=== PATIENT | male | born 1970 | race Caucasian/White ===

== ENCOUNTER 2022-08-20 17:34 | Inpatient (IN) ==
[~2022-08-20 17:34] MED LIST: ETOMIDATE 2 MG/ML 20 ML VIAL IV ONE; MIDAZOLAM HCL 5 MG/ML VIAL IV ONE; ROCURONIUM BROMIDE 10 MG/ML 5 ML VIAL IV ONE; SUCCINYLCHOLINE CHLORIDE 20 MG/ML 10 ML VIAL IV ONE; fentaNYL citrate 100 MCG/2 ML VIAL IV ONE
[2022-08-20] MEDS ORDERED: SODIUM CHLORIDE 0.9% 1000ML 1,000 ML IV SCH ×2 (18:30→21:43)
[2022-08-20 18:31] LABS: Hematocrit (blood only) 48.4 % (40.1-51.0); Hemoglobin 17.2 g/dl (14.0-18.0); Mean Corpuscular Hemoglobin 33.2 pg (25.0-34.0); Mean Corpuscular Hgb Conc 35.5 g/dL (32.0-36.0); Mean Corpuscular Volume 93.4 fL (80.0-100.0); Mean Platelet Volume 11.3 fL (9.4-12.4); Platelet Count 170 K/uL (130-400); RDW Coefficient of Variation 12.4 % (11.5-14.5); RDW Standard Deviation 42.6 fL (36.4-46.3); Red Blood Count 5.18 M/uL (4.63-6.08); White Blood Count 9.73 K/ul (4.8-10.8)
[2022-08-20] MEDS ORDERED: ONDANSETRON INJ 2 MG/ML 2 ML VIAL IV STA ×2 (18:33→20:50)
--- NOTE | 2022-08-20 18:36 | Emergency Department Note ---
Impression & Plan Syncope and collapse, Non-ST elevation MA (NSTEMI), Acute hyponatremia, Acute hypokalemia, JUAN (acute kidney injury), Elevated lactic acid level, Elevated procalcitonin, Alcohol withdrawal, Acute respiratory failure with hypoxia, Chest pain ED Provider Note HISTORY OF PRESENT ILLNESS: Patient is a 52-year-old male presenting with shortness of breath, chest pain, nausea and vomiting for the last few days. Patient states that today he was going into his bathroom when he had a syncopal episode. He woke up from a syncopal episode and called 911 because he could not breathe. Patient reports that chest pain is substernal in nature without any radiation. He states he has been feeling progressively more short of breath over the last few days. He has not seen a doctor in a number of years. He is a prior 2 pack/day smoker and is down to less than 1 pack a day. He is also a chronic alcoholic and drinks around 18 beers a day, but states that in the last 4 days he is only been drinking around 4 beers. He states that he has woken up feeling very tremulous in the last few days. Denies taking any medications or anticoagulants. He denies striking his head when he fell. Reports having chest pain and feeling short of breath prior to passing out on the bathroom floor. Denies waking up with any bowel or bladder incontinence. Denies any pain on arrival to the ER. Per report, the patient saturations were in the 70s on room air and he was started on a nonrebreather with EMS in route with improvement of his saturations to the low 90s. Patient denies any fevers in the last few days. ROS: Constitutional: No fever, chills, or weakness Skin: No rash or diaphoresis HENT: No headaches or congestion Eyes: No vision changes Cardio: No palpitations or leg swelling +chest pain Respiratory: No cough, wheezing +shortness of breath GI: No diarrhea, constipation +nausea; +vomiting : No dysuria, polyuria MSK: No joint or back pain Neuro: No loss of sensation, confusion, focal deficits, numbness, tingling Psychiatric: No mood changes PHYSICAL EXAM: Constitutional: Patient appears in mild distress. Chronically ill appearing HENT: Head: Normocephalic and atraumatic. Eyes: EOMI, PERRL Mouth/Throat: Mucous membranes moist. Neck: Trachea midline. Neck supple. Cardiovascular: Tachycardic with regular rhythm. No murmurs, rubs or gallops. Intact distal pulses. Pulmonary/Chest: No respiratory distress. Breath sounds clear and equal bilaterally. No wheezes or rales. Abdominal: BS +. Abdomen soft, no tenderness, rebound or guarding. Back: No midline spinal tenderness, no paraspinal tenderness, no CVA tenderness. Musculoskeletal: No edema, tenderness or deformity noted. Skin: Warm and dry. No rash, erythema, pallor or cyanosis Psychiatric: Appropriate mood and affect for situation. Neurological: Alert and keenly responsive. CN II-XII grossly intact, moving all extremities equally and fully. Patient tremulous on exam. MDM: - Vitals signs showed tachycardia, tachypnea, hypoxia. Patient started on supplemental oxygen. - Actively vomiting on exam and given 4 mg IV zofran. - EKG negative for acute ischemic changes. Shows sinus tachycardia. - Patient tremulous on exam. Alcohol withdrawal score performed and indicates patient needs 2 mg IV ativan, per protocol. Given 2 mg IV ativan. - Laboratory workup showed normal WBC; hyponatremia (Na 124 - likely secondary to alcohol use); hypokalemia (K 2.9); JUAN (Cr 2.54 - unknown baseline); elevated lactate (7.5); elevated troponin (70); elevated procalcitonin (9.66); normal magnesium - ABG shows alkalosis. - COVID/flu/RSV negative. - CXR negative for acute pathology - noted to have significant emphysema. - Blood cultures obtained. Patient given IV cefepime. MRSA nasal swab ordered. - Patient required further ativan in ER for withdrawal symptoms. - Repeat EKG shows no evidence of ischemic changes, but poor baseline. - Delta troponin ordered. - Patient given 2L NS. Given an additional 4 mg IV zofran for nausea. - CT head wo contrast negative for acute intracranial pathology. - Hospitalist Dr. Yan, consulted for admission. - Patient admitted to [facility] hospitalist service for further evaluation and management. ASSESSMENT AND PLAN: Diagnosis: syncope; NSTEMI; hyponatremia; hypokalemia; JUAN; elevated lactate; elevated procalcitonin; alcohol withdrawal; acute hypoxic respiratory failure; chest pain Plan: admit I provided 45 minutes of critical care time separate of any billable procedures. Past Med/Surg History Social History Smoking Status: Heavy tobacco smoker Tobacco Type: Cigarettes Feels Safe at Home: Yes Allergies Allergies Allergy/AdvReac Type Severity Reaction Status Date / Time No Known Allergies Allergy Unverified 08/20/22 19:05 Home Meds Home Medications Medication Instructions Recorded Confirmed No Known Home Medications 08/20/22 08/20/22 Results & Data (ED) Vital Signs Vital Signs - 24 hr 08/20/22 17:56 08/20/22 17:56 08/20/22 17:56 Temperature 36.2 C L Temperature Source Oral Pulse Rate 138 H Pulse Rate [Apical] Pulse Rate from SpO2 Sensor Pulse Rhythm Regular Pulse Rhythm [Apical] Pulse Strength Normal Pulse Strength [Apical] Respiratory Rate 36 H Respiratory Effort / Characteristics Labored Labored Respiratory Depth Shallow Respiratory Pattern Tachypnea Tachypnea Blood Pressure 126/62 Blood Pressure [Right Arm] Blood Pressure Mean 83 Blood Pressure Mean [Right Arm] Blood Pressure Position Lying Blood Pressure Position [Right Arm] Pulse Oximetry 86 L Oxygen Delivery Method Room Air Room Air Room Air Oxygen Flow Rate Sepsis Recent Fever Within 48 Hours No Sepsis New/Unexplained Change in Mental Status No Sepsis Action Taken by Nursing Physician Notified 08/20/22 17:56 08/20/22 18:18 08/20/22 18:18 Temperature Temperature Source Pulse Rate 136 H Pulse Rate [Apical] 137 H 136 H Pulse Rate from SpO2 Sensor Pulse Rhythm Regular Pulse Rhythm [Apical] Regular Regular Pulse Strength Pulse Strength [Apical] Normal Normal Respiratory Rate 34 H 32 H 32 H Respiratory Effort / Characteristics Labored Labored Respiratory Depth Shallow Shallow Respiratory Pattern Tachypnea Tachypnea Blood Pressure Blood Pressure [Right Arm] 122/60 173/147 H Blood Pressure Mean Blood Pressure Mean [Right Arm] 80 155 Blood Pressure Position Blood Pressure Position [Right Arm] Lying Lying Pulse Oximetry 86 L 87 L 87 L Oxygen Delivery Method Room Air Nasal Cannula Nasal Cannula Oxygen Flow Rate 3 3 Sepsis Recent Fever Within 48 Hours Sepsis New/Unexplained Change in Mental Status Sepsis Action Taken by Nursing 08/20/22 19:01 08/20/22 19:55 08/20/22 20:01 Temperature Temperature Source Pulse Rate 137 H 132 H 132 H Pulse Rate [Apical] Pulse Rate from SpO2 Sensor 131 H Pulse Rhythm Pulse Rhythm [Apical] Pulse Strength Pulse Strength [Apical] Respiratory Rate 25 H 38 H 37 H Respiratory Effort / Characteristics Respiratory Depth Respiratory Pattern Blood Pressure 187/152 H 146/111 H 99/50 L Blood Pressure [Right Arm] Blood Pressure Mean 163 122 66 Blood Pressure Mean [Right Arm] Blood Pressure Position Blood Pressure Position [Right Arm] Pulse Oximetry 94 98 96 Oxygen Delivery Method Nasal Cannula Oxymask Oxymask Oxygen Flow Rate 5 5 4 Sepsis Recent Fever Within 48 Hours Sepsis New/Unexplained Change in Mental Status Sepsis Action Taken by Nursing Laboratory Data Result diagrams: 08/20/22 17:50 08/20/22 17:50 Lab Results 08/20/22 08/20/22 08/20/22 Range/Units 17:50 17:50 17:50 WBC 9.73 (4.8-10.8) K/ul RBC 5.18 (4.63-6.08) M/uL Hgb 17.2 (14.0-18.0) g/dl POC Hgb (14.0-18.0) g/dl Hct 48.4 (40.1-51.0) % POC Hct (42-52) % MCV 93.4 (80.0-100.0) fL MCH 33.2 (25.0-34.0) pg MCHC 35.5 (32.0-36.0) g/dL RDW Std Deviation 42.6 (36.4-46.3) fL RDW Coeff of Tessy 12.4 (11.5-14.5) % Plt Count 170 (130-400) K/uL MPV 11.3 (9.4-12.4) fL Immature Gran % (Auto) 0.3 % Neut % (Auto) 84.0 % Lymph % (Auto) 5.0 % Shelby % (Auto) 8.9 % Eos % (Auto) 1.0 % Baso % (Auto) 0.8 % Neut # (Auto) 8.16 H (1.4-6.5) K/uL Lymph # (Auto) 0.49 L (1.2-3.4) K/uL Shelby # (Auto) 0.87 H (0.24-0.82) K/uL Eos # (Auto) 0.10 (0-0.50) K/uL Baso # (Auto) 0.08 (0-0.2) K/uL Immature Gran # (Auto) 0.03 H (0.00-0.02) K/uL PT 11.1 (9.0-12.0) Seconds INR 1.0 (0.9-1.1) POC pH (7.35-7.45) POC pCO2 (35-46) mmHg POC pO2 (80-95) mmHg POC HCO3 (19-24) len/L POC Total CO2 (24-31) mmol/L POC Base Excess (-9-1.8) len/L POC ABG O2 Sat (90-95) % POC Sodium (135-144) mmol/L Sodium 124 L (136-145) mmol/L POC Potassium (3.3-5.0) mmol/L Potassium 2.9 L (3.5-5.1) mmol/L Chloride 77 L (98-107) mmol/L Carbon Dioxide 21 (21-32) mmol/L Anion Gap 26 H (3-11) BUN 21 (6-23) mg/dl Creatinine 2.54 H (0.6-1.4) mg/dl Est Cr Clr Drug Dosing 34.3 ml/min Est GFR ( Amer) 32.6 ml/min Est GFR (Non-Af Amer) 28.1 ml/min BUN/Creatinine Ratio 8.3 L (10-20) Glucose 151 H (70-99(Fasting)) mg/dl Osmolality (280-300) mOsm/kg Lactate (0.4-2.0) mmol/L Calcium 10.0 (8.5-10.1) mg/dl Magnesium 1.8 (1.7-2.4) mg/dl Total Bilirubin 1.5 H (0.2-1.0) mg/dl Direct Bilirubin 0.3 H (0-0.2) mg/dl AST 81 H (13-39) U/L ALT 56 H (7-52) U/L Alkaline Phosphatase 42 (34-104) U/L Troponin I High Sens 70.0 H* (0-20) pg/ml Total Protein 8.3 (6.0-8.3) gm/dl Albumin 4.5 (3.4-5.0) gm/dl Procalcitonin (0-0.5) ng/ml SARS-CoV-2 (PCR) (Negative) Influenza Type A (PCR) (Neg) Influenza Type B (PCR) (Neg) RSV (RT-PCR) (Neg) 08/20/22 08/20/22 08/20/22 Range/Units 17:50 17:50 18:25 WBC (4.8-10.8) K/ul RBC (4.63-6.08) M/uL Hgb (14.0-18.0) g/dl POC Hgb (14.0-18.0) g/dl Hct (40.1-51.0) % POC Hct (42-52) % MCV (80.0-100.0) fL MCH (25.0-34.0) pg MCHC (32.0-36.0) g/dL RDW Std Deviation (36.4-46.3) fL RDW Coeff of Tessy (11.5-14.5) % Plt Count (130-400) K/uL MPV (9.4-12.4) fL Immature Gran % (Auto) % Neut % (Auto) % Lymph % (Auto) % Shelby % (Auto) % Eos % (Auto) % Baso % (Auto) % Neut # (Auto) (1.4-6.5) K/uL Lymph # (Auto) (1.2-3.4) K/uL Shelby # (Auto) (0.24-0.82) K/uL Eos # (Auto) (0-0.50) K/uL Baso # (Auto) (0-0.2) K/uL Immature Gran # (Auto) (0.00-0.02) K/uL PT (9.0-12.0) Seconds INR (0.9-1.1) POC pH (7.35-7.45) POC pCO2 (35-46) mmHg POC pO2 (80-95) mmHg POC HCO3 (19-24) len/L POC Total CO2 (24-31) mmol/L POC Base Excess (-9-1.8) len/L POC ABG O2 Sat (90-95) % POC Sodium (135-144) mmol/L Sodium (136-145) mmol/L POC Potassium (3.3-5.0) mmol/L Potassium (3.5-5.1) mmol/L Chloride (98-107) mmol/L Carbon Dioxide (21-32) mmol/L Anion Gap (3-11) BUN (6-23) mg/dl Creatinine (0.6-1.4) mg/dl Est Cr Clr Drug Dosing ml/min Est GFR ( Amer) ml/min Est GFR (Non-Af Amer) ml/min BUN/Creatinine Ratio (10-20) Glucose (70-99(Fasting)) mg/dl Osmolality 272 L (280-300) mOsm/kg Lactate (0.4-2.0) mmol/L Calcium (8.5-10.1) mg/dl Magnesium (1.7-2.4) mg/dl Total Bilirubin (0.2-1.0) mg/dl Direct Bilirubin (0-0.2) mg/dl AST (13-39) U/L ALT (7-52) U/L Alkaline Phosphatase (34-104) U/L Troponin I High Sens (0-20) pg/ml Total Protein (6.0-8.3) gm/dl Albumin (3.4-5.0) gm/dl Procalcitonin 9.66 H (0-0.5) ng/ml SARS-CoV-2 (PCR) NEGATIVE (Negative) Influenza Type A (PCR) Negative (Neg) Influenza Type B (PCR) Negative (Neg) RSV (RT-PCR) Negative (Neg) 08/20/22 08/20/22 Range/Units 18:53 18:56 WBC (4.8-10.8) K/ul RBC (4.63-6.08) M/uL Hgb (14.0-18.0) g/dl POC Hgb 16.7 (14.0-18.0) g/dl Hct (40.1-51.0) % POC Hct 49 (42-52) % MCV (80.0-100.0) fL MCH (25.0-34.0) pg MCHC (32.0-36.0) g/dL RDW Std Deviation (36.4-46.3) fL RDW Coeff of Tessy (11.5-14.5) % Plt Count (130-400) K/uL MPV (9.4-12.4) fL Immature Gran % (Auto) % Neut % (Auto) % Lymph % (Auto) % Shelby % (Auto) % Eos % (Auto) % Baso % (Auto) % Neut # (Auto) (1.4-6.5) K/uL Lymph # (Auto) (1.2-3.4) K/uL Shelby # (Auto) (0.24-0.82) K/uL Eos # (Auto) (0-0.50) K/uL Baso # (Auto) (0-0.2) K/uL Immature Gran # (Auto) (0.00-0.02) K/uL PT (9.0-12.0) Seconds INR (0.9-1.1) POC pH 7.46 H (7.35-7.45) POC pCO2 26 L (35-46) mmHg POC pO2 64 L (80-95) mmHg POC HCO3 19 (19-24) len/L POC Total CO2 19 L (24-31) mmol/L POC Base Excess -5.0 (-9-1.8) len/L POC ABG O2 Sat 94.0 (90-95) % POC Sodium 124 L (135-144) mmol/L Sodium (136-145) mmol/L POC Potassium 3.0 L (3.3-5.0) mmol/L Potassium (3.5-5.1) mmol/L Chloride (98-107) mmol/L Carbon Dioxide (21-32) mmol/L Anion Gap (3-11) BUN (6-23) mg/dl Creatinine (0.6-1.4) mg/dl Est Cr Clr Drug Dosing ml/min Est GFR ( Amer) ml/min Est GFR (Non-Af Amer) ml/min BUN/Creatinine Ratio (10-20) Glucose (70-99(Fasting)) mg/dl Osmolality (280-300) mOsm/kg Lactate 7.5 H* (0.4-2.0) mmol/L Calcium (8.5-10.1) mg/dl Magnesium (1.7-2.4) mg/dl Total Bilirubin (0.2-1.0) mg/dl Direct Bilirubin (0-0.2) mg/dl AST (13-39) U/L ALT (7-52) U/L Alkaline Phosphatase (34-104) U/L Troponin I High Sens (0-20) pg/ml Total Protein (6.0-8.3) gm/dl Albumin (3.4-5.0) gm/dl Procalcitonin (0-0.5) ng/ml SARS-CoV-2 (PCR) (Negative) Influenza Type A (PCR) (Neg) Influenza Type B (PCR) (Neg) RSV (RT-PCR) (Neg) Administered Medications Potassium Chloride (K Bernardo / Wtr) 10 meq in 100 mls @ 100 mls/hr IV Q1H JOMAR; Protocol Stop: 08/20/22 21:44 Last Admin: 08/20/22 20:05 Dose: 100 mls/hr Documented By: ADAMA Discontinued Medications Aspirin (Aspirin Chew 324 Mg) 324 mg PO NOW STA Stop: 08/20/22 19:47 Last Admin: 08/20/22 20:08 Dose: 324 mg Documented By: ADAMA Sodium Chloride (Nss 1000ml) 1,000 mls @ 999 mls/hr IV .Q1H1M JOMAR Stop: 08/20/22 19:30 Last Infusion: 08/20/22 19:41 Dose: 0 mls/hr Documented By: Admin: 08/20/22 18:22 Dose: 999 mls/hr Documented By: MELISSA Cefepime HCl (Maxipime) 2,000 mg in 20 mls @ 5 mls/min IV NOW STA; Protocol Stop: 08/20/22 18:58 Last Admin: 08/20/22 19:04 Dose: 5 mls/min Documented By: ADAMA Sodium Chloride (Nss 1000ml) 1,000 mls @ 999 mls/hr IV .Q1H1M ONE Stop: 08/20/22 20:35 Last Admin: 08/20/22 20:05 Dose: 999 mls/hr Documented By: ADAMA Lorazepam 3 mg/ Syringe 3 mls @ 2 mls/min IV ONCE PRN; Protocol PRN Reason: EtOH Withdrawal AWSS Score 10 & above Last Admin: 08/20/22 20:07 Dose: 2 mls/min Documented By: ADAMA Lorazepam (Lorazepam 1 Mg/1 Ml Syr) 1 mg IM NOW STA; Protocol Stop: 08/20/22 18:48 Last Admin: 08/20/22 19:44 Dose: Not Given Documented By: ADAMA Lorazepam (Lorazepam 1 Mg/1 Ml Syr) 2 mg IV NOW STA; Protocol Stop: 08/20/22 18:55 Last Admin: 08/20/22 19:04 Dose: 2 mg Documented By: ADAMA Ondansetron HCl (Ondansetron Inj 2 Mg/Ml 2 Ml Vial) 4 mg IV NOW STA Stop: 08/20/22 18:34 Last Admin: 08/20/22 18:37 Dose: 4 mg Documented By: MELISSA Ondansetron HCl (Ondansetron Inj 2 Mg/Ml 2 Ml Vial) 4 mg IV NOW STA Stop: 08/20/22 20:51 Last Admin: 08/20/22 21:07 Dose: 4 mg Documented By: ADAMA Imaging Data Radiologist's Impression: Chest X-Ray 08/20/22 18:18 SINGLE VIEW CHEST CLINICAL HISTORY: Sepsis. FINDINGS: An AP, portable, upright chest radiograph is correlated with chest CT dated 03/19/2013. The cardiomediastinal silhouette is top normal for projection noting atherosclerotic calcification of the thoracic aorta. Emphysema and chronic interstitial thickening is similar to previous. There is elevation of the left hemidiaphragm with atelectasis of the left lower lung. There is minimal atelectasis at the right lung base. No large pleural effusion or pneumothorax is seen. The skeletal structures are osteopenic. The bony thorax is grossly intact. IMPRESSION: 1. Emphysematous change with no acute cardiopulmonary abnormality identified. 2. Elevation of the left hemidiaphragm with atelectasis of the left lower lung represents a change from 2012. ACT 112: Negative or not required by law. Electronically signed by: Rajinder Borden M.D. 08/20/2022 6:[address] 08/20/22 18:36 CT SCAN OF THE BRAIN WITHOUT IV CONTRAST CLINICAL HISTORY: Syncope. Alcohol abuse. COMPARISON STUDY: CT of the brain dated 03/19/2013. TECHNIQUE: Unenhanced axial CT scan of the brain is performed from the vertex to the skull base. A dose lowering technique was utilized adhering to the principles of ALARA. CT DOSE: 614.27 mGy.cm FINDINGS: Brain parenchyma: There is age-advanced involutional change noting moderate subcortical and periventricular microangiopathic disease. There is no hemorrhage, mass effect, or evidence of acute territorial ischemia by CT criteria. Rm-white matter differentiation is preserved. No extra-axial fluid collection is seen. Ventricles, sulci, cisterns: Prominent secondary to involutional change. Intracranial vasculature: There is atherosclerotic calcification of the cavernous carotid arteries. Calvarium: The skeletal structures are osteopenic. No depressed calvarial fracture is seen. Sinuses and mastoids: There is subtotal opacification of the maxillary antra. The remaining Paranasal sinuses are clear. The mastoid air cells are well pneumatized. Orbits: The bony orbits are grossly intact. IMPRESSION: 1. There is no hemorrhage, mass effect, or evidence of acute territorial ischemia by CT criteria. 2. Maxillary sinus disease as above. ACT 112: Negative or not required by law. Electronically signed by: Rajinder Borden M.D. 08/20/2022 8:58 PM Discharge Plan Visit Data Chief Complaint: Shortness of Breath/Dyspnea Stated Complaint: HYPOXIA, CHEST PAIN ED Provider: Ary Garcia Discharge Problem: Syncope and collapse, Non-ST elevation MA (NSTEMI), Acute hyponatremia, Acute hypokalemia, JUAN (acute kidney injury), Elevated lactic acid level, Elevated pr ocalcitonin, Alcohol withdrawal, Acute respiratory failure with hypoxia, Chest pain Patient Disposition: Admitted As Inpatient Forms [facility] Prescriptions Prescriptions: No Action No Known Home Medications Referrals Referrals: PCP,NO [Physician] -
[2022-08-20 18:41] LABS: Prothrombin Time 11.1 Seconds (9.0-12.0)
[2022-08-20 18:42] LABS: Albumin Level 4.5 gm/dl (3.4-5.0); BUN Creatinine Ratio 8.3 (10-20); Bilirubin Direct 0.3 mg/dl (0-0.2); Bilirubin,Total 1.5 mg/dl (0.2-1.0); Creatinine Clr Calc Pharmacy 34.3 ml/min; Est GFR (African American) 32.6 ml/min; Est GFR (Non-African American) 28.1 ml/min; Magnesium 1.8 mg/dl (1.7-2.4); Potassium 2.9 mmol/L (3.5-5.1); Total Protein 8.3 gm/dl (6.0-8.3)
[2022-08-20] MEDS ORDERED: LORazepam 1 MG/1 ML SYR IM STA (18:47)
[2022-08-20 18:50] LABS: Basophils # (auto) 0.08 K/uL (0-0.2); Basophils % (auto) 0.8 %; Immature Granulocytes # (auto) 0.03 K/uL (0.00-0.02); Immature Granulocytes % (auto) 0.3 %; Lymphocytes # (auto) 0.49 K/uL (1.2-3.4); Monocytes # (auto) 0.87 K/uL (0.24-0.82); Monocytes % (auto) 8.9 %; Neutrophils # (auto) 8.16 K/uL (1.4-6.5)
[2022-08-20] MEDS ORDERED: LORazepam 1 MG/1 ML SYR IV STA ×2 (18:54→21:28)
[2022-08-20] MEDS ORDERED: CEFEPIME 2,000 MG/20 ML VIAL IV STA (18:55)
--- NOTE | 2022-08-20 18:59 | XRay Report ---
SINGLE VIEW CHEST CLINICAL HISTORY: Sepsis. FINDINGS: An AP, portable, upright chest radiograph is correlated with chest CT dated 03/19/2013. The cardiomediastinal silhouette is top normal for projection noting atherosclerotic calcification of the thoracic aorta. Emphysema and chronic interstitial thickening is similar to previous. There is eleva tion of the left hemidiaphragm with atelectasis of the left lower lung. There is minimal atelectasis at the right lung base. No large pleural effusion or pneumothorax is seen. The skeletal structures ar e osteopenic. The bony thorax is grossly intact. IMPRESSION: 1. Emphysematous change with no acute cardiopulmonary abnormality identified. 2. Elevation of the left hemidiaphragm with atelectasis of the left lower lung represents a change fr om 2013. ACT 112: Negative or not required by law. Electronically signed by: Rajinder Borden M.D. 08/20/2022 6:58 PM
[2022-08-20 19:07] LABS: iSTAT Arterial Blood Gas HCO3 19 meg/L (19-24); iSTAT Arterial Blood Gas pCO2 26 mmHg (35-46); iSTAT Arterial Blood Gas pH 7.46 (7.35-7.45); iSTAT Arterial Blood Gas pO2 64 mmHg (80-95); iSTAT Carbon Dioxide 19 mmol/L (24-31); iSTAT Hematocrit 49 % (42-52); iSTAT Hemoglobin 16.7 g/dl (14.0-18.0); iSTAT Sodium 124 mmol/L (135-144)
[2022-08-20 19:10] LABS: Influenza A virus by PCR Negative (Neg); Influenza B virus by PCR Negative (Neg); RSV by PCR Negative (Neg); SARS CoV2 RNA(COVID-19) Ceph NEGATIVE (Negative)
[2022-08-20] MEDS ORDERED: SODIUM CHLORIDE 0.9% 1000ML 1,000 ML IV ONE (19:35)
[2022-08-20] MEDS ORDERED: ASPIRIN CHEW 324 MG PO STA (19:46)
[2022-08-20] MEDS ORDERED: Ativan IV Alcohol Withdrawal--Active Protocol IV PRN (19:56)
[2022-08-20] MEDS ORDERED: LORazepam 1 MG in SYRINGE 0 ML IV PRN (19:56)
[2022-08-20] MEDS ORDERED: LORazepam 3 MG in SYRINGE 0 ML IV PRN (19:56)
[2022-08-20] MEDS ORDERED: LORazepam 2 MG in SYRINGE 0 ML IV PRN (19:56)
[2022-08-20] MEDS ORDERED: MULTI-VITAMIN INFUSION 10 ML, THIAMINE HCL 100 MG, FOLIC ACID 1 MG in SODIUM CHLORIDE 0... IV ONE (19:56)
[2022-08-20] MEDS: POTASSIUM CHLORIDE / WTR 10 MEQ/100 ML PLCT IV SCH ×2 (20:05→21:35)
--- NOTE | 2022-08-20 21:00 | CT Scan Report ---
CT SCAN OF THE BRAIN WITHOUT IV CONTRAST CLINICAL HISTORY: Syncope. Alcohol abuse. COMPARISON STUDY: CT of the brain dated 03/19/2013. TECHNIQUE: Unenhanced axial CT scan of the brain is performed from the vertex to the skull base. A do se lowering technique was utilized adhering to the principles of ALARA. CT DOSE: 614.27 mGy.cm FINDINGS: Brain parenchyma: There is age-advanced involutional change noting moderate subcortical and periventr icular microangiopathic disease. There is no hemorrhage, mass effect, or evidence of acute territoria l ischemia by CT criteria. Rm-white matter differentiation is preserved. No extra-axial fluid colle ction is seen. Ventricles, sulci, cisterns: Prominent secondary to involutional change. Intracranial vasculature: There is atherosclerotic calcification of the cavernous carotid arteries. Calvarium: The skeletal structures are osteopenic. No depressed calvarial fracture is seen. Sinuses and mastoids: There is subtotal opacification of the maxillary antra. The remaining Paranasal sinuses are clear. The mastoid air cells are well pneumatized. Orbits: The bony orbits are grossly intact. IMPRESSION: 1. There is no hemorrhage, mass effect, or evidence of acute territorial ischemia by CT criteria. 2. Maxillary sinus disease as above. ACT 112: Negative or not required by law. Electronically signed by: Rajinder Borden M.D. 08/20/2022 8:58 PM
[2022-08-20] MEDS ORDERED: LORazepam 1 MG/1 ML SYR ONE (21:31)
[2022-08-20 21:45] LABS: Acetaminophen < 3 ug/ml (10-30); Salicylate < 3.0 mg/dl (3.0-30)
[2022-08-20] MEDS ORDERED: PROPOFOL IV EMULSION 10 MG/ML 100 ML VIAL IV ONE (22:01)
[2022-08-20] MEDS ORDERED: RAPID SEQUENCE INDUCTION BAG ONE (22:01)
--- NOTE | 2022-08-20 22:17 | History & Physical Report ---
Date of Service August 20, 2022 Assessment & Plan (1) Acute respiratory failure with hypoxia: Plan: Acute respiratory failure with hypoxia/aspiration pneumonia- Intubated while in the ED Vancomycin IV per pharmacokinetic monitoring Zosyn 4.5 g IV every 8 hours DuoNebs every 4 hours as needed Serial ABGs Of note, patient was negative for COVID, influenza and RSV while in the ED Further management per ICU staff (2) Non-ST elevation [place] (NSTEMI): Plan: Troponin 70.0, then increased to 113.0 Likely supply demand mismatch type II Order echocardiogram to further assess and follow enzymes serially (3) Alcohol abuse: Plan: Initially placed on AWSS protocol while in ED, however, patient's symptoms progressed rapidly while receiving IV lorazepam. Patient will be taken to the ICU and placed on Precedex for better control (4) Syncope and collapse: Plan: Patient reports unwitnessed episode of syncope and collapse while in his bathroom at home. Multiple possibilities including seizure related, dehydration, cardiac, acidosis, others (5) Acute hyponatremia: Plan: Sodium 124 upon admission Likely associated with beer [place] Serum and urine osmolalities are pending NSS boluses to maintain pressure and for maintenance Follow laboratory serially in a.m. (6) Acute hypokalemia: Plan: Potassium 2.9 upon admission Replace gently with IV, recheck laboratories in a.m. (7) Renal insufficiency: Plan: Creatinine 2.54 upon admission, with no baseline Repeat laboratories as he is further hydrated, the find out his ultimate baseline (8) Alcohol withdrawal: Plan: As above History of Present Illness Chief Complaint: The patient presents to the emergency department after having called 911 due to a syncopal episode while he was in the bathroom, and when he awoke he could not breathe. He complains of shortness of breath, chest pain, nausea and vomiting for the last few days. He has history of significant tobacco use, averaging 2 packs/day but has now decreased to 1 pack/day. He has a history of alcoholism, and from 5 days ago decreased his intake from 18 beers a day to 4 beers a day. He has not done this type of abrupt taper in the past, and reports significant tremors developing over the past 24 hours. Primary Care Provider: Elliot Elise MD The patient is a 52-year-old male with a past medical history including alcoholism, and has not seen a physician regularly in years. He presents to the emergency department as noted above. While in the emergency department, patient vomited, likely aspirated as he required increasing to 6 to 8 L mask to bring pulse ox from low 80s to 90%. He appeared to go through more significant withdrawal and worsening tremors in spite of having received several milligrams of lorazepam IV in the ED. Discussion was made with ICU staff, and with patient, and it was felt the best plan would be to have the patient be intubated due to worsening respiratory status, and worsening alcohol withdrawal that was not responding well to IV lorazepam. The patient was intubated by Dr. Garcia while in ED, and was then transferred to the ICU for ongoing care Allergies Allergy/AdvReac Type Severity Reaction Status Date / Time No Known Allergies Allergy Unverified 08/20/22 19:05 Home Medications Medication Instructions Recorded Confirmed Type No Known Home Medications 08/20/22 08/20/22 History Past Med/Surg History Social History Smoking Status: Heavy tobacco smoker Tobacco Type: Cigarettes Feels Safe at Home: Yes Review of Systems Review of Systems: Difficult to obtain due to patient's mental state. Physical Exam Physical Exam: The patient is awake, became more lethargic and disoriented, normocephalic and atraumatic, lying in bed and in moderate distress. HEENT--PERRL, EOMI, mucous membranes and oropharynx dry. Neck--supple. No JVD. No bruits. Thyroid normal, trachea midline, no adenopathy. Heart--normal S1 and S2. No murmurs, rubs or gallops. Lungs--coarse breath sounds at the bases bilaterally. Worsening mild to moderate respiratory distress with mild accessory muscle use. Abdomen--normal bowel sounds and soft. Nontender. Nondistended, no hernias or masses, no organomegaly. Extremities--no cyanosis or clubbing. No edema. Dermatologic--normal skin turgor, normal color, no abnormal lymph nodes, no rash. Neurologic--exam limited by worsening tremors while in the ED, but moving all extremities equally well Rheumatologic--limited exam Psychiatric--becoming more lethargic. Results & Data Results & Data ([facility]) Vital Signs (Past 12 Hours) Vital Signs Temp Pulse Pulse Resp BP BP Pulse Ox 08/20/22 21:02 128 H 36 H 101/82 91 08/20/22 20:01 132 H 37 H 99/50 L 96 08/20/22 19:55 132 H 38 H 146/111 H 98 08/20/22 19:01 137 H 25 H 187/152 H 94 08/20/22 18:18 136 H 32 H 173/147 H 87 L 08/20/22 18:18 136 H 32 H 87 L 08/20/22 17:56 137 H 34 H 122/60 86 L 08/20/22 17:56 08/20/22 17:56 08/20/22 17:56 36.2 C L 138 H 36 H 126/62 86 L O2 Del Method O2 Flow Rate 08/20/22 21:02 Oxymask 6 08/20/22 20:01 Oxymask 4 08/20/22 19:55 Oxymask 5 08/20/22 19:01 Nasal Cannula 5 08/20/22 18:18 Nasal Cannula 3 08/20/22 18:18 Nasal Cannula 3 08/20/22 17:56 Room Air 08/20/22 17:56 Room Air 08/20/22 17:56 Room Air 08/20/22 17:56 Room Air Laboratory Results Laboratory Results WBC 9.73 K/ul (4.8-10.8) 08/20/22 17:50 RBC 5.18 M/uL (4.63-6.08) 08/20/22 17:50 Hgb 17.2 g/dl (14.0-18.0) 08/20/22 17:50 POC Hgb 16.7 g/dl (14.0-18.0) 08/20/22 18:53 Hct 48.4 % (40.1-51.0) 08/20/22 17:50 POC Hct 49 % (42-52) 08/20/22 18:53 MCV 93.4 fL (80.0-100.0) 08/20/22 17:50 MCH 33.2 pg (25.0-34.0) 08/20/22 17:50 MCHC 35.5 g/dL (32.0-36.0) 08/20/22 17:50 RDW Std Deviation 42.6 fL (36.4-46.3) 08/20/22 17:50 RDW Coeff of Tessy 12.4 % (11.5-14.5) 08/20/22 17:50 Plt Count 170 K/uL (130-400) 08/20/22 17:50 MPV 11.3 fL (9.4-12.4) 08/20/22 17:50 Immature Gran % (Auto) 0.3 % 08/20/22 17:50 Neut % (Auto) 84.0 % 08/20/22 17:50 Lymph % (Auto) 5.0 % 08/20/22 17:50 [place] % (Auto) 8.9 % 08/20/22 17:50 Eos % (Auto) 1.0 % 08/20/22 17:50 Baso % (Auto) 0.8 % 08/20/22 17:50 Neut # (Auto) 8.16 K/uL (1.4-6.5) H 08/20/22 17:50 Lymph # (Auto) 0.49 K/uL (1.2-3.4) L 08/20/22 17:50 [place] # (Auto) 0.87 K/uL (0.24-0.82) H 08/20/22 17:50 Eos # (Auto) 0.10 K/uL (0-0.50) 08/20/22 17:50 Baso # (Auto) 0.08 K/uL (0-0.2) 08/20/22 17:50 Immature Gran # (Auto) 0.03 K/uL (0.00-0.02) H 08/20/22 17:50 PT 11.1 Seconds (9.0-12.0) 08/20/22 17:50 INR 1.0 (0.9-1.1) 08/20/22 17:50 POC pH 7.46 (7.35-7.45) H 08/20/22 18:53 POC pCO2 26 mmHg (35-46) L 08/20/22 18:53 POC pO2 64 mmHg (80-95) L 08/20/22 18:53 POC HCO3 19 len/L (19-24) 08/20/22 18:53 POC Total CO2 19 mmol/L (24-31) L 08/20/22 18:53 POC Base Excess -5.0 len/L (-9-1.8) 08/20/22 18:53 POC ABG O2 Sat 94.0 % (90-95) 08/20/22 18:53 POC Sodium 124 mmol/L (135-144) L 08/20/22 18:53 Sodium 124 mmol/L (136-145) L 08/20/22 17:50 POC Potassium 3.0 mmol/L (3.3-5.0) L 08/20/22 18:53 Potassium 2.9 mmol/L (3.5-5.1) L 08/20/22 17:50 Chloride 77 mmol/L (98-107) L 08/20/22 17:50 Carbon Dioxide 21 mmol/L (21-32) 08/20/22 17:50 Anion Gap 26 (3-11) H 08/20/22 17:50 BUN 21 mg/dl (6-23) 08/20/22 17:50 Creatinine 2.54 mg/dl (0.6-1.4) H 08/20/22 17:50 Est Cr Clr Drug Dosing 34.3 ml/min 08/20/22 17:50 Est GFR ( Amer) 32.6 ml/min 08/20/22 17:50 Est GFR (Non-Af Amer) 28.1 ml/min 08/20/22 17:50 BUN/Creatinine Ratio 8.3 (10-20) L 08/20/22 17:50 Glucose 151 mg/dl (70-99(Fasting)) H 08/20/22 17:50 Osmolality 272 mOsm/kg (280-300) L 08/20/22 17:50 Lactate 3.5 mmol/L (0.4-2.0) H* 08/21/22 02:23 Calcium 10.0 mg/dl (8.5-10.1) 08/20/22 17:50 Magnesium 1.8 mg/dl (1.7-2.4) 08/20/22 17:50 Total Bilirubin 1.5 mg/dl (0.2-1.0) H 08/20/22 17:50 Direct Bilirubin 0.3 mg/dl (0-0.2) H 08/20/22 17:50 AST 81 U/L (13-39) H 08/20/22 17:50 ALT 56 U/L (7-52) H 08/20/22 17:50 Alkaline Phosphatase 42 U/L (34-104) 08/20/22 17:50 Troponin I High Sens 134.7 pg/ml (0-20) H* 08/21/22 00:38 Total Protein 8.3 gm/dl (6.0-8.3) 08/20/22 17:50 Albumin 4.5 gm/dl (3.4-5.0) 08/20/22 17:50 Lipase 139 U/L (11-82) H 08/21/22 00:38 Procalcitonin 9.66 ng/ml (0-0.5) H 08/20/22 17:50 Random Cortisol > 60.00 mcg/dl 08/21/22 00:38 Urine Color [place] 08/20/22 23:13 Urine Appearance Clear (Clear) 08/20/22 23:13 Urine pH 6.0 (4.5-7.5) 08/20/22 23:13 Ur Specific [place] 1.013 (1.000-1.030) 08/20/22 23:13 Urine Protein Trace (Negative) H 08/20/22 23:13 Urine Glucose (UA) Negative (Negative) 08/20/22 23:13 Urine Ketones Trace (Negative) H 08/20/22 23:13 Urine Blood Negative (Negative) 08/20/22 23:13 Urine Nitrite Positive (Negative) A 08/20/22 23:13 Urine Bilirubin Negative (Negative) 08/20/22 23:13 Urine Urobilinogen Negative (Negative) 08/20/22 23:13 Ur Leukocyte Esterase Negative (Negative) 08/20/22 23:13 Urine WBC (Auto) 1-5 /hpf (0-5) 08/20/22 23:13 Urine RBC (Auto) 5-10 /hpf (0-4) H 08/20/22 23:13 U Hyaline Cast (Auto) 1-5 /lpf (0-5) 08/20/22 23:13 U Epithel Cells (Auto) 10-20 /lpf (0-5) H 08/20/22 23:13 Urine Bacteria (Auto) Negative (Negative) 08/20/22 23:13 Nasal Screen MRSA (PCR) Positive (Negative) A 08/21/22 00:15 Salicylates < 3.0 mg/dl (3.0-30) L 08/20/22 21:11 Acetaminophen < 3 ug/ml (10-30) L 08/20/22 21:11 Ethyl Alcohol mg/dL < 10.0 mg/dl (<10.0) 08/20/22 20:59 SARS-CoV-2 (PCR) NEGATIVE (Negative) 08/20/22 18:25 Influenza Type A (PCR) Negative (Neg) 08/20/22 18:25 Influenza Type B (PCR) Negative (Neg) 08/20/22 18:25 RSV (RT-PCR) Negative (Neg) 08/20/22 18:[address] 08/20/22 18:36 CT SCAN OF THE BRAIN WITHOUT IV CONTRAST CLINICAL HISTORY: Syncope. Alcohol abuse. COMPARISON STUDY: CT of the brain dated 03/19/2013. TECHNIQUE: Unenhanced axial CT scan of the brain is performed from the vertex to the skull base. A dose lowering technique was utilized adhering to the principles of ALARA. CT DOSE: 614.27 mGy.cm FINDINGS: Brain parenchyma: There is age-advanced involutional change noting moderate subcortical and periventricular microangiopathic disease. There is no hemorrhage, mass effect, or evidence of acute territorial ischemia by CT criteria. Rm-white matter differentiation is preserved. No extra-axial fluid collection is seen. Ventricles, sulci, cisterns: Prominent secondary to involutional change. Intracranial vasculature: There is atherosclerotic calcification of the cavernous carotid arteries. Calvarium: The skeletal structures are osteopenic. No depressed calvarial fracture is seen. Sinuses and mastoids: There is subtotal opacification of the maxillary antra. The remaining Paranasal sinuses are clear. The mastoid air cells are well pneumatized. Orbits: The bony orbits are grossly intact. IMPRESSION: 1. There is no hemorrhage, mass effect, or evidence of acute territorial ischemia by CT criteria. 2. Maxillary sinus disease as above. ACT 112: Negative or not required by law. Electronically signed by: Rajinder Borden M.D. 08/20/2022 8:58 PM Chest X-Ray 08/20/22 22:56 SINGLE VIEW CHEST CLINICAL HISTORY: Respiratory failure. FINDINGS: 3 AP, portable, supine chest radiographs are compared to study performed earlier the same day 08/20/2022 and correlated with chest CT dated 03/19/2013. An endotracheal tube has been placed. The tip projects approximately 5.5 cm above the elia. An enteric tube has been placed. On the final image this projects below the diaphragm. The cardiomediastinal silhouette is top normal for projection noting atherosclerotic calcification of the thoracic aorta. There is pulmonary vascular congestion. Emphysema and chronic inters titial thickening is similar to previous. There is elevation of the left hemidiaphragm with extensive bibasilar airspace consolidation. This represents a significant change from previous. Small pleural effusions are noted. No pneumothorax is seen. The skeletal structures are osteopenic. The bony thorax is grossly intact. IMPRESSION: 1. Endotracheal and enteric tube placement as above. 2. Pulmonary vascular congestion. 3. Findings of bibasilar consolidation and small pleural effusions are new from today's earlier examination. This could represent pulmonary edema and/or pneumonia/aspiration pneumonitis. Clinical correlation will be required and radiographic follow-up to resolution is recommended. 4. Emphysema. ACT 112: Negative or not required by law. Electronically signed by: Rajinder Borden M.D. 08/20/2022 11:35 PM Code Status & VTE Plan Code Status Full code VTE Prophylaxis Plan VTE Prophylaxis will be ordered: Yes Critical Care Time 45 minutes
[2022-08-20] MEDS ORDERED: NOREPINEPHRINE/D5W 4 MG/250 ML IV ONE (22:27)
[2022-08-20] MEDS ORDERED: NSS + 20MEQ KCL 20 MEQ/1,000 ML BAG IV SCH (22:30)
[2022-08-20] MEDS ORDERED: fentaNYL citrate 100 MCG/2 ML VIAL ONE (22:32)
[2022-08-20] MEDS ORDERED: STAT IV Infusion **Titration per Protocol STA ×2 (23:02→23:03)
[2022-08-20] MEDS ORDERED: MIDAZOLAM HCL 125 MG/250 ML BAG IV SCH (23:15)
--- NOTE | 2022-08-20 23:21 | Critical Care Consultation ---
Date of Consultation August 20, 2022 Assessment & Plan (1) Alcohol withdrawal: (2) Alcohol abuse: (3) Syncope and collapse: (4) Elevated troponin: (5) Acute hyponatremia: (6) Acute hypokalemia: (7) JUAN (acute kidney injury): (8) Elevated procalcitonin: (9) Septic shock: Plan Reason Critically Ill: Intubated and sedated for aspiration in the setting of alcohol withdraw. Patient presented with ETOH withdraw symptoms that progressively worsened he aspirated multiple times with hypoxia and worsening imaging. He is also noted to meet SIRS criteria and infection can not completely be excluded. Patient will remain sedated and intubated will cover with benzodiazepines for ETOH withdraw. Meets sepsis criteria and can't rule this out as concomitant cause Start broad spectrum abx to cover aspiration pneumonia and his MRSA swab was positive. Patient did report his last drink was last week and he was trying to cut down before that, but with his mentation unable to fully account his recollection. ETOH level on admission is < 10.0 Neuro - Encephalopathy secondary to ETOH withdraw, Sedation for Mechanical Ventilation CAM ICU: Unable to assess For his withdraw as well as sedation for mechanical ventilation- place on Versed infusion and Precedex drip; Fentanyl prn - Thiamine 500mg IV q8 hour - Folic Acid 1mg IV daily - CT scan on admission negative for acute process following syncope - presented without seizures or other focal deficits - Daily awakenings with sedation holiday's follow neurological exams Cardiac - Septic shock, elevated Troponin Level, Syncope - Patient with tachycardia that is multifactorial to include hypovolemia, sepsis, and ETOH withdraw - Septic Shock - SIRS criteria with multiple sources to include lungs, GI, and skin, He does have an elevated lactate as well will volume resuscitate to 30ml per kg, further fluids per POCUS eval- currently appears adequately resuscitated, UO, and MAPS - Maintain MAPS >65 - Hypotension following induction and intubation- required course of Levophed- continue to wean but maintain MAPS >65 - Elevated HScTNI without STEMI changes- no comparison for ECGS and no complaints of chest pain- will trend HScTNI - ECHO in am - Hold on further anticoagulation other than VTE prophy Respiratory - Intubation, Aspiration pneumonia/pneumonitis, Abnormal CXR likely COPD - Patient with multiple episodes of emesis in the EMD as well as while intubating- broad spectrum abx - Lung protective ventilation strategy following ARDSnet. ETT advanced - Patient current smoker, COPD likely based on imaging- continue prn KASIA- no pft's available for review GI - Aspiration, Gastric dilation He is without blood in emesis, but is with large volume gastric secretions- continue with LIWS of NGT - KUB x1- gastric dilation - CT scan of abdomen/pelvis eval for any- bleed/ulcerations/mass/obstruction/volvus - Lipase pending - Protonix 40mg IV BID for GI prophylaxis with ETOH misuse, current smoker, NPO RENAL/LYTES - JUAN, hyponatremia, hypokalemia, AGAP - Likely JUAN unknown baseline, likely secondary to his volume status - replete electrolytes - hyponatremia- multifactorial with hypovolemia hyponatremia as well as likely related to chronic ETOH use- already received IV saline and banana bag so will not send urine and serum studies at this time - AGAP metabolic Acidosis with concomitant metabolic alkalosis- continue with volume resuscitation- AGAP is likely from his Lactic acidosis, alkalosis possibly contractile with gastropaeresis/obstrction - No acute needs - Continue with Larsen catheter ENDO - No acute needs ICU hyperglycemic protocol HEME - No acute needs ID - As above Zosysn, Linezolid already in place- continue these at this time - blood cultures pending, suptum culture on admission, urine culture - Marlyn source at this time is from Pulmonary with aspiration, GI, , possible skin - consider abdominal imaging if warranted- will start with KUB and lipase - Elevated PCT, MRSA nares positive LINES/IV ACCESS - PIV, ETT, Larsen, NGT Continue use of theese lines DVT PROPHYLAXIS - SCDS, Heparin 5000 units sub q DISPO- ICU while intubated Attempted to call family contact listed in chart- Brother Noe- no answer. Continue to try to reach in morning. I have personally spent 52 minutes of critical care time in the direct management of this patient. This is a life/limb threatening event. This includes time spent evaluating patient, direct bedside care, chart review, placing orders, interpretation of diagnostic studies, discussion with consultants, patient, and family members, as well as other required patient management activities. This time is exclusive of all separately billable procedures, and separate from and in addition to any other critical care service time. Thank you for allowing us to participate in the care of this patient. Please refer to my attending physician's documentation for any further recommendations. Supervising Physician Co-Signing Physician Notes Patient seen and examined. Discussed with critical care TALON. Agree with assessment plan as noted. Please refer to my progress note from 08/21/2022 for additional details. History of Present Illness Reason for Consultation: Intubated and Mechanically Ventilated for Hypoxic Respiratory Failure in the setting of ETOH withdrawl and aspiration Requesting Physician: Noe Rodrigues MD Attending Physician: Noe Yan MD History of Present Illness 52 YOM with no known medical history and no records in our system. Patient came to the EMD today via EMS. Patient reports that he has been trying to decrease his ETOH consumption and decreased his normal 18 beers a day down to reported 4 beers per day. Patient states that he started this on Monday. Reports that he has had some vomiting at home and feeling weak. Patient reportedly passed out in his bathroom and was able to get to the phone to call EMS. Patient was being evaluated in the EMD and in the process of being admitted patient had multiple episodes of emesis followed by hypoxia. This was also associated with worsening mentation, hallucinations, tremors. Patient originally was making sense with his stories, but quickly would become tangentia l and not making any sense. Initial Head CT was negative for acute process. He was cooperative and moving all his extremities. He was initially being treated for ETOH withdraw receiving 7mg Ativan without much effect and banana bag. He was intubated for aspiration and hypoxia as well as likely having a very complicated course of ETOH withdraw. He was noted to have an elevated Lactate in the EMD as well as elevated PCT. He was started on Cefepime. His MRSA swab was positive. Will transition to Zosyn and Linezolid. Patient remains tachycardic and requiring vasopressor support following intubation and sedation. Patient will be admitted to the ICU and will transition sedation over to Versed with Fentanyl boluses and Precedex. Continue with infectious workup sepsis appearing more as driving force at this time COVID/FLU/RSV: Negative on admission Allergies Allergy/AdvReac Type Severity Reaction Status Date / Time No Known Allergies Allergy Unverified 08/20/22 19:05 Home Medications Medication Instructions Recorded Confirmed Type No Known Home Medications 08/20/22 08/20/22 History Patient History Social History Smoking Status: Current every day smoker Tobacco Type: Cigarettes Cigarettes Per Day: 40; Hx Alcohol Use: Yes Alcohol type: beer Preferred Language: Lithuanian Communication Ability: Effective Wound Specialist Required: No Beliefs That Will Affect Care: None Feels Safe at Home: Yes Review of Systems Review of Systems: unable to performe secondary to patient mentation Physical Exam Physical Exam: PHYSICAL EXAM: General: awake, alert, oriented to person only Head: Normocephalic, atraumatic ENT: PERRLA, EOMI, no pharyngeal exudate, mucous membranes dry Neuro: Prior to intubation: speech slurred and inappropriate, hallucinating, strength intact bilaterally 5/5, sensation intact and equal all extremities and dermatomes, no pronator drift Chest: equal rise and fall of the chest, no accessory muscle use, scattered rhonchi throughout Cardiac: Regular rate and rhythm, telemetry reviewed- sinus tachycardia, skin warm dry, cap refill <3 seconds, peripheral pulses +2 no JVD, no murmur, no edema GI: NABS x 4 quadrants, soft, distended, emesis while intubating and post intubation with NGT placement : Larsen to gravity Extremities: bruises to arms Skin: ecchymosis, scratches to legs, and thick scaled skin on bilateral feet Results & Data Results & Data ([facility]) Vital Signs (Past 12 Hours) Vital Signs Temp Pulse Pulse Resp BP BP Pulse Ox 08/20/22 23:00 116 H 22 94 08/20/22 22:50 105 H 30 H 71/49 L 92 08/20/22 22:43 98 H 29 H 64/45 L 90 08/20/22 22:34 117 H 22 104/74 87 L 08/20/22 22:33 119 H 25 H 101/80 90 08/20/22 22:00 117 H 43 H 94 08/20/22 21:42 120 H 40 H 75/46 L 90 08/20/22 21:31 123 H 27 H 80/51 L 90 08/20/22 21:02 128 H 36 H 101/82 91 08/20/22 20:01 132 H 37 H 99/50 L 96 08/20/22 19:55 132 H 38 H 146/111 H 98 08/20/22 19:01 137 H 25 H 187/152 H 94 08/20/22 18:18 136 H 32 H 173/147 H 87 L 08/20/22 18:18 136 H 32 H 87 L 08/20/22 17:56 137 H 34 H 122/60 86 L 08/20/22 17:56 08/20/22 17:56 08/20/22 17:56 36.2 C L 138 H 36 H 126/62 86 L O2 Del Method O2 Flow Rate 08/20/22 23:00 Mechanical Vent 08/20/22 22:50 Mechanical Vent 08/20/22 22:43 Mechanical Vent 08/20/22 22:34 Ambu-Bag 08/20/22 22:33 Ambu-Bag 08/20/22 22:00 Oxymask 6 08/20/22 21:42 Oxymask 6 08/20/22 21:31 Oxymask 5 08/20/22 21:02 Oxymask 6 08/20/22 20:01 Oxymask 4 08/20/22 19:55 Oxymask 5 08/20/22 19:01 Nasal Cannula 5 08/20/22 18:18 Nasal Cannula 3 08/20/22 18:18 Nasal Cannula 3 08/20/22 17:56 Room Air 08/20/22 17:56 Room Air 08/20/22 17:56 Room Air 08/20/22 17:56 Room Air Laboratory Results Abnormal lab results 08/20/22 08/20/22 08/20/22 Range/Units 17:50 17:50 17:50 Neut # (Auto) 8.16 H (1.4-6.5) K/uL Lymph # (Auto) 0.49 L (1.2-3.4) K/uL [place] # (Auto) 0.87 H (0.24-0.82) K/uL Immature Gran # (Auto) 0.03 H (0.00-0.02) K/uL POC pH (7.35-7.45) POC pCO2 (35-46) mmHg POC pO2 (80-95) mmHg POC Total CO2 (24-31) mmol/L POC Sodium (135-144) mmol/L Sodium 124 L (136-145) mmol/L POC Potassium (3.3-5.0) mmol/L Potassium 2.9 L (3.5-5.1) mmol/L Chloride 77 L (98-107) mmol/L Anion Gap 26 H (3-11) Creatinine 2.54 H (0.6-1.4) mg/dl BUN/Creatinine Ratio 8.3 L (10-20) Glucose 151 H (70-99(Fasting)) mg/dl Osmolality (280-300) mOsm/kg Lactate (0.4-2.0) mmol/L Total Bilirubin 1.5 H (0.2-1.0) mg/dl Direct Bilirubin 0.3 H (0-0.2) mg/dl AST 81 H (13-39) U/L ALT 56 H (7-52) U/L Troponin I High Sens 70.0 H* (0-20) pg/ml Procalcitonin 9.66 H (0-0.5) ng/ml Urine Protein (Negative) Urine Ketones (Negative) Urine Nitrite (Negative) Urine RBC (Auto) (0-4) /hpf U Epithel Cells (Auto) (0-5) /lpf Nasal Screen MRSA (PCR) (Negative) Salicylates (3.0-30) mg/dl Acetaminophen (10-30) ug/ml 08/20/22 08/20/22 08/20/22 Range/Units 17:50 18:53 18:56 Neut # (Auto) (1.4-6.5) K/uL Lymph # (Auto) (1.2-3.4) K/uL [place] # (Auto) (0.24-0.82) K/uL Immature Gran # (Auto) (0.00-0.02) K/uL POC pH 7.46 H (7.35-7.45) POC pCO2 26 L (35-46) mmHg POC pO2 64 L (80-95) mmHg POC Total CO2 19 L (24-31) mmol/L POC Sodium 124 L (135-144) mmol/L Sodium (136-145) mmol/L POC Potassium 3.0 L (3.3-5.0) mmol/L Potassium (3.5-5.1) mmol/L Chloride (98-107) mmol/L Anion Gap (3-11) Creatinine (0.6-1.4) mg/dl BUN/Creatinine Ratio (10-20) Glucose (70-99(Fasting)) mg/dl Osmolality 272 L (280-300) mOsm/kg Lactate 7.5 H* (0.4-2.0) mmol/L Total Bilirubin (0.2-1.0) mg/dl Direct Bilirubin (0-0.2) mg/dl AST (13-39) U/L ALT (7-52) U/L Troponin I High Sens (0-20) pg/ml Procalcitonin (0-0.5) ng/ml Urine Protein (Negative) Urine Ketones (Negative) Urine Nitrite (Negative) Urine RBC (Auto) (0-4) /hpf U Epithel Cells (Auto) (0-5) /lpf Nasal Screen MRSA (PCR) (Negative) Salicylates (3.0-30) mg/dl Acetaminophen (10-30) ug/ml 08/20/22 08/20/22 08/20/22 Range/Units 20:20 20:59 20:59 Neut # (Auto) (1.4-6.5) K/uL Lymph # (Auto) (1.2-3.4) K/uL [place] # (Auto) (0.24-0.82) K/uL Immature Gran # (Auto) (0.00-0.02) K/uL POC pH (7.35-7.45) POC pCO2 (35-46) mmHg POC pO2 (80-95) mmHg POC Total CO2 (24-31) mmol/L POC Sodium (135-144) mmol/L Sodium (136-145) mmol/L POC Potassium (3.3-5.0) mmol/L Potassium (3.5-5.1) mmol/L Chloride (98-107) mmol/L Anion Gap (3-11) Creatinine (0.6-1.4) mg/dl BUN/Creatinine Ratio (10-20) Glucose (70-99(Fasting)) mg/dl Osmolality (280-300) mOsm/kg Lactate 6.3 H* (0.4-2.0) mmol/L Total Bilirubin (0.2-1.0) mg/dl Direct Bilirubin (0-0.2) mg/dl AST (13-39) U/L ALT (7-52) U/L Troponin I High Sens 113.0 H* D (0-20) pg/ml Procalcitonin (0-0.5) ng/ml Urine Protein (Negative) Urine Ketones (Negative) Urine Nitrite (Negative) Urine RBC (Auto) (0-4) /hpf U Epithel Cells (Auto) (0-5) /lpf Nasal Screen MRSA (PCR) Positive A (Negative) Salicylates (3.0-30) mg/dl Acetaminophen (10-30) ug/ml 08/20/22 08/20/22 Range/Units 21:11 23:13 Neut # (Auto) (1.4-6.5) K/uL Lymph # (Auto) (1.2-3.4) K/uL [place] # (Auto) (0.24-0.82) K/uL Immature Gran # (Auto) (0.00-0.02) K/uL POC pH (7.35-7.45) POC pCO2 (35-46) mmHg POC pO2 (80-95) mmHg POC Total CO2 (24-31) mmol/L POC Sodium (135-144) mmol/L Sodium (136-145) mmol/L POC Potassium (3.3-5.0) mmol/L Potassium (3.5-5.1) mmol/L Chloride (98-107) mmol/L Anion Gap (3-11) Creatinine (0.6-1.4) mg/dl BUN/Creatinine Ratio (10-20) Glucose (70-99(Fasting)) mg/dl Osmolality (280-300) mOsm/kg Lactate (0.4-2.0) mmol/L Total Bilirubin (0.2-1.0) mg/dl Direct Bilirubin (0-0.2) mg/dl AST (13-39) U/L ALT (7-52) U/L Troponin I High Sens (0-20) pg/ml Procalcitonin (0-0.5) ng/ml Urine Protein Trace H (Negative) Urine Ketones Trace H (Negative) Urine Nitrite Positive A (Negative) Urine RBC (Auto) 5-10 H (0-4) /hpf U Epithel Cells (Auto) 10-20 H (0-5) /lpf Nasal Screen MRSA (PCR) (Negative) Salicylates < 3.0 L (3.0-30) mg/dl Acetaminophen < 3 L (10-30) ug/ml Diagnostic Findings Chest X-Ray 08/20/22 18:18 SINGLE VIEW CHEST CLINICAL HISTORY: Sepsis. FINDINGS: An AP, portable, upright chest radiograph is correlated with chest CT dated 03/19/2013. The cardiomediastinal silhouette is top normal for projection noting atherosclerotic calcification of the thoracic aorta. Emphysema and chronic interstitial thickening is similar to previous. There is elevation of the left hemidiaphragm with atelectasis of the left lower lung. There is minimal atelectasis at the right lung base. No large pleural effusion or pneumothorax is seen. The skeletal structures are osteopenic. The bony thorax is grossly intact. IMPRESSION: 1. Emphysematous change with no acute cardiopulmonary abnormality identified. 2. Elevation of the left hemidiaphragm with atelectasis of the left lower lung represents a change from 2013. ACT 112: Negative or not required by law. Electronically signed by: Rajinder Borden M.D. 08/20/2022 6:[address] 08/20/22 18:36 CT SCAN OF THE BRAIN WITHOUT IV CONTRAST CLINICAL HISTORY: Syncope. Alcohol abuse. COMPARISON STUDY: CT of the brain dated 03/19/2013. TECHNIQUE: Unenhanced axial CT scan of the brain is performed from the vertex to the skull base. A dose lowering technique was utilized adhering to the principles of ALARA. CT DOSE: 614.27 mGy.cm FINDINGS: Brain parenchyma: There is age-advanced involutional change noting moderate johnson bcortical and periventricular microangiopathic disease. There is no hemorrhage, mass effect, or evidence of acute territorial ischemia by CT criteria. Rm- white matter differentiation is preserved. No extra-axial fluid collection is seen. Ventricles, sulci, cisterns: Prominent secondary to involutional change. Intracranial vasculature: There is atherosclerotic calcification of the cavernous carotid arteries. Calvarium: The skeletal structures are osteopenic. No depressed calvarial fracture is seen. Sinuses and mastoids: There is subtotal opacification of the maxillary antra. The remaining Paranasal sinuses are clear. The mastoid air cells are well pneumatized. Orbits: The bony orbits are grossly intact. IMPRESSION: 1. There is no hemorrhage, mass effect, or evidence of acute territorial ischemia by CT criteria. 2. Maxillary sinus disease as above. ACT 112: Negative or not required by law. Electronically signed by: Rajinder Borden M.D. 08/20/2022 8:58 PM Chest X-Ray 08/20/22 22:56 SINGLE VIEW CHEST CLINICAL HISTORY: Respiratory failure. FINDINGS: 3 AP, portable, supine chest radiographs are compared to study perf ormed earlier the same day 08/20/2022 and correlated with chest CT dated 03/19/2013. An endotracheal tube has been placed. The tip projects approximately 5.5 cm above the elia. An enteric tube has been placed. On the final image this projects below the diaphragm. The cardiomediastinal silhouette is top normal for projection noting atherosclerotic calcification of the thoracic aorta. There is pulmonary vascular congestion. Emphysema and chronic interstitial thickening is similar to previous. There is elevation of the left hemidiaphragm with extensive bibasilar airspace consolidation. This represents a significant change from previous. Small pleural effusions are noted. No pneumothorax is seen. The skeletal structures are osteopenic. The bony thorax is grossly intact. IMPRESSION: 1. Endotracheal and enteric tube placement as above. 2. Pulmonary vascular congestion. 3. Findings of bibasilar consolidation and small pleural effusions are new from today's earlier examination. This could represent pulmonary edema and/or pneumonia/aspiration pneumonitis. Clinical correlation will be required and radiographic follow-up to resolution is recommended. 4. Emphysema. ACT 112: Negative or not required by law. Electronically signed by: Rajinder Borden M.D. 08/20/2022 11:35 PM Medications Administered Home Medications No Known Home Medications 08/20/22 [History Confirmed 08/20/22] Active Medications Albuterol (Albut/Ipratrop 3mg/0.5mg Neb 3 Ml Vial) 3 ml INH Q4H PRN PRN Reason: Dyspnea Stop: 09/19/22 23:28 Dextrose (Dextrose 50% 50 Ml Syringe) 25 - 50 ml IV UD PRN; Protocol PRN Reason: Hypoglycemia Protocol Stop: 09/19/22 23:28 Fentanyl Citrate (Fentanyl Citrate 100 Mcg/2 Ml Vial) 50 mcg IV Q2H PRN PRN Reason: Moderate Pain (4,5,6) on NRS Stop: 09/03/22 23:02 Glucagon (Glucagon For Inj 1 Mg Vial) 1 mg SQ UD PRN; Protocol PRN Reason: Hypoglycemia Protocol Stop: 09/19/22 23:28 Glucose (Glucose 40% Gel 15 Gm Tube) 15 - 30 gm PO UD PRN; Protocol PRN Reason: Hypoglycemia Protocol Stop: 09/19/22 23:28 Glucose (Glucose 10 Tab/Tube) 4 - 8 tab PO UD PRN; Protocol PRN Reason: Hypoglycemia Treatment Stop: 09/19/22 23:28 Lorazepam 1 mg/ Syringe 1 mls @ 2 mls/min IV UD PRN; Protocol PRN Reason: EtOH Withdrawal AWSS Score 6,7 Stop: 09/19/22 19:55 Lorazepam 2 mg/ Syringe 2 mls @ 2 mls/min IV UD PRN; Protocol PRN Reason: EtOH Withdrawal AWSS Score 8,9 Stop: 09/19/22 19:55 Thiamine HCl 500 mg/ Sodium (Chloride) 55 mls @ 220 mls/hr IV Q8H JOMAR Stop: 09/19/22 22:59 Norepinephrine Bitartrate (Levophed/D5w) 4 mg in 250 mls @ 13.2 mls/hr IV .[id number] JOMAR; Protocol Stop: 09/19/22 23:14 Midazolam HCl (Versed) 125 mg in 250 mls @ 2 mls/hr IV .Q96H JOMAR; Protocol Stop: 09/19/22 23:14 Dexmedetomidine/Sodium Chloride (Precedex) 200 mcg in 50 mls @ 7.04 mls/hr IV .Q7H7M JOMAR; Protocol Stop: 08/24/22 23:14 Piperacillin Sod/Tazobactam (Sod 4.5 gm/ Dextrose) 120 mls @ 30 mls/hr IV Q8H JOMAR; Protocol Stop: 08/28/22 00:00 Pantoprazole Sodium 40 mg/ (Syringe) 10 mls @ 5 mls/min IV BID JOMAR Stop: 09/19/22 23:44 Folic Acid 1 mg/ Syringe 10 mls @ 5 mls/min IV QAM JOMAR Stop: 09/20/22 08:59 Linezolid (Linezolid 600 Mg/300 Ml D5w) 600 mg IV Q12H JOMAR Stop: 08/27/22 23:28 Midazolam HCl (Midazolam Bolus From Bag) 2 mg IV Q60M PRN PRN Reason: Sedation Stop: 09/19/22 23:02 Miscellaneous (Carbohydrates For Hypoglycemia ) 15 - 30 gm PO UD PRN PRN Reason: Hypoglycemia Protocol Stop: 09/19/22 23:28 Miscellaneous (Icu Protocol For Hyperglycemia) 1 each N/A [facility] Stop: 08/23/22 07:29 ECG Additional Comments: Poor data quality, interpretation may be adversely affected Sinus tachycardia Otherwise normal ECG When compared with ECG of 20-AUG-2022 17:56, (unconfirmed) No significant change was found Coding Level of Care Code Critical Care 1st 30-74 mins Diagnoses Alcohol withdrawal F10.939 Alcohol abuse F10.10 Syncope and collapse R55 Elevated troponin R77.8 Acute hyponatremia E87.1 Acute hypokalemia E87.6 JUAN (acute kidney injury) N17.9 Elevated procalcitonin R79.89 Septic shock A41.9; R65.21
[2022-08-20 23:29] LABS: Appearance Urine Clear (Clear); Bacteria Urine Automated Negative (Negative); Bilirubin Urine Negative (Negative); Blood Urine Negative (Negative); Color Urine Orange; Glucose Urine UA Negative (Negative); Ketones Urine Trace (Negative); Leukocyte Esterase Urine Negative (Negative); Nitrite Urine Positive (Negative); Protein Urine Trace (Negative); Specific Gravity Urine 1.013 (1.000-1.030); Urobilinogen Urine Negative (Negative)
[2022-08-20] MEDS ORDERED: GLUCOSE 40% GEL 15 GM TUBE PO PRN (23:29)
[2022-08-20] MEDS ORDERED: CARBOHYDRATES FOR HYPOGLYCEMIA PO PRN (23:29)
[2022-08-20] MEDS ORDERED: ALBUT/IPRATROP 3MG/0.5MG NEB 3 ML VIAL INH PRN (23:29)
[2022-08-20] MEDS ORDERED: LINEZOLID 600 MG/300 ML D5W IV SCH (23:29)
[2022-08-20] MEDS ORDERED: GLUCOSE 10 TAB/TUBE PO PRN (23:29)
[2022-08-20] MEDS ORDERED: DEXTROSE 50% 50 ML SYRINGE IV PRN (23:29)
[2022-08-20] MEDS ORDERED: GLUCAGON FOR INJ 1 MG VIAL SQ PRN (23:29)
[2022-08-20] MEDS ORDERED: fentaNYL citrate 2,500 MCG/250 ML BAG IV ONE (23:36)
--- NOTE | 2022-08-20 23:37 | XRay Report ---
SINGLE VIEW CHEST CLINICAL HISTORY: Respiratory failure. FINDINGS: 3 AP, portable, supine chest radiographs are compared to study performed earlier the same d ay 08/20/2022 and correlated with chest CT dated 03/19/2013. An endotracheal tube has been placed. The tip projects approximately 5.5 cm above the elia. An enteric tube has been placed. On the final im age this projects below the diaphragm. The cardiomediastinal silhouette is top normal for projection noting atherosclerotic calcification of the thoracic aorta. There is pulmonary vascular congestion. E mphysema and chronic interstitial thickening is similar to previous. There is elevation of the left h emidiaphragm with extensive bibasilar airspace consolidation. This represents a significant change fr om previous. Small pleural effusions are noted. No pneumothorax is seen. The skeletal structures are osteopenic. The bony thorax is grossly intact. IMPRESSION: 1. Endotracheal and enteric tube placement as above. 2. Pulmonary vascular congestion. 3. Findings of bibasilar consolidation and small pleural effusions are new from today's earlier exami nation. This could represent pulmonary edema and/or pneumonia/aspiration pneumonitis. Clinical correl ation will be required and radiographic follow-up to resolution is recommended. 4. Emphysema. ACT 112: Negative or not required by law. Electronically signed by: Rajinder Borden M.D. 08/20/2022 11:35 PM
[2022-08-21] MEDS: NOREPINEPHRINE/D5W 4 MG/250 ML PLCT IV SCH ×5 (00:10→20:13)
[2022-08-21] MEDS: dexMEDEtomidine 200 MCG/50 ML BAG IV SCH ×2 (00:15→03:27)
[2022-08-21] MEDS: PANTOprazole 40 MG in SYRINGE 0 ML IV SCH ×3 (00:27→19:51)
[2022-08-21] MEDS: LINEZOLID 600 MG/300 ML BAG IV SCH ×3 (00:30→23:33)
[2022-08-21] MEDS: PIPERACILLIN/TAZOBACTAM 4.5 GM in DEXTROSE 5% 100 ML IV SCH ×3 (00:50→17:17)
[2022-08-21] MEDS: THIAMINE HCL 500 MG in SODIUM CHLORIDE 0.9% 50 ML IV SCH ×2 (01:00→06:30)
[2022-08-21] MEDS: LACTATED RINGER'S 1,000 ML IV SCH ×3 (01:00→21:02)
[2022-08-21 01:16] LABS: Troponin I High Sensitivity 134.7 pg/ml (0-20)
[2022-08-21] MEDS: POTASSIUM CHLORIDE / WTR 10 MEQ/100 ML PLCT IV SCH ×3 (01:36→04:16)
[2022-08-21] MEDS ORDERED: OPTIRAY 350 100ml IV ONE (02:54)
--- NOTE | 2022-08-21 03:29 | Billing Data ---
Date of Service August 21, 2022 Coding Level of Care Code Critical Care 1st - mins
[2022-08-21] MEDS ORDERED: FLUARIX QUADRIVALENT 0.5 ML SYR IM ONE (04:00)
[2022-08-21] MEDS: MIDAZOLAM BOLUS FROM BAG IV PRN ×5 (05:05→18:45)
[2022-08-21] MEDS: fentaNYL citrate 100 MCG/2 ML VIAL IV PRN (05:33)
[2022-08-21 06:46] LABS: iSTAT Allen Test Pass; iSTAT Arterial Blood Gas HCO3 22 meg/L (19-24); iSTAT Arterial Blood Gas pCO2 43 mmHg (35-46); iSTAT Arterial Blood Gas pH 7.32 (7.35-7.45); iSTAT Arterial Blood Gas pO2 77 mmHg (80-95); iSTAT Carbon Dioxide 23 mmol/L (24-31); iSTAT FiO2 40 %; iSTAT Site L Radial
[2022-08-21] MEDS ORDERED: fentaNYL citrate 100 MCG/2 ML VIAL IV ONE (06:49)
--- NOTE | 2022-08-21 07:06 | Electrocardiogram Report ---
Test Reason : Blood Pressure : / mmHG Vent. Rate : 135 BPM Atrial Rate : 135 BPM P-R Int : 128 ms QRS Dur : 084 ms QT Int : 320 ms P-R-T Axes : 075 032 087 degrees QTc Int : 480 ms Poor data quality, interpretation may be adversely affected Sinus tachycardia Biatrial enlargement Abnormal ECG When compared with ECG of 19-MAR-2013 14:25, Vent. rate has increased BY 70 BPM Nonspecific T wave abnormality now evident in Lateral leads Confirmed by Elliot Joseph ([id number]) on 08/21/2022 7:06:22 AM Referred By: REFERRED SELF Confirmed By:Jose Joseph
--- NOTE | 2022-08-21 07:08 | Electrocardiogram Report ---
Test Reason : Blood Pressure : / mmHG Vent. Rate : 123 BPM Atrial Rate : 123 BPM P-R Int : 130 ms QRS Dur : 068 ms QT Int : 314 ms P-R-T Axes : 070 036 061 degrees QTc Int : 449 ms Poor data quality, interpretation may be adversely affected Sinus tachycardia Otherwise normal ECG When compared with ECG of 20-AUG-2022 17:56, (unconfirmed) No significant change was found Confirmed by Elliot Joseph ([id number]) on 08/21/2022 7:08:05 AM Referred By: REFERRED SELF Confirmed By:Jose Joseph
--- NOTE | 2022-08-21 07:15 | Electrocardiogram Report ---
Test Reason : Blood Pressure : / mmHG Vent. Rate : 104 BPM Atrial Rate : 104 BPM P-R Int : 144 ms QRS Dur : 090 ms QT Int : 382 ms P-R-T Axes : 058 057 074 degrees QTc Int : 502 ms Sinus tachycardia Possible Left atrial enlargement Incomplete right bundle branch block Borderline ECG When compared with ECG of 20-AUG-2022 20:30, (unconfirmed) No significant change was found Confirmed by Elliot Joseph ([id number] on 08/21/2022 7:15:18 AM Referred By: REFERRED SELF Confirmed By:Jose Joseph
--- NOTE | 2022-08-21 07:24 | XRay Report ---
KUB HISTORY: Acute generalized abdominal evaluate for any obstructive pathology COMPARISON: CT of same day FINDINGS: Distended air-filled stomach with a few mildly distended air-filled loops of small bowel wi thin the upper abdomen. Enteric tube projects over the upper gastric body. Catheter projects over the midline pelvis. Mild opacities noted within the lung bases. No renal calculi. No ureteral calculi. N o pneumoperitoneum or pneumatosis. No fracture. IMPRESSION: 1. Distal tip of enteric tube projects over the upper gastric body. 2. Distended air-filled stomach and proximal small bowel loops are better evaluated on the CT study o f same day. 3. Bibasilar airspace opacities. ACT 112: Negative or not required by law. The above report was generated using voice recognition software. It may contain grammatical, syntax o r spelling errors. Electronically signed by: Clifton Eastman M.D. 08/21/2022 7:22 AM
[2022-08-21] MEDS ORDERED: PROPOFOL IV EMULSION 10 MG/ML 100 ML VIAL IV ONE (07:40)
[2022-08-21] MEDS: propofoL 1,000 MG/100 ML VIAL IV SCH ×3 (07:45→23:32)
[2022-08-21] MEDS: PROPOFOL BOLUS FROM BAG IV PRN (08:15)
--- NOTE | 2022-08-21 08:15 | CT Scan Report ---
ABDOMEN AND PELVIS CT WITH IV CONTRAST CT DOSE: 385.51 mGy.cm HISTORY: Acute generalized abdominal pain evaluate for mass, obstruction causing gastric dil TECHNIQUE: Multiaxial CT images of the abdomen and pelvis were performed following the IV administrat ion of 83 cc of Optiray, A dose lowering technique was utilized adhering to the principles of ALARA. COMPARISON STUDY: Chest radiograph of same day, CT abdomen and pelvis 03/19/2013 FINDINGS: Extensive coronary artery calcifications. Dense airspace consolidation left greater than ri ght lung bases with intermixed intralobular septal thickening, and patchy groundglass and consolidati ve opacities. No pneumatosis or pneumoperitoneum. Unremarkable spleen. Thickening of the adrenal glan ds suggestive of hyperplasia. 5 mm calcification of the pancreatic body. Unremarkable gallbladder. He patic steatosis. Patency of the hepatic and portal veins. No hydronephrosis. Ill-defined area of slightly decreased attenuation within the anterior aspect of t he inferior pole right kidney, 2.3 cm. Decompressed urinary bladder with Larsen catheter. Prostate is upper limits of normal in size. Atherosclerosis of the thoracic aorta without aneurysm. There is no l ymphadenopathy identified. Enteric tube is present with distal tip terminating in the proximal gastric body. There is mild gaseo us distention of the stomach. The duodenum is dilated measuring up to 4.4 cm transversely and demonst rates wall thickening with mucosal hyperemia and adjacent periduodenal inflammatory stranding. There is transitioned narrowing of the third portion of the duodenum. Several loops of jejunum within the a bdominal left upper quadrant also demonstrates wall thickening. Mild wall thickening involves a few l oops of decompressed ileum within the pelvis. The appendix is not visualized. No acute fracture. IMPRESSION: 1. Partially imaged extensive consolidation of the lung bases is suggestive of multifocal pneumonia. 2. Mild distention of the stomach with dilated duodenum. There is wall thickening of the duodenum and small bowel suggestive of a nonspecific enteritis. More focal wall thickening with adjacent periduod enal inflammatory stranding involving the third portion of the duodenum is also likely infectious or inflammatory. An underlying lesion is considered less likely. 3. Enteric tube terminates within the gastric body. 4. No pneumoperitoneum. 5. Ill-defined area of decreased attenuation involving the anterior aspect of the inferior pole right kidney may be artifactual, however correlation with a follow-up ultrasound is recommended in order t o exclude a mass. 6. Additional findings as above. ACT 112: Negative or not required by law. The above report was generated using voice recognition software. It may contain grammatical, syntax o r spelling errors. Electronically signed by: Clifton Eastman M.D. 08/21/2022 8:12 AM
[2022-08-21] MEDS ORDERED: STAT IV Infusion **Titration per Protocol STA (08:16)
[2022-08-21] MEDS ORDERED: PROPOFOL BOLUS FROM BAG IV PRN (08:16)
[2022-08-21] MEDS ORDERED: LACTATED RINGER'S 1,000 ML IV ONE (08:33)
--- NOTE | 2022-08-21 08:37 | Procedure Note ---
Procedure Note Date of Service August 21, 2022 Note CENTRAL LINE PROCEDURE NOTE: Procedure: Central Line Placement Provider: Skip Kamara MD Indication: Central Drug Administration, Poor Venous Access, Multiple Lab Draws Necessary, etc. Anesthesia: 5 mL lidocaine 1% Site: Left subclavian Procedure was emergent. Patient hypotensive on pressors. He is intubated sedated and unable to provide consent. No family immediately available. A time-out was completed verifying correct patient, procedure, site, positioning, and implants(s) or special equipment if applicable. Patients left neck and shoulder was cleansed and draped in the typical sterile fashion using Chloraprep. Landmarks were removed easily identified. THe superficial tissue was anesthetized using 5 mL of 1% lidocaine without epinephrine. After adequate anesthetization was achieved, the left subclavian vein was cannulated using an introducer needle on a syringe. Good venous blood return was maintained prior to removal of syringe from introducer needle. Using Seldinger Technique, a guide wire was advanced through the introducer needle. Initial attempts was unsuccessful as the wire was unable to be passed. This required repositioning of the needle at which point the wire was able to be passed. The introducer needle was removed. A small incision was made in penetrating fashion at the guide wire insertion site utilizing an 11 blade scalpel. The dilator was advanced to the vessel without resistance. The dilator was exchanged for the triple lumen catheter which was advanced into the vessel without resistance. The guide wire was removed intact from the catheter without issue. Claves were plac ed on each catheter tip with confirmation of good blood flow from each lumen. Each port was easily flushed with sterile saline. The catheter was placed at the hub and sutured in place. BioPatch was applied to the catheter and a sterile Tegaderm dressing was applied over the catheter with careful attention to sterility. Patient tolerated procedure well. No immediate complications were met. Post procedure x-ray was completed, placement was appropriate and no pneumothorax was noted. Estimated blood loss: 5 mL Coding CPT Codes Tubes, Drains, and Vasc Access - Tubes, Drains, and Vasc Access: [id number] Place catheter in vein superior or inferior vena cava ([id number]) [facility] [place] (Charges) Tubes, Drains, and Vasc Access Procedure 1: Tubes, Drains, and Vasc Access: [id number] Place catheter in vein superior or inferior vena cava
--- NOTE | 2022-08-21 08:40 | Procedure Note ---
Procedure Note Date of Service August 21, 2022 Note ARTERIAL LINE PROCEDURE NOTE: Procedure: Arterial Line Placement Provider: Skip Kamara MD Indication: Monitoring on Pressors Anesthesia: None Patient is hemodynamically unstable. A time-out was completed verifying correct patient, procedure, site, positioning, and implant(s) or special equipment if applicable. Allens test was performed to ensure adequate perfusion. Patients right wrist was prepped and draped in the usual sterile fashion. Ultrasound guidance was used to aid needle placement. A 20g Arrow arterial line was introduced into the right radial artery. Catheter was threaded, and the needle was removed with appropriate blood return. Good waveform was observed. The patient tolerated the procedure well. Blood Loss: Minimal Complications: None Procedural Ultrasound Guidance: Procedure Date: 08/21/2022 Indication: Arterial line Artery Identified: YES Line confirmed in Artery with ultrasound: Yes Complications: NONE Patient tolerated procedure: WELL Coding CPT Codes Tubes, Drains, and Vasc Access - Tubes, Drains, and Vasc Access: [id number] Insertion Catheter, Artery ([id number]) Tubes, Drains, and Vasc Access - Tubes, Drains, and Vasc Access: [id number] Ultrasound Guidance For Vascular ([id number]) [facility] [place] Procedure Codes (Charges) Tubes, Drains, and Vasc Access Procedure 1: Tubes, Drains, and Vasc Access: [id number] Insertion Catheter, Artery Procedure 2: Tubes, Drains, and Vasc Access: [id number] Ultrasound Guidance For Vascular
--- NOTE | 2022-08-21 08:42 | Critical Care Progress Note ---
Date of Service August 21, 2022 Assessment & Plan (1) Alcohol withdrawal: (2) Alcohol abuse: (3) Syncope and collapse: (4) Elevated troponin: (5) Acute hyponatremia: (6) Acute hypokalemia: (7) JUAN (acute kidney injury): (8) Elevated procalcitonin: (9) Septic shock: Plan Impression: 52-year-old male presenting to the emergency room with shortness of breath chest pain nausea and vomiting and a syncopal episode. He was found to have acute renal failure with presumed sepsis as well as alcohol withdrawal. He aspirated in the emergency room, was intubated, and initiated on pressors for severe sepsis with septic shock. Recommendations: 1. Neurologic: Currently sedated on Precedex and fentanyl. Discontinue Precedex given hemodynamic instability and transition to propofol. Continue high-dose thiamine and folate for potential alcohol withdrawal syndrome. 2. Cardiovascular: Lactate initially was elevated at 6 down to 3.5. Random cortisol greater than 60. Echocardiogram pending. Suspect troponin elevation related to supply demand mismatch. Follow-up echocardiogram and continue to trend we will check NICOM for fluid responsiveness. Continue to wean norepinephrine as tolerated. If additional pressors are required, would start vasopressin. Random cortisol was greater than 60. 3. Respiratory: Hypoxemic respiratory failure with progressive bilateral lower lobe infiltrates. Concerning for aspiration pneumonia. Current vent settings assist-control with a rate 24 tidal volume 500 FiO2 0.4 and PEEP of 5. ABG on the settings showed pH 7.32 with PCO2 of 43 and PO2 of 77. Peak and plateau pressures less than 25. 4. Renal: Acute renal failure with hyponatremia and hypokalemia. Replacing electrolytes. Check urine sodium urine creatinine for fractional excretion of sodium. Follow urine output. If serum creatinine worsens on follow-up labs thi s morning, nephrology consultation will be obtained. Air in the bladder likely secondary to Larsen placement. Discussed with radiology. Check CPK for possible rhabdo 5. GI: N.p.o. for now. Protonix for GI prophylaxis 6. Endocrine: Glycemic control per protocol. 7. ID: Day #2 Zosyn Zyvox. Procalcitonin markedly elevated. Cultures are pending. Adjust antibiotics based on culture data and clinical response. 8. Heme-onc: DVT prophylaxis will be initiated with subcu heparin. Patient is critically ill at this point time with significant possibility of clinical deterioration or . A total of 76 minutes in critical care time was spent in evaluation management of this patient exclusive of procedures. No family immediately available. Admission and Anticipated Discharge Date Admission Date: August 20, 2022 Subjective Intubated and sedated Review of Systems Review of Systems: Unobtainable due to endotracheal tube Physical Exam 2 Constitutional: Intubated and sedated. Cold and clammy. Neck: trachea midline, no thyromegaly Respiratory: Intubated. Breath sounds coarse bilaterally Cardiovascular: RRR, no murmur, no edema Gastrointestinal (Abdomen): normal bowel sounds, soft, nontender, no hepatosplenomegaly Musculoskeletal: Extremities cool to the touch with delayed capillary refill Skin: no rashes, warm and dry Neurologic: Nonfocal exam Lymphatic: no cervical lymphadenopathy Results & Data Results & Data ([facility]) Vital Signs (Past 12 Hours) Vital Signs Temp Pulse Resp BP Pulse Ox O2 Del Method O2 Flow Rate 08/21/22 06:00 37.9 C H 101 H 22 95 08/21/22 06:00 94/69 L 08/21/22 05:45 37.9 C H 103 H 22 91 08/21/22 05:45 86/66 L 08/21/22 05:30 37.8 C H 106 H 22 94 08/21/22 05:30 109/88 08/21/22 05:15 37.8 C H 107 H 22 98 08/21/22 05:15 123/91 08/21/22 05:00 37.7 C H 112 H 22 93 08/21/22 05:00 163/134 H 08/21/22 04:45 37.7 C H 110 H 22 95 08/21/22 04:45 132/109 H 08/21/22 04:30 37.7 C H 111 H 22 96 08/21/22 04:30 128/107 H 08/21/22 04:15 37.7 C H 112 H 22 95 08/21/22 04:15 146/116 H 08/21/22 04:00 37.7 C H 113 H 22 95 08/21/22 04:00 158/112 H 08/21/22 03:45 37.8 C H 112 H 22 94 08/21/22 03:45 136/105 H 08/21/22 03:37 37.8 C H 108 H 22 96 08/21/22 03:37 128/101 H 08/21/22 03:30 37.7 C H 112 H 22 94 08/21/22 03:30 143/112 H 08/21/22 04:00 08/21/22 00:10 Mechanical Vent 08/21/22 03:10 112 H 22 98 08/21/22 03:15 37.6 C H 110 H 22 98 08/21/22 03:15 123/103 H 08/21/22 03:08 107 H 22 99 08/21/22 03:08 106/85 08/21/22 03:01 109 H 22 100 08/21/22 02:30 37.9 C H 114 H 22 97 08/21/22 02:15 38.0 C H 113 H 22 97 08/21/22 02:15 103/80 08/21/22 02:00 37.8 C H 114 H 22 98 08/21/22 02:00 101/84 08/21/22 01:45 38.2 C H 115 H 22 97 08/21/22 01:45 99/73 L 08/21/22 00:10 08/21/22 00:10 125 H 08/21/22 01:30 38.1 C H 115 H 22 95 08/21/22 01:30 77/56 L 08/21/22 01:15 38.2 C H 117 H 22 95 08/21/22 01:15 80/67 L 08/21/22 01:00 38.6 C H 119 H 22 97 08/21/22 01:00 110/91 08/21/22 00:45 38.7 C H 120 H 22 95 08/21/22 00:45 125/98 08/21/22 00:30 38.8 C H 122 H 22 97 08/21/22 00:30 120/95 08/21/22 00:17 38.9 C H 124 H 22 97 08/21/22 00:17 133/95 08/21/22 00:15 38.9 C H 124 H 22 97 08/21/22 00:00 38.8 C H 124 H 22 100 08/21/22 00:00 130/101 H 08/20/22 22:30 117 H 22 91 08/20/22 23:50 125 H 22 100 08/20/22 23:20 106/81 08/20/22 23:15 123 H 22 99/81 L 100 Mechanical Vent 08/20/22 23:12 102/77 08/20/22 23:00 116 H 22 94 Mechanical Vent 08/20/22 22:50 105 H 30 H 71/49 L 92 Mechanical Vent 08/20/22 22:43 98 H 29 H 64/45 L 90 Mechanical Vent 08/20/22 22:34 117 H 22 104/74 87 L Ambu-Bag 08/20/22 22:33 119 H 25 H 101/80 90 Ambu-Bag 08/20/22 22:00 117 H 43 H 94 Oxymask 6 08/20/22 21:42 120 H 40 H 75/46 L 90 Oxymask 6 08/20/22 21:31 123 H 27 H 80/51 L 90 Oxymask 5 08/20/22 21:02 128 H 36 H 101/82 91 Oxymask 6 FiO2 08/21/22 06:00 08/21/22 06:00 08/21/22 05:45 08/21/22 05:45 08/21/22 05:30 08/21/22 05:30 08/21/22 05:15 08/21/22 05:15 08/21/22 05:00 08/21/22 05:00 08/21/22 04:45 08/21/22 04:45 08/21/22 04:30 08/21/22 04:30 08/21/22 04:15 08/21/22 04:15 08/21/22 04:00 08/21/22 04:00 08/21/22 03:45 08/21/22 03:45 08/21/22 03:37 08/21/22 03:37 08/21/22 03:30 08/21/22 03:30 08/21/22 04:00 40 08/21/22 00:10 50 08/21/22 03:10 40 08/21/22 03:15 08/21/22 03:15 08/21/22 03:08 08/21/22 03:08 08/21/22 03:01 08/21/22 02:30 08/21/22 02:15 08/21/22 02:15 08/21/22 02:00 08/21/22 02:00 08/21/22 01:45 08/21/22 01:45 08/21/22 00:10 50 08/21/22 00:10 08/21/22 01:30 08/21/22 01:30 08/21/22 01:15 08/21/22 01:15 08/21/22 01:00 08/21/22 01:00 08/21/22 00:45 08/21/22 00:45 08/21/22 00:30 08/21/22 00:30 08/21/22 00:17 08/21/22 00:17 08/21/22 00:15 08/21/22 00:00 08/21/22 00:00 08/20/22 22:30 100 08/20/22 23:50 60 08/20/22 23:20 08/20/22 23:15 08/20/22 23:12 08/20/22 23:00 08/20/22 22:50 08/20/22 22:43 08/20/22 22:34 08/20/22 22:33 08/20/22 22:00 08/20/22 21:42 08/20/22 21:31 08/20/22 21:02 Critical Care Results & Data Vital Signs (Past 12 Hours) Vital Signs Temp Pulse Resp BP Pulse Ox O2 Del Method O2 Flow Rate 08/21/22 08:43 87 24 100 08/21/22 06:00 37.9 C H 101 H 22 95 08/21/22 06:00 94/69 L 08/21/22 05:45 37.9 C H 103 H 22 91 08/21/22 05:45 86/66 L 08/21/22 05:30 37.8 C H 106 H 22 94 08/21/22 05:30 109/88 08/21/22 05:15 37.8 C H 107 H 22 98 08/21/22 05:15 123/91 08/21/22 05:00 37.7 C H 112 H 22 93 08/21/22 05:00 163/134 H 08/21/22 04:45 37.7 C H 110 H 22 95 08/21/22 04:45 132/109 H 08/21/22 04:30 37.7 C H 111 H 22 96 08/21/22 04:30 128/107 H 08/21/22 04:15 37.7 C H 112 H 22 95 08/21/22 04:15 146/116 H 08/21/22 04:00 37.7 C H 113 H 22 95 08/21/22 04:00 158/112 H 08/21/22 03:45 37.8 C H 112 H 22 94 08/21/22 03:45 136/105 H 08/21/22 03:37 37.8 C H 108 H 22 96 08/21/22 03:37 128/101 H 08/21/22 03:30 37.7 C H 112 H 22 94 08/21/22 03:30 143/112 H 08/21/22 04:00 08/21/22 00:10 Mechanical Vent 08/21/22 03:10 112 H 22 98 08/21/22 03:15 37.6 C H 110 H 22 98 08/21/22 03:15 123/103 H 08/21/22 03:08 107 H 22 99 08/21/22 03:08 106/85 08/21/22 03:01 109 H 22 100 08/21/22 02:30 37.9 C H 114 H 22 97 08/21/22 02:15 38.0 C H 113 H 22 97 08/21/22 02:15 103/80 08/21/22 02:00 37.8 C H 114 H 22 98 08/21/22 02:00 101/84 08/21/22 01:45 38.2 C H 115 H 22 97 08/21/22 01:45 99/73 L 08/21/22 00:10 08/21/22 00:10 125 H 08/21/22 01:30 38.1 C H 115 H 22 95 08/21/22 01:30 77/56 L 08/21/22 01:15 38.2 C H 117 H 22 95 08/21/22 01:15 80/67 L 08/21/22 01:00 38.6 C H 119 H 22 97 08/21/22 01:00 110/91 08/21/22 00:45 38.7 C H 120 H 22 95 08/21/22 00:45 125/98 08/21/22 00:30 38.8 C H 122 H 22 97 08/21/22 00:30 120/95 08/21/22 00:17 38.9 C H 124 H 22 97 08/21/22 00:17 133/95 08/21/22 00:15 38.9 C H 124 H 22 97 08/21/22 00:00 38.8 C H 124 H 22 100 08/21/22 00:00 130/101 H 08/20/22 22:30 117 H 22 91 08/20/22 23:50 125 H 22 100 08/20/22 23:20 106/81 08/20/22 23:15 123 H 22 99/81 L 100 Mechanical Vent 08/20/22 23:12 102/77 08/20/22 23:00 116 H 22 94 Mechanical Vent 08/20/22 22:50 105 H 30 H 71/49 L 92 Mechanical Vent 08/20/22 22:43 98 H 29 H 64/45 L 90 Mechanical Vent 08/20/22 22:34 117 H 22 104/74 87 L Ambu-Bag 08/20/22 22:33 119 H 25 H 101/80 90 Ambu-Bag 08/20/22 22:00 117 H 43 H 94 Oxymask 6 08/20/22 21:42 120 H 40 H 75/46 L 90 Oxymask 6 08/20/22 21:31 123 H 27 H 80/51 L 90 Oxymask 5 08/20/22 21:02 128 H 36 H 101/82 91 Oxymask 6 FiO2 08/21/22 08:43 40 08/21/22 06:00 08/21/22 06:00 08/21/22 05:45 08/21/22 05:45 08/21/22 05:30 08/21/22 05:30 08/21/22 05:15 08/21/22 05:15 08/21/22 05:00 08/21/22 05:00 08/21/22 04:45 08/21/22 04:45 08/21/22 04:30 08/21/22 04:30 08/21/22 04:15 08/21/22 04:15 08/21/22 04:00 08/21/22 04:00 08/21/22 03:45 08/21/22 03:45 08/21/22 03:37 08/21/22 03:37 08/21/22 03:30 08/21/22 03:30 08/21/22 04:00 40 08/21/22 00:10 50 08/21/22 03:10 40 08/21/22 03:15 08/21/22 03:15 08/21/22 03:08 08/21/22 03:08 08/21/22 03:01 08/21/22 02:30 08/21/22 02:15 08/21/22 02:15 08/21/22 02:00 08/21/22 02:00 08/21/22 01:45 08/21/22 01:45 08/21/22 00:10 50 08/21/22 00:10 08/21/22 01:30 08/21/22 01:30 08/21/22 01:15 08/21/22 01:15 08/21/22 01:00 08/21/22 01:00 08/21/22 00:45 08/21/22 00:45 08/21/22 00:30 08/21/22 00:30 08/21/22 00:17 08/21/22 00:17 08/21/22 00:15 08/21/22 00:00 08/21/22 00:00 08/20/22 22:30 100 08/20/22 23:50 60 08/20/22 23:20 08/20/22 23:15 08/20/22 23:12 08/20/22 23:00 08/20/22 22:50 08/20/22 22:43 08/20/22 22:34 08/20/22 22:33 08/20/22 22:00 08/20/22 21:42 08/20/22 21:31 08/20/22 21:02 Lab & Micro Results (Past 24 Hours) RBC 5.18 M/uL (4.63-6.08) 08/20/22 WBC 9.73 K/ul (4.8-10.8) 08/20/22 Hgb 17.2 g/dl (14.0-18.0) 08/20/22 Hct 48.4 % (40.1-51.0) 08/20/22 MCV 93.4 fL (80.0-100.0) 08/20/22 MCH 33.2 pg (25.0-34.0) 08/20/22 MCHC 35.5 g/dL (32.0-36.0) 08/20/22 RDW Standard Deviation 42.6 fL (36.4-46.3) 08/20/22 RDW Coefficient of Variation 12.4 % (11.5-14.5) 08/20/22 Plt Count 170 K/uL (130-400) 08/20/22 MPV 11.3 fL (9.4-12.4) 08/20/22 Neutrophils (%) (Auto) 84.0 % 08/20/22 Lymphocytes (%) (Auto) 5.0 % 08/20/22 Monocytes # (Auto) 0.87 K/uL (0.24-0.82) H 08/20/22 Eosinophils # (Auto) 0.10 K/uL (0-0.50) 08/20/22 Immature Granulocyte % (Auto) 0.3 % 08/20/22 Neutrophils # (Auto) 8.16 K/uL (1.4-6.5) H 08/20/22 Lymphocytes # (Auto) 0.49 K/uL (1.2-3.4) L 08/20/22 Monocytes # (Auto) 0.87 K/uL (0.24-0.82) H 08/20/22 Eosinophils # (Auto) 0.10 K/uL (0-0.50) 08/20/22 Basophils # (Auto) 0.08 K/uL (0-0.2) 08/20/22 Immature Granulocyte # (Auto) 0.03 K/uL (0.00-0.02) H 08/20 Na 124 mmol/L (136-145) L 08/20/22 K 2.9 mmol/L (3.5-5.1) L 08/20/22 Cl 77 mmol/L (98-107) L 08/20/22 CO2 21 mmol/L (21-32) 08/20/22 Anion Gap 26 (3-11) H 08/20/22 BUN 21 mg/dl (6-23) 08/20/22 Creatinine 2.54 mg/dl (0.6-1.4) H 08/20/22 Estimated GFR ( Amer) 32.6 ml/min 08/20/22 Estimated GFR (Non-Af Amer) 28.1 ml/min 08/20/22 BUN/Creatinine Ratio 8.3 (10-20) L 08/20/22 Glu 151 mg/dl (70-99(Fasting)) H 08/20/22 Ca 10.0 mg/dl (8.5-10.1) 08/20/22 Total Bilirubin 1.5 mg/dl (0.2-1.0) H 08/20/22 Direct Bilirubin 0.3 mg/dl (0-0.2) H 08/20/22 AST 81 U/L (13-39) H 08/20/22 ALT 56 U/L (7-52) H 08/20/22 Alkaline Phosphatase 42 U/L (34-104) 08/20/22 TP 8.3 gm/dl (6.0-8.3) 08/20/22 Albumin 4.5 gm/dl (3.4-5.0) 08/20/22 Mg 1.8 mg/dl (1.7-2.4) 08/20/22 17:50 Calcium Level 10.0 mg/dl (8.5-10.1) 08/20/22 17:50 Prothromb Time International Ratio 1.0 (0.9-1.1) 08/20/22 17:5 0 Bairon Test Pass 08/21/22 06:31 Diagnostic Findings (Past 24 Hours) Chest X-Ray 08/20/22 18:18 SINGLE VIEW CHEST CLINICAL HISTORY: Sepsis. FINDINGS: An AP, portable, upright chest radiograph is correlated with chest CT dated 03/19/2013. The cardiomediastinal silhouette is top normal for projection noting atherosclerotic calcification of the thoracic aorta. Emphysema and chronic interstitial thickening is similar to previous. There is elevation of the left hemidiaphragm with atelectasis of the left lower lung. There is minimal atelectasis at the right lung base. No large pleural effusion or pneumothorax is seen. The skeletal structures are osteopenic. The bony thorax is grossly intact. IMPRESSION: 1. Emphysematous change with no acute cardiopulmonary abnormality identified. 2. Elevation of the left hemidiaphragm with atelectasis of the left lower lung represents a change from 2013. ACT 112: Negative or not required by law. Electronically signed by: Rajinder Borden M.D. 08/20/2022 6:[address] 08/20/22 18:36 CT SCAN OF THE BRAIN WITHOUT IV CONTRAST CLINICAL HISTORY: Syncope. Alcohol abuse. COMPARISON STUDY: CT of the brain dated 03/19/2013. TECHNIQUE: Unenhanced axial CT scan of the brain is performed from the vertex to the skull base. A dose lowering technique was utilized adhering to the principles of ALARA. CT DOSE: 614.27 mGy.cm FINDINGS: Brain parenchyma: There is age-advanced involutional change noting moderate subcortical and periventricular microangiopathic disease. There is no hemorrhage, mass effect, or evidence of acute territorial ischemia by CT criteria. Mr-white matter differentiation is preserved. No extra-axial fluid collection is seen. Ventricles, sulci, cisterns: Prominent secondary to involutional change. Intracranial vasculature: There is atherosclerotic calcification of the cavernous carotid arteries. Calvarium: The skeletal structures are osteopenic. No depressed calvarial fracture is seen. Sinuses and mastoids: There is subtotal opacification of the maxillary antra. The remaining Paranasal sinuses are clear. The mastoid air cells are well pneumatized. Orbits: The bony orbits are grossly intact. IMPRESSION: 1. There is no hemorrhage, mass effect, or evidence of acute territorial ischemia by CT criteria. 2. Maxillary sinus disease as above. ACT 112: Negative or not required by law. Electronically signed by: Rajinder Borden M.D. 08/20/2022 8:58 PM Chest X-Ray 08/20/22 22:56 SINGLE VIEW CHEST CLINICAL HISTORY: Respiratory failure. FINDINGS: 3 AP, portable, supine chest radiographs are compared to study performed earlier the same day 08/20/2022 and correlated with chest CT dated 03/19/2013. An endotracheal tube has been placed. The tip projects approximately 5.5 cm above the elia. An enteric tube has been placed. On the final image this projects below the diaphragm. The cardiomediastinal silhouette is top normal for projection noting atherosclerotic calcification of the thoracic aorta. There is pulmonary vascular congestion. Emphysema and chronic inte rstitial thickening is similar to previous. There is elevation of the left hemidiaphragm with extensive bibasilar airspace consolidation. This represents a significant change from previous. Small pleural effusions are noted. No pneumothorax is seen. The skeletal structures are osteopenic. The bony thorax is grossly intact. IMPRESSION: 1. Endotracheal and enteric tube placement as above. 2. Pulmonary vascular congestion. 3. Findings of bibasilar consolidation and small pleural effusions are new from today's earlier examination. This could represent pulmonary edema and/or pneumonia/aspiration pneumonitis. Clinical correlation will be required and radiographic follow-up to resolution is recommended. 4. Emphysema. ACT 112: Negative or not required by law. Electronically signed by: Rajinder Borden M.D. 08/20/2022 11:35 PM KUB X-Ray 08/21/22 00:14 KUB HISTORY: Acute generalized abdominal evaluate for any obstructive pathology COMPARISON: CT of same day FINDINGS: Distended air-filled stomach with a few mildly distended air-filled loops of small bowel within the upper abdomen. Enteric tube projects over the upper gastric body. Catheter projects over the midline pelvis. Mild opacities noted within the lung bases. No renal calculi. No ureteral calculi. No pneumoperitoneum or pneumatosis. No fracture. IMPRESSION: 1. Distal tip of enteric tube projects over the upper gastric body. 2. Distended air-filled stomach and proximal small bowel loops are better evaluated on the CT study of same day. 3. Bibasilar airspace opacities. ACT 112: Negative or not required by law. The above report was generated using voice recognition software. It may contain grammatical, syntax or spelling errors. Electronically signed by: Clifton Eastman M.D. 08/21/2022 7:22 AM Abdomen/Pelvis CT 08/21/22 02:[address] WITH IV CONTRAST CT DOSE: 385.51 mGy.cm HISTORY: Acute generalized abdominal pain evaluate for mass, obstruction causing gastric dil TECHNIQUE: Multiaxial CT images of the abdomen and pelvis were performed following the IV administration of 83 cc of Optiray, A dose lowering technique was utilized adhering to the principles of ALARA. COMPARISON STUDY: Chest radiograph of same day, CT abdomen and pelvis 03/19/2013 FINDINGS: Extensive coronary artery calcifications. Dense airspace consolidation left greater than right lung bases with intermixed intralobular septal thi ckening, and patchy groundglass and consolidative opacities. No pneumatosis or pneumoperitoneum. Unremarkable spleen. Thickening of the adrenal glands suggestive of hyperplasia. 5 mm calcification of the pancreatic body. Unremarkable gallbladder. Hepatic steatosis. Patency of the hepatic and portal veins. No hydronephrosis. Ill-defined area of slightly decreased attenuation within the anterior aspect of the inferior pole right kidney, 2.3 cm. Decompressed urinary bladder with Larsen catheter. Prostate is upper limits of normal in size. Atherosclerosis of the thoracic aorta without aneurysm. There is no lymphadenopathy identified. Enteric tube is present with distal tip terminating in the proximal gastric body. There is mild gaseous distention of the stomach. The duodenum is dilated measuring up to 4.4 cm transversely and demonstrates wall thickening with mucosal hyperemia and adjacent periduodenal inflammatory stranding. There is transitioned narrowing of the third portion of the duodenum. Several loops of jejunum within the abdominal left upper quadrant also demonstrates wall thickening. Mild wall thickening involves a few loops of decompressed ileum within the pelvis. The appendix is not visualized. No acute fracture. IMPRESSION: 1. Partially imaged extensive consolidation of the lung bases is suggestive of multifocal pneumonia. 2. Mild distention of the stomach with dilated duodenum. There is wall thickening of the duodenum and small bowel suggestive of a nonspecific enteritis. More focal wall thickening with adjacent periduodenal inflammatory stranding involving the third portion of the duodenum is also likely infectious or inflammatory. An underlying lesion is considered less likely. 3. Enteric tube terminates within the gastric body. 4. No pneumoperitoneum. 5. Ill-defined area of decreased attenuation involving the anterior aspect of the inferior pole right kidney may be artifactual, however correlation with a follow-up ultrasound is recommended in order to exclude a mass. 6. Additional findings as above. ACT 112: Negative or not required by law. The above report was generated using voice recognition software. It may contain grammatical, syntax or spelling errors. Electronically signed by: Clifton Eastman M.D. 08/21/2022 8:12 AM Chest X-Ray 08/21/22 08:15 XR chest 1V portable HISTORY: 52 years-old Male Central line placement status post placement of a left subclavian central venous catheter COMPARISON: Chest radiograph of same day at 6:57 AM, chest radiograph 08/20/2022 TECHNIQUE: AP view of the chest FINDINGS: Endotracheal tube overlies the midline, 2.6 cm superior to the elia. Enteric tube distal tip overlies the gastric fundus. Status post placement of a left subclavian central venous catheter with distal tip in the expected location of the superior cavoatrial junction. No pneumothorax or large pleural effusion. Bilateral consolidative opacities, most pronounced in the lung bases again noted. The bones appear grossly intact. IMPRESSION: 1. Lines and tubes as above. 2. No pneumothorax. 2. Multifocal bilateral airspace opacities suggestive of pneumonia. ACT 112: Negative or not required by law. The above report was generated using voice recognition software. It may contain grammatical, syntax or spelling errors. Electronically signed by: Clifton Eastman M.D. 08/21/2022 8:41 AM I & O Totals 24 Hours 08/20/22 08/21/22 08/22/22 06:59 06:59 06:59 Intake Total 5255.255 / 5255.255 32.754 / 32.754 Output Total 1999 Balance 3255.255 / 3255.255 32.754 / 32.754 Cumulative 08/20/22 17:21 thru 08/21/22 07:41 Intake Total 5288.009 Output Total 1999 Balance 3288.009 RT Ventilator Mngmt (Last Documented) Ventilator Ordered Settings Ventilator Support Mode Assist Control 08/21/22 08:43 Respiratory Rate 24 08/21/22 08:43 Ventilator Tidal Volume 500 08/21/22 08:43 Setting Minute Ventilation 12.0 08/21/22 08:43 Positive End Expiratory 5 08/21/22 08:43 Pressure Fraction of Inspired Oxygen 40 08/21/22 08:43 Peak Inspiratory Flow 35 08/21/22 08:43 Ventilator - PT Measurements Respiratory Rate 24 Exhaled Tidal Volume 500 Minute Ventilation 12.0 Peak Inspiratory Airway 26 Pressure Plateau Pressure 17.5 Respiratory Cycle Inspiratory: 1:2.3 Expiratory Ratio Inspiratory Phase Time 0.85 End-Tidal CO2 24 Static Lung Compliance 40.00 Dynamic Lung Compliance 23.81 Normal Static Lung Compliance 46.00 Patient Measurements Comment RSBI not performed at this time, patient still sedated fully Coding Level of Care Code Critical Care ea addt'l 30 min Diagnoses Alcohol withdrawal F10.939 Alcohol abuse F10.10 Syncope and collapse R55 Elevated troponin R77.8 Acute hyponatremia E87.1 Acute hypokalemia E87.6 JUAN (acute kidney injury) N17.9 Elevated procalcitonin R79.89 Septic shock A41.9; R65.21 Time Spent (min) 79
--- NOTE | 2022-08-21 09:17 | XRay Report ---
XR chest 1V portable HISTORY: 52 years-old Male while intubated, evaluate tubes and lung griffith acute shortness breath wi th respiratory failure COMPARISON: CT abdomen and pelvis of same day, chest radiograph 08/20/2022 TECHNIQUE: AP view of the chest FINDINGS: Endotracheal tube overlies the midline, 2.5 cm superior to the elia. Distal tip of enteric tube pro jects over the stomach. Gaseous distention of the stomach is noted.No pneumothorax or large pleural e ffusion. Bilateral consolidative opacities, most pronounced in the lung bases again noted. The bones appear grossly intact. IMPRESSION: 1. Lines and tubes as above. 2. No pneumothorax. 3. Extensive bilateral airspace opacities suggestive of multifocal pneumonia. ACT 112: Negative or not required by law. The above report was generated using voice recognition software. It may contain grammatical, syntax o r spelling errors. Electronically signed by: Clifton Eastman M.D. 08/21/2022 9:15 AM
[2022-08-21 09:24] LABS: INR 1.2 (0.9-1.1); Partial Thromboplastin Ratio 1.2; Prothrombin Time 12.4 Seconds (9.0-12.0)
[2022-08-21 09:26] LABS: Hematocrit (blood only) 36.2 % (40.1-51.0); Hemoglobin 12.9 g/dl (14.0-18.0); Mean Corpuscular Hemoglobin 33.2 pg (25.0-34.0); Mean Corpuscular Hgb Conc 35.6 g/dL (32.0-36.0); Mean Corpuscular Volume 93.3 fL (80.0-100.0); Mean Platelet Volume 11.6 fL (9.4-12.4); Platelet Count 83 K/uL (130-400); RDW Coefficient of Variation 12.5 % (11.5-14.5); RDW Standard Deviation 43.1 fL (36.4-46.3); Red Blood Count 3.88 M/uL (4.63-6.08); White Blood Count 3.34 K/ul (4.8-10.8)
[2022-08-21] MEDS ORDERED: Nursing to Pharmacy Communication SCH (09:30)
[2022-08-21 09:31] LABS: Albumin Level 2.7 gm/dl (3.4-5.0); BUN Creatinine Ratio 12.3 (10-20); Bilirubin Direct 0.7 mg/dl (0-0.2); Bilirubin,Total 1.3 mg/dl (0.2-1.0); Calcium 6.8 mg/dl (8.5-10.1); Creatinine Clr Calc Pharmacy 39.6 ml/min; Est GFR (African American) 38.8 ml/min; Est GFR (Non-African American) 33.4 ml/min; Magnesium 1.4 mg/dl (1.7-2.4); Phosphorus 6.6 mg/dl (2.5-4.9); Potassium 3.7 mmol/L (3.5-5.1); Total Protein 4.9 gm/dl (6.0-8.3)
[2022-08-21 09:56] LABS: Basophils # (auto) 0.03 K/uL (0-0.2); Basophils % (auto) 0.9 %; Echinocytes 1+; Eosinophils # (auto) 0.01 K/uL (0-0.50); Eosinophils % (auto) 0.3 %; Immature Granulocytes # (auto) 0.01 K/uL (0.00-0.02); Immature Granulocytes % (auto) 0.3 %; Lymphocytes # (auto) 0.35 K/uL (1.2-3.4); Lymphocytes % (auto) 10.5 %; Monocytes # (auto) 0.23 K/uL (0.24-0.82); Monocytes % (auto) 6.9 %; Neutrophils # (auto) 2.71 K/uL (1.4-6.5); Neutrophils % (auto) 81.1 %; Toxic Vacuolation 1+
--- NOTE | 2022-08-21 10:06 | XCELERA ---
[id number]
[2022-08-21] MEDS: FOLIC ACID 1 MG in SYRINGE 9.8 ML IV SCH (10:15)
[2022-08-21] MEDS: HEPARIN SOD 5,000 UNIT/0.5 ML VIAL SQ SCH ×2 (10:15→19:51)
--- NOTE | 2022-08-21 10:29 | Hospitalist Progress Note ---
Date of Service August 21, 2022 Assessment & Plan (1) Acute respiratory failure with hypoxia: Plan: Patient admitted to the hospital after a suspected syncopal episode X ray showed evidence of lobar inflitrates, suspicious for aspiration PNA Was having increasing sings of alcohol withdrawal and was intubated in the ED and transfererd to ICU Currently intubated, sedated and ventilated with minimal vent settings Current vent settings assist-control with a rate 24 tidal volume 500 FiO2 0.4 and PEEP of 5. ABG on the settings showed pH 7.32 with PCO2 of 43 and PO2 of 77. Peak and plateau pressures less than 25. Critical care on board, appreciate recs Wean as tolerated Continue empiric zosyn (2) Septic shock: Plan: suspected septic, cardiogenic shock ECHO shows EF 20-25% Continue pressors per critical care team will also consult cardiology on account of severely depressed EF (3) Alcohol abuse: Plan: He admits to a history of alcoholism, and from 5 days ago decreased his intake from 18 beers a day to 4 beers a day. Initially started on CIWA, however, now currently intubated, sedated and ventilated. On Precedex Monitor (4) JUAN (acute kidney injury): Plan: Most likley due to shock will continue IV Fluid recisitation monitor renal functions (5) Alcohol withdrawal: Plan: as above Plan continue hospitalization. I called to update family Admission and Anticipated Discharge Date Admission Date: August 20, 2022 Subjective patient seen and examined, intubated , sedated, ventilated Review of Systems Review of Systems: intubated , sedated, ventilated Physical Exam Physical Exam: intubated, ventilated and sedated HEENT-- oropharynx mildly dry Neck--supple. No JVD. No bruits. Thyroid normal, trachea midline, no adenopathy. Heart--normal S1 and S2. No murmurs, rubs or gallops. Lungs--reduced air entry Abdomen--normal bowel sounds and soft. Mild epigastric and left sided abdominal pain Extremities--no cyanosis or clubbing. No edema. Dermatologic--normal skin turgor, normal color, no abnormal lymph nodes, no rash. Neurologic--unable to fully asesse Rheumatologic--normal range of motion. Psychiatric--unable to assess Results & Data Results & Data ([facility]) Vital Signs (Past 12 Hours) Vital Signs Temp Pulse Resp BP Pulse Ox O2 Del Method FiO2 08/21/22 08:43 87 24 100 40 08/21/22 06:00 100.2 F H 101 H 22 95 08/21/22 06:00 94/69 L 08/21/22 05:45 100.2 F H 103 H 22 91 08/21/22 05:45 86/66 L 08/21/22 05:30 100.0 F H 106 H 22 94 08/21/22 05:30 109/88 08/21/22 05:15 100.0 F H 107 H 22 98 08/21/22 05:15 123/91 08/21/22 05:00 99.9 F H 112 H 22 93 08/21/22 05:00 163/134 H 08/21/22 04:45 99.9 F H 110 H 22 95 08/21/22 04:45 132/109 H 08/21/22 04:30 99.9 F H 111 H 22 96 08/21/22 04:30 128/107 H 08/21/22 04:15 99.9 F H 112 H 22 95 08/21/22 04:15 146/116 H 08/21/22 04:00 99.9 F H 113 H 22 95 08/21/22 04:00 158/112 H 08/21/22 03:45 100.0 F H 112 H 22 94 08/21/22 03:45 136/105 H 08/21/22 03:37 100.0 F H 108 H 22 96 08/21/22 03:37 128/101 H 08/21/22 03:30 99.9 F H 112 H 22 94 08/21/22 03:30 143/112 H 08/21/22 04:00 40 08/21/22 00:10 Mechanical Vent 50 08/21/22 03:10 112 H 22 98 40 08/21/22 03:15 99.7 F H 110 H 22 98 08/21/22 03:15 123/103 H 08/21/22 03:08 107 H 22 99 08/21/22 03:08 106/85 08/21/22 03:01 109 H 22 100 08/21/22 02:30 100.2 F H 114 H 22 97 08/21/22 02:15 100.4 F H 113 H 22 97 08/21/22 02:15 103/80 08/21/22 02:00 100.0 F H 114 H 22 98 08/21/22 02:00 101/84 08/21/22 01:45 100.8 F H 115 H 22 97 08/21/22 01:45 99/73 L 08/21/22 00:10 50 08/21/22 00:10 125 H 08/21/22 01:30 100.6 F H 115 H 22 95 08/21/22 01:30 77/56 L 08/21/22 01:15 100.8 F H 117 H 22 95 08/21/22 01:15 80/67 L 08/21/22 01:00 101.5 F H 119 H 22 97 08/21/22 01:00 110/91 08/21/22 00:45 101.7 F H 120 H 22 95 08/21/22 00:45 125/98 08/21/22 00:30 101.8 F H 122 H 22 97 08/21/22 00:30 120/95 08/21/22 00:17 102.0 F H 124 H 22 97 08/21/22 00:17 133/95 08/21/22 00:15 102.0 F H 124 H 22 97 08/21/22 00:00 101.8 F H 124 H 22 100 08/21/22 00:00 130/101 H 08/20/22 22:30 117 H 22 91 100 08/20/22 23:50 125 H 22 100 60 08/20/22 23:20 106/81 08/20/22 23:15 123 H 22 99/81 L 100 Mechanical Vent 08/20/22 23:12 102/77 08/20/22 23:00 116 H 22 94 Mechanical Vent 08/20/22 22:50 105 H 30 H 71/49 L 92 Mechanical Vent 08/20/22 22:43 98 H 29 H 64/45 L 90 Mechanical Vent 08/20/22 22:34 117 H 22 104/74 87 L Ambu-Bag 08/20/22 22:33 119 H 25 H 101/80 90 Ambu-Bag PG Care Time/CCT Total # of Minutes Spent Total Time Spent with Patient: Total time spent is greater than 50% in coordination of care (as documented) at patient's floor/unit and/or counseling patient: Coding Level of Care Code 59878 Subseq Hosp Care Lvl 2 Diagnoses Acute respiratory failure with hypoxia J96.01 Septic shock A41.9; R65.21 Alcohol abuse F10.10 JUAN (acute kidney injury) N17.9 Alcohol withdrawal F10.939 Time Spent (min) 35
--- NOTE | 2022-08-21 12:08 | Cardiology Consultation ---
Date of Consultation August 21, 2022 Assessment & Plan (1) Elevated troponin: (2) Cardiomyopathy: Plan 1. Cardiomyopathy: Newly discovered. Unclear chronicity. He does have a history of alcohol abuse in this could be related. He is also in a demographic patients who could suffered from coronary disease resulting an ischemic cardiomyopathy. However, the LV dysfunction appears global appears to be RV involvement as well suggesting a nonischemic etiology. There was some reports of chest pain leading up to his admission. I do not believe his current dysfunction is likely related to a recent acute coronary system based on the degree of biomarker elevation. it is also possible that the reduced cardiac function as result of his acute illness and significant acidosis. At this point the treatment is simply supportive. We will need to be cautious with volume administration as this could result in reduced LV function and resultant pulmonary edema. Does have an element of RV dysfunction and may be preload dependent. Noninvasive monitoring suggest that additional volume administration is unlikely to be beneficial and may in fact be harmful. Will simply monitor his clinical status. There seems to be some confusion regarding his volume status with the need for additional fluid administration, a pulmonary artery catheter can not be advanced to measure wedge pressure. We will re-evaluate the LV function as his clinical condition improves and can later determine if standard medical therapy is warranted. Certainly no opportunity currently for the addition of standard agents such as metoprolol, Justin, ARB or Entresto. 2. Elevated troponin: Mild elevation. Slightly increased since admission. Not in the range that would account for his severe LV dysfunction. I do not believe this is sales representative business courses of an acute coronary syndrome. Undoubtedly dem and ischemia in the setting of his severe illness and cardiomyopathy. Depending on the degree of LV dysfunction as his hospitalization progresses in any symptoms he may eventually report we could perform an ischemic evaluation prior to discharge. We can determine this at a later date. 3. Hypoxemic respiratory failure: His acute decompensation appears to be related to aspiration. He also appears to have an infectious process based on elevated procalcitonin. . as noted above, there could be a contribution from pulmonary edema, but at this point he would seem reasonable to simply continue supportive care and avoid aggressive diuresis given his hemodynamic instability. History of Present Illness Reason for Consultation: Abnormal echocardiogram Requesting Physician: Inessa Attending Physician: Wilver Wylie MD History of Present Illness the patient is a 52-year-old gentleman without a known history of cardiac disease who presented to the hospital after suffering an episode of syncope. The patient is currently intubated and sedated. The entire history was obtained from the chart and the hospital staff. It seems that for several days leading up to his admission the patient did have some additional symptoms of shortness of breath. He also apparently had some nausea and vomiting. On the day of presentation he reportedly had gone to the bathroom and suffered a syncopal episode. His breathing became acutely worse subsequently and he was brought to the hospital. during his evaluation in the emergency room the patient vomited and appeared to have suffered an acute episode of aspiration. His respiratory status declined. His chest x-ray changed significantly and he required intubation and mechanical ventilation. The patient has a history of alcohol abuse and recently reduced his alcohol intake significantly. There was some reported symptoms of alcohol withdrawal leading up to admission. Was noted to have significant tremors in the emergency room. Allergies Allergy/AdvReac Type Severity Reaction Status Date / Time No Known Allergies Allergy Unverified 08/20/22 19:05 Home Medications Medication Instructions Recorded Confirmed Type No Known Home Medications 08/20/22 08/20/22 History Patient History Social History Smoking Status: Current every day smoker Tobacco Type: Cigarettes Cigarettes Per Day: 40; Hx Alcohol Use: Yes Alcohol type: beer Preferred Language: Slovak Communication Ability: Effective Extruder Tender Required: No Beliefs That Will Affect Care: None Feels Safe at Home: Yes Review of Systems Review of Systems: Unobtainable due to endotracheal tube Physical Exam Physical Exam: The patient is Intubated and sedated. HEENT: The sclerae are anicteric. Neuro: Unobtainable due to sedation. Neck: Patient's neck is supple. He has palpable carotid pulses bilaterally wi thout bruits on auscultation. There is no evidence of jugular venous distention. The thyroid is not enlarged. Lungs: Some rhonchorous breath sounds. No wheezing. No rales. Cardiac: Heart demonstrates a regular rate and rhythm. Normal S1 and S2. No murmurs on examination. Pulses: The patient has palpable radial pulses bilaterally that are equal in intensity Extremities: There was no evidence of hypoperfusion. There is no cyanosis or clubbing. There is no edema. Skin: Occasional ecchymoses. Macular rash on the lower extremities concerning for petechiae. Results & Data ([facility]) Vital Signs (Past 12 Hours) Vital Signs Temp Pulse Resp BP Pulse Ox O2 Del Method FiO2 08/21/22 11:35 84 24 94 40 08/21/22 07:00 105 H 08/21/22 10:45 38.5 C H 86 26 H 85 L 08/21/22 10:30 38.4 C H 85 24 97 08/21/22 10:15 38.3 C H 86 23 100 08/21/22 10:00 38.2 C H 87 26 H 99 08/21/22 09:45 38.1 C H 87 25 H 100 08/21/22 09:30 37.9 C H 87 26 H 100 08/21/22 09:15 38.3 C H 89 23 98 08/21/22 09:00 38.4 C H 87 24 100 08/21/22 08:45 38.4 C H 88 23 100 08/21/22 08:30 38.5 C H 87 22 08/21/22 08:15 38.4 C H 92 H 22 08/21/22 08:15 82/67 L 08/21/22 08:13 38.4 C H 89 22 08/21/22 08:13 82/65 L 08/21/22 08:11 38.4 C H 95 H 27 H 97 08/21/22 08:11 60/48 L 08/21/22 08:07 72/57 L 08/21/22 08:07 38.4 C H 93 H 23 96 08/21/22 08:05 38.4 C H 95 H 25 H 97 08/21/22 08:01 38.3 C H 96 H 26 H 97 08/21/22 08:01 55/43 L 08/21/22 08:00 38.3 C H 95 H 24 08/21/22 07:51 101/69 08/21/22 07:51 38.3 C H 101 H 31 H 98 08/21/22 07:45 38.2 C H 95 H 25 H 97 08/21/22 07:45 90/68 L 08/21/22 07:41 38.2 C H 99 H 28 H 95 08/21/22 07:41 86/70 L 08/21/22 07:36 38.2 C H 102 H 32 H 90 08/21/22 07:36 109/71 08/21/22 07:30 38.2 C H 96 H 26 H 96 08/21/22 07:30 94/67 L 08/21/22 07:25 38.1 C H 96 H 23 96 08/21/22 07:25 83/71 L 08/21/22 07:20 86/63 L 08/21/22 07:20 38.1 C H 98 H 26 H 95 08/21/22 07:15 38.1 C H 101 H 29 H 92 08/21/22 07:15 75/29 L 08/21/22 07:00 38.1 C H 101 H 29 H 93 08/21/22 06:45 38.0 C H 103 H 28 H 92 08/21/22 06:45 94/67 L 08/21/22 06:30 38.0 C H 99 H 23 94 08/21/22 06:30 88/73 L 08/21/22 06:16 99/75 L 08/21/22 06:16 38.0 C H 104 H 28 H 86 L 08/21/22 06:15 38.0 C H 106 H 27 H 87 L 08/21/22 08:00 40 08/21/22 08:43 87 24 100 40 08/21/22 06:00 37.9 C H 101 H 22 95 08/21/22 06:00 94/69 L 08/21/22 05:45 37.9 C H 103 H 22 91 08/21/22 05:45 86/66 L 08/21/22 05:30 37.8 C H 106 H 22 94 08/21/22 05:30 109/88 08/21/22 05:15 37.8 C H 107 H 22 98 08/21/22 05:15 123/91 08/21/22 05:00 37.7 C H 112 H 22 93 08/21/22 05:00 163/134 H 08/21/22 04:45 37.7 C H 110 H 22 95 08/21/22 04:45 132/109 H 08/21/22 04:30 37.7 C H 111 H 22 96 08/21/22 04:30 128/107 H 08/21/22 04:15 37.7 C H 112 H 22 95 08/21/22 04:15 146/116 H 08/21/22 04:00 37.7 C H 113 H 22 95 08/21/22 04:00 158/112 H 08/21/22 03:45 37.8 C H 112 H 22 94 08/21/22 03:45 136/105 H 08/21/22 03:37 37.8 C H 108 H 22 96 08/21/22 03:37 128/101 H 08/21/22 03:30 37.7 C H 112 H 22 94 08/21/22 03:30 143/112 H 08/21/22 04:00 40 08/21/22 00:10 Mechanical Vent 50 08/21/22 03:10 112 H 22 98 40 08/21/22 03:15 37.6 C H 110 H 22 98 08/21/22 03:15 123/103 H 08/21/22 03:08 107 H 22 99 08/21/22 03:08 106/85 08/21/22 03:01 109 H 22 100 08/21/22 02:30 37.9 C H 114 H 22 97 08/21/22 02:15 38.0 C H 113 H 22 97 08/21/22 02:15 103/80 08/21/22 02:00 37.8 C H 114 H 22 98 08/21/22 02:00 101/84 08/21/22 01:45 38.2 C H 115 H 22 97 08/21/22 01:45 99/73 L 08/21/22 00:10 50 08/21/22 00:10 125 H 08/21/22 01:30 38.1 C H 115 H 22 95 08/21/22 01:30 77/56 L 08/21/22 01:15 38.2 C H 117 H 22 95 08/21/22 01:15 80/67 L 08/21/22 01:00 38.6 C H 119 H 22 97 08/21/22 01:00 110/91 08/21/22 00:45 38.7 C H 120 H 22 95 08/21/22 00:45 125/98 08/21/22 00:30 38.8 C H 122 H 22 97 08/21/22 00:30 120/95 11/27/22 00:17 38.9 C H 124 H 22 97 08/21/22 00:17 133/95 08/21/22 00:15 38.9 C H 124 H 22 97 08/21/22 00:00 38.8 C H 124 H 22 100 08/21/22 00:00 130/101 H Laboratory Results Abnormal Lab Results 08/20/22 08/20/22 08/20/22 17:50 17:50 17:50 WBC 9.73 RBC 5.18 Hgb 17.2 POC Hgb Hct 48.4 POC Hct MCV 93.4 MCH 33.2 MCHC 35.5 RDW Std Deviation 42.6 RDW Coeff of Tessy 12.4 Plt Count 170 MPV 11.3 Immature Gran % (Auto) 0.3 Neut % (Auto) 84.0 Lymph % (Auto) 5.0 [place] % (Auto) 8.9 Eos % (Auto) 1.0 Baso % (Auto) 0.8 Neut # (Auto) 8.16 H Lymph # (Auto) 0.49 L [place] # (Auto) 0.87 H Eos # (Auto) 0.10 Baso # (Auto) 0.08 Immature Gran # (Auto) 0.03 H Toxic Vacuolation Echinocytes PT 11.1 INR 1.0 APTT PTT Ratio Sample Site POC pH POC pCO2 POC pO2 POC HCO3 POC Total CO2 POC Base Excess POC ABG O2 Sat [place] Test O2 Delivery Device POC O2 Rate POC FiO2 Tidal Volume PEEP POC Sodium Sodium 124 L POC Potassium Potassium 2.9 L Chloride 77 L Carbon Dioxide 21 Anion Gap 26 H BUN 21 Creatinine 2.54 H Est Cr Clr Drug Dosing 34.3 Est GFR ( Amer) 32.6 Est GFR (Non-Af Amer) 28.1 BUN/Creatinine Ratio 8.3 L Glucose 151 H Osmolality Lactate Calcium 10.0 Phosphorus Magnesium 1.8 Total Bilirubin 1.5 H Direct Bilirubin 0.3 H AST 81 H ALT 56 H Alkaline Phosphatase 42 Total Creatine Kinase Troponin I High Sens 70.0 H* Total Protein 8.3 Albumin 4.5 Lipase Procalcitonin Random Cortisol Urine Color Urine Appearance Urine pH Ur Specific [place] Urine Protein Urine Glucose (UA) Urine Ketones Urine Blood Urine Nitrite Urine Bilirubin Urine Urobilinogen Ur Leukocyte Esterase Urine WBC (Auto) Urine RBC (Auto) U Hyaline Cast (Auto) U Epithel Cells (Auto) Urine Bacteria (Auto) Ur Random Creatinine Ur Random Sodium Nasal Screen MRSA (PCR) Salicylates Acetaminophen Ethyl Alcohol mg/dL SARS-CoV-2 (PCR) Influenza Type A (PCR) Influenza Type B (PCR) RSV (RT-PCR) 08/20/22 08/20/22 08/20/22 17:50 17:50 18:25 WBC RBC Hgb POC Hgb Hct POC Hct MCV MCH MCHC RDW Std Deviation RDW Coeff of Tessy Plt Count MPV Immature Gran % (Auto) Neut % (Auto) Lymph % (Auto) [place] % (Auto) Eos % (Auto) Baso % (Auto) Neut # (Auto) Lymph # (Auto) [place] # (Auto) Eos # (Auto) Baso # (Auto) Immature Gran # (Auto) Toxic Vacuolation Echinocytes PT INR APTT PTT Ratio Sample Site POC pH POC pCO2 POC pO2 POC HCO3 POC Total CO2 POC Base Excess POC ABG O2 Sat [place] Test O2 Delivery Device POC O2 Rate POC FiO2 Tidal Volume PEEP POC Sodium Sodium POC Potassium Potassium Chloride Carbon Dioxide Anion Gap BUN Creatinine Est Cr Clr Drug Dosing Est GFR ( Amer) Est GFR (Non-Af Amer) BUN/Creatinine Ratio Glucose Osmolality 272 L Lactate Calcium Phosphorus Magnesium Total Bilirubin Direct Bilirubin AST ALT Alkaline Phosphatase Total Creatine Kinase Troponin I High Sens Total Protein Albumin Lipase Procalcitonin 9.66 H Random Cortisol Urine Color Urine Appearance Urine pH Ur Specific [place] Urine Protein Urine Glucose (UA) Urine Ketones Urine Blood Urine Nitrite Urine Bilirubin Urine Urobilinogen Ur Leukocyte Esterase Urine WBC (Auto) Urine RBC (Auto) U Hyaline Cast (Auto) U Epithel Cells (Auto) Urine Bacteria (Auto) Ur Random Creatinine Ur Random Sodium Nasal Screen MRSA (PCR) Salicylates Acetaminophen Ethyl Alcohol mg/dL SARS-CoV-2 (PCR) NEGATIVE Influenza Type A (PCR) Negative Influenza Type B (PCR) Negative RSV (RT-PCR) Negative 08/20/22 08/20/22 08/20/22 18:53 18:56 20:20 WBC RBC Hgb POC Hgb 16.7 Hct POC Hct 49 MCV MCH MCHC RDW Std Deviation RDW Coeff of Tessy Plt Count MPV Immature Gran % (Auto) Neut % (Auto) Lymph % (Auto) [place] % (Auto) Eos % (Auto) Baso % (Auto) Neut # (Auto) Lymph # (Auto) [place] # (Auto) Eos # (Auto) Baso # (Auto) Immature Gran # (Auto) Toxic Vacuolation Echinocytes PT INR APTT PTT Ratio Sample Site POC pH 7.46 H POC pCO2 26 L POC pO2 64 L POC HCO3 19 POC Total CO2 19 L POC Base Excess -5.0 POC ABG O2 Sat 94.0 [place] Test O2 Delivery Device POC O2 Rate POC FiO2 Tidal Volume PEEP POC Sodium 124 L Sodium POC Potassium 3.0 L Potassium Chloride Carbon Dioxide Anion Gap BUN Creatinine Est Cr Clr Drug Dosing Est GFR ( Amer) Est GFR (Non-Af Amer) BUN/Creatinine Ratio Glucose Osmolality Lactate 7.5 H* Calcium Phosphorus Magnesium Total Bilirubin Direct Bilirubin AST ALT Alkaline Phosphatase Total Creatine Kinase Troponin I High Sens Total Protein Albumin Lipase Procalcitonin Random Cortisol Urine Color Urine Appearance Urine pH Ur Specific [place] Urine Protein Urine Glucose (UA) Urine Ketones Urine Blood Urine Nitrite Urine Bilirubin Urine Urobilinogen Ur Leukocyte Esterase Urine WBC (Auto) Urine RBC (Auto) U Hyaline Cast (Auto) U Epithel Cells (Auto) Urine Bacteria (Auto) Ur Random Creatinine Ur Random Sodium Nasal Screen MRSA (PCR) Positive A Salicylates Acetaminophen Ethyl Alcohol mg/dL SARS-CoV-2 (PCR) Influenza Type A (PCR) Influenza Type B (PCR) RSV (RT-PCR) 08/20/22 08/20/22 08/20/22 20:59 20:59 20:59 WBC RBC Hgb POC Hgb Hct POC Hct MCV MCH MCHC RDW Std Deviation RDW Coeff of Tessy Plt Count MPV Immature Gran % (Auto) Neut % (Auto) Lymph % (Auto) [place] % (Auto) Eos % (Auto) Baso % (Auto) Neut # (Auto) Lymph # (Auto) [place] # (Auto) Eos # (Auto) Baso # (Auto) Immature Gran # (Auto) Toxic Vacuolation Echinocytes PT INR APTT PTT Ratio Sample Site POC pH POC pCO2 POC pO2 POC HCO3 POC Total CO2 POC Base Excess POC ABG O2 Sat [place] Test O2 Delivery Device POC O2 Rate POC FiO2 Tidal Volume PEEP POC Sodium Sodium POC Potassium Potassium Chloride Carbon Dioxide Anion Gap BUN Creatinine Est Cr Clr Drug Dosing Est GFR ( Amer) Est GFR (Non-Af Amer) BUN/Creatinine Ratio Glucose Osmolality Lactate 6.3 H* Calcium Phosphorus Magnesium Total Bilirubin Direct Bilirubin AST ALT Alkaline Phosphatase Total Creatine Kinase Troponin I High Sens 113.0 H* D Total Protein Albumin Lipase Procalcitonin Random Cortisol Urine Color Urine Appearance Urine pH Ur Specific [place] Urine Protein Urine Glucose (UA) Urine Ketones Urine Blood Urine Nitrite Urine Bilirubin Urine Urobilinogen Ur Leukocyte Esterase Urine WBC (Auto) Urine RBC (Auto) U Hyaline Cast (Auto) U Epithel Cells (Auto) Urine Bacteria (Auto) Ur Random Creatinine Ur Random Sodium Nasal Screen MRSA (PCR) Salicylates Acetaminophen Ethyl Alcohol mg/dL < 10.0 SARS-CoV-2 (PCR) Influenza Type A (PCR) Influenza Type B (PCR) RSV (RT-PCR) 08/20/22 08/20/22 08/21/22 21:11 23:13 00:15 WBC RBC Hgb POC Hgb Hct POC Hct MCV MCH MCHC RDW Std Deviation RDW Coeff of Tessy Plt Count MPV Immature Gran % (Auto) Neut % (Auto) Lymph % (Auto) [place] % (Auto) Eos % (Auto) Baso % (Auto) Neut # (Auto) Lymph # (Auto) [place] # (Auto) Eos # (Auto) Baso # (Auto) Immature Gran # (Auto) Toxic Vacuolation Echinocytes PT INR APTT PTT Ratio Sample Site POC pH POC pCO2 POC pO2 POC HCO3 POC Total CO2 POC Base Excess POC ABG O2 Sat [place] Test O2 Delivery Device POC O2 Rate POC FiO2 Tidal Volume PEEP POC Sodium Sodium POC Potassium Potassium Chloride Carbon Dioxide Anion Gap BUN Creatinine Est Cr Clr Drug Dosing Est GFR ( Amer) Est GFR (Non-Af Amer) BUN/Creatinine Ratio Glucose Osmolality Lactate Calcium Phosphorus Magnesium Total Bilirubin Direct Bilirubin AST ALT Alkaline Phosphatase Total Creatine Kinase Troponin I High Sens Total Protein Albumin Lipase Procalcitonin Random Cortisol Urine Color [place] Urine Appearance Clear Urine pH 6.0 Ur Specific [place] 1.013 Urine Protein Trace H Urine Glucose (UA) Negative Urine Ketones Trace H Urine Blood Negative Urine Nitrite Positive A Urine Bilirubin Negative Urine Urobilinogen Negative Ur Leukocyte Esterase Negative Urine WBC (Auto) 1-5 Urine RBC (Auto) 5-10 H U Hyaline Cast (Auto) 1-5 U Epithel Cells (Auto) 10-20 H Urine Bacteria (Auto) Negative Ur Random Creatinine Ur Random Sodium Nasal Screen MRSA (PCR) Positive A Salicylates < 3.0 L Acetaminophen < 3 L Ethyl Alcohol mg/dL SARS-CoV-2 (PCR) Influenza Type A (PCR) Influenza Type B (PCR) RSV (RT-PCR) 08/21/22 08/21/22 08/21/22 00:38 00:38 00:38 WBC RBC Hgb POC Hgb Hct POC Hct MCV MCH MCHC RDW Std Deviation RDW Coeff of Tessy Plt Count MPV Immature Gran % (Auto) Neut % (Auto) Lymph % (Auto) [place] % (Auto) Eos % (Auto) Baso % (Auto) Neut # (Auto) Lymph # (Auto) [place] # (Auto) Eos # (Auto) Baso # (Auto) Immature Gran # (Auto) Toxic Vacuolation Echinocytes PT INR APTT PTT Ratio Sample Site POC pH POC pCO2 POC pO2 POC HCO3 POC Total CO2 POC Base Excess POC ABG O2 Sat [place] Test O2 Delivery Device POC O2 Rate POC FiO2 Tidal Volume PEEP POC Sodium Sodium POC Potassium Potassium Chloride Carbon Dioxide Anion Gap BUN Creatinine Est Cr Clr Drug Dosing Est GFR ( Amer) Est GFR (Non-Af Amer) BUN/Creatinine Ratio Glucose Osmolality Lactate 2.5 H* Calcium Phosphorus Magnesium Total Bilirubin Direct Bilirubin AST ALT Alkaline Phosphatase Total Creatine Kinase Troponin I High Sens 134.7 H* Total Protein Albumin Lipase 139 H Procalcitonin Random Cortisol > 60.00 Urine Color Urine Appearance Urine pH Ur Specific [place] Urine Protein Urine Glucose (UA) Urine Ketones Urine Blood Urine Nitrite Urine Bilirubin Urine Urobilinogen Ur Leukocyte Esterase Urine WBC (Auto) Urine RBC (Auto) U Hyaline Cast (Auto) U Epithel Cells (Auto) Urine Bacteria (Auto) Ur Random Creatinine Ur Random Sodium Nasal Screen MRSA (PCR) Salicylates Acetaminophen Ethyl Alcohol mg/dL SARS-CoV-2 (PCR) Influenza Type A (PCR) Influenza Type B (PCR) RSV (RT-PCR) 08/21/22 08/21/22 08/21/22 02:23 06:31 08:52 WBC 3.34 L D RBC 3.88 L Hgb 12.9 L D POC Hgb Hct 36.2 L POC Hct MCV 93.3 MCH 33.2 MCHC 35.6 RDW Std Deviation 43.1 RDW Coeff of Tessy 12.5 Plt Count 83 L D MPV 11.6 Immature Gran % (Auto) 0.3 Neut % (Auto) 81.1 Lymph % (Auto) 10.5 [place] % (Auto) 6.9 Eos % (Auto) 0.3 Baso % (Auto) 0.9 Neut # (Auto) 2.71 Lymph # (Auto) 0.35 L [place] # (Auto) 0.23 L Eos # (Auto) 0.01 Baso # (Auto) 0.03 Immature Gran # (Auto) 0.01 Toxic Vacuolation 1+ Echinocytes 1+ PT INR APTT PTT Ratio Sample Site L Radial POC pH 7.32 L POC pCO2 43 POC pO2 77 L POC HCO3 22 POC Total CO2 23 L POC Base Excess -4.0 POC ABG O2 Sat 94.0 [place] Test Pass O2 Delivery Device Ventilator POC O2 Rate 22 POC FiO2 40 Tidal Volume 500 PEEP 5 POC Sodium Sodium POC Potassium Potassium Chloride Carbon Dioxide Anion Gap BUN Creatinine Est Cr Clr Drug Dosing Est GFR ( Amer) Est GFR (Non-Af Amer) BUN/Creatinine Ratio Glucose Osmolality Lactate 3.5 H* Calcium Phosphorus Magnesium Total Bilirubin Direct Bilirubin AST ALT Alkaline Phosphatase Total Creatine Kinase Troponin I High Sens Total Protein Albumin Lipase Procalcitonin Random Cortisol Urine Color Urine Appearance Urine pH Ur Specific [place] Urine Protein Urine Glucose (UA) Urine Ketones Urine Blood Urine Nitrite Urine Bilirubin Urine Urobilinogen Ur Leukocyte Esterase Urine WBC (Auto) Urine RBC (Auto) U Hyaline Cast (Auto) U Epithel Cells (Auto) Urine Bacteria (Auto) Ur Random Creatinine Ur Random Sodium Nasal Screen MRSA (PCR) Salicylates Acetaminophen Ethyl Alcohol mg/dL SARS-CoV-2 (PCR) Influenza Type A (PCR) Influenza Type B (PCR) RSV (RT-PCR) 08/21/22 08/21/22 08/21/22 08:52 08:52 08:52 WBC RBC Hgb POC Hgb Hct POC Hct MCV MCH MCHC RDW Std Deviation RDW Coeff of Tessy Plt Count MPV Immature Gran % (Auto) Neut % (Auto) Lymph % (Auto) [place] % (Auto) Eos % (Auto) Baso % (Auto) Neut # (Auto) Lymph # (Auto) [place] # (Auto) Eos # (Auto) Baso # (Auto) Immature Gran # (Auto) Toxic Vacuolation Echinocytes PT 12.4 H INR 1.2 H APTT 34.0 H PTT Ratio 1.2 Sample Site POC pH POC pCO2 POC pO2 POC HCO3 POC Total CO2 POC Base Excess POC ABG O2 Sat [place] Test O2 Delivery Device POC O2 Rate POC FiO2 Tidal Volume PEEP POC Sodium Sodium 123 L POC Potassium Potassium 3.7 D Chloride 92 L Carbon Dioxide 19 L Anion Gap 12 H BUN 27 H Creatinine 2.20 H D Est Cr Clr Drug Dosing 39.6 Est GFR ( Amer) 38.8 Est GFR (Non-Af Amer) 33.4 BUN/Creatinine Ratio 12.3 Glucose 137 H Osmolality Lactate Calcium 6.8 L D Phosphorus 6.6 H Magnesium 1.4 L Total Bilirubin 1.3 H Direct Bilirubin 0.7 H AST 56 H ALT 33 Alkaline Phosphatase 13 L Total Creatine Kinase Troponin I High Sens 137.3 H* Total Protein 4.9 L D Albumin 2.7 L Lipase Procalcitonin Random Cortisol Urine Color Urine Appearance Urine pH Ur Specific [place] Urine Protein Urine Glucose (UA) Urine Ketones Urine Blood Urine Nitrite Urine Bilirubin Urine Urobilinogen Ur Leukocyte Esterase Urine WBC (Auto) Urine RBC (Auto) U Hyaline Cast (Auto) U Epithel Cells (Auto) Urine Bacteria (Auto) Ur Random Creatinine Ur Random Sodium Nasal Screen MRSA (PCR) Salicylates Acetaminophen Ethyl Alcohol mg/dL SARS-CoV-2 (PCR) Influenza Type A (PCR) Influenza Type B (PCR) RSV (RT-PCR) 08/21/22 08/21/22 08/21/22 08:52 08:53 09:46 WBC RBC Hgb POC Hgb Hct POC Hct MCV MCH MCHC RDW Std Deviation RDW Coeff of Tessy Plt Count MPV Immature Gran % (Auto) Neut % (Auto) Lymph % (Auto) [place] % (Auto) Eos % (Auto) Baso % (Auto) Neut # (Auto) Lymph # (Auto) [place] # (Auto) Eos # (Auto) Baso # (Auto) Immature Gran # (Auto) Toxic Vacuolation Echinocytes PT INR APTT PTT Ratio Sample Site POC pH POC pCO2 POC pO2 POC HCO3 POC Total CO2 POC Base Excess POC ABG O2 Sat [place] Test O2 Delivery Device POC O2 Rate POC FiO2 Tidal Volume PEEP POC Sodium Sodium POC Potassium Potassium Chloride Carbon Dioxide Anion Gap BUN Creatinine Est Cr Clr Drug Dosing Est GFR ( Amer) Est GFR (Non-Af Amer) BUN/Creatinine Ratio Glucose Osmolality Lactate 2.8 H* Calcium Phosphorus Magnesium Total Bilirubin Direct Bilirubin AST ALT Alkaline Phosphatase Total Creatine Kinase 380 H Troponin I High Sens Total Protein Albumin Lipase Procalcitonin Random Cortisol Urine Color Urine Appearance Urine pH Ur Specific [place] Urine Protein Urine Glucose (UA) Urine Ketones Urine Blood Urine Nitrite Urine Bilirubin Urine Urobilinogen Ur Leukocyte Esterase Urine WBC (Auto) Urine RBC (Auto) U Hyaline Cast (Auto) U Epithel Cells (Auto) Urine Bacteria (Auto) Ur Random Creatinine Ur Random Sodium 14 Nasal Screen MRSA (PCR) Salicylates Acetaminophen Ethyl Alcohol mg/dL SARS-CoV-2 (PCR) Influenza Type A (PCR) Influenza Type B (PCR) RSV (RT-PCR) 08/21/22 08/21/22 09:46 10:44 WBC RBC Hgb POC Hgb Hct POC Hct MCV MCH MCHC RDW Std Deviation RDW Coeff of Tessy Plt Count MPV Immature Gran % (Auto) Neut % (Auto) Lymph % (Auto) [place] % (Auto) Eos % (Auto) Baso % (Auto) Neut # (Auto) Lymph # (Auto) [place] # (Auto) Eos # (Auto) Baso # (Auto) Immature Gran # (Auto) Toxic Vacuolation Echinocytes PT INR APTT PTT Ratio Sample Site POC pH POC pCO2 POC pO2 POC HCO3 POC Total CO2 POC Base Excess POC ABG O2 Sat [place] Test O2 Delivery Device POC O2 Rate POC FiO2 Tidal Volume PEEP POC Sodium Sodium POC Potassium Potassium Chloride Carbon Dioxide Anion Gap BUN Creatinine Est Cr Clr Drug Dosing Est GFR ( Amer) Est GFR (Non-Af Amer) BUN/Creatinine Ratio Glucose Osmolality Lactate 2.2 H* Calcium Phosphorus Magnesium Total Bilirubin Direct Bilirubin AST ALT Alkaline Phosphatase Total Creatine Kinase Troponin I High Sens Total Protein Albumin Lipase Procalcitonin Random Cortisol Urine Color Urine Appearance Urine pH Ur Specific [place] Urine Protein Urine Glucose (UA) Urine Ketones Urine Blood Urine Nitrite Urine Bilirubin Urine Urobilinogen Ur Leukocyte Esterase Urine WBC (Auto) Urine RBC (Auto) U Hyaline Cast (Auto) U Epithel Cells (Auto) Urine Bacteria (Auto) Ur Random Creatinine 84.2 Ur Random Sodium Nasal Screen MRSA (PCR) Salicylates Acetaminophen Ethyl Alcohol mg/dL SARS-CoV-2 (PCR) Influenza Type A (PCR) Influenza Type B (PCR) RSV (RT-PCR) Diagnostic Findings Initial chest x-ray on admission was clear with an elevated left hemidiaphragm. Subsequent chest x-ray demonstrated bilateral lower lobe infiltrates consistent with aspiration versus pulmonary edema. Head CT obtained the time admission did not reveal any significant abnormalities with the exception of some maxillary sinus congestion. Abdominal CT suggested some evidence of enteritis. Echocardiogram obtained today revealed severely reduced LV and RV systolic function with global hypokinesis. No significant valvular heart disease. PG Care Time/CCT Total # of Minutes Spent Total Time Spent with Patient: Total time spent is greater than 50% in coordination of care (as documented) at patient's floor/unit and/or counseling patient: Coding Level of Care Code 32744 Inpt Consult Level 4 Diagnoses Elevated troponin R77.8 Cardiomyopathy I42.9
[2022-08-21 12:40] LABS: A calco-baum cmplx NotReported Not Detected (NotDetected); Bact fragilis Not Reported Not Detected (NotDetected); C auris Not Reported Not Detected (NotDetected); CTX-M Resistant Gene Not Detected (NotDetected); Calbicans Not Reported Not Detected (NotDetected); Candida glabrata Not Reported Not Detected (NotDetected); Candida krusei Not Reported Not Detected (NotDetected); Cneoformans/gatti Not Reported Not Detected (NotDetected); Cparapsilosis Not Reported Not Detected (NotDetected); Ctropicalis Not Reported Not Detected (NotDetected); E cloacae compx Not Reported Not Detected (NotDetected); Efaecalis Not Reported Not Detected (NotDetected); Efaecium Not Reported Not Detected (NotDetected); Enterobacterales Not Reported DETECTED (NotDetected); Escherichia coli Not Reported Not Detected (NotDetected); H influenzae Not Reported Not Detected (NotDetected); IMP Resistant Gene Not Detected (NotDetected); K aerogenes Not Reported Not Detected (NotDetected); KPC Resistant Gene Not Detected (NotDetected); Koxytoca Not Reported Not Detected (NotDetected); Kpneumoniae grp Not Reported Not Detected (NotDetected); Lmonocyt Not Reported Not Detected (NotDetected); N meningitidis Not Reported Not Detected (NotDetected); NDM Resistant Gene Not Detected (NotDetected); OXA 48 Like Resistant Gene Not Detected (NotDetected); P aeruginosa Not Reported Not Detected (NotDetected); Proteus spp Not Reported Not Detected (NotDetected); Salmonella spp Not Reported Not Detected (NotDetected); Smarcescens Not Reported Not Detected (NotDetected); Staph lugdunensis Not Reported Not Detected (NotDetected); Staph spp. Not Reported Not Detected (NotDetected); Staphaureus Not Reported Not Detected (NotDetected); Staphepi Not Reported Not Detected (NotDetected); Stenmaltophilia Not Reported Not Detected (NotDetected); Strep agal(GrpB) Not Reported Not Detected (NotDetected); Strep pneum Not Reported Not Detected (NotDetected); Strep pyog (GrpA) Not Reported Not Detected (NotDetected); Strep spp Not Reported Not Detected (NotDetected); VIM Resistant Gene Not Detected (NotDetected)
[2022-08-21 12:51] LABS: Enterobacterales DETECTED (NotDetected)
[2022-08-21] MEDS: ICU Protocol for HYPERglycemia SCH ×4 (13:08→20:16)
[2022-08-21] MEDS ORDERED: THIAMINE HCL 100 MG in SODIUM CHLORIDE 0.9% 50 ML IV SCH (17:00)
[2022-08-21] MEDS: THIAMINE HCL 100 MG in SYRINGE 9 ML IV SCH (17:19)
[2022-08-21 18:51] LABS: A calco-baum cmplx NotReported Not Detected (NotDetected); Bact fragilis Not Reported Not Detected (NotDetected); C auris Not Reported Not Detected (NotDetected); Calbicans Not Reported Not Detected (NotDetected); Candida glabrata Not Reported Not Detected (NotDetected); Candida krusei Not Reported Not Detected (NotDetected); Cneoformans/gatti Not Reported Not Detected (NotDetected); Cparapsilosis Not Reported Not Detected (NotDetected); Ctropicalis Not Reported Not Detected (NotDetected); E cloacae compx Not Reported Not Detected (NotDetected); Efaecalis Not Reported Not Detected (NotDetected); Efaecium Not Reported Not Detected (NotDetected); Enterobacterales Not Reported Not Detected (NotDetected); Escherichia coli Not Reported Not Detected (NotDetected); H influenzae Not Reported Not Detected (NotDetected); K aerogenes Not Reported Not Detected (NotDetected); Koxytoca Not Reported Not Detected (NotDetected); Kpneumoniae grp Not Reported Not Detected (NotDetected); Lmonocyt Not Reported Not Detected (NotDetected); N meningitidis Not Reported Not Detected (NotDetected); P aeruginosa Not Reported Not Detected (NotDetected); Proteus spp Not Reported Not Detected (NotDetected); Salmonella spp Not Reported Not Detected (NotDetected); Smarcescens Not Reported Not Detected (NotDetected); Staph lugdunensis Not Reported Not Detected (NotDetected); Staph spp. Not Reported Not Detected (NotDetected); Staphaureus Not Reported Not Detected (NotDetected); Staphepi Not Reported Not Detected (NotDetected); Stenmaltophilia Not Reported Not Detected (NotDetected); Strep agal(GrpB) Not Reported Not Detected (NotDetected); Strep pneum Not Reported Not Detected (NotDetected); Strep pyog (GrpA) Not Reported Not Detected (NotDetected); Strep spp Not Reported Not Detected (NotDetected)
[2022-08-21] MEDS: ICU ELECTROLYTE REPLACEMENT PROTOCOL SCH (19:11)
[2022-08-22] MEDS: PIPERACILLIN/TAZOBACTAM 4.5 GM in DEXTROSE 5% 100 ML IV SCH ×3 (00:49→15:34)
[2022-08-22] MEDS: THIAMINE HCL 100 MG in SYRINGE 9 ML IV SCH ×3 (00:49→18:06)
[2022-08-22 05:01] LABS: Basophils # (auto) 0.06 K/uL (0-0.2); Basophils % (auto) 0.9 %; Echinocytes 1+; Eosinophils # (auto) 0.09 K/uL (0-0.50); Eosinophils % (auto) 1.4 %; Immature Granulocytes # (auto) 0.55 K/uL (0.00-0.02); Immature Granulocytes % (auto) 8.3 %; Lymphocytes # (auto) 0.74 K/uL (1.2-3.4); Lymphocytes % (auto) 11.2 %; Mean Corpuscular Hemoglobin 33.1 pg (25.0-34.0); Mean Corpuscular Hgb Conc 36.4 g/dL (32.0-36.0); Mean Corpuscular Volume 90.9 fL (80.0-100.0); Mean Platelet Volume 12.4 fL (9.4-12.4); Monocytes # (auto) 0.56 K/uL (0.24-0.82); Monocytes % (auto) 8.5 %; Neutrophils % (auto) 69.7 %; Platelet Count 62 K/uL (130-400); RDW Coefficient of Variation 12.3 % (11.5-14.5); RDW Standard Deviation 41.1 fL (36.4-46.3); Red Blood Count 3.63 M/uL (4.63-6.08); Toxic Vacuolation 1+
[2022-08-22 05:02] LABS: INR 1.2 (0.9-1.1); Partial Thromboplastin Ratio 1.3; Partial Thromboplastin Time 36.5 Seconds (21.0-31.0); Prothrombin Time 12.9 Seconds (9.0-12.0)
[2022-08-22 05:16] LABS: Albumin Level 2.6 gm/dl (3.4-5.0); BUN Creatinine Ratio 14.4 (10-20); Bilirubin Direct 0.9 mg/dl (0-0.2); Bilirubin,Total 1.5 mg/dl (0.2-1.0); Calcium 7.3 mg/dl (8.5-10.1); Creatinine Clr Calc Pharmacy 62.6 ml/min; Est GFR (African American) 67.5 ml/min; Est GFR (Non-African American) 58.3 ml/min; Magnesium 1.6 mg/dl (1.7-2.4); Potassium 2.4 mmol/L (3.5-5.1); Total Protein 5.1 gm/dl (6.0-8.3)
[2022-08-22] MEDS: NOREPINEPHRINE/D5W 4 MG/250 ML PLCT IV SCH ×2 (05:17→15:34)
[2022-08-22] MEDS: ICU ELECTROLYTE REPLACEMENT PROTOCOL SCH ×2 (05:26→17:29)
[2022-08-22] MEDS: ICU Protocol for HYPERglycemia SCH ×4 (05:33→21:13)
[2022-08-22] MEDS: POTASSIUM CHLORIDE / WTR 20 MEQ/100 ML PLCT IV SCH ×6 (05:49→21:15)
[2022-08-22] MEDS: MAGNESIUM SULFATE / D5W 1 GM/100 ML BAG IV SCH ×4 (05:49→11:42)
[2022-08-22] MEDS: propofoL 1,000 MG/100 ML VIAL IV SCH ×3 (05:56→20:30)
--- NOTE | 2022-08-22 06:38 | Hospitalist Progress Note ---
Date of Service August 22, 2022 Assessment & Plan (1) Acute respiratory failure with hypoxia: Plan: Patient admitted to the hospital after a suspected syncopal episode, chest x-ray showing evidence of aspiration pneumonia. Due to evidence of worsening alcohol withdrawal symptoms, multiple aspirations and worsening respiratory status, patient was intubated and sedated. Elevated procalcitonin. Blood cultures showing gram-negative bacilli and gram-positive bacilli. Continue Zosyn/vancomycin for treatment of (suspected source) aspiration pneumonia and sepsis. Continue pressure support with goal of wean as able. Patient is currently ICU status. (2) Septic shock: Plan: See above (3) Alcohol abuse: Plan: History of alcoholism, and from 5 days ago decreased his intake from 18 beers a day to 4 beers a day. Initially started on CIWA, however, due to rapid decline in function is now currently intubated, sedated and ventilated. Discuss goals regarding alcohol use disorder when stable and extubated. (4) JUAN (acute kidney injury): Plan: Improving, continue to monitor with no continued fluids at this time save for pressure support fluids given decreased EF. (5) Alcohol withdrawal: Plan: as above (6) Acute hypokalemia: Plan: Repeat electrolytes per ICU protocol. Repeat lab work in the morning. (7) Hypomagnesemia: Plan: See above. (8) Non-ST elevation FL (NSTEMI): Plan: Troponin 70->113->124->137->135->272. Type II FL in the setting of septic shock, significantly reduced EF, unclear if acute or just incidental finding. Septic/ possible cardiogenic shock. ECHO shows EF 20-25%, new cardiomyopathy. Cardiology consulted and appreciate recommendations; newly discovered cardiomyopathy with unclear chronicity and patient with history of alcohol abuse which could be related. Also has several factors that could lead to ischemic cardiomyopathy. Supportive care with close monitoring of volume status given decreased ventricular function. (9) Acute hyponatremia: Plan: Admission sodium of 124, no baseline to compare. Up to 126 this afternoon. Suspected causes beer potomania/low solute diet. Continue to monitor BMP. (10) Thrombocytopenia: Plan: Platelets 170->83->62, no evidence of active bleeding. Continue care per ICU. Follow LFTs. Plan ICU status at this time we will continue to follow. Full code N.p.o. with tube feedings Heparin for DVT prophylaxis Admission and Anticipated Discharge Date Admission Date: August 20, 2022 Subjective No acute events overnight, continues to be on pressure support, intubated, sedated. Review of Systems Review of Systems: Unobtainable due to endotracheal tube Physical Exam Constitutional: WD/WN, vitals as above Respiratory: normal respiratory effort, lungs clear to auscultation Crackles bilateral lung bases Cardiovascular: RRR, no murmur, no edema Gastrointestinal (Abdomen): normal bowel sounds, soft, nontender, no hepatosplenomegaly Skin: no rashes, warm and dry Psychiatric: A+Ox3, euthymic affect Results & Data Results & Data ([facility]) Vital Signs (Past 12 Hours) Vital Signs Temp Pulse Resp Pulse Ox Pulse Ox O2 Del Method O2 Del Method 08/22/22 05:30 38.0 C H 66 22 99 08/22/22 05:00 38.0 C H 65 23 100 08/22/22 04:30 38.0 C H 66 22 98 08/22/22 04:00 38.0 C H 66 22 98 08/22/22 03:30 38.0 C H 70 22 100 08/22/22 03:00 38.0 C H 67 22 100 08/22/22 04:00 08/22/22 03:00 67 22 100 08/22/22 02:30 38.0 C H 71 22 100 08/22/22 02:15 38.0 C H 71 22 99 08/22/22 02:00 38.0 C H 74 22 99 08/22/22 01:45 38.0 C H 72 22 99 08/22/22 01:30 38.0 C H 73 22 98 08/22/22 01:15 38.0 C H 80 22 98 08/21/22 21:30 Mechanical Vent 08/22/22 01:00 38.1 C H 75 26 H 90 08/22/22 00:30 38.1 C H 72 22 98 08/22/22 00:00 38.3 C H 77 22 95 08/21/22 23:30 38.3 C H 76 22 100 08/21/22 23:00 38.2 C H 72 22 100 08/21/22 22:30 38.2 C H 76 22 99 08/21/22 22:00 38.3 C H 76 44 H 98 08/22/22 00:00 08/22/22 00:00 76 08/21/22 23:29 98 Mechanical Vent 08/21/22 22:47 73 22 100 08/21/22 21:30 38.3 C H 76 22 99 08/21/22 21:15 38.3 C H 82 22 100 08/21/22 21:00 38.3 C H 81 23 99 08/21/22 20:45 38.3 C H 83 23 100 08/21/22 20:30 38.4 C H 79 22 97 08/21/22 20:15 38.4 C H 79 20 96 08/21/22 20:00 38.4 C H 88 19 95 08/21/22 19:45 38.4 C H 82 21 97 08/21/22 19:30 38.4 C H 78 25 H 87 L 08/21/22 19:15 38.4 C H 76 22 99 08/21/22 19:00 38.4 C H 79 23 99 08/21/22 18:45 38.3 C H 79 23 83 L 08/21/22 20:00 08/21/22 19:15 76 23 99 FiO2 08/22/22 05:30 08/22/22 05:00 08/22/22 04:30 08/22/22 04:00 08/22/22 03:30 08/22/22 03:00 08/22/22 04:00 30 08/22/22 03:00 30 08/22/22 02:30 08/22/22 02:15 08/22/22 02:00 08/22/22 01:45 08/22/22 01:30 08/22/22 01:15 08/21/22 21:30 08/22/22 01:00 08/22/22 00:30 08/22/22 00:00 08/21/22 23:30 08/21/22 23:00 08/21/22 22:30 08/21/22 22:00 08/22/22 00:00 30 08/22/22 00:00 08/21/22 23:29 08/21/22 22:47 30 08/21/22 21:30 08/21/22 21:15 08/21/22 21:00 08/21/22 20:45 08/21/22 20:30 08/21/22 20:15 08/21/22 20:00 08/21/22 19:45 08/21/22 19:30 08/21/22 19:15 08/21/22 19:00 08/21/22 18:45 08/21/22 20:00 30 08/21/22 19:15 30 PG Care Time/CCT Total # of Minutes Spent Total Time Spent with Patient: Total time spent is greater than 50% in coordination of care (as documented) at patient's floor/unit and/or counseling patient: Coding Level of Care Code 45852 Subseq Hosp Care Lvl 3 Diagnoses Acute respiratory failure with hypoxia J96.01 Septic shock A41.9; R65.21 Alcohol abuse F10.10 JUAN (acute kidney injury) N17.9 Alcohol withdrawal F10.939 Acute hypokalemia E87.6 Hypomagnesemia E83.42 Non-ST elevation FL (NSTEMI) I21.4 Acute hyponatremia E87.1 Thrombocytopenia D69.6
--- NOTE | 2022-08-22 08:18 | Critical Care Progress Note ---
Date of Service August 22, 2022 Assessment & Plan (1) Alcohol withdrawal: (2) Alcohol abuse: (3) Syncope and collapse: (4) Elevated troponin: (5) Acute hyponatremia: (6) Acute hypokalemia: (7) JUAN (acute kidney injury): (8) Elevated procalcitonin: (9) Septic shock: Plan Impression: 52-year-old male presenting to the emergency room with shortness of breath chest pain nausea and vomiting and a syncopal episode. He was found to have acute renal failure with presumed sepsis as well as alcohol withdrawal. He aspirated in the emergency room, was intubated, and initiated on pressors for severe sepsis with septic shock. Recommendations: -- Neurologic: On propofol and midazolam. Try to take the patient off of midazolam. Give fentanyl pushes instead Continue with thiamine and folate -- Cardiovascular: -- Septic shock Gram-negative bacteremia Continue with antibiotic Juhi cortisol greater than 60 Continue vasopressor support to keep MAP greater than 65 -- Type II IA No ST-T wave EKG changes appreciated -- New onset CHF EF 20-25% with global wall abnormality Could be related to underlying sepsis Echo was negative for vegetations --Prolonged QTC Avoid QT prolonging medication QTC 551 08/22/2022 Respiratory: -- VDRF Likely secondary to multilobar pneumonia possible asthma patient Continue with ventilatory support Renal: -- JUAN Improving Monitor BUNs/creatinine Avoid nephrotoxic medications -- Hyponatremia Likely from beer proteinemia Initial sodium was 124 on 08/20/2022. GI: Start tube feeds Endocrine: ICU hypoglycemia protocol ID: Gram-negative bacteremia along with gram-positive bacilli Follow-up sensitivity Continue with Zosyn Change linezolid to vancomycin on 08/22/2022 Repeat blood culture 08/14/2022 Heme-onc: -- Thrombocytopenia Could be alcohol induced Linezolid can also cause thrombocytopenia, linezolid discontinued 08/22/2022 --Prophylaxis VTE: Heparin GI: Protonix Lines: Right radial, left subclavian Diet: Start tube feeds Plan: In/out: +2.1 L, urine output 3.3 L AB.53/32/86 on PEEP of 5, 40% Try to wean off midazolam, give fentanyl pushes instead T bili is going up. Continue to monitor Hypophosphatemia, hypomagnesemia being replaced. Repeat BMP later today Reviewed blood culture today. I have personally spent 46 minutes of critical care time in the direct m anagement of this patient. This is a life/limb threatening event. This includes time spent evaluating patient, direct bedside care, chart review, placing orders, interpretation of diagnostic studies, discussion with consultants, patient, and family members, as well as other required patient management activities. This time is exclusive of all separately billable procedures, and teaching time and separate from and in addition to any other critical care service time. Please note the above document was generated using voice recognition software. It may contain grammatical, syntax or spelling errors. Admission and Anticipated Discharge Date Admission Date: August 20, 2022 Subjective Patient seen and examined at bedside. No acute distress, no adverse events over night Patient was on 1 of Levophed at the time of examination with MAP in the low 70s. He was on propofol 30 as well as midazolam 4 He was breathing over the vent but not following any commands. Spiking low-grade fever. Review of Systems Review of Systems: Unobtainable due to endotracheal tube Physical Exam Physical Exam: Constitutional: No acute distress HEENT: PERRLA, positive ETT Respiratory system: Decreased air entry bilaterally, no wheeze, no rhonchi, positive crackles bilateral lower lobes CVS: S1-S2 positive, no murmurs or gallops Abdomen: Soft, nontender, nondistended, positive bowel sounds x4 Extremities: +2 pulses bilaterally radialis/ dorsalis pedis, no cyanosis, no edema Neuro: Sedated, not following any commands Psych: Unable to assess G/U: Positive Larsen Skin: no rashes, warm and dry Lymphatic: no cervical or axillary lymphadenopathy Results & Data Results & Data ([facility]) Vital Signs (Past 12 Hours) Vital Signs Temp Pulse Resp Pulse Ox Pulse Ox O2 Del Method O2 Del Method 08/22/22 05:30 38.0 C H 66 22 99 08/22/22 05:00 38.0 C H 65 23 100 08/22/22 04:30 38.0 C H 66 22 98 08/22/22 04:00 38.0 C H 66 22 98 08/22/22 03:30 38.0 C H 70 22 100 08/22/22 03:00 38.0 C H 67 22 100 08/22/22 04:00 08/22/22 03:00 67 22 100 08/22/22 02:30 38.0 C H 71 22 100 08/22/22 02:15 38.0 C H 71 22 99 08/22/22 02:00 38.0 C H 74 22 99 08/22/22 01:45 38.0 C H 72 22 99 08/22/22 01:30 38.0 C H 73 22 98 08/22/22 01:15 38.0 C H 80 22 98 08/21/22 21:30 Mechanical Vent 08/22/22 01:00 38.1 C H 75 26 H 90 08/22/22 00:30 38.1 C H 72 22 98 08/22/22 00:00 38.3 C H 77 22 95 08/21/22 23:30 38.3 C H 76 22 100 08/21/22 23:00 38.2 C H 72 22 100 08/21/22 22:30 38.2 C H 76 22 99 08/21/22 22:00 38.3 C H 76 44 H 98 08/22/22 00:00 08/22/22 00:00 76 08/21/22 23:29 98 Mechanical Vent 08/21/22 22:47 73 22 100 08/21/22 21:30 38.3 C H 76 22 99 08/21/22 21:15 38.3 C H 82 22 100 08/21/22 21:00 38.3 C H 81 23 99 08/21/22 20:45 38.3 C H 83 23 100 08/21/22 20:30 38.4 C H 79 22 97 FiO2 08/22/22 05:30 08/22/22 05:00 08/22/22 04:30 08/22/22 04:00 08/22/22 03:30 08/22/22 03:00 08/22/22 04:00 30 08/22/22 03:00 30 08/22/22 02:30 08/22/22 02:15 08/22/22 02:00 08/22/22 01:45 08/22/22 01:30 08/22/22 01:15 08/21/22 21:30 08/22/22 01:00 08/22/22 00:30 08/22/22 00:00 08/21/22 23:30 08/21/22 23:00 08/21/22 22:30 08/21/22 22:00 08/22/22 00:00 30 08/22/22 00:00 08/21/22 23:29 08/21/22 22:47 30 08/21/22 21:30 08/21/22 21:15 08/21/22 21:00 08/21/22 20:45 08/21/22 20:30 Laboratory Results 08/22/22 04:30 08/22/22 04:30 Coding Level of Care Code Critical Care 1st 30-74 mins Diagnoses Alcohol withdrawal F10.939 Alcohol abuse F10.10 Syncope and collapse R55 Elevated troponin R77.8 Acute hyponatremia E87.1 Acute hypokalemia E87.6 JUAN (acute kidney injury) N17.9 Elevated procalcitonin R79.89 Septic shock A41.9; R65.21 Time Spent (min) 46
[2022-08-22] MEDS: LACTATED RINGER'S 1,000 ML IV SCH ×2 (08:21→18:08)
[2022-08-22 08:43] LABS: iSTAT Art Bld Gas pCO2 Correct 32 mmHg (35-46); iSTAT Art Bld Gas pH Corrected 7.529 (7.35-7.45); iSTAT Arterial Blood Gas HCO3 27 meg/L (19-24); iSTAT Arterial Blood Gas pCO2 31 mmHg (35-46); iSTAT Arterial Blood Gas pH 7.54 (7.35-7.45); iSTAT Arterial Blood Gas pO2 81 mmHg (80-95); iSTAT Arterial Blood Gas pO2 C 86; iSTAT Carbon Dioxide 28 mmol/L (24-31); iSTAT FiO2 30 %; iSTAT Hematocrit 34 % (42-52); iSTAT Hemoglobin 11.6 g/dl (14.0-18.0); iSTAT Potassium 4.8 mmol/L (3.3-5.0); iSTAT Site Art Line; iSTAT Sodium 124 mmol/L (135-144)
[2022-08-22] MEDS: FOLIC ACID 1 MG in SYRINGE 9.8 ML IV SCH (08:58)
[2022-08-22] MEDS: PANTOprazole 40 MG in SYRINGE 0 ML IV SCH ×2 (08:58→20:32)
[2022-08-22] MEDS: HEPARIN SOD 5,000 UNIT/0.5 ML VIAL SQ SCH ×2 (08:59→09:55)
[2022-08-22] MEDS: fentaNYL citrate 100 MCG/2 ML VIAL IV PRN ×2 (09:57→14:27)
[2022-08-22] MEDS ORDERED: VANCOMYCIN CONSULT ACTIVE PRN (10:21)
[2022-08-22] MEDS ORDERED: VANCOMYCIN HCL 1,500 MG in SODIUM CHLORIDE 0.9% 500 ML IV ONE (10:30)
--- NOTE | 2022-08-22 10:44 | XRay Report ---
SINGLE VIEW CHEST CLINICAL HISTORY: Respiratory failure. FINDINGS: An AP, portable, upright chest radiograph is compared to study dictated 08/21/2022 and hattie elated with chest CT dated 03/19/2013. The endotracheal tube, an enteric tube, and a left subclavian c entral venous catheter are unchanged in position. The cardiomediastinal silhouette is top normal for projection noting atherosclerotic calcification of the thoracic aorta. There is pulmonary vascular co ngestion. Emphysema and chronic interstitial thickening is similar to previous. There is elevation of the left hemidiaphragm with bibasilar airspace consolidation. Small pleural effusions are suspected. No pneumothorax is seen. The skeletal structures are osteopenic. The bony thorax is grossly intact. IMPRESSION: 1. Stable lines and tubes. 2. Pulmonary vascular congestion. 3. Bibasilar airspace consolidation has not significantly changed from yesterday. 4. Emphysema. ACT 112: Negative or not required by law. Electronically signed by: Rajinder Borden M.D. 08/22/2022 10:41 AM
--- NOTE | 2022-08-22 10:53 | Electrocardiogram Report ---
Test Reason : Blood Pressure : / mmHG Vent. Rate : 066 BPM Atrial Rate : 066 BPM P-R Int : 116 ms QRS Dur : 102 ms QT Int : 526 ms P-R-T Axes : 078 062 077 degrees QTc Int : 551 ms Normal sinus rhythm Prolonged QT Abnormal ECG When compared with ECG of 21-AUG-2022 05:42, Vent. rate has decreased BY 38 BPM Confirmed by Elliot Joseph ([id number]) on 08/22/2022 10:53:18 AM Referred By: REFERRED SELF Confirmed By:Jose Joseph
--- NOTE | 2022-08-22 13:16 | Pharmacy Report ---
Pharmacy PK ABX Note - Date of Service August 22, 2022 - Assessment and Plan Assessment 52 year old M receiving IV vancomycin and zosyn for pulmonary coverage and bacteremia. Blood cultures (+) GNB in 2/4 and Gram (+) bacilli in 1/4. Biofire (+) Enterobacterales. MRSA nasal (+). Patient is critically ill, intubated/sedated and requiring vasopressor support. Initially presented with an JUAN which is resolving (SCr 2.54 --> 1.39). Day #1 of antimicrobial therapy. Plan Vancomycin * Loading dose: 1500 mg IV x 1 * Maintenance dose: 1500 mg IV every 24 hours * Regimen is predicted to achieve target AUC/FERNY of 400-600 mg/L.hr * Random (non-steady state) level in AM. Given changing renal function, likely will require dose adjustment tomorrow. Pharmacy will continue to follow and will adjust dose/frequency as necessary. Thank you. Pharmacy has transitioned to AUC monitoring for vancomycin. AUC/FERNY is the preferred PK/PD target and is associated with decreased risk of nephrotoxicity compared to traditional trough targets.
--- NOTE | 2022-08-22 13:51 | Cardiology Progress Note ---
Date of Service August 22, 2022 Assessment & Plan (1) Elevated troponin: (2) Cardiomyopathy: Plan 1. Cardiomyopathy: Newly discovered. Unclear chronicity. Will continue supportive care at this point. Still requiring norepinephrine. 2. Elevated troponin: I do not believe this is related to an acute coronary syndrome. 3. Hypoxemic respiratory failure: Overall requiring minimal ventilatory support. Chest x-ray suggestive of pulmonary vascular congestion today. He c ertainly at risk of pulmonary edema based on his reduced LV systolic function. Volume status appears to be significantly positive. Noninvasive testing yesterday suggested he would not respond to additional fluid administration. I would be cautious regarding continued volume administration and consider diuresis if his pulmonary status declines. Renal function improving Admission and Anticipated Discharge Date Admission Date: August 20, 2022 Subjective patient seen and examined, intubated , sedated, ventilated. Events of last 24 hours discussed with the nursing staff. Review of Systems Review of Systems: Unobtainable due to endotracheal tube Physical Exam Physical Exam: The patient is Intubated and sedated. HEENT: The sclerae are anicteric. Lungs: Some rhonchorous breath sounds. No wheezing. No rales. Cardiac: Heart demonstrates a regular rate and rhythm. Normal S1 and S2. No murmurs on examination. Pulses: The patient has palpable radial pulses bilaterally that are equal in intensity Extremities: There was no evidence of hypoperfusion. There is no cyanosis or clubbing. There is no edema. Skin: Occasional ecchymoses. Macular rash on the lower extremities concerning for petechiae. Results & Data ([facility]) Vital Signs (Past 12 Hours) Vital Signs Temp Pulse Resp BP Pulse Ox FiO2 08/22/22 12:00 63 97/55 L 08/22/22 08:00 66 108/60 08/22/22 12:00 30 08/22/22 11:41 63 16 100 30 08/22/22 08:00 30 08/22/22 07:55 67 22 98 30 08/22/22 05:30 38.0 C H 66 22 99 08/22/22 05:00 38.0 C H 65 23 100 08/22/22 04:30 38.0 C H 66 22 98 08/22/22 04:00 38.0 C H 66 22 98 08/22/22 03:30 38.0 C H 70 22 100 08/22/22 03:00 38.0 C H 67 22 100 08/22/22 04:00 30 08/22/22 03:00 67 22 100 30 08/22/22 02:30 38.0 C H 71 22 100 08/22/22 02:15 38.0 C H 71 22 99 08/22/22 02:00 38.0 C H 74 22 99 08/22/22 01:45 38.0 C H 72 22 99 Laboratory Results Abnormal Lab Results 08/20/22 08/21/22 08/21/22 18:39 17:58 18:00 WBC RBC Hgb POC Hgb Hct POC Hct MCV MCH MCHC RDW Std Deviation RDW Coeff of Tessy Plt Count MPV Immature Gran % (Auto) Neut % (Auto) Lymph % (Auto) Haskell % (Auto) Eos % (Auto) Baso % (Auto) Neut # (Auto) Lymph # (Auto) Haskell # (Auto) Eos # (Auto) Baso # (Auto) Immature Gran # (Auto) Toxic Vacuolation Echinocytes PT INR APTT PTT Ratio Sample Site POC pH POC pCO2 POC pO2 POC HCO3 POC Total CO2 POC Base Excess ABG pH (Temp Correct) ABG pCO2 (Temp Corrct POC ABG pO2 at Pt Temp POC ABG O2 Sat Bairon Test O2 Delivery Device POC O2 Rate Minute Ventilation POC FiO2 Tidal Volume PEEP POC Sodium Sodium POC Potassium Potassium Chloride Carbon Dioxide Anion Gap BUN Creatinine Est Cr Clr Drug Dosing Est GFR ( Amer) Est GFR (Non-Af Amer) BUN/Creatinine Ratio Glucose POC Glucose (other) 133 H Calcium Phosphorus Magnesium Total Bilirubin Direct Bilirubin AST ALT Alkaline Phosphatase Troponin I High Sens 272.5 H* D Total Protein Albumin Bld Cult ID Panel PCR PCR Panel Negative 08/21/22 08/22/22 08/22/22 20:06 04:30 04:30 WBC 6.60 RBC 3.63 L Hgb 12.0 L POC Hgb Hct 33.0 L POC Hct MCV 90.9 MCH 33.1 MCHC 36.4 H RDW Std Deviation 41.1 RDW Coeff of Tessy 12.3 Plt Count 62 L MPV 12.4 Immature Gran % (Auto) 8.3 Neut % (Auto) 69.7 Lymph % (Auto) 11.2 Haskell % (Auto) 8.5 Eos % (Auto) 1.4 Baso % (Auto) 0.9 Neut # (Auto) 4.60 Lymph # (Auto) 0.74 L Haskell # (Auto) 0.56 Eos # (Auto) 0.09 Baso # (Auto) 0.06 Immature Gran # (Auto) 0.55 H Toxic Vacuolation 1+ Echinocytes 1+ PT 12.9 H INR 1.2 H APTT 36.5 H PTT Ratio 1.3 Sample Site POC pH POC pCO2 POC pO2 POC HCO3 POC Total CO2 POC Base Excess ABG pH (Temp Correct) ABG pCO2 (Temp Corrct POC ABG pO2 at Pt Temp POC ABG O2 Sat Bairon Test O2 Delivery Device POC O2 Rate Minute Ventilation POC FiO2 Tidal Volume PEEP POC Sodium Sodium POC Potassium Potassium Chloride Carbon Dioxide Anion Gap BUN Creatinine Est Cr Clr Drug Dosing Est GFR ( Amer) Est GFR (Non-Af Amer) BUN/Creatinine Ratio Glucose POC Glucose (other) 133 H Calcium Phosphorus Magnesium Total Bilirubin Direct Bilirubin AST ALT Alkaline Phosphatase Troponin I High Sens Total Protein Albumin Bld Cult ID Panel PCR 08/22/22 08/22/22 04:30 08:28 WBC RBC Hgb POC Hgb 11.6 L Hct POC Hct 34 L MCV MCH MCHC RDW Std Deviation RDW Coeff of Tessy Plt Count MPV Immature Gran % (Auto) Neut % (Auto) Lymph % (Auto) Haskell % (Auto) Eos % (Auto) Baso % (Auto) Neut # (Auto) Lymph # (Auto) Haskell # (Auto) Eos # (Auto) Baso # (Auto) Immature Gran # (Auto) Toxic Vacuolation Echinocytes PT INR APTT PTT Ratio Sample Site Art Line POC pH 7.54 H* POC pCO2 31 L POC pO2 81 POC HCO3 27 H POC Total CO2 28 POC Base Excess 4.0 H ABG pH (Temp Correct) 7.529 H* ABG pCO2 (Temp Corrct 32 L POC ABG pO2 at Pt Temp 86 POC ABG O2 Sat 97.0 H Bairon Test NA O2 Delivery Device Ventilator POC O2 Rate 22 Minute Ventilation 10.9 POC FiO2 30 Tidal Volume 500 PEEP 5 POC Sodium 124 L Sodium 128 L POC Potassium 4.8 Potassium 2.4 L* D Chloride 94 L Carbon Dioxide 22 Anion Gap 12 H BUN 20 Creatinine 1.39 D Est Cr Clr Drug Dosing 62.6 Est GFR ( Amer) 67.5 Est GFR (Non-Af Amer) 58.3 BUN/Creatinine Ratio 14.4 Glucose 124 H POC Glucose (other) Calcium 7.3 L Phosphorus 3.0 D Magnesium 1.6 L Total Bilirubin 1.5 H Direct Bilirubin 0.9 H AST 59 H ALT 44 Alkaline Phosphatase 14 L Troponin I High Sens Total Protein 5.1 L Albumin 2.6 L Bld Cult ID Panel PCR Diagnostic Findings Chest x-ray obtained today revealed some pulmonary vascular congestion. Otherwise unremarkable. PG Care Time/CCT Total # of Minutes Spent Total Time Spent with Patient: Total time spent is greater than 50% in coordination of care (as documented) at patient's floor/unit and/or counseling patient: Coding Level of Care Code 69511 Subseq Hosp Care Lvl 2 Diagnoses Elevated troponin R77.8 Cardiomyopathy I42.9
[2022-08-22] MEDS: PEPTAMEN 1.5 CAL 1,000 ML BAG OG SCH (14:13)
[2022-08-22] MEDS: TUBE FEEDING WATER FLUSH OG SCH ×3 (14:13→20:31)
[2022-08-22 16:19] LABS: BUN Creatinine Ratio 14.6 (10-20); Calcium 7.3 mg/dl (8.5-10.1); Creatinine Clr Calc Pharmacy 85.4 ml/min; Est GFR (Non-African American) 83.7 ml/min; Potassium 3.2 mmol/L (3.5-5.1)
[2022-08-22] MEDS ORDERED: POTASSIUM CHLORIDE 20 MEQ/15 ML UDC NG STA (20:03)
[2022-08-22] MEDS ORDERED: VANCOMYCIN HCL 1,500 MG in SODIUM CHLORIDE 0.9% 500 ML IV SCH (22:00)
[2022-08-23] MEDS: TUBE FEEDING WATER FLUSH OG SCH ×7 (00:39→23:43)
[2022-08-23] MEDS: PIPERACILLIN/TAZOBACTAM 4.5 GM in DEXTROSE 5% 100 ML IV SCH ×2 (00:39→09:00)
[2022-08-23] MEDS: THIAMINE HCL 100 MG in SYRINGE 9 ML IV SCH ×3 (00:40→18:09)
[2022-08-23 02:18] LABS: BUN Creatinine Ratio 14.1 (10-20); Calcium 7.2 mg/dl (8.5-10.1); Creatinine Clr Calc Pharmacy 112.8 ml/min; Est GFR (African American) 121.1 ml/min; Est GFR (Non-African American) 104.5 ml/min
[2022-08-23] MEDS: propofoL 1,000 MG/100 ML VIAL IV SCH ×5 (02:31→21:29)
[2022-08-23] MEDS: LACTATED RINGER'S 1,000 ML IV SCH (04:15)
[2022-08-23 05:08] LABS: Partial Thromboplastin Ratio 1.1; Partial Thromboplastin Time 31.4 Seconds (21.0-31.0); Prothrombin Time 10.6 Seconds (9.0-12.0)
[2022-08-23 05:50] LABS: Albumin Level 2.4 gm/dl (3.4-5.0); BUN Creatinine Ratio 14.5 (10-20); Bilirubin Direct 0.7 mg/dl (0-0.2); Bilirubin,Total 1.3 mg/dl (0.2-1.0); Calcium 7.3 mg/dl (8.5-10.1); Creatinine Clr Calc Pharmacy 115.8 ml/min; Est GFR (African American) 122.4 ml/min; Est GFR (Non-African American) 105.6 ml/min; Magnesium 2.2 mg/dl (1.7-2.4); Phosphorus 1.1 mg/dl (2.5-4.9); Potassium 3.7 mmol/L (3.5-5.1); Total Protein 4.8 gm/dl (6.0-8.3)
[2022-08-23 05:55] LABS: Hematocrit (blood only) 30.7 % (40.1-51.0); Hemoglobin 10.8 g/dl (14.0-18.0); Mean Corpuscular Hemoglobin 33.2 pg (25.0-34.0); Mean Corpuscular Hgb Conc 35.2 g/dL (32.0-36.0); Mean Corpuscular Volume 94.5 fL (80.0-100.0); Mean Platelet Volume 12.2 fL (9.4-12.4); Platelet Count 58 K/uL (130-400); RDW Coefficient of Variation 12.9 % (11.5-14.5); RDW Standard Deviation 44.7 fL (36.4-46.3); Red Blood Count 3.25 M/uL (4.63-6.08); White Blood Count 7.66 K/ul (4.8-10.8)
[2022-08-23] MEDS: ICU ELECTROLYTE REPLACEMENT PROTOCOL SCH ×2 (05:55→18:18)
[2022-08-23 05:56] LABS: Basophils # (auto) 0.07 K/uL (0-0.2); Basophils % (auto) 0.9 %; Dohle Bodies 1+; Echinocytes 1+; Eosinophils # (auto) 0.25 K/uL (0-0.50); Eosinophils % (auto) 3.3 %; Giant Platelets 1+; Immature Granulocytes # (auto) 0.07 K/uL (0.00-0.02); Immature Granulocytes % (auto) 0.9 %; Lymphocytes # (auto) 0.51 K/uL (1.2-3.4); Lymphocytes % (auto) 6.7 %; Monocytes # (auto) 0.43 K/uL (0.24-0.82); Monocytes % (auto) 5.6 %; Neutrophils # (auto) 6.33 K/uL (1.4-6.5); Neutrophils % (auto) 82.6 %
[2022-08-23] MEDS ORDERED: SODIUM PHOSPHATE 3 MMOL/1 ML INFUSION IV STA (05:57)
[2022-08-23] MEDS ORDERED: SODIUM PHOSPHATE 30 MMOL in SODIUM CHLORIDE 0.9% 500 ML IV ONE (06:15)
[2022-08-23] MEDS: POTASSIUM CHLORIDE 20 MEQ/15 ML UDC NG SCH ×2 (06:17→09:02)
--- NOTE | 2022-08-23 06:54 | Hospitalist Progress Note ---
Date of Service August 23, 2022 Assessment & Plan (1) Acute respiratory failure with hypoxia: Plan: Patient admitted to the hospital after a suspected syncopal episode, chest x-ray showing evidence of aspiration pneumonia. Due to evidence of worsening alcohol withdrawal symptoms, multiple aspirations and worsening respiratory status, patient was intubated and sedated. Blood cultures showing gram-negative bacilli and gram-positive bacilli. Zosyn transitioned to ceftriaxone for pansensitive Klebsiella, will await sputum culture species before discontinuing vancomycin. Chest x-ray this morning shows pulmonary vascular congestion and worsening bilateral opacities, given 40 mg IV Lasix this morning. Patient is no longer on pressure support, wean ET tube as able. Patient is currently ICU status. (2) Septic shock: Plan: See above (3) Alcohol abuse: Plan: History of alcoholism, and from 5 days before admission decreased his intake from 18 beers a day to 4 beers a day. Initially started on CIWA, however, due to rapid decline in function is now currently intubated, sedated and ventilated. Discuss goals regarding alcohol use disorder when stable and extubated. (4) JUAN (acute kidney injury): Plan: Improving with creatinine 0.76, continue to monitor with no continued fluids at this time save for pressure support fluids given decreased EF. (5) Alcohol withdrawal: Plan: as above (6) Acute hypokalemia: Plan: Repeat electrolytes per ICU protocol. Repeat lab work daily. (7) Hypomagnesemia: Plan: See above. (8) Non-ST elevation ND (NSTEMI): Plan: Troponin 70->113->124->137->135->272. Type II ND in the setting of septic shock, significantly reduced EF, unclear if acute or just incidental finding. Septic/ possible cardiogenic shock. ECHO shows EF 20-25%, new cardiomyopathy. Cardiology consulted and appreciate recommendations; newly discovered cardiomyopathy with unclear chronicity and patient with history of alcohol abuse which could be related. Also has several factors that could lead to ischemic cardiomyopathy. Supportive care with close monitoring of volume status given decreased ventricular function. (9) Acute hyponatremia: Plan: Admission sodium of 124, no baseline to compare. Up to 129 this afternoon. Suspected causes beer potomania/low solute diet. Continue to monitor BMP. (10) Thrombocytopenia: Plan: Platelets 170->83->62-> 58, no evidence of active bleeding. Continue care per ICU. Follow LFTs. Possibly alcohol induced however did have decline even from admission. Holding heparin for DVT prophylaxis given thrombocytopenia. (11) Hypophosphatemia: Plan: Be repleted with sodium Phos, repeat in the morning. Plan ICU status at this time we will continue to follow Full code N.p.o. with tube feedings Holding heparin for DVT prophylaxis given thrombocytopenia Admission and Anticipated Discharge Date Admission Date: August 20, 2022 Subjective No acute adverse events overnight. Patient is without acute distress. Patient is still intubated but no longer in pressure support as of 2 in the morning, BP this AM 97/55. Fever to 38.1 today at 6 PM. Able to follow some simple commands. Review of Systems Review of Systems: Unobtainable due to endotracheal tube Physical Exam Constitutional: WD/WN, vitals as above Respiratory: normal respiratory effort, lungs clear to auscultation Crackles bilateral lung bases Cardiovascular: RRR, no murmur, no edema Gastrointestinal (Abdomen): normal bowel sounds, soft, nontender, no hepatosplenomegaly Skin: no rashes, warm and dry Psychiatric: Alert, able to follow simple commands Genitourinary: Larsen in place Results & Data Results & Data ([facility]) Vital Signs (Past 12 Hours) Vital Signs Temp Pulse Resp Pulse Ox Pulse Ox O2 Del Method O2 Del Method 08/23/22 06:00 37.4 C 75 23 100 08/23/22 05:30 37.4 C 73 23 94 08/23/22 05:00 37.3 C 74 18 100 08/23/22 04:30 37.3 C 69 22 100 08/23/22 04:00 37.3 C 73 25 H 100 08/23/22 03:30 37.2 C 71 23 95 08/23/22 03:00 37.1 C 72 17 90 08/23/22 02:30 37.0 C 73 21 100 08/23/22 02:00 37.0 C 74 20 99 08/23/22 01:30 36.9 C 67 20 99 08/23/22 01:00 36.7 C 66 27 H 98 08/23/22 00:30 36.6 C 66 24 100 08/23/22 00:00 36.4 C L 65 23 99 08/22/22 23:30 36.3 C L 61 16 99 08/22/22 23:00 36.3 C L 62 21 100 08/22/22 22:30 36.2 C L 70 18 100 08/22/22 22:00 36.2 C L 65 21 100 08/23/22 04:00 08/23/22 03:16 67 22 99 08/22/22 22:56 63 19 99 08/23/22 00:00 08/23/22 00:00 62 08/22/22 23:00 100 Mechanical Vent 08/22/22 21:30 36.2 C L 61 16 100 08/22/22 21:00 36.3 C L 77 15 100 08/22/22 20:30 36.4 C L 69 17 98 08/22/22 20:00 36.4 C L 63 21 100 08/22/22 19:30 36.5 C 65 17 98 08/22/22 19:00 36.6 C 59 L 15 100 08/22/22 22:09 Mechanical Vent 08/22/22 20:00 08/22/22 20:14 70 18 99 FiO2 08/23/22 06:00 08/23/22 05:30 08/23/22 05:00 08/23/22 04:30 08/23/22 04:00 08/23/22 03:30 08/23/22 03:00 08/23/22 02:30 08/23/22 02:00 08/23/22 01:30 08/23/22 01:00 08/23/22 00:30 08/23/22 00:00 08/22/22 23:30 08/22/22 23:00 08/22/22 22:30 08/22/22 22:00 08/23/22 04:00 30 08/23/22 03:16 30 08/22/22 22:56 30 08/23/22 00:00 30 08/23/22 00:00 08/22/22 23:00 08/22/22 21:30 08/22/22 21:00 08/22/22 20:30 08/22/22 20:00 08/22/22 19:30 08/22/22 19:00 08/22/22 22:09 30 08/22/22 20:00 30 08/22/22 20:14 30 PG Care Time/CCT Total # of Minutes Spent Total Time Spent with Patient: Total time spent is greater than 50% in coordination of care (as documented) at patient's floor/unit and/or counseling patient: Coding Level of Care Code 95853 Subseq Hosp Care Lvl 3 Diagnoses Acute respiratory failure with hypoxia J96.01 Septic shock A41.9; R65.21 Alcohol abuse F10.10 JUAN (acute kidney injury) N17.9 Alcohol withdrawal F10.939 Acute hypokalemia E87.6 Hypomagnesemia E83.42 Non-ST elevation ND (NSTEMI) I21.4 Acute hyponatremia E87.1 Thrombocytopenia D69.6 Hypophosphatemia E83.39
--- NOTE | 2022-08-23 08:21 | Pharmacy Report ---
Pharmacy PK ABX Note - Date of Service August 23, 2022 - Assessment and Plan Assessment 08/23: Patient's renal function significantly improved today (scr 2.2->1.39->0.76), UOP> 3L yesterday. Based on this and random level from this morning, will increase maintenance dose today. Will get another random level tomorrow morning due to rapidly changing renal function. 08/22 52 year old M receiving IV vancomycin and zosyn for pulmonary coverage and bacteremia. Blood cultures (+) GNB in 2/4 and Gram (+) bacilli in 1/4. Biofire (+) Enterobacterales. MRSA nasal (+). Patient is critically ill, intubated/sedated and requiring vasopressor support. Initially presented with an JUAN which is resolving (SCr 2.54 --> 1.39). Day #1 of antimicrobial therapy. Plan Vancomycin * Random level: 17.6 (~8 hr after last dose) * Maintenance dose: 1000 mg IV every 12 hours * Regimen is predicted to achieve target AUC/FERNY of 400-600 mg/L.hr * Random (non-steady state) level in AM, given changing renal function Pharmacy will continue to follow and will adjust dose/frequency as necessary. Thank you. Pharmacy has transitioned to AUC monitoring for vancomycin. AUC/FERNY is the preferred PK/PD target and is associated with decreased risk of nephrotoxicity compared to traditional trough targets.
[2022-08-23] MEDS ORDERED: FUROSEMIDE 40 MG/4 ML VIAL IV ONE (08:32)
[2022-08-23] MEDS: FOLIC ACID 1 MG in SYRINGE 9.8 ML IV SCH (09:00)
[2022-08-23] MEDS: MULTI VIT W/MINERALS LIQUID 15 ML UDP NG SCH (09:00)
[2022-08-23] MEDS: PANTOprazole 40 MG in SYRINGE 0 ML IV SCH ×2 (09:01→21:28)
--- NOTE | 2022-08-23 09:17 | Critical Care Progress Note ---
Date of Service August 23, 2022 Assessment & Plan (1) Alcohol withdrawal: (2) Alcohol abuse: (3) Syncope and collapse: (4) Elevated troponin: (5) Acute hyponatremia: (6) Acute hypokalemia: (7) JUAN (acute kidney injury): (8) Elevated procalcitonin: (9) Septic shock: Plan Impression: 52-year-old male presenting to the emergency room with shortness of breath chest pain nausea and vomiting and a syncopal episode. He was found to have acute renal failure with presumed sepsis as well as alcohol withdrawal. He aspirated in the emergency room, was intubated, and initiated on pressors for severe sepsis with septic shock. Recommendations: -- Neurologic: Remaining on propofol, with restraints Discontinued midazolam today Continue with thiamine and folate -- Cardiovascular: -- Septic shock Gram-negative bacteremia Zosyn changed to cefriaxone today, continue vancomycin today- consider discontinuation tomorrow pending clinical stability Random cortisol greater than 60 on 08/21 Maintaining MAP > 65 off pressor support -- Type II MT No ST-T wave EKG changes appreciated -- New onset CHF EF 20-25% with global wall abnormality Could be related to underlying sepsis Echo was negative for vegetations --Prolonged QTC Avoid QT prolonging medication QTC 551 08/22/2022 Respiratory: -Ventilator dependent respiratory failure Likely secondary to multilobar pneumonia possible asthma patient Given CXR today with worsening right basilar opacity- suspect fluid overload -Lasix 40 mg IV given today, consider further spot dosing as needed -Stopped IV fluids, reducing water flushes with tube feeds Continue ventilator support- deferring extubation today due to fluid overload on CXR Renal/Electrolytes: -- JUAN Improving, Cr 0.76 today Monitor BUNs/creatinine Avoid nephrotoxic medications -- Hyponatremia Likely from beer proteinemia, Na 129 today Initial sodium was 124 on 08/20/2022. Repleting hypokalemia, hypophosphatemia per protocol Trend BMP, Mg, Phos GI: Continue tube feeds, reduce water flushes as above Total hyperbilirubinemia, 1.5 downtrending to 1.3 AST, ALT downtrending : 5.7L intake, 2.1L output Larsen in place Endocrine: ICU hyperglycemia protocol ID: Gram-negative bacteremia along with gram-positive bacilli As above, switch Zosyn to ceftriaxone given cali-sensitive Klebsiella, consider discontinuing vancomycin tomorrow Heme-onc: -- Thrombocytopenia Could be alcohol induced Linezolid can also cause thrombocytopenia, linezolid discontinued 08/22/2022 Holding heparin --Prophylaxis VTE: Heparin on hold for thrombocytopenia, SCDs GI: Protonix Lines: Right radial, left subclavian Diet: Continue tube feeds Disposition: ICU until extubation Admission and Anticipated Discharge Date Admission Date: August 20, 2022 Supervising Physician Co-Signing Physician Notes Dr. Tenorio was the resident-physician during care of patient. I separately evaluated patient for [place] portions of the history and the exam. I was present during the critical portion of medical decision making, and I discussed the case with the resident. I generally agree with the findings and plan except for any additions/exceptions noted. Patient seen and examined events. No acute distress, no adverse events overnight Patient was on pressure support 5/5. He was little bit tachypneic. He did follow simple commands. Denied any headache, no chest pain. Was asking to remove the tube Still spiking fever T-max 38. Has been off vasopressor support as of 2 AM Constitutional: No acute distress HEENT: PERRLA,positive ETT Respiratory system:Decreased air entry bilaterally, no wheeze, no rhonchi, positive crackles bilateral lower lobes CVS: S1-S2 positive, no murmurs or gallops Abdomen: Soft, nontender, nondistended, positive bowel sounds x4 Extremities: +2 pulses bilaterally radialis/ dorsalis pedis,no cyanosis, no edema Neuro:Sedated, Following any commands Psych:Restless mood G/U: Positive Larsen Plan: In/out: +3.4 L, urine output 1790, +10 L since coming to the hospital Chest x-ray from today shows worsening bilateral opacities along with pulmonary vascular congestion For milligrams of Lasix given to the patient. The patient is still not negative balance by around 4 PM we will give another 20 mg of Lasix in the evening. Hypophosphatemia is being replaced with sodium Phos. DC IV fluids, repeat blood culture today. Will change Zosyn to Rocephin given pansensitive Saline Sputum culture is growing staph. Await if it is MRSA. Continue vancomycin for the time being Continue to hold heparin. Continue with pantoprazole I have personally spent 38 minutes of critical care time in the direct management of this patient. This is a life/limb threatening event. This includes time spent evaluating patient, direct bedside care, chart review, placing orders, interpretation of diagnostic studies, discussion with consultants, patient, and family members, as well as other required patient management activities. This time is exclusive of all separately billable procedures, and teaching time and separate from and in addition to any other critical care service time. Please note the above document was generated using voice recognition software. It may contain grammatical, syntax or spelling errors. Subjective No acute events overnight. Has remained off vasopressors overnight. Did well with SBT this AM. Pt remains intubated. Able to respond to commands during interview. Denies acute complaints. Review of Systems Review of Systems: Per subjective Physical Exam Physical Exam: Constitutional: No acute distress Resp: intubated Neuro: awake, following commands, nonverbal Extremities: normal to inspection, trace peripheral edema b/l LE : Larsen in place Rest of exam per Dr. Davis's attestation Skin: no rashes, warm and dry Lymphatic: no cervical or axillary lymphadenopathy Results & Data Results & Data ([facility]) Vital Signs (Past 12 Hours) Vital Signs Temp Pulse Resp Pulse Ox Pulse Ox O2 Del Method O2 Del Method 08/23/22 08:00 08/23/22 08:00 82 08/23/22 07:23 81 23 99 08/23/22 06:00 37.4 C 75 23 100 08/23/22 05:30 37.4 C 73 23 94 08/23/22 05:00 37.3 C 74 18 100 08/23/22 04:30 37.3 C 69 22 100 08/23/22 04:00 37.3 C 73 25 H 100 08/23/22 03:30 37.2 C 71 23 95 08/23/22 03:00 37.1 C 72 17 90 08/23/22 02:30 37.0 C 73 21 100 08/23/22 02:00 37.0 C 74 20 99 08/23/22 01:30 36.9 C 67 20 99 08/23/22 01:00 36.7 C 66 27 H 98 08/23/22 00:30 36.6 C 66 24 100 08/23/22 00:00 36.4 C L 65 23 99 08/22/22 23:30 36.3 C L 61 16 99 08/22/22 23:00 36.3 C L 62 21 100 08/22/22 22:30 36.2 C L 70 18 100 08/22/22 22:00 36.2 C L 65 21 100 08/23/22 04:00 08/23/22 03:16 67 22 99 08/22/22 22:56 63 19 99 08/23/22 00:00 08/23/22 00:00 62 08/22/22 23:00 100 Mechanical Vent 08/22/22 21:30 36.2 C L 61 16 100 08/22/22 22:09 Mechanical Vent FiO2 08/23/22 08:00 30 08/23/22 08:00 08/23/22 07:23 30 08/23/22 06:00 08/23/22 05:30 08/23/22 05:00 08/23/22 04:30 08/23/22 04:00 08/23/22 03:30 08/23/22 03:00 08/23/22 02:30 08/23/22 02:00 08/23/22 01:30 08/23/22 01:00 08/23/22 00:30 08/23/22 00:00 08/22/22 23:30 08/22/22 23:00 08/22/22 22:30 08/22/22 22:00 08/23/22 04:00 30 08/23/22 03:16 30 08/22/22 22:56 30 08/23/22 00:00 30 08/23/22 00:00 08/22/22 23:00 08/22/22 21:30 08/22/22 22:09 30 Laboratory Results 08/23/22 04:21 08/23/22 04:21 Resident Activity Tracking Resident Involvement: Resident Care Provided Care Provided: Adult Hospital Medicine
[2022-08-23] MEDS: VANCOMYCIN HCL 1,000 MG in SODIUM CHLORIDE 0.9% 250 ML IV SCH ×2 (09:31→21:28)
--- NOTE | 2022-08-23 09:31 | XRay Report ---
SINGLE VIEW CHEST CLINICAL HISTORY: Respiratory failure. FINDINGS: An AP, portable, upright chest radiograph is compared to study dated 08/22/2022 and correla denise with chest CT dated 03/19/2013. The endotracheal tube, an enteric tube, and a left subclavian cent ral venous catheter are unchanged in position. The cardiomediastinal silhouette is top normal for pro jection noting atherosclerotic calcification of the thoracic aorta. There is pulmonary vascular conge stion. Emphysema and chronic interstitial thickening is similar to previous. There is elevation of th e left hemidiaphragm with bibasilar airspace consolidation. Small pleural effusions are suspected. No pneumothorax is seen. The skeletal structures are osteopenic. The bony thorax is grossly intact. IMPRESSION: 1. Stable lines and tubes. 2. Pulmonary vascular congestion. 3. Bibasilar airspace consolidation is again noted. Right basilar consolidation has increased from . 4. Emphysema. ACT 112: Negative or not required by law. Electronically signed by: Rajinder Borden M.D. 08/23/2022 9:30 AM
[2022-08-23] MEDS: PROPOFOL BOLUS FROM BAG IV PRN ×2 (09:48→12:06)
[2022-08-23] MEDS: NOREPINEPHRINE/D5W 4 MG/250 ML PLCT IV SCH ×2 (10:30→18:08)
[2022-08-23] MEDS ORDERED: ACETAMINOPHEN 1000 MG/100 ML IV IV PRN (13:52)
--- NOTE | 2022-08-23 14:01 | Cardiology Progress Note ---
Date of Service August 23, 2022 Assessment & Plan (1) Elevated troponin: (2) Cardiomyopathy: Plan 1. Cardiomyopathy: Newly discovered. Unclear chronicity. Will continue supportive care at this point. Still requiring norepinephrine. Once the patient is clinically stable we can consider initiation standard medical therapy for cardiomyopathy. 2. Elevated troponin: I do not believe this is related to an acute coronary syndrome. 3. Hypoxemic respiratory failure: Requiring minimal ventilatory support. Seems to be oxygenating fairly well. The patient was administered some diuretic today over concerns of some mild pulmonary vascular congestion. I would agree he is at significant risk for pulmonary edema given his severe cardiomyopathy. He has affected a good urine output currently. Very mild drop in blood pressure with diuresis. I think diuretics can be continued monitoring his renal function and electrolytes closely. Admission and Anticipated Discharge Date Admission Date: August 20, 2022 Subjective Patient intubated and sedated. Review of Systems Review of Systems: Unobtainable due to endotracheal tube Physical Exam Physical Exam: The patient is Intubated and sedated. HEENT: The sclerae are anicteric. Lungs: Some rhonchorous breath sounds. No wheezing. No rales. Cardiac: Heart demonstrates a regular rate and rhythm. Normal S1 and S2. No murmurs on examination. Pulses: The patient has palpable radial pulses bilaterally that are equal in intensity Extremities: There was no evidence of hypoperfusion. There is no cyanosis or clubbing. There is no edema. Skin: Occasional ecchymoses. Macular rash on the lower extremities concerning for petechiae. Results & Data ([facility]) Vital Signs (Past 12 Hours) Vital Signs Temp Pulse Resp BP Pulse Ox O2 Del Method FiO2 08/23/22 13:43 114/75 08/23/22 13:00 38.4 C H 74 21 87/59 L 99 08/23/22 12:00 38.3 C H 72 17 95/66 L 99 08/23/22 08:00 Mechanical Vent 30 08/23/22 12:00 30 08/23/22 12:00 82 08/23/22 10:45 38.0 C H 72 17 99 08/23/22 11:06 82 19 100 30 08/23/22 10:30 37.9 C H 74 16 100 08/23/22 10:00 37.9 C H 81 20 100 08/23/22 09:30 37.9 C H 79 26 H 100 08/23/22 08:00 37.8 C H 79 28 H 100 08/23/22 07:00 37.6 C H 78 26 H 98 08/23/22 08:00 30 08/23/22 08:00 82 08/23/22 07:23 81 23 99 30 08/23/22 06:00 37.4 C 75 23 100 08/23/22 05:30 37.4 C 73 23 94 08/23/22 05:00 37.3 C 74 18 100 08/23/22 04:30 37.3 C 69 22 100 08/23/22 04:00 37.3 C 73 25 H 100 08/23/22 03:30 37.2 C 71 23 95 08/23/22 03:00 37.1 C 72 17 90 08/23/22 02:30 37.0 C 73 21 100 08/23/22 02:00 37.0 C 74 20 99 08/23/22 04:00 30 08/23/22 03:16 67 22 99 30 Laboratory Results Abnormal Lab Results 08/22/22 08/22/22 08/22/22 13:07 15:32 18:13 WBC RBC Hgb Hct MCV MCH MCHC RDW Std Deviation RDW Coeff of Tessy Plt Count MPV Immature Gran % (Auto) Neut % (Auto) Lymph % (Auto) Union % (Auto) Eos % (Auto) Baso % (Auto) Neut # (Auto) Lymph # (Auto) Union # (Auto) Eos # (Auto) Baso # (Auto) Immature Gran # (Auto) Dohle Bodies Giant Platelets Echinocytes PT INR APTT PTT Ratio Sodium 126 L Potassium 3.2 L D Chloride 96 L Carbon Dioxide 23 Anion Gap 7 BUN 15 Creatinine 1.03 D Est Cr Clr Drug Dosing 85.4 Est GFR ( Amer) 97.0 Est GFR (Non-Af Amer) 83.7 BUN/Creatinine Ratio 14.6 Glucose 111 H POC Glucose (other) 129 H 127 H Calcium 7.3 L Phosphorus Magnesium Total Bilirubin Direct Bilirubin AST ALT Alkaline Phosphatase Total Protein Albumin Random Vancomycin 08/22/22 08/23/22 08/23/22 21:08 01:30 04:21 WBC 7.66 RBC 3.25 L Hgb 10.8 L Hct 30.7 L MCV 94.5 MCH 33.2 MCHC 35.2 RDW Std Deviation 44.7 RDW Coeff of Tessy 12.9 Plt Count 58 L MPV 12.2 Immature Gran % (Auto) 0.9 Neut % (Auto) 82.6 Lymph % (Auto) 6.7 Union % (Auto) 5.6 Eos % (Auto) 3.3 Baso % (Auto) 0.9 Neut # (Auto) 6.33 Lymph # (Auto) 0.51 L Union # (Auto) 0.43 Eos # (Auto) 0.25 Baso # (Auto) 0.07 Immature Gran # (Auto) 0.07 H Dohle Bodies 1+ Giant Platelets 1+ Echinocytes 1+ PT INR APTT PTT Ratio Sodium 129 L Potassium 4.0 D Chloride 100 Carbon Dioxide 22 Anion Gap 7 BUN 11 Creatinine 0.78 Est Cr Clr Drug Dosing 112.8 Est GFR ( Amer) 121.1 Est GFR (Non-Af Amer) 104.5 BUN/Creatinine Ratio 14.1 Glucose 120 H POC Glucose (other) 120 H Calcium 7.2 L Phosphorus Magnesium Total Bilirubin Direct Bilirubin AST ALT Alkaline Phosphatase Total Protein Albumin Random Vancomycin 08/23/22 08/23/22 08/23/22 04:21 04:21 04:21 WBC RBC Hgb Hct MCV MCH MCHC RDW Std Deviation RDW Coeff of Tessy Plt Count MPV Immature Gran % (Auto) Neut % (Auto) Lymph % (Auto) Union % (Auto) Eos % (Auto) Baso % (Auto) Neut # (Auto) Lymph # (Auto) Union # (Auto) Eos # (Auto) Baso # (Auto) Immature Gran # (Auto) Dohle Bodies Giant Platelets Echinocytes PT 10.6 INR 1.0 APTT 31.4 H PTT Ratio 1.1 Sodium 129 L Potassium 3.7 Chloride 99 Carbon Dioxide 23 Anion Gap 7 BUN 11 Creatinine 0.76 Est Cr Clr Drug Dosing 115.8 Est GFR ( Amer) 122.4 Est GFR (Non-Af Amer) 105.6 BUN/Creatinine Ratio 14.5 Glucose 116 H POC Glucose (other) Calcium 7.3 L Phosphorus 1.1 L* D Magnesium 2.2 Total Bilirubin 1.3 H Direct Bilirubin 0.7 H AST 44 H ALT 41 Alkaline Phosphatase 28 L Total Protein 4.8 L Albumin 2.4 L Random Vancomycin 17.6 PG Care Time/CCT Total # of Minutes Spent Total Time Spent with Patient: Total time spent is greater than 50% in coordination of care (as documented) at patient's floor/unit and/or counseling patient: Coding Level of Care Code 86187 Subseq Hosp Care Lvl 2 Diagnoses Elevated troponin R77.8 Cardiomyopathy I42.9
[2022-08-23] MEDS: cefTRIAXone SODIUM 2,000 MG in DEXTROSE 5% 50 ML IV SCH (18:11)
[2022-08-23] MEDS: PEPTAMEN 1.5 CAL 1,000 ML BAG OG SCH (18:34)
[2022-08-23 21:35] LABS: BUN Creatinine Ratio 11.6 (10-20); Calcium 7.2 mg/dl (8.5-10.1); Creatinine Clr Calc Pharmacy 130.4 ml/min; Est GFR (African American) 127.4 ml/min; Est GFR (Non-African American) 109.9 ml/min; Magnesium 1.9 mg/dl (1.7-2.4); Phosphorus 1.9 mg/dl (2.5-4.9); Potassium 2.9 mmol/L (3.5-5.1)
[2022-08-23] MEDS ORDERED: POTASSIUM PHOS 3 MMOL/1 ML INFUSION IV STA (22:43)
[2022-08-23] MEDS ORDERED: POTASSIUM CHLORIDE 20 MEQ/15 ML UDC PO STA (23:09)
[2022-08-23] MEDS ORDERED: POTASSIUM PHOSPHATE 21 MMOL in SODIUM CHLORIDE 0.9% 500 ML IV ONE (23:15)
[2022-08-24] MEDS ORDERED: FUROSEMIDE INJ 20 MG/2 ML VIAL IV ONE (01:22)
[2022-08-24] MEDS: TUBE FEEDING WATER FLUSH OG SCH ×3 (01:29→11:15)
[2022-08-24] MEDS: THIAMINE HCL 100 MG in SYRINGE 9 ML IV SCH ×3 (01:29→17:06)
[2022-08-24] MEDS: propofoL 1,000 MG/100 ML VIAL IV SCH ×4 (03:46→11:16)
[2022-08-24 06:30] LABS: BUN Creatinine Ratio 9.8 (10-20); Calcium 7.2 mg/dl (8.5-10.1); Creatinine Clr Calc Pharmacy 147.5 ml/min; Est GFR (Non-African American) 115.6 ml/min; Phosphorus 2.9 mg/dl (2.5-4.9); Potassium 3.3 mmol/L (3.5-5.1)
[2022-08-24] MEDS ORDERED: POTASSIUM CHLORIDE 20 MEQ/15 ML UDC NG SCH (07:30)
[2022-08-24] MEDS ORDERED: FUROSEMIDE 40 MG/4 ML VIAL IV ONE ×2 (07:39→07:58)
[2022-08-24] MEDS ORDERED: POTASSIUM CHLORIDE 20 MEQ/15 ML UDC PO STA (07:40)
[2022-08-24] MEDS: MULTI VIT W/MINERALS LIQUID 15 ML UDP NG SCH (07:50)
--- NOTE | 2022-08-24 07:58 | Hospitalist Progress Note ---
Date of Service August 24, 2022 Assessment & Plan (1) Acute respiratory failure with hypoxia: Plan: Patient admitted to the hospital after a suspected syncopal episode, chest x-ray showing evidence of aspiration pneumonia. Due to evidence of worsening alcohol withdrawal symptoms, multiple aspirations and worsening respiratory status, patient was intubated and sedated. Blood cultures showing Klebsiella. Continue ceftriaxone for total of 10 days after negative blood culture. Sputum culture positive for MRSA, completed a 7-day course of vancomycin. Blood cultures do not show MRSA. Has been receiving intermittent Lasix for pulmonary vascular congestion. Patient is no longer on pressure support, and was extubated today. Likely approaching downgrade from ICU. Continue to follow and assume care when downgraded. Eventual PT and OT to determine level of weakness post-illness and intubation. (2) Cardiomyopathy: Plan: EF 20-25% with global wall abnormality on Echo, no baseline to compare. Could be related to underlying sepsis vs. does have risk factors for ischemic cardiomyopathy. Echo was negative for vegetations, continue tx for bacteremia and pneumonia. Can consider medications as appropriate for reduced EF as patient continues to improve clinically, appreciate Cardiology recommendations. (3) Septic shock: Plan: See above (4) Alcohol abuse: Plan: History of alcoholism, and from 5 days before admission decreased his intake from 18 beers a day to 4 beers a day. Initially started on CIWA, however, due to rapid decline in function is now currently intubated, sedated and ventilated. Discuss goals regarding alcohol use disorder when stable and willing to talk. (5) JUAN (acute kidney injury): Plan: Resolved, daily BMP. (6) Alcohol withdrawal: Plan: as above (7) Acute hypokalemia: Plan: Repeat electrolytes per ICU protocol. Repeat lab work daily. (8) Hypomagnesemia: Plan: See above. (9) Non-ST elevation AZ (NSTEMI): Plan: Type II AZ in the setting of septic shock, significantly reduced EF, unclear if acute or just incidental finding. Septic/ possible cardiogenic shock. ECHO shows EF 20-25%, new cardiomyopathy. Cardiology consulted and appreciate recommendations; newly discovered cardiomyopathy with unclear chronicity and patient with history of alcohol abuse which could be related. Also has several factors that could lead to ischemic cardiomyopathy. Supportive care with close monitoring of volume status given decreased ventricular function. (10) Acute hyponatremia: Plan: Admission sodium of 124, no baseline to compare. Sodium of 135 on 08/24. Suspected causes beer potomania/low solute diet. Continue to monitor BMP. (11) Thrombocytopenia: Plan: Platelets 170->83->62-> 58>71, no evidence of active bleeding. Continue care per ICU. Holding heparin for DVT prophylaxis given thrombocytopenia. (12) Hypophosphatemia: Plan: Repleted with sodium Phos. Plan ICU status at this time we will continue to follow Full code N.p.o. with tube feedings Holding heparin for DVT prophylaxis given thrombocytopenia Admission and Anticipated Discharge Date Admission Date: August 20, 2022 Subjective Patient had episode of fever to 38.5 C overnight. No other overnight events. He reports that the last couple of days have felt like "a dream". He is very nervous about being here in the hospital and wants to go home as soon as possible. Review of Systems Constitutional: no fever and no chills Respiratory: + cough; no dyspnea Cardiovascular: no chest pain and no palpitations Gastrointestinal: no abdominal pain, no nausea and no vomiting Physical Exam Constitutional: WD/WN, vitals as above Respiratory: Normal respiratory effort no wheeze, no rhonchi, positive crackles in bilateral lung bases Saturating to 93% on 2 L nasal cannula Cardiovascular: RRR, no murmur, no edema Gastrointestinal (Abdomen): normal bowel sounds, soft, nontender, no hepatosplenomegaly Skin: no rashes, warm and dry Psychiatric: A+Ox3, euthymic affect Results & Data Results & Data ([facility]) Vital Signs (Past 12 Hours) Vital Signs Temp Pulse Resp BP Pulse Ox Pulse Ox O2 Del Method 08/24/22 07:30 86 33 H 99 08/24/22 06:00 38.1 C H 88 29 H 99 08/24/22 06:00 107/78 08/24/22 05:14 75 28 H 99 08/24/22 05:00 38.5 C H 75 24 98 08/24/22 05:00 93/65 L 08/24/22 04:00 38.4 C H 67 23 99 08/24/22 04:00 119/85 08/24/22 03:00 38.2 C H 69 22 98 08/24/22 03:00 112/79 08/24/22 02:05 38.1 C H 70 22 100 08/24/22 01:00 38.1 C H 67 30 H 100 08/24/22 01:00 95/75 L 08/24/22 04:00 08/24/22 03:45 65 21 99 08/24/22 01:47 Mechanical Vent 08/23/22 23:30 67 20 99 08/24/22 00:00 38.0 C H 67 20 100 08/24/22 00:00 111/79 08/23/22 23:00 37.9 C H 61 21 99 08/23/22 23:00 105/71 08/24/22 00:00 08/24/22 00:00 66 08/23/22 23:00 100 08/23/22 22:00 37.7 C H 65 19 99 08/23/22 22:00 110/74 08/23/22 21:30 37.7 C H 63 22 97 08/23/22 21:00 37.8 C H 72 23 94 08/23/22 21:00 79/55 L 08/23/22 20:30 37.7 C H 63 19 99 08/23/22 20:00 37.8 C H 63 19 99 08/23/22 20:00 103/74 08/23/22 20:00 O2 Del Method FiO2 08/24/22 07:30 30 08/24/22 06:00 08/24/22 06:00 08/24/22 05:14 30 08/24/22 05:00 08/24/22 05:00 08/24/22 04:00 08/24/22 04:00 08/24/22 03:00 08/24/22 03:00 08/24/22 02:05 08/24/22 01:00 08/24/22 01:00 08/24/22 04:00 30 08/24/22 03:45 30 08/24/22 01:47 30 08/23/22 23:30 30 08/24/22 00:00 08/24/22 00:00 08/23/22 23:00 08/23/22 23:00 08/24/22 00:00 30 08/24/22 00:00 08/23/22 23:00 Mechanical Vent 08/23/22 22:00 08/23/22 22:00 08/23/22 21:30 08/23/22 21:00 08/23/22 21:00 08/23/22 20:30 08/23/22 20:00 08/23/22 20:00 08/23/22 20:00 30 PG Care Time/CCT Total # of Minutes Spent Total Time Spent with Patient: Total time spent is greater than 50% in coordination of care (as documented) at patient's floor/unit and/or counseling patient: Coding Level of Care Code 42804 Subseq Hosp Care Lvl 3 Diagnoses Acute respiratory failure with hypoxia J96.01 Cardiomyopathy I42.9 Septic shock A41.9; R65.21 Alcohol abuse F10.10 JUAN (acute kidney injury) N17.9 Alcohol withdrawal F10.939 Acute hypokalemia E87.6 Hypomagnesemia E83.42 Non-ST elevation AZ (NSTEMI) I21.4 Acute hyponatremia E87.1 Thrombocytopenia D69.6 Hypophosphatemia E83.39
[2022-08-24] MEDS: PANTOprazole 40 MG in SYRINGE 0 ML IV SCH (08:01)
[2022-08-24] MEDS: FOLIC ACID 1 MG in SYRINGE 9.8 ML IV SCH (08:01)
--- NOTE | 2022-08-24 08:38 | Pharmacy Report ---
Pharmacy PK ABX Note - Date of Service August 24, 2022 - Assessment and Plan Assessment 08/14: Renal function continues to improve today (scr. 0.61) with patient making adequate UOP. Patient is receiving daily diuresis at this point so will keep a close eye on the renal function. Random level this morning indicated need for significant dose increase due to improved renal function. Blood cxs resulted to klebsiella pneumoniae for which Zosyn was switched to ceftriaxone. The sputum culture has now resulted as MRSA and cezar albicans. 08/23: Patient's renal function significantly improved today (scr 2.2->1.39->0.76), UOP> 3L yesterday. Based on this and random level from this morning, will increase maintenance dose today. Will get another random level tomorrow morning due to rapidly changing renal function. 08/22 52 year old M receiving IV vancomycin and zosyn for pulmonary coverage and bacteremia. Blood cultures (+) GNB in 2/4 and Gram (+) bacilli in 1/4. Biofire (+) Enterobacterales. MRSA nasal (+). Patient is critically ill, intubated/sedated and requiring vasopressor support. Initially presented with an JUAN which is resolving (SCr 2.54 --> 1.39). Day #1 of antimicrobial therapy. Plan Vancomycin * Random level: 13.1 (~8 hr after last dose) * Increase Maintenance dose: 1000 mg IV every 8 hours * Regimen is predicted to achieve target AUC/FERNY of 400-600 mg/L.hr * Trough level ordered for tomorrow @ 0830 Pharmacy will continue to follow and will adjust dose/frequency as necessary. Thank you. Pharmacy has transitioned to AUC monitoring for vancomycin. AUC/FERNY is the preferred PK/PD target and is associated with decreased risk of nephrotoxicity compared to traditional trough targets.
[2022-08-24] MEDS: POTASSIUM CHLORIDE / WTR 10 MEQ/100 ML PLCT IV SCH ×4 (08:41→11:57)
--- NOTE | 2022-08-24 08:48 | Critical Care Progress Note ---
Date of Service August 24, 2022 Assessment & Plan (1) Alcohol withdrawal: (2) Alcohol abuse: (3) Syncope and collapse: (4) Elevated troponin: (5) Acute hyponatremia: (6) Acute hypokalemia: (7) JUAN (acute kidney injury): (8) Elevated procalcitonin: (9) Septic shock: Plan Impression: 52-year-old male presenting to the emergency room with shortness of breath chest pain nausea and vomiting and a syncopal episode. He was found to have acute renal failure with presumed sepsis as well as alcohol withdrawal. He aspirated in the emergency room, was intubated, and initiated on pressors for severe sepsis with septic shock. Recommendations: -- Neurologic: Remaining on propofol, with restraints Discontinued midazolam 08/23 Continue with thiamine and folate -- Cardiovascular: -- Septic shock Gram-negative bacteremia Zosyn changed to ceftriaxone 08/23, continue vancomycin given sputum culture results MRSA positive Random cortisol greater than 60 on 08/21 Maintaining MAP > 65 off pressor support -- Type II GA No ST-T wave EKG changes appreciated -- New onset CHF EF 20-25% with global wall abnormality Could be related to underlying sepsis Echo was negative for vegetations --Prolonged QTC Avoid QT prolonging medication QTC 551 08/22/2022 Respiratory: -Ventilator dependent respiratory failure Likely secondary to multilobar pneumonia possible asthma patient Given CXR 08/23 with worsening bibasilar opacities- suspect fluid overload, has received Lasix 100 mg IV total over past 24 hours Continue ventilator support- will extubate today Renal/Electrolytes: -- JUAN Improving, Cr 0.61 today Monitor BUNs/creatinine Avoid nephrotoxic medications -- Hyponatremia Likely from beer proteinemia, Na 135 today Initial sodium was 124 on 08/20/2022. Repleting hypokalemia, hypophosphatemia per protocol Trend BMP, Mg, Phos GI: Continue tube feeds, reduce water flushes as above Total hyperbilirubinemia, 1.5 downtrending to 1.3 on 08/23 AST, ALT downtrending : -1.0L balance, 4.9L output Larsen in place Endocrine: ICU hyperglycemia protocol ID: Gram-negative bacteremia along with gram-positive bacilli As above, switch Zosyn to ceftriaxone 08/23 given cali-sensitive Klebsiella, continue vancomycin due to sputum culture MRSA positive Repeat BCx 08/23 pending Currently day 5 of antibiotics Heme-onc: -- Thrombocytopenia Could be alcohol induced Linezolid can also cause thrombocytopenia, linezolid discontinued 08/22/2022 Holding heparin for DVT prophylaxis --Prophylaxis VTE: Heparin on hold for thrombocytopenia, SCDs GI: Protonix BID, may decrease to daily pending CBC results Lines: Left subclavian, PIV Diet: Continue tube feeds Disposition: ICU until extubation Admission and Anticipated Discharge Date Admission Date: August 20, 2022 Supervising Physician Co-Signing Physician Notes Dr. Tenorio was the resident-physician during care of patient. I separately evaluated patient for [place] portions of the history and the exam. I was present during the critical portion of medical decision making, and I discussed the case with the resident. I generally agree with the findings and plan except for any additions/exceptions noted. Patient seen and examined events. No acute distress, no adverse events overnight Patient was on pressure support 5/5 at the time of examination. He was answering all the questions appropriately Denied any headache, no chest pain. No abdominal pain. No bowel movement. Constitutional: No acute distress HEENT: PERRLA,positive ETT Respiratory system:Decreased air entry bilaterally, no wheeze, no rhonchi, positive crackles bilateral lower lobes CVS: S1-S2 positive, no murmurs or gallops Abdomen: Soft, nontender, nondistended, positive bowel sounds x4 Extremities: +2 pulses bilaterally radialis/ dorsalis pedis,no cyanosis, no edema Neuro:Awake alert oriented, answering questions appropriately Psych:Normal mood and affect G/U: Positive Larsen --Prophylaxis VTE: Heparin on hold, IPC GI: Protonix Lines: Peripheral, positive Larsen Diet: Tube feeds Plan: In/out: -1 L, urine output 4825, +9 L since coming to the hospital 40 mg of Lasix given to the patient today. Hypokalemia being replaced Change Protonix to once a day, H&H is stable Sputum culture is positive for MRSA. Will complete course of vancomycin for total of 7 days Continue with Rocephin for total of 10 days post negative blood culture Trial of extubation today I have personally spent 36 minutes of critical care time in the direct management of this patient. This is a life/limb threatening event. This includes time spent evaluating patient, direct bedside care, chart review, placing orders, interpretation of diagnostic studies, discussion with consultants, patient, and family members, as well as other required patient management activities. This time is exclusive of all separately billable procedures, and teaching time and separate from and in addition to any other critical care service time. Please note the above document was generated using voice recognition software. It may contain grammatical, syntax or spelling errors. Subjective No acute events overnight. Tube feeds stopped at 0500, NG tube back to LIS. Propofol paused as well and pt awoke in few minutes. SBT done as well. Pt remained calm and responsive to commands, restraints removed. Was febrile with Tmax 38.5 C overnight. On evaluation, pt did not indicate any acute complaints. Aware he will be extubated today. Received Lasix 30 mg IV this AM. Review of Systems Review of Systems: Per subjective Physical Exam Physical Exam: Constitutional: No acute distress Resp: intubated Neuro: awake, following commands Extremities: normal to inspection, no peripheral edema b/l LE : Larsen in place Rest of exam per Dr. Davis's attestation Results & Data Results & Data ([facility]) Vital Signs (Past 12 Hours) Vital Signs Temp Pulse Resp BP Pulse Ox Pulse Ox O2 Del Method 08/24/22 07:30 86 33 H 99 08/24/22 06:00 38.1 C H 88 29 H 99 08/24/22 06:00 107/78 08/24/22 05:14 75 28 H 99 08/24/22 05:00 38.5 C H 75 24 98 08/24/22 05:00 93/65 L 08/24/22 04:00 38.4 C H 67 23 99 08/24/22 04:00 119/85 08/24/22 03:00 38.2 C H 69 22 98 08/24/22 03:00 112/79 08/24/22 02:05 38.1 C H 70 22 100 08/24/22 01:00 38.1 C H 67 30 H 100 08/24/22 01:00 95/75 L 08/24/22 04:00 08/24/22 03:45 65 21 99 08/24/22 01:47 Mechanical Vent 08/23/22 23:30 67 20 99 08/24/22 00:00 38.0 C H 67 20 100 08/24/22 00:00 111/79 08/23/22 23:00 37.9 C H 61 21 99 08/23/22 23:00 105/71 08/24/22 00:00 08/24/22 00:00 66 08/23/22 23:00 100 08/23/22 22:00 37.7 C H 65 19 99 08/23/22 22:00 110/74 08/23/22 21:30 37.7 C H 63 22 97 08/23/22 21:00 37.8 C H 72 23 94 08/23/22 21:00 79/55 L O2 Del Method FiO2 08/24/22 07:30 30 08/24/22 06:00 08/24/22 06:00 08/24/22 05:14 30 08/24/22 05:00 08/24/22 05:00 08/24/22 04:00 08/24/22 04:00 08/24/22 03:00 08/24/22 03:00 08/24/22 02:05 08/24/22 01:00 08/24/22 01:00 08/24/22 04:00 30 08/24/22 03:45 30 08/24/22 01:47 30 08/23/22 23:30 30 08/24/22 00:00 08/24/22 00:00 08/23/22 23:00 08/23/22 23:00 08/24/22 00:00 30 08/24/22 00:00 08/23/22 23:00 Mechanical Vent 08/23/22 22:00 08/23/22 22:00 08/23/22 21:30 08/23/22 21:00 08/23/22 21:00 Laboratory Results 08/24/22 04:59 08/24/22 04:55 Resident Activity Tracking Resident Involvement: Resident Care Provided Care Provided: Adult Hospital Medicine
[2022-08-24] MEDS: VANCOMYCIN HCL 1,000 MG in SODIUM CHLORIDE 0.9% 250 ML IV SCH ×2 (08:52→17:05)
[2022-08-24] MEDS: ICU ELECTROLYTE REPLACEMENT PROTOCOL SCH ×2 (09:09→18:27)
[2022-08-24 10:09] LABS: Hematocrit (blood only) 32.4 % (40.1-51.0); Hemoglobin 10.9 g/dl (14.0-18.0); Mean Corpuscular Hemoglobin 32.8 pg (25.0-34.0); Mean Corpuscular Hgb Conc 33.6 g/dL (32.0-36.0); Mean Corpuscular Volume 97.6 fL (80.0-100.0); RDW Coefficient of Variation 13.2 % (11.5-14.5); RDW Standard Deviation 47.4 fL (36.4-46.3); Red Blood Count 3.32 M/uL (4.63-6.08); White Blood Count 9.81 K/ul (4.8-10.8)
[2022-08-24 10:13] LABS: Mean Platelet Volume 13.5 fL (9.4-12.4); Platelet Count 71 K/uL (130-400)
[2022-08-24 10:36] LABS: Basophils # (auto) 0.09 K/uL (0-0.2); Basophils % (auto) 0.9 %; Eosinophils # (auto) 0.24 K/uL (0-0.50); Eosinophils % (auto) 2.4 %; Immature Granulocytes # (auto) 0.08 K/uL (0.00-0.02); Immature Granulocytes % (auto) 0.8 %; Lymphocytes % (auto) 8.2 %; Monocytes # (auto) 0.96 K/uL (0.24-0.82); Monocytes % (auto) 9.8 %; Neutrophils # (auto) 7.64 K/uL (1.4-6.5); Neutrophils % (auto) 77.9 %
--- NOTE | 2022-08-24 10:54 | Billing Data ---
Date of Service August 23, 2022 Coding Level of Care Code Critical Care 1st 30-74 mins Time Spent (min) 38
--- NOTE | 2022-08-24 10:54 | Billing Data ---
Date of Service August 24, 2022 Coding Level of Care Code Critical Care 1st 30-74 mins Time Spent (min) 36
[2022-08-24] MEDS ORDERED: Nursing to Pharmacy Communication SCH (12:00)
[2022-08-24] MEDS: cefTRIAXone SODIUM 2,000 MG in DEXTROSE 5% 50 ML IV SCH (16:21)
--- NOTE | 2022-08-24 19:13 | Cardiology Progress Note ---
Date of Service August 24, 2022 Assessment & Plan (1) Elevated troponin: (2) Cardiomyopathy: Plan 1. Cardiomyopathy: Hemodynamically stable. Extubated. He did not report any history of chest pain. 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 No exertional sx until recently with his dyspnea. Will re- asess LV function. If still reduced can consider coronary evaluation vs monitoring with sobriety. Depending on his echo findings we may initiate st andard therapy for his cardiomyopathy. 2. Elevated troponin: I do not believe this is related to an acute coronary syndrome. 3. Hypoxemic respiratory failure: Resolving. Still very volume positive. He did have more lasix today without hemodynamic embarrassment. I would continue diuresis. Admission and Anticipated Discharge Date Admission Date: August 20, 2022 Subjective This afternoon he was feelinig well. Minimal breathing trouble. NO history of chest pain. Hungry Review of Systems Review of Systems: per HPI Physical Exam Physical Exam: Alert. Oriented x3. Answered questions appropriately HEENT: The sclerae are anicteric. Lungs: Ronchorous breath sounds on the right base. No wheezing Cardiac: Heart demonstrates a regular rate and rhythm. Normal S1 and S2. No murmurs on examination. Pulses: The patient has palpable radial pulses bilaterally that are equal in intensity Extremities: There was no evidence of hypoperfusion. There is no cyanosis or clubbing. There is no edema. Skin: some bruises Results & Data ([facility]) Vital Signs (Past 12 Hours) Vital Signs Temp Pulse Resp BP Pulse Ox O2 Del Method FiO2 08/24/22 18:12 36.8 C 87 20 93 08/24/22 18:12 140/91 08/24/22 18:00 36.8 C 91 H 20 92 08/24/22 17:47 36.8 C 92 H 21 91 08/24/22 17:47 164/99 H 08/24/22 17:00 37.0 C 83 23 93 08/24/22 17:00 153/104 H 08/24/22 16:00 37.2 C 68 24 95 08/24/22 16:00 140/92 08/24/22 16:00 70 08/24/22 15:00 37.2 C 74 21 96 08/24/22 15:00 137/92 08/24/22 14:00 37.4 C 74 22 97 08/24/22 14:00 133/102 H 08/24/22 13:01 133/85 08/24/22 13:01 37.6 C H 72 23 97 08/24/22 13:00 37.6 C H 71 20 98 08/24/22 12:00 37.7 C H 69 24 98 08/24/22 12:00 115/81 08/24/22 09:30 Nasal Cannula 08/24/22 11:00 37.9 C H 71 29 H 99 08/24/22 11:00 113/80 08/24/22 10:00 38.0 C H 76 32 H 98 08/24/22 10:00 107/76 08/24/22 09:00 38.0 C H 78 34 H 97 08/24/22 09:00 112/80 08/24/22 08:00 38.4 C H 83 32 H 98 08/24/22 08:00 115/85 08/24/22 08:00 83 08/24/22 09:16 Nasal Cannula 2 08/24/22 07:30 86 33 H 99 30 Laboratory Results Abnormal Lab Results 08/23/22 08/24/22 08/24/22 20:56 04:55 04:55 WBC RBC Hgb Hct MCV MCH MCHC RDW Std Deviation RDW Coeff of Tessy Plt Count MPV Immature Gran % (Auto) Neut % (Auto) Lymph % (Auto) [place] % (Auto) Eos % (Auto) Baso % (Auto) Neut # (Auto) Lymph # (Auto) [place] # (Auto) Eos # (Auto) Baso # (Auto) Immature Gran # (Auto) Sodium 133 L 135 L Potassium 2.9 L D 3.3 L Chloride 100 101 Carbon Dioxide 27 27 Anion Gap 6 7 BUN 8 6 Creatinine 0.69 0.61 Est Cr Clr Drug Dosing 130.4 147.5 Est GFR ( Amer) 127.4 134.0 Est GFR (Non-Af Amer) 109.9 115.6 BUN/Creatinine Ratio 11.6 9.8 L Glucose 116 H 140 H Calcium 7.2 L 7.2 L Phosphorus 1.9 L 2.9 D Magnesium 1.9 Random Vancomycin 13.1 08/24/22 04:59 WBC 9.81 RBC 3.32 L Hgb 10.9 L Hct 32.4 L MCV 97.6 MCH 32.8 MCHC 33.6 RDW Std Deviation 47.4 H RDW Coeff of Tessy 13.2 Plt Count 71 L MPV 13.5 H Immature Gran % (Auto) 0.8 Neut % (Auto) 77.9 Lymph % (Auto) 8.2 [place] % (Auto) 9.8 Eos % (Auto) 2.4 Baso % (Auto) 0.9 Neut # (Auto) 7.64 H Lymph # (Auto) 0.80 L [place] # (Auto) 0.96 H Eos # (Auto) 0.24 Baso # (Auto) 0.09 Immature Gran # (Auto) 0.08 H Sodium Potassium Chloride Carbon Dioxide Anion Gap BUN Creatinine Est Cr Clr Drug Dosing Est GFR ( Amer) Est GFR (Non-Af Amer) BUN/Creatinine Ratio Glucose Calcium Phosphorus Magnesium Random Vancomycin PG Care Time/CCT Total # of Minutes Spent Total Time Spent with Patient: Total time spent is greater than 50% in coordination of care (as documented) at patient's floor/unit and/or counseling patient: Coding Level of Care Code 37182 Subseq Hosp Care Lvl 2 Diagnoses Elevated troponin R77.8 Cardiomyopathy I42.9
[2022-08-24] MEDS ORDERED: LORazepam 1 MG in SYRINGE 0 ML IV PRN (19:19)
[2022-08-24] MEDS ORDERED: LORazepam 3 MG in SYRINGE 0 ML IV PRN (19:19)
[2022-08-24] MEDS ORDERED: LORazepam 2 MG in SYRINGE 0 ML IV PRN (19:19)
[2022-08-24] MEDS ORDERED: Ativan IV Alcohol Withdrawal--Active Protocol IV PRN (19:19)
[2022-08-24] MEDS: LORazepam 1 MG in SYRINGE 0 ML IV PRN (20:31)
[2022-08-24] MEDS: ALBUT/IPRATROP 3MG/0.5MG NEB 3 ML VIAL INH SCH (22:22)
[2022-08-25] MEDS: THIAMINE HCL 100 MG in SYRINGE 9 ML IV SCH ×3 (00:05→16:44)
[2022-08-25] MEDS: VANCOMYCIN HCL 1,000 MG in SODIUM CHLORIDE 0.9% 250 ML IV SCH ×2 (00:05→08:59)
[2022-08-25 05:20] LABS: Basophils # (auto) 0.07 K/uL (0-0.2); Basophils % (auto) 0.7 %; Eosinophils # (auto) 0.11 K/uL (0-0.50); Eosinophils % (auto) 1.1 %; Hematocrit (blood only) 33.5 % (40.1-51.0); Hemoglobin 11.5 g/dl (14.0-18.0); Immature Granulocytes # (auto) 0.14 K/uL (0.00-0.02); Immature Granulocytes % (auto) 1.4 %; Lymphocytes # (auto) 0.95 K/uL (1.2-3.4); Lymphocytes % (auto) 9.4 %; Mean Corpuscular Hemoglobin 33.1 pg (25.0-34.0); Mean Corpuscular Hgb Conc 34.3 g/dL (32.0-36.0); Mean Corpuscular Volume 96.5 fL (80.0-100.0); Monocytes # (auto) 1.55 K/uL (0.24-0.82); Monocytes % (auto) 15.4 %; Neutrophils # (auto) 7.24 K/uL (1.4-6.5); Platelet Count 75 K/uL (130-400); RDW Coefficient of Variation 13.1 % (11.5-14.5); RDW Standard Deviation 46.3 fL (36.4-46.3); Red Blood Count 3.47 M/uL (4.63-6.08); White Blood Count 10.06 K/ul (4.8-10.8)
[2022-08-25 05:43] LABS: Creatinine Clr Calc Pharmacy 197.5 ml/min; Est GFR (African American) > 150.0 ml/min; Est GFR (Non-African American) 129.8 ml/min; Phosphorus 2.7 mg/dl (2.5-4.9)
[2022-08-25 06:06] LABS: Anion Gap 8 (3-11); BUN Creatinine Ratio 15.2 (10-20); Blood Urea Nitrogen 7 mg/dl (6-23); Calcium 7.4 mg/dl (8.5-10.1); Carbon Dioxide 27 mmol/L (21-32); Chloride 101 mmol/L (98-107); Glucose 79 mg/dl (70-99(Fasting)); Sodium 136 mmol/L (136-145)
[2022-08-25] MEDS: ICU ELECTROLYTE REPLACEMENT PROTOCOL SCH (06:20)
[2022-08-25] MEDS: POTASSIUM CHLORIDE CRTAB 20 MEQ TABCR PO SCH ×4 (06:33→19:23)
[2022-08-25] MEDS: ALBUT/IPRATROP 3MG/0.5MG NEB 3 ML VIAL INH SCH ×3 (07:09→22:06)
--- NOTE | 2022-08-25 07:40 | Hospitalist Progress Note ---
Date of Service August 25, 2022 Assessment & Plan (1) Acute respiratory failure with hypoxia: Plan: Patient admitted to the hospital after a suspected syncopal episode, chest x-ray showing evidence of aspiration pneumonia. Due to evidence of worsening alcohol withdrawal symptoms, multiple aspirations and worsening respiratory status, patient was intubated and sedated. Blood cultures showing Klebsiella. Continue ceftriaxone for total of 10 days after negative blood culture (complete 09/03). Sputum culture positive for MRSA, completing a 7-day course of vancomycin (end date 08/27). Blood cultures do not show MRSA. CXR 08/25 shows interval progression of the interstitial thickening and bilateral airspace opacities. This may represent superimposed pulmonary edema on the background of a pneumonitis. Continue daily Lasix 40mg IV with daily BMP. PT and OT evaluations to determine care needs moving forward. (2) Cardiomyopathy: Plan: EF 20-25% with global wall abnormality on Echo, no baseline to compare. Could be related to underlying sepsis vs. does have risk factors for ischemic cardiomyopathy. Echo was negative for vegetations, continue tx for bacteremia and pneumonia. Repeat Echo pending, appreciate Cardiology recommendations. (3) Septic shock: Plan: See above (4) Alcohol abuse: Plan: History of alcoholism, and from 5 days before admission decreased his intake from 18 beers a day to 4 beers a day. Continue AWSS protocol. Case Management will visit patient later in admission to discuss D&A resources. (5) JUAN (acute kidney injury): Plan: Resolved, daily BMP. (6) Alcohol withdrawal: Plan: as above (7) Acute hypokalemia: Plan: KCL q4h x2 for K of 3.3 Repeat BMP in AM. (8) Hypomagnesemia: Plan: See above. (9) Non-ST elevation RI (NSTEMI): Plan: Type II RI in the setting of septic shock, significantly reduced EF, unclear if acute or just incidental finding. Septic/ possible cardiogenic shock. ECHO shows EF 20-25%, new cardiomyopathy. Cardiology consulted and appreciate recommendations; newly discovered cardiomyopathy with unclear chronicity and patient with history of alcohol abuse which could be related. Also has several factors that could lead to ischemic cardiomyopathy. Supportive care with close monitoring of volume status given decreased ventricular function. (10) Acute hyponatremia: Plan: Admission sodium of 124, no baseline to compare. Sodium of 134 on 08/25. Suspected causes beer potomania/low solute diet. This is corroborated by patient eating very little so far today. Continue to monitor BMP. (11) Thrombocytopenia: Plan: Plts 75, no evidence of active bleeding. Heparin 5000u q12h for DVT ppx. (12) Hypophosphatemia: Plan: Phos 1.1; Repleted with sodium Phos 30 mmol IV. Repeat Phos in AM. (13) Bacteremia due to Klebsiella pneumoniae: Plan: Ceftriaxone for Klebsiella bacteremia to complete on 09/03/22. (14) MRSA (methicillin resistant staph aureus) culture positive: Plan: Vancomycin for MRSA pos sputum culture, completes 08/27/22. Plan Full code Regular diet Heparin for DVT ppx Downgrade to Tele status Discussed removing Stevens; told patient we will remove no later than tomorrow m orning, and can assist him with using urinal for voiding thereafter. Admission and Anticipated Discharge Date Admission Date: August 20, 2022 Subjective Overnight: No acute events. Last fever 08/24 at 10AM. Has been tachycardic this afternoon in the low 100s. Reports his breathing is about the same today. Feels tremendously weak, nervous about his ability to make it to the bathroom without wetting himself if the catheter is removed. No other complaints. Review of Systems Review of Systems: All systems reviewed & are unremarkable except as noted in Subjective Physical Exam Constitutional: WD/WN, vitals as above Respiratory: normal respiratory effort; no respiratory distress, no labored breathing and no cough crackles bilateral lung bases Cardiovascular: RRR, no murmur, no edema Gastrointestinal (Abdomen): normal bowel sounds, soft, nontender, no hepatosplenomegaly Skin: no rashes, warm and dry Psychiatric: A+Ox3, euthymic affect Genitourinary: stevens in place Results & Data Results & Data ([facility]) Vital Signs (Past 12 Hours) Vital Signs Temp Pulse Pulse Resp BP Pulse Ox Pulse Ox 08/25/22 07:12 92 H 18 95 08/25/22 06:00 37.2 C 81 28 H 174/104 H 94 08/25/22 05:00 37.4 C 91 H 30 H 147/96 H 94 08/25/22 04:00 37.4 C 84 26 H 163/101 H 93 08/25/22 03:00 37.5 C 84 30 H 157/98 H 92 08/25/22 02:00 37.4 C 86 29 H 163/103 H 93 08/25/22 01:00 37.5 C 85 27 H 158/97 H 95 08/25/22 00:12 37.5 C 88 27 H 141/98 H 92 08/25/22 00:00 37.5 C 83 28 H 170/97 H 96 08/24/22 23:00 37.4 C 83 25 H 145/100 H 97 08/25/22 00:00 87 08/24/22 23:00 97 08/24/22 22:58 91 H 18 93 08/24/22 22:00 37.1 C 91 H 28 H 154/100 H 93 08/24/22 22:00 154/100 H 08/24/22 21:00 36.9 C 91 H 29 H 138/101 H 97 08/24/22 20:00 92 H 08/24/22 20:00 08/24/22 20:09 36.9 C 101 H 28 H 171/109 H 93 O2 Del Method O2 Del Method O2 Flow Rate O2 Flow Rate 08/25/22 07:12 Nasal Cannula 2 08/25/22 06:00 Nasal Cannula 2 08/25/22 05:00 Nasal Cannula 2 08/25/22 04:00 Nasal Cannula 3 08/25/22 03:00 Nasal Cannula 3 08/25/22 02:00 Nasal Cannula 3 08/25/22 01:00 Nasal Cannula 3 08/25/22 00:12 Nasal Cannula 3 08/25/22 00:00 Nasal Cannula 3 08/24/22 23:00 Nasal Cannula 3 08/25/22 00:00 08/24/22 23:00 Nasal Cannula 3 08/24/22 22:58 Nasal Cannula 3 08/24/22 22:00 Nasal Cannula 3 08/24/22 22:00 08/24/22 21:00 08/24/22 20:00 08/24/22 20:00 Nasal Cannula 3 08/24/22 20:09 Nasal Cannula 3 PG Care Time/CCT Total # of Minutes Spent Total Time Spent with Patient: Total time spent is greater than 50% in coordination of care (as documented) at patient's floor/unit and/or counseling patient: Coding Level of Care Code 23318 Subseq Hosp Care Lvl 3 Diagnoses Acute respiratory failure with hypoxia J96.01 Cardiomyopathy I42.9 Septic shock A41.9; R65.21 Alcohol abuse F10.10 JUAN (acute kidney injury) N17.9 Alcohol withdrawal F10.939 Acute hypokalemia E87.6 Hypomagnesemia E83.42 Non-ST elevation RI (NSTEMI) I21.4 Acute hyponatremia E87.1 Thrombocytopenia D69.6 Hypophosphatemia E83.39 Bacteremia due to Klebsiella pneumoniae R78.81; B96.1 MRSA (methicillin resistant staph aureus) culture positive Z22.322
[2022-08-25] MEDS ORDERED: FUROSEMIDE 40 MG/4 ML VIAL IV ONE (07:51)
[2022-08-25] MEDS ORDERED: VANCOMYCIN LEVEL ONE (08:30)
[2022-08-25] MEDS: POTASSIUM ACETATE/NSS 10 MEQ/105 ML BAG IV SCH ×2 (08:33→10:07)
[2022-08-25] MEDS: DOCUSATE SODIUM/SENNA 50/8.6MG TAB PO SCH (08:34)
[2022-08-25] MEDS: MAGNESIUM SULFATE / D5W 1 GM/100 ML BAG IV SCH ×2 (08:34→10:08)
[2022-08-25] MEDS: MULTI VIT W/MINERALS LIQUID 15 ML UDP NG SCH (08:34)
[2022-08-25] MEDS: FOLIC ACID 1 MG in SYRINGE 9.8 ML IV SCH (09:01)
[2022-08-25] MEDS: PANTOprazole 40 MG in SYRINGE 0 ML IV SCH (09:02)
--- NOTE | 2022-08-25 09:54 | XRay Report ---
XR chest 1V portable HISTORY: Shortness of breath. COMPARISON: Chest 08/23/2022. FINDINGS: No pneumothorax. There is mild elevation of the left hemidiaphragm. The heart remains enlar ged. There is a left subclavian Port-A-Cath which terminates in the SVC. This remains unchanged. Prog ressive interstitial/vascular thickening and bilateral airspace opacities. A small left pleural effus ion has also progressed. IMPRESSION: Interval progression of the interstitial thickening and bilateral airspace opacities. This may repres ent superimposed pulmonary edema on the background of a pneumonitis. ACT 112: Negative or not required by law. Electronically signed by: Noam New M.D. 08/25/2022 9:53 AM
--- NOTE | 2022-08-25 09:58 | Critical Care Progress Note ---
Date of Service August 25, 2022 Assessment & Plan (1) Alcohol withdrawal: (2) Alcohol abuse: (3) Syncope and collapse: (4) Elevated troponin: (5) Acute hyponatremia: (6) Acute hypokalemia: (7) JUAN (acute kidney injury): (8) Elevated procalcitonin: (9) Septic shock: Plan Impression: 52-year-old male presenting to the emergency room with shortness of breath chest pain nausea and vomiting and a syncopal episode. He was found to have acute renal failure with presumed sepsis as well as alcohol withdrawal. He aspirated in the emergency room, was intubated, and initiated on pressors for severe sepsis with septic shock. Recommendations: -- Neurologic: Continue with thiamine and folate -- Occasional bouts of delirium Continue with CIWA protocol and give Ativan as needed -- Cardiovascular: -- S/p septic shock Gram-negative bacteremia --> pansensitive Klebsiella Zosyn changed to ceftriaxone 08/23, continue vancomycin given sputum culture results MRSA positive Random cortisol greater than 60 on 08/21 Maintaining MAP > 65 off pressor support -- Type II SC No ST-T wave EKG changes appreciated --Hypertension I will start the patient on amlodipine on a daily basis Low-dose beta-kay could be thought of being added given the decreased ejection fraction -- New onset CHF EF 20-25% with global wall abnormality Could be related to underlying sepsis Echo was negative for vegetations --Prolonged QTC Avoid QT prolonging medication QTC 551 08/22/2022 Respiratory: -S/p ventilator dependent respiratory failure Likely secondary to multilobar pneumonia possible Extubated 08/24/2022 -- Acute hypoxic respiratory failure Secondary to multilobar pneumonia Renal/Electrolytes: -- S/p JUAN Improving, Cr 0.61 today Monitor BUNs/creatinine Avoid nephrotoxic medications -- S/p hyponatremia Likely from beer proteinemia Initial sodium was 124 on 08/20/2022. Repleting hypokalemia, hypophosphatemia per protocol GI: Total hyperbilirubinemia, 1.5 downtrending to 1.3 on 08/23 AST, ALT downtrending : No issues Endocrine: ICU hyperglycemia protocol ID: Gram-negative bacteremia --> pansensitive Klebsiella along with gram-positive bacilli --> lactobacillus As above, switch Zosyn to ceftriaxone 08/23 given cali-sensitive Klebsiella, continue vancomycin due to sputum culture MRSA positive Repeat BCx 08/23 negative to date Continue with Rocephin for total of 10 days post negative blood culture. Complete the course of vancomycin for total of 7-10 days Heme-onc: -- Thrombocytopenia Could be alcohol induced Linezolid can also cause thrombocytopenia, linezolid discontinued 08/22/2022 --Prophylaxis VTE: Heparin GI: Protonix Lines: Peripheral, left subclavian, positive Larsen Diet: Regular diet Plan: In/out: -525, urine output 2465, +8 L since coming to the hospital Hypokalemia and hypomagnesemia being replaced today Give another 40 mg of Lasix today Recommend continue with CIWA protocol Will start the patient on amlodipine 5 mg on a daily basis for hypertension Repeat BMP mag Chin around 4 PM Patient hemodynamically stable to be downgrade to medical floor Case discussed with Dr. Marco A CRISOSTOMO central line as well as Larsen catheter prior to downgrade Please note the above document was generated using voice recognition software. It may contain grammatical, syntax or spelling errors.Any formal questions or concerns about the content, text or information contained within the body of this dictation should be directly addressed to the provider for clarification. Admission and Anticipated Discharge Date Admission Date: August 20, 2022 Subjective Patient seen and examined at bedside. No acute distress. Overnight patient was little bit confused and he did get Ativan 1 dose. He was answering all the questions appropriately Denied any chest pain, no shortness of breath Denies any abdominal pain. He was not willing to eat and the reasoning was getting insulin only eats he has a bowel movement. Importance of getting good nutrition explained No nausea or vomiting. Review of Systems Review of Systems: All systems reviewed & are unremarkable except as noted in Subjective Physical Exam Physical Exam: Constitutional: No acute distress HEENT: PERRLA,EOMI Respiratory system:Decreased air entry bilaterally, no wheeze, no rhonchi, p ositive crackles bilateral lower lobes CVS: S1-S2 positive, no murmurs or gallops Abdomen: Soft, nontender, nondistended, positive bowel sounds x4 Extremities: +2 pulses bilaterally radialis/ dorsalis pedis,no cyanosis, no edema Neuro:Awake alert oriented to self Psych:Normal mood and affect G/U: Positive Larsen Skin: no rashes, warm and dry Lymphatic: no cervical or axillary lymphadenopathy Results & Data Results & Data ([facility]) Vital Signs (Past 12 Hours) Vital Signs Temp Pulse Pulse Resp BP Pulse Ox Pulse Ox 08/25/22 08:00 85 08/25/22 07:35 08/25/22 07:12 92 H 18 95 08/25/22 06:00 37.2 C 81 28 H 174/104 H 94 08/25/22 05:00 37.4 C 91 H 30 H 147/96 H 94 08/25/22 04:00 37.4 C 84 26 H 163/101 H 93 08/25/22 03:00 37.5 C 84 30 H 157/98 H 92 08/25/22 02:00 37.4 C 86 29 H 163/103 H 93 08/25/22 01:00 37.5 C 85 27 H 158/97 H 95 08/25/22 00:12 37.5 C 88 27 H 141/98 H 92 08/25/22 00:00 37.5 C 83 28 H 170/97 H 96 08/24/22 23:00 37.4 C 83 25 H 145/100 H 97 08/25/22 00:00 87 08/24/22 23:00 97 08/24/22 22:58 91 H 18 93 08/24/22 22:00 37.1 C 91 H 28 H 154/100 H 93 08/24/22 22:00 154/100 H O2 Del Method O2 Del Method O2 Flow Rate O2 Flow Rate 08/25/22 08:00 08/25/22 07:35 Nasal Cannula 3 08/25/22 07:12 Nasal Cannula 2 08/25/22 06:00 Nasal Cannula 2 08/25/22 05:00 Nasal Cannula 2 08/25/22 04:00 Nasal Cannula 3 08/25/22 03:00 Nasal Cannula 3 08/25/22 02:00 Nasal Cannula 3 08/25/22 01:00 Nasal Cannula 3 08/25/22 00:12 Nasal Cannula 3 08/25/22 00:00 Nasal Cannula 3 08/24/22 23:00 Nasal Cannula 3 08/25/22 00:00 08/24/22 23:00 Nasal Cannula 3 08/24/22 22:58 Nasal Cannula 3 08/24/22 22:00 Nasal Cannula 3 08/24/22 22:00 Laboratory Results 08/25/22 04:58 12/01/22 04:58 Coding Level of Care Code 50402 Subseq Hosp Care Lvl 3 Diagnoses Alcohol withdrawal F10.939 Alcohol abuse F10.10 Syncope and collapse R55 Elevated troponin R77.8 Acute hyponatremia E87.1 Acute hypokalemia E87.6 JUAN (acute kidney injury) N17.9 Elevated procalcitonin R79.89 Septic shock A41.9; R65.21
[2022-08-25] MEDS ORDERED: VANCOMYCIN HCL 500 MG in DEXTROSE 5% 100 ML IV ONE (10:15)
[2022-08-25] MEDS: amLODIPine BESYLATE 5 MG TAB PO SCH (10:26)
[2022-08-25] MEDS: HEPARIN SOD 5,000 UNIT/0.5 ML VIAL SQ SCH ×2 (11:08→20:19)
--- NOTE | 2022-08-25 12:08 | Pharmacy Report ---
Pharmacy PK ABX Note - Date of Service August 25, 2022 - Assessment and Plan Assessment 08/25: Renal function improving, SCr 0.46mg/dL today. Monitor closely. Vanc trough this AM was drawn appropriately at steady state and was at the low end of therapeutic range, 10.5mg/dL -AUC/FERNY: 440mg/dL/hr. Given indication of MRSA pneumonia, will increase the dose. 08/24: Renal function continues to improve today (scr. 0.61) with patient making adequate UOP. Patient is receiving daily diuresis at this point so will keep a close eye on the renal function. Random level this morning indicated need for significant dose increase due to improved renal function. Blood cxs resulted to klebsiella pneumoniae for which Zosyn was switched to ceftriaxone. The sputum culture has now resulted as MRSA and cezar albicans. 08/23: Patient's renal function significantly improved today (scr 2.2->1.39->0.76), UOP> 3L yesterday. Based on this and random level from this morning, will increase maintenance dose today. Will get another random level tomorrow morning due to rapidly changing renal function. 08/22 52 year old M receiving IV vancomycin and zosyn for pulmonary coverage and bacteremia. Blood cultures (+) GNB in 2/4 and Gram (+) bacilli in 1/4. Biofire (+) Enterobacterales. MRSA nasal (+). Patient is critically ill, intubated/sedated and requiring vasopressor support. Initially presented with an JUAN which is resolving (SCr 2.54 --> 1.39). Plan Vancomycin * Trough level: 10.5 (~8.5hr level) * Vanc 500mg IV X 1 supplemental dose now, then increase Maintenance dose: 1250mg IV every 8 hours * Regimen is predicted to achieve target AUC/FERNY of 400-600 mg/L.hr * Random level tomorrow Pharmacy will continue to follow and will adjust dose/frequency as necessary. Thank you. Pharmacy has transitioned to AUC monitoring for vancomycin. AUC/FERNY is the preferred PK/PD target and is associated with decreased risk of nephrotoxicity compared to traditional trough targets.
--- NOTE | 2022-08-25 14:20 | XCELERA ---
[id number]
[2022-08-25 15:30] LABS: BUN Creatinine Ratio 15.1 (10-20); Calcium 7.7 mg/dl (8.5-10.1); Creatinine Clr Calc Pharmacy 168.2 ml/min; Est GFR (Non-African American) 122.5 ml/min; Phosphorus 1.1 mg/dl (2.5-4.9); Potassium 3.3 mmol/L (3.5-5.1)
[2022-08-25] MEDS ORDERED: SODIUM PHOSPHATE 3 MMOL/1 ML INFUSION IV STA (15:37)
[2022-08-25] MEDS: VANCOMYCIN HCL 1,250 MG in SODIUM CHLORIDE 0.9% 250 ML IV SCH (16:14)
[2022-08-25] MEDS ORDERED: SODIUM PHOSPHATE 30 MMOL in SODIUM CHLORIDE 0.9% 500 ML IV ONE (16:15)
[2022-08-25] MEDS: cefTRIAXone SODIUM 2,000 MG in DEXTROSE 5% 50 ML IV SCH (18:02)
--- NOTE | 2022-08-25 18:24 | Cardiology Progress Note ---
Date of Service August 25, 2022 Assessment & Plan (1) Elevated troponin: (2) Cardiomyopathy: Plan 1. Cardiomyopathy: This appears to have been related to his acute illness and likely severe acidosis. Overall LV function has returned to normal. This point, no specific treatment is necessary. He would benefit from reducing and hopefully eliminating alcohol use. Hemodynamically stable. 2. Elevated troponin: Related to demand ischemia in the setting of his critical illness. 3. Hypoxemic respiratory failure: Resolving. At this point cardiology will sign off. Overall LV systolic function appears normal. Likely related to his acute illness. No specific additional therapy necessary. Admission and Anticipated Discharge Date Admission Date: August 20, 2022 Subjective This afternoon the patient claimed he feeling well. Occasional coughing. Overall breathing seems improved. He was up in a chair most of the day and felt well. Appetite improving. No chest pain. Review of Systems Review of Systems: Per HPI Physical Exam Physical Exam: Alert. Oriented x3. Answered questions appropriately HEENT: The sclerae are anicteric. Lungs: Some upper airway congestion. No wheezing. Cardiac: Heart demonstrates a regular rate and rhythm. Normal S1 and S2. No murmurs on examination. Pulses: The patient has palpable radial pulses bilaterally that are equal in intensity Extremities: There was no evidence of hypoperfusion. There is no cyanosis or clubbing. There is no edema. Skin: some bruises Results & Data ([facility]) Vital Signs (Past 12 Hours) Vital Signs Temp Pulse Pulse Resp BP Pulse Ox O2 Del Method 08/25/22 18:08 162/109 H 96 08/25/22 18:08 99 H 25 H 08/25/22 18:00 98 H 28 H 08/25/22 18:00 164/109 H 08/25/22 17:00 101 H 25 H 95 08/25/22 17:00 172/100 H 08/25/22 16:06 144/99 H 08/25/22 16:06 99 H 22 08/25/22 16:00 99 H 24 08/25/22 16:00 150/110 H 95 08/25/22 15:00 94 H 20 08/25/22 15:00 137/95 08/25/22 14:00 103 H 20 08/25/22 13:00 121 H 20 95 08/25/22 13:00 137/96 08/25/22 12:57 114/92 08/25/22 12:57 110 H 25 H 92 08/25/22 16:00 101 H 08/25/22 15:07 112 H 18 94 Nasal Cannula 08/25/22 12:00 111 H 22 94 08/25/22 12:00 145/95 H 08/25/22 11:00 96 H 20 91 08/25/22 11:00 144/103 H 08/25/22 08:00 Nasal Cannula 08/25/22 10:03 157/109 H 08/25/22 10:03 100 H 20 08/25/22 10:00 107 H 26 H 08/25/22 09:10 142/96 H 08/25/22 09:10 37.2 C 83 27 H 95 08/25/22 09:00 37.2 C 86 24 90 08/25/22 09:00 156/99 H 08/25/22 08:00 37.2 C 101 H 25 H 95 08/25/22 08:00 166/109 H 08/25/22 07:00 37.2 C 89 25 H 92 08/25/22 07:00 164/104 H 08/25/22 08:00 85 08/25/22 07:35 Nasal Cannula 08/25/22 07:12 92 H 18 95 Nasal Cannula O2 Flow Rate 08/25/22 18:08 08/25/22 18:08 08/25/22 18:00 08/25/22 18:00 08/25/22 17:00 08/25/22 17:00 08/25/22 16:06 08/25/22 16:06 08/25/22 16:00 08/25/22 16:00 08/25/22 15:00 08/25/22 15:00 08/25/22 14:00 08/25/22 13:00 08/25/22 13:00 08/25/22 12:57 08/25/22 12:57 08/25/22 16:00 08/25/22 15:07 08/25/22 12:00 08/25/22 12:00 08/25/22 11:00 08/25/22 11:00 08/25/22 08:00 08/25/22 10:03 08/25/22 10:03 08/25/22 10:00 08/25/22 09:10 08/25/22 09:10 08/25/22 09:00 08/25/22 09:00 08/25/22 08:00 08/25/22 08:00 08/25/22 07:00 08/25/22 07:00 08/25/22 08:00 08/25/22 07:35 3 08/25/22 07:12 2 Laboratory Results Abnormal Lab Results 08/25/22 08/25/22 08/25/22 04:58 04:58 04:58 WBC 10.06 RBC 3.47 L Hgb 11.5 L Hct 33.5 L MCV 96.5 MCH 33.1 MCHC 34.3 RDW Std Deviation 46.3 RDW Coeff of Tessy 13.1 Plt Count 75 L MPV 12.0 Immature Gran % (Auto) 1.4 Neut % (Auto) 72.0 Lymph % (Auto) 9.4 [place] % (Auto) 15.4 Eos % (Auto) 1.1 Baso % (Auto) 0.7 Neut # (Auto) 7.24 H Lymph # (Auto) 0.95 L [place] # (Auto) 1.55 H Eos # (Auto) 0.11 Baso # (Auto) 0.07 Immature Gran # (Auto) 0.14 H Sodium 136 Potassium 3.0 L Chloride 101 Carbon Dioxide 27 Anion Gap 8 BUN 7 Creatinine 0.46 L Est Cr Clr Drug Dosing 197.5 Est GFR ( Amer) > 150.0 Est GFR (Non-Af Amer) 129.8 BUN/Creatinine Ratio 15.2 Glucose 79 Calcium 7.4 L Phosphorus 2.7 Magnesium 1.6 L Vancomycin Trough 08/25/22 08/25/22 08:26 14:10 WBC RBC Hgb Hct MCV MCH MCHC RDW Std Deviation RDW Coeff of Tessy Plt Count MPV Immature Gran % (Auto) Neut % (Auto) Lymph % (Auto) [place] % (Auto) Eos % (Auto) Baso % (Auto) Neut # (Auto) Lymph # (Auto) [place] # (Auto) Eos # (Auto) Baso # (Auto) Immature Gran # (Auto) Sodium 134 L Potassium 3.3 L Chloride 98 Carbon Dioxide 28 Anion Gap 8 BUN 8 Creatinine 0.53 L Est Cr Clr Drug Dosing 168.2 Est GFR ( Amer) 142.0 Est GFR (Non-Af Amer) 122.5 BUN/Creatinine Ratio 15.1 Glucose 136 H Calcium 7.7 L Phosphorus 1.1 L* D Magnesium 2.0 Vancomycin Trough 10.5 Diagnostic Findings Repeat echocardiogram performed today revealed preserved LV systolic function. No regional wall motion abnormalities. PG Care Time/CCT Total # of Minutes Spent Total Time Spent with Patient: Total time spent is greater than 50% in coordination of care (as documented) at patient's floor/unit and/or counseling patient: Coding Level of Care Code 47316 Subseq Hosp Care Lvl 2 Diagnoses Elevated troponin R77.8 Cardiomyopathy I42.9
[2022-08-26] MEDS: VANCOMYCIN HCL 1,250 MG in SODIUM CHLORIDE 0.9% 250 ML IV SCH ×3 (01:30→17:26)
[2022-08-26] MEDS: THIAMINE HCL 100 MG in SYRINGE 9 ML IV SCH ×2 (01:30→09:36)
[2022-08-26] MEDS: LORazepam 1 MG in SYRINGE 0 ML IV PRN ×2 (05:03→15:34)
[2022-08-26 05:50] LABS: BUN Creatinine Ratio 10.6 (10-20); Calcium 7.6 mg/dl (8.5-10.1); Creatinine Clr Calc Pharmacy 189.6 ml/min; Est GFR (African American) 149.2 ml/min; Est GFR (Non-African American) 128.7 ml/min; Magnesium 1.7 mg/dl (1.7-2.4); Phosphorus 2.4 mg/dl (2.5-4.9); Potassium 3.1 mmol/L (3.5-5.1)
[2022-08-26 06:49] LABS: Hematocrit (blood only) 33.8 % (40.1-51.0); Hemoglobin 11.6 g/dl (14.0-18.0); Mean Corpuscular Hemoglobin 33.2 pg (25.0-34.0); Mean Corpuscular Hgb Conc 34.3 g/dL (32.0-36.0); Mean Corpuscular Volume 96.8 fL (80.0-100.0); Mean Platelet Volume 11.4 fL (9.4-12.4); Platelet Count 116 K/uL (130-400); RDW Coefficient of Variation 13.1 % (11.5-14.5); RDW Standard Deviation 46.3 fL (36.4-46.3); Red Blood Count 3.49 M/uL (4.63-6.08); White Blood Count 10.01 K/ul (4.8-10.8)
[2022-08-26 07:05] LABS: Basophils # (auto) 0.09 K/uL (0-0.2); Basophils % (auto) 0.9 %; Eosinophils # (auto) 0.11 K/uL (0-0.50); Eosinophils % (auto) 1.1 %; Lymphocytes # (auto) 1.51 K/uL (1.2-3.4); Lymphocytes % (auto) 15.1 %; Monocytes # (auto) 1.27 K/uL (0.24-0.82); Monocytes % (auto) 12.7 %; Neutrophils # (auto) 6.83 K/uL (1.4-6.5); Neutrophils % (auto) 68.2 %; Polychromasia 1+
--- NOTE | 2022-08-26 07:25 | Hospitalist Progress Note ---
Date of Service August 26, 2022 Assessment & Plan (1) Acute respiratory failure with hypoxia: Plan: Patient admitted to the hospital after a suspected syncopal episode, chest x-ray showing evidence of aspiration pneumonia. Due to evidence of worsening alcohol withdrawal symptoms, multiple aspirations and worsening respiratory status, patient was intubated and sedated. Blood cultures showing pansensitive Klebsiella. Continue ceftriaxone for total of 10 days after negative blood culture (complete 09/02). Sputum culture positive for MRSA, completing a 7-day course of vancomycin (end date 08/27). Blood cultures do not show MRSA. CXR 08/25 shows interval progression of the interstitial thickening and bilateral airspace opacities. This may represent superimposed pulmonary edema on the background of a pneumonitis. Continue daily Lasix 40mg IV with daily BMP. PT and OT evaluations to determine care needs moving forward; will likely require rehab on discharge. (2) Cardiomyopathy: Plan: Admission Echo showed EF 20-25% with global wall abnormality on Echo, no baseline to compare. Repeat Echo showed resolution of ventricular dysfunction. Findings on first echo likely due to sepsis and septic shock. Echo was negative for vegetations, continue tx for bacteremia and pneumonia. (3) Septic shock: Plan: See above (4) Alcohol abuse: Plan: History of alcoholism, and from 5 days before admission decreased his intake from 18 beers a day to 4 beers a day. Continue AWSS protocol. Case Management did offer Drug and Alcohol resources to the patient, which he declined. (5) JUAN (acute kidney injury): Plan: Resolved, daily BMP while on IV diuretics. (6) Hypertension: Plan: For the last few days patient has had elevated BPs, and was started on amlodipine 5mg daily. Have added losartan 25mg daily today as patient's BP continues to be elevated. (7) Alcohol withdrawal: Plan: as above (8) Acute hypokalemia: Plan: KCl 40meq BID with repeat BMP in AM. Some potassium in KPhos as well. (9) Hypomagnesemia: Plan: See above. (10) Non-ST elevation [place] (NSTEMI): Plan: Type II [place] in the setting of septic shock, significantly reduced EF during acute illness. Cardiology consulted and appreciate recommendations; newly discovered cardiomyopathy, resolved, in the setting of septic shock. (11) Acute hyponatremia: Plan: Resolved. Admission sodium of 124, no baseline to compare. Suspected causes beer potomania/low solute diet. Continue to monitor BMP. (12) Thrombocytopenia: Plan: Plts improved to 116 with no evidence of active bleeding. Heparin 5000u q12h for DVT ppx. (13) Hypophosphatemia: Plan: Phos 2.4; Repleted with potassium phos 1 tab q6h x1 day. Repeat Phos in AM. (14) Bacteremia due to Klebsiella pneumoniae: Plan: Ceftriaxone for Klebsiella bacteremia to complete on 09/02/22. (15) MRSA (methicillin resistant staph aureus) culture positive: Plan: Vancomycin for MRSA pos sputum culture, completes 08/27/22. Plan Full code Regular diet Heparin for DVT ppx Telemetry status Admission and Anticipated Discharge Date Admission Date: August 20, 2022 Subjective Overnight: No acute events. Mildly tachycardic through the night with elevated BP 150-160s/90-100s. Reports breathing overall feels "a little tight" but better than yesterday. He feels quite weak compared to his usual baseline. Review of Systems Constitutional: no fever and no chills Respiratory: no cough and no dyspnea Cardiovascular: no chest pain and no palpitations Gastrointestinal: no abdominal pain, no nausea and no vomiting Physical Exam Constitutional: WD/WN, vitals as above Respiratory: normal respiratory effort, lungs clear to auscultation normal respiratory effort; no respiratory distress, no labored breathing and no cough Cardiovascular: RRR, no murmur, no edema Gastrointestinal (Abdomen): normal bowel sounds, soft, nontender, no hepatosplenomegaly Skin: no rashes, warm and dry Psychiatric: A+Ox3, euthymic affect Results & Data Results & Data ([facility]) Vital Signs (Past 12 Hours) Vital Signs Temp Pulse Pulse Resp BP Pulse Ox Pulse Ox 08/26/22 03:00 36.8 C 87 29 H 165/107 H 91 08/26/22 00:00 08/26/22 00:00 79 08/25/22 23:00 97 08/25/22 22:43 36.8 C 79 26 H 153/106 H 97 08/25/22 22:06 87 24 96 08/25/22 20:00 95 H 08/25/22 19:59 O2 Del Method O2 Del Method O2 Flow Rate O2 Flow Rate 08/26/22 03:00 Nasal Cannula 2 08/26/22 00:00 Nasal Cannula 2 08/26/22 00:00 08/25/22 23:00 Nasal Cannula 3 08/25/22 22:43 Nasal Cannula 2 08/25/22 22:06 08/25/22 20:00 08/25/22 19:59 Nasal Cannula 2 PG Care Time/CCT Total # of Minutes Spent Total Time Spent with Patient: Total time spent is greater than 50% in coordination of care (as documented) at patient's floor/unit and/or counseling patient: Coding Level of Care Code 57761 Subseq Hosp Care Lvl 3 Diagnoses Acute respiratory failure with hypoxia J96.01 Cardiomyopathy I42.9 Septic shock A41.9; R65.21 Alcohol abuse F10.10 JUAN (acute kidney injury) N17.9 Hypertension I10 Alcohol withdrawal F10.939 Acute hypokalemia E87.6 Hypomagnesemia E83.42 Non-ST elevation [place] (NSTEMI) I21.4 Acute hyponatremia E87.1 Thrombocytopenia D69.6 Hypophosphatemia E83.39 Bacteremia due to Klebsiella pneumoniae R78.81; B96.1 MRSA (methicillin resistant staph aureus) culture positive Z22.322
[2022-08-26] MEDS: ALBUT/IPRATROP 3MG/0.5MG NEB 3 ML VIAL INH SCH ×3 (07:34→22:49)
[2022-08-26] MEDS ORDERED: FUROSEMIDE 40 MG/4 ML VIAL IV SCH (09:00)
[2022-08-26] MEDS: POTASSIUM CHLORIDE CRTAB 20 MEQ TABCR PO SCH ×2 (09:34→22:58)
[2022-08-26] MEDS: amLODIPine BESYLATE 5 MG TAB PO SCH (09:35)
[2022-08-26] MEDS: DOCUSATE SODIUM/SENNA 50/8.6MG TAB PO SCH (09:35)
[2022-08-26] MEDS: FOLIC ACID 1 MG in SYRINGE 9.8 ML IV SCH (09:36)
[2022-08-26] MEDS: MULTI VIT W/MINERALS LIQUID 15 ML UDP NG SCH (09:36)
[2022-08-26] MEDS: HEPARIN SOD 5,000 UNIT/0.5 ML VIAL SQ SCH ×2 (09:36→21:00)
[2022-08-26] MEDS: PANTOprazole 40 MG in SYRINGE 0 ML IV SCH (09:37)
--- NOTE | 2022-08-26 14:03 | Pharmacy Report ---
Pharmacy PK ABX Note - Date of Service August 26, 2022 - Assessment and Plan Assessment 08/26: Renal function stable, SCr 0.47mg/dL today. Continues with diuresis. Day # 67 of therapy. Random level this afternoon (~3h level) 21mcg/mL. This is predicted to achieve a steady state AUC/FERNY of 507mg/L/hr which is therapeutic. 08/25: Renal function improving, SCr 0.46mg/dL today. Monitor closely. Vanc trough this AM was drawn appropriately at steady state and was at the low end of therapeutic range, 10.5mcg/mL -AUC/FERNY: 440mg/dL/hr. Given indication of MRSA pneumonia, will increase the dose. 08/24: Renal function continues to improve today (scr. 0.61) with patient making adequate UOP. Patient is receiving daily diuresis at this point so will keep a close eye on the renal function. Random level this morning indicated need for significant dose increase due to improved renal function. Blood cxs resulted to klebsiella pneumoniae for which Zosyn was switched to ceftriaxone. The sputum culture has now resulted as MRSA and cezar albicans. 08/23: Patient's renal function significantly improved today (scr 2.2->1.39->0.76), UOP> 3L yesterday. Based on this and random level from this morning, will increase maintenance dose today. Will get another random level tomorrow morning due to rapidly changing renal function. 08/22 52 year old M receiving IV vancomycin and zosyn for pulmonary coverage and bacteremia. Blood cultures (+) GNB in 2/4 and Gram (+) bacilli in 1/. Biofire (+) Enterobacterales. MRSA nasal (+). Patient is critically ill, intubated/sedated and requiring vasopressor support. Initially presented with an JUAN which is resolving (SCr 2.54 --> 1.39). Plan Vancomycin * Random level: 21mcg/mL (~3hr level) * Continue maintenance dose 1250mg IV every 8 hours * Regimen is predicted to achieve target AUC/FERNY of 400-600 mg/L.hr * Day 7 of therapy tomorrow Pharmacy will continue to follow and will adjust dose/frequency as necessary. Thank you. Pharmacy has transitioned to AUC monitoring for vancomycin. AUC/FERNY is the preferred PK/PD target and is associated with decreased risk of nephrotoxicity compared to traditional trough targets.
[2022-08-26] MEDS: cefTRIAXone SODIUM 2,000 MG in DEXTROSE 5% 50 ML IV SCH (16:52)
[2022-08-26] MEDS: LOSARTAN POTASSIUM 25 MG TAB PO SCH (17:27)
[2022-08-26] MEDS: POT PHOSPHATE MONOBASIC W/ SOD TAB PO SCH ×2 (17:27→22:58)
[2022-08-27] MEDS: VANCOMYCIN HCL 1,250 MG in SODIUM CHLORIDE 0.9% 250 ML IV SCH ×3 (00:27→16:39)
[2022-08-27] MEDS: LORazepam 1 MG in SYRINGE 0 ML IV PRN (01:20)
[2022-08-27 05:20] LABS: Hematocrit (blood only) 31.2 % (40.1-51.0); Hemoglobin 10.7 g/dl (14.0-18.0); Mean Corpuscular Hemoglobin 32.5 pg (25.0-34.0); Mean Corpuscular Hgb Conc 34.3 g/dL (32.0-36.0); Mean Corpuscular Volume 94.8 fL (80.0-100.0); Mean Platelet Volume 10.7 fL (9.4-12.4); Platelet Count 144 K/uL (130-400); RDW Coefficient of Variation 12.9 % (11.5-14.5); RDW Standard Deviation 44.6 fL (36.4-46.3); Red Blood Count 3.29 M/uL (4.63-6.08); White Blood Count 11.34 K/ul (4.8-10.8)
[2022-08-27 05:45] LABS: Anion Gap 8 (3-11); BUN Creatinine Ratio 11.1 (10-20); Blood Urea Nitrogen 4 mg/dl (6-23); Calcium 7.6 mg/dl (8.5-10.1); Carbon Dioxide 25 mmol/L (21-32); Chloride 101 mmol/L (98-107); Creatinine Clr Calc Pharmacy 247.6 ml/min; Est GFR (African American) > 150.0 ml/min; Est GFR (Non-African American) 143.6 ml/min; Glucose 107 mg/dl (70-99(Fasting)); Phosphorus 3.1 mg/dl (2.5-4.9); Potassium 2.8 mmol/L (3.5-5.1); Sodium 134 mmol/L (136-145)
[2022-08-27 05:52] LABS: Basophils % (auto) 0.9 %; Eosinophils # (auto) 0.09 K/uL (0-0.50); Eosinophils % (auto) 0.8 %; Immature Granulocytes # (auto) 0.22 K/uL (0.00-0.02); Immature Granulocytes % (auto) 1.9 %; Lymphocytes # (auto) 2.18 K/uL (1.2-3.4); Lymphocytes % (auto) 19.2 %; Monocytes % (auto) 7.1 %; Neutrophils # (auto) 7.95 K/uL (1.4-6.5); Neutrophils % (auto) 70.1 %; RBC Morphology Unremarkable
[2022-08-27] MEDS: ALBUT/IPRATROP 3MG/0.5MG NEB 3 ML VIAL INH SCH ×3 (07:00→23:29)
--- NOTE | 2022-08-27 07:13 | Hospitalist Progress Note ---
Date of Service August 27, 2022 Assessment & Plan (1) Acute respiratory failure with hypoxia: Plan: Patient admitted to the hospital after a suspected syncopal episode, chest x-ray showing evidence of aspiration pneumonia. Due to evidence of worsening alcohol withdrawal symptoms, multiple aspirations and worsening respiratory status, patient was intubated and sedated. Blood cultures showing pansensitive Klebsiella. Continue ceftriaxone for total of 10 days after negative blood culture (complete 09/02). Sputum culture positive for MRSA, completing a 7-day course of vancomycin (end date 08/27). Blood cultures do not show MRSA. CXR 08/27 with continued evidence of pulmonary edema/multifocal pneumonia, continue daily Lasix 40mg IV with daily BMP. WBC count 11.34, improvement in oxygenation and no fevers so will continue current Abx with repeat CBC tomorrow. PT and OT evaluations to determine care needs moving forward; will likely require rehab on discharge. (2) Cardiomyopathy: Plan: Echo 08/21 showed EF 20-25% with global wall abnormality on Echo, no baseline to compare. Repeat Echo 08/25 showed resolution of ventricular dysfunction. Findings on first echo likely due to sepsis and septic shock. Echo was negative for vegetations, continue tx for bacteremia and pneumonia. (3) Septic shock: Plan: See above (4) Alcohol abuse: Plan: History of alcoholism, and from 5 days before admission decreased his intake from 18 beers a day to 4 beers a day. Continue AWSS; received total of 3mg Ativan yesterday. Case Management did offer Drug and Alcohol resources to the patient, which he declined. Will be staying with brother on discharge from hospital/rehab facility. (5) JUAN (acute kidney injury): Plan: Resolved, daily BMP while on IV diuretics. (6) Hypertension: Plan: Elevated BP, though improved, on amlodipine 5mg daily and losartan 25mg daily. Will continue. (7) Alcohol withdrawal: Plan: as above (8) Acute hypokalemia: Plan: K 2.8 today; given continued diuretics and hypokalemia will increase KCl to 40meq q6h with repeat BMP in AM. Mg and Phos in AM as well. (9) Hypomagnesemia: Plan: See above. (10) Non-ST elevation [place] (NSTEMI): Plan: Type II [place] in the setting of septic shock, significantly reduced EF during acute illness. Cardiology consulted and appreciate recommendations; newly discovered cardiomyopathy, resolved, in the setting of septic shock. (11) Acute hyponatremia: Plan: Resolved. Admission sodium of 124, no baseline to compare. Suspected causes beer potomania/low solute diet. Continue to monitor BMP. (12) Thrombocytopenia: Plan: Resolved. Plts improved to 144 with no evidence of active bleeding. Heparin 5000u q12h for DVT ppx. (13) Hypophosphatemia: Plan: Phos 3.1 today; Received potassium phos 1 tab q6h x1 day on 08/26. Repeat Phos in AM. (14) Bacteremia due to Klebsiella pneumoniae: Plan: Ceftriaxone for Klebsiella bacteremia to complete on 09/02/22. (15) MRSA (methicillin resistant staph aureus) culture positive: Plan: Vancomycin for MRSA positive sputum culture, completed 08/27/22. Plan Full code Regular diet Heparin for DVT ppx Telemetry status Admission and Anticipated Discharge Date Admission Date: August 20, 2022 Subjective Overnight patient had brief period of hypoxia while getting up to the bathroom, but improved rapidly after getting back into bed. On room air at this time. WBC 11.34, Hgb 10.7, K 2.8 CXR with pulmonary vascular congestion, bilateral airspace opacities (pulm edema vs. multifocal pneumonia). Review of Systems Constitutional: no fever and no chills Respiratory: + cough; no dyspnea Cardiovascular: no chest pain and no palpitations Gastrointestinal: no abdominal pain, no nausea and no vomiting Physical Exam Constitutional: WD/WN, vitals as above Respiratory: good air movement throughout, crackles bilateral lung bases, intermittent cough Cardiovascular: RRR, no murmur, no edema Gastrointestinal (Abdomen): normal bowel sounds, soft, nontender, no hepatosplenomegaly Skin: no rashes, warm and dry Psychiatric: A+Ox3, euthymic affect Results & Data Results & Data ([facility]) Vital Signs (Past 12 Hours) Vital Signs Temp Pulse Pulse Resp BP BP Pulse Ox 08/27/22 07:03 76 18 96 08/27/22 04:00 36.7 C 88 25 H 168/103 H 88 L 08/26/22 23:00 36.7 C 88 19 130/81 97 08/27/22 05:00 80 33 H 08/27/22 04:00 88 25 H 168/103 H 08/27/22 03:00 90 22 139/69 08/27/22 02:00 95 H 27 H 08/27/22 01:00 87 26 H 134/88 08/26/22 23:01 101 H 19 130/81 08/26/22 22:00 107 H 26 H 143/88 H 08/26/22 21:00 107 H 20 131/87 08/26/22 20:00 91 H 30 H 118/80 08/26/22 20:00 08/27/22 00:00 88 O2 Del Method O2 Flow Rate 08/27/22 07:03 Nasal Cannula 3 08/27/22 04:00 Nasal Cannula 3 08/26/22 23:00 Nasal Cannula 2 08/27/22 05:00 08/27/22 04:00 08/27/22 03:00 08/27/22 02:00 08/27/22 01:00 08/26/22 23:01 08/26/22 22:00 08/26/22 21:00 08/26/22 20:00 08/26/22 20:00 Nasal Cannula 2 08/27/22 00:00 PG Care Time/CCT Total # of Minutes Spent Total Time Spent with Patient: Total time spent is greater than 50% in coordination of care (as documented) at patient's floor/unit and/or counseling patient: Coding Level of Care Code 79597 Subseq Hosp Care Lvl 3 Diagnoses Acute respiratory failure with hypoxia J96.01 Cardiomyopathy I42.9 Septic shock A41.9; R65.21 Alcohol abuse F10.10 JUAN (acute kidney injury) N17.9 Hypertension I10 Alcohol withdrawal F10.939 Acute hypokalemia E87.6 Hypomagnesemia E83.42 Non-ST elevation [place] (NSTEMI) I21.4 Acute hyponatremia E87.1 Thrombocytopenia D69.6 Hypophosphatemia E83.39 Bacteremia due to Klebsiella pneumoniae R78.81; B96.1 MRSA (methicillin resistant staph aureus) culture positive Z22.322
[2022-08-27] MEDS: POTASSIUM CHLORIDE / WTR 10 MEQ/100 ML PLCT IV SCH ×4 (07:16→10:31)
--- NOTE | 2022-08-27 07:55 | XRay Report ---
SINGLE VIEW CHEST CLINICAL HISTORY: Hypoxia. FINDINGS: An AP, portable, upright chest radiograph is compared to study dated 08/25/2022 and correlat ed with chest CT dated 03/19/2013. The examination is degraded by portable technique and patient rotat ion. The cardiomediastinal silhouette is top normal for projection noting atherosclerotic calcificat ion of the thoracic aorta. There is pulmonary vascular congestion. Bilateral airspace opacities persi st. Emphysema and chronic interstitial thickening is similar to previous. There is elevation of the l eft hemidiaphragm with bibasilar airspace consolidation. Small pleural effusions are suspected. No pn eumothorax is seen. The skeletal structures are osteopenic. The bony thorax is grossly intact. IMPRESSION: 1. Pulmonary vascular congestion persistent. 2. Bilateral airspace opacities persist. This could represent pulmonary edema and/or multifocal pneum onia. Clinical correlation will be required. 3. Emphysema. ACT 112: Negative or not required by law. Electronically signed by: Rajinder Borden M.D. 08/27/2022 7:54 AM
[2022-08-27] MEDS: DOCUSATE SODIUM/SENNA 50/8.6MG TAB PO SCH (08:24)
[2022-08-27] MEDS: amLODIPine BESYLATE 5 MG TAB PO SCH (08:24)
[2022-08-27] MEDS: LOSARTAN POTASSIUM 25 MG TAB PO SCH (08:26)
[2022-08-27] MEDS: HEPARIN SOD 5,000 UNIT/0.5 ML VIAL SQ SCH ×2 (08:26→21:01)
[2022-08-27] MEDS: FOLIC ACID 400 MCG TAB PO SCH (08:27)
[2022-08-27] MEDS: MULTI VIT W/MINERALS LIQUID 15 ML UDP NG SCH (08:27)
[2022-08-27] MEDS: PANTOprazole 40 MG TAB PO SCH (08:27)
[2022-08-27] MEDS: THIAMINE HCL 100 MG TAB PO SCH (08:27)
[2022-08-27] MEDS: POT PHOSPHATE MONOBASIC W/ SOD TAB PO SCH ×2 (08:31→13:05)
[2022-08-27] MEDS: POTASSIUM CHLORIDE CRTAB 20 MEQ TABCR PO SCH ×3 (08:31→21:00)
[2022-08-27] MEDS ORDERED: FUROSEMIDE 40 MG/4 ML VIAL IV ONE (14:24)
[2022-08-27] MEDS: cefTRIAXone SODIUM 2,000 MG in DEXTROSE 5% 50 ML IV SCH (17:59)
[2022-08-28] MEDS: POTASSIUM CHLORIDE CRTAB 20 MEQ TABCR PO SCH ×3 (03:12→18:28)
[2022-08-28 05:49] LABS: Basophils % (auto) 0.8 %; Eosinophils # (auto) 0.15 K/uL (0-0.50); Eosinophils % (auto) 1.3 %; Hematocrit (blood only) 29.2 % (40.1-51.0); Immature Granulocytes # (auto) 0.23 K/uL (0.00-0.02); Immature Granulocytes % (auto) 1.9 %; Lymphocytes # (auto) 2.15 K/uL (1.2-3.4); Mean Corpuscular Hemoglobin 33.3 pg (25.0-34.0); Mean Corpuscular Hgb Conc 34.2 g/dL (32.0-36.0); Mean Corpuscular Volume 97.3 fL (80.0-100.0); Mean Platelet Volume 10.9 fL (9.4-12.4); Monocytes # (auto) 0.55 K/uL (0.24-0.82); Monocytes % (auto) 4.6 %; Neutrophils # (auto) 8.75 K/uL (1.4-6.5); Neutrophils % (auto) 73.4 %; Platelet Count 180 K/uL (130-400); RDW Coefficient of Variation 13.2 % (11.5-14.5); White Blood Count 11.93 K/ul (4.8-10.8)
[2022-08-28 06:24] LABS: Albumin Globulin Ratio 0.8 (0.9-2); Albumin Level 2.7 gm/dl (3.4-5.0); BUN Creatinine Ratio 10.2 (10-20); Bilirubin,Total 0.9 mg/dl (0.2-1.0); Calcium 7.5 mg/dl (8.5-10.1); Creatinine Clr Calc Pharmacy 150.2 ml/min; Est GFR (African American) 135.9 ml/min; Est GFR (Non-African American) 117.2 ml/min; Globulin 3.3 gm/dl (2.5-4.0); Magnesium 1.5 mg/dl (1.7-2.4); Phosphorus 2.7 mg/dl (2.5-4.9); Potassium 3.7 mmol/L (3.5-5.1)
--- NOTE | 2022-08-28 07:02 | Hospitalist Progress Note ---
Date of Service August 28, 2022 Assessment & Plan (1) Acute respiratory failure with hypoxia: Plan: Patient admitted to the hospital after a suspected syncopal episode, chest x-ray showing evidence of aspiration pneumonia. Due to evidence of worsening alcohol withdrawal symptoms, multiple aspirations and worsening respiratory status, patient was intubated and sedated. Blood cultures 08/20 grew pansensitive Klebsiella with repeat BCx on 08/23 negative. Continue ceftriaxone for total of 10 days after negative blood culture (complete 09/02). Sputum culture positive for MRSA, completed a 7-day course of vancomycin (end date 08/27). Blood cultures do not show MRSA. CXR 08/27 with continued evidence of pulmonary edema/multifocal pneumonia, continue daily Lasix 40mg IV with daily BMP. WBC count 11.93, continued improvement in oxygenation and no fevers so will cont inue current Abx with repeat CBC tomorrow. PT and OT recommending acute rehab on discharge. (2) Cardiomyopathy: Plan: Echo 08/21 showed EF 20-25% with global wall abnormality on Echo, no baseline to compare. Repeat Echo 08/25 showed resolution of ventricular dysfunction. Findings on first echo likely due to sepsis and septic shock. Echo was negative for vegetations, continue tx for bacteremia and pneumonia. Cardiology consulted earlier this admission and appreciate recs, have since signed off. (3) Septic shock: Plan: See above (4) Alcohol abuse: Plan: History of alcoholism, and from 5 days before admission decreased his intake from 18 beers a day to 4 beers a day. Continue AWSS; received total of 2mg Ativan yesterday (in the afternoon after a nap had increased BP, some confusion). Case Management did offer Drug and Alcohol resources to the patient, which he declined. Will be staying with brother on discharge from hospital/acute physical rehab facility. (5) JUAN (acute kidney injury): Plan: Resolved, daily BMP while on IV diuretics. (6) Hypertension: Plan: BP improved to 120s systolic today. Continue amlodipine 5mg daily and losartan 25mg daily. (7) Alcohol withdrawal: Plan: as above (8) Acute hypokalemia: Plan: Given continued diuretics and hypokalemia will continue KCl q8h with repeat BMP in AM. Mg and Phos in AM as well. (9) Hypomagnesemia: Plan: Mg low; repleted 08/28 with MagSulfate IV x2 bags. Repeat Mag level tomorrow. (10) Non-ST elevation [place] (NSTEMI): Plan: Type II [place] in the setting of septic shock, significantly reduced EF during acute illness. Cardiology consulted and appreciate recommendations; newly discovered cardiomyopathy, resolved, in the setting of septic shock. (11) Acute hyponatremia: Plan: Improved, Na 132 on 08/28. Admission sodium of 124, no baseline to compare. Suspected causes beer potomania/low solute diet, and now receiving diuresis for pulmonary edema. Continue to monitor BMP. (12) Thrombocytopenia: Plan: Resolved. Plts improved to 180 with no evidence of active bleeding. Heparin 5000u q12h for DVT ppx. (13) Hypophosphatemia: Plan: Resolved. (14) Bacteremia due to Klebsiella pneumoniae: Plan: Ceftriaxone for Klebsiella bacteremia to complete on 09/02/22. (15) MRSA (methicillin resistant staph aureus) culture positive: Plan: Vancomycin for MRSA positive sputum culture, completed 08/27/22. Plan Full code Regular diet Heparin for DVT ppx Telemetry status Admission and Anticipated Discharge Date Admission Date: August 20, 2022 Subjective No overnight events. Doing well on room air this morning. No complaints of SOB, chest pain, abdominal pain this morning. Worked with PT yesterday, became dyspneic and hypoxic to 85% on 2LNC with ambulation but improved to high 90s with sitting and deep breathing. WBC 11.93, Hgb 10.0, Na 132, K 3.7, Mg 1.5 Review of Systems Constitutional: no fever and no chills Respiratory: no cough and no dyspnea Cardiovascular: no chest pain and no palpitations Gastrointestinal: no abdominal pain, no nausea and no vomiting Physical Exam Constitutional: WD/WN, vitals as above Respiratory: normal respiratory effort, lungs clear to auscultation normal respiratory effort; no respiratory distress, no labored breathing and no cough Cardiovascular: RRR, no murmur, no edema Gastrointestinal (Abdomen): normal bowel sounds, soft, nontender, no hepat osplenomegaly Skin: no rashes, warm and dry Psychiatric: A+Ox3, euthymic affect Results & Data Results & Data ([facility]) Vital Signs (Past 12 Hours) Vital Signs Temp Pulse Pulse Resp BP Pulse Ox O2 Del Method 08/28/22 03:36 36.8 C 78 24 123/78 95 Nasal Cannula 08/27/22 23:32 85 16 96 Nasal Cannula 08/27/22 23:22 97 H 08/27/22 23:19 36.7 C 97 H 38 H 146/94 H 91 Nasal Cannula 08/27/22 19:29 Nasal Cannula 08/27/22 19:26 37.5 C 89 33 H 131/84 92 Nasal Cannula O2 Flow Rate 08/28/22 03:36 2 08/27/22 23:32 2 08/27/22 23:22 08/27/22 23:19 2 08/27/22 19:29 2 08/27/22 19:26 2 PG Care Time/CCT Total # of Minutes Spent Total Time Spent with Patient: Total time spent is greater than 50% in coordination of care (as documented) at patient's floor/unit and/or counseling patient: Coding Level of Care Code 92865 Subseq Hosp Care Lvl 3 Diagnoses Acute respiratory failure with hypoxia J96.01 Cardiomyopathy I42.9 Septic shock A41.9; R65.21 Alcohol abuse F10.10 JUAN (acute kidney injury) N17.9 Hypertension I10 Alcohol withdrawal F10.939 Acute hypokalemia E87.6 Hypomagnesemia E83.42 Non-ST elevation [place] (NSTEMI) I21.4 Acute hyponatremia E87.1 Thrombocytopenia D69.6 Hypophosphatemia E83.39 Bacteremia due to Klebsiella pneumoniae R78.81; B96.1 MRSA (methicillin resistant staph aureus) culture positive Z22.322
[2022-08-28] MEDS: ALBUT/IPRATROP 3MG/0.5MG NEB 3 ML VIAL INH SCH (08:00)
[2022-08-28] MEDS ORDERED: ALBUT/IPRATROP 3MG/0.5MG NEB 3 ML VIAL INH PRN (08:08)
[2022-08-28] MEDS: MAGNESIUM SULFATE / D5W 1 GM/100 ML BAG IV SCH ×2 (08:09→10:21)
[2022-08-28] MEDS: PANTOprazole 40 MG TAB PO SCH (08:09)
[2022-08-28] MEDS: FOLIC ACID 400 MCG TAB PO SCH (08:09)
[2022-08-28] MEDS: DOCUSATE SODIUM/SENNA 50/8.6MG TAB PO SCH (08:10)
[2022-08-28] MEDS: LOSARTAN POTASSIUM 25 MG TAB PO SCH (08:10)
[2022-08-28] MEDS: HEPARIN SOD 5,000 UNIT/0.5 ML VIAL SQ SCH ×2 (08:10→20:32)
[2022-08-28] MEDS: THIAMINE HCL 100 MG TAB PO SCH (08:10)
[2022-08-28] MEDS: amLODIPine BESYLATE 5 MG TAB PO SCH (08:10)
[2022-08-28] MEDS: FUROSEMIDE 40 MG/4 ML VIAL IV SCH (08:12)
[2022-08-28] MEDS: MULTI VIT W/MINERALS LIQUID 15 ML UDP NG SCH (09:22)
[2022-08-28] MEDS: MULTIVITAMIN TAB PO SCH (11:33)
[2022-08-28] MEDS ORDERED: ONDANSETRON 4 MG OD TAB PO PRN (15:14)
[2022-08-28] MEDS: cefTRIAXone SODIUM 2,000 MG in DEXTROSE 5% 50 ML IV SCH (18:28)
[2022-08-29] MEDS: POTASSIUM CHLORIDE CRTAB 20 MEQ TABCR PO SCH ×2 (04:17→10:33)
[2022-08-29] MEDS: ACETAMINOPHEN 325 MG TAB PO PRN ×2 (06:02→19:31)
[2022-08-29] MEDS ORDERED: guaiFENesin/DEXTROM SYRUP 100MG/10MG 5ML UDC PO PRN (07:58)
[2022-08-29] MEDS: PANTOprazole 40 MG TAB PO SCH (08:06)
[2022-08-29] MEDS: FOLIC ACID 400 MCG TAB PO SCH (08:07)
[2022-08-29] MEDS: MULTIVITAMIN TAB PO SCH (08:07)
[2022-08-29] MEDS: amLODIPine BESYLATE 5 MG TAB PO SCH (08:07)
[2022-08-29] MEDS: DOCUSATE SODIUM/SENNA 50/8.6MG TAB PO SCH (08:07)
[2022-08-29] MEDS: LOSARTAN POTASSIUM 25 MG TAB PO SCH (08:07)
[2022-08-29] MEDS: THIAMINE HCL 100 MG TAB PO SCH (08:07)
[2022-08-29] MEDS: HEPARIN SOD 5,000 UNIT/0.5 ML VIAL SQ SCH ×2 (08:08→22:17)
[2022-08-29] MEDS: FUROSEMIDE 40 MG/4 ML VIAL IV SCH (08:08)
[2022-08-29 08:42] LABS: Basophils # (auto) 0.12 K/uL (0-0.2); Eosinophils # (auto) 0.21 K/uL (0-0.50); Eosinophils % (auto) 1.7 %; Hematocrit (blood only) 30.9 % (40.1-51.0); Hemoglobin 10.4 g/dl (14.0-18.0); Immature Granulocytes # (auto) 0.23 K/uL (0.00-0.02); Immature Granulocytes % (auto) 1.9 %; Lymphocytes # (auto) 2.01 K/uL (1.2-3.4); Lymphocytes % (auto) 16.6 %; Mean Corpuscular Hemoglobin 33.1 pg (25.0-34.0); Mean Corpuscular Hgb Conc 33.7 g/dL (32.0-36.0); Mean Corpuscular Volume 98.4 fL (80.0-100.0); Mean Platelet Volume 10.8 fL (9.4-12.4); Monocytes # (auto) 0.57 K/uL (0.24-0.82); Monocytes % (auto) 4.7 %; Neutrophils # (auto) 8.98 K/uL (1.4-6.5); Neutrophils % (auto) 74.1 %; Platelet Count 242 K/uL (130-400); RDW Coefficient of Variation 13.3 % (11.5-14.5); RDW Standard Deviation 47.9 fL (36.4-46.3); Red Blood Count 3.14 M/uL (4.63-6.08); White Blood Count 12.12 K/ul (4.8-10.8)
[2022-08-29 09:14] LABS: BUN Creatinine Ratio 11.1 (10-20); Calcium 7.9 mg/dl (8.5-10.1); Creatinine Clr Calc Pharmacy 164.1 ml/min; Est GFR (African American) 140.9 ml/min; Est GFR (Non-African American) 121.6 ml/min; Potassium 4.7 mmol/L (3.5-5.1)
--- NOTE | 2022-08-29 15:49 | Hospitalist Progress Note ---
Date of Service August 29, 2022 Assessment & Plan (1) Acute respiratory failure with hypoxia: Plan: Patient was admitted to the hospital after a suspected syncopal episode, chest x-ray showing evidence of aspiration pneumonia. Due to evidence of worsening alcohol withdrawal symptoms, multiple aspirations and worsening respiratory status, patient was intubated and sedated. He has since been extubated Currently on room air Blood cultures 08/20 grew pansensitive Klebsiella with repeat BCx on 08/23 negative. Continue ceftriaxone for total of 10 days after negative blood culture (complete 09/02). Sputum culture positive for MRSA, completed a 7-day course of vancomycin (end date 08/27). Blood cultures do not show MRSA. CXR 08/27 with continued evidence of pulmonary edema/multifocal pneumonia, continue daily Lasix 40mg IV with daily BMP. WBC count 11.93, continued improvement in oxygenation and no fevers so will continue current Abx with repeat CBC tomorrow. PT and OT recommending acute rehab on discharge. (2) Cardiomyopathy: Plan: Echo 08/21 showed EF 20-25% with global wall abnormality on Echo, no baseline to compare. Repeat Echo 08/25 showed resolution of ventricular dysfunction. Findings on first echo likely due to sepsis and septic shock. Echo was negative for vegetations, continue tx for bacteremia and pneumonia. Cardiology consulted earlier this admission and appreciate recs, have since signed off. (3) Septic shock: Plan: resolved (4) Alcohol abuse: Plan: History of alcoholism, and from 5 days before admission decreased his intake from 18 beers a day to 4 beers a day. Continue AWSS; received total of 2mg Ativan yesterday (in the afternoon after a nap had increased BP, some confusion). Case Management did offer Drug and Alcohol resources to the patient, which he declined. Will be staying with brother on discharge from hospital/acute physical rehab facility. (5) JUAN (acute kidney injury): Plan: Resolved, daily BMP while on IV diuretics. (6) Hypertension: Plan: BP under fair control (7) Alcohol withdrawal: Plan: as above (8) Acute hypokalemia: Plan: replete (9) Hypomagnesemia: Plan: replete (10) Non-ST elevation [place] (NSTEMI): Plan: Type II MS in the setting of septic shock, significantly reduced EF during acute illness. Cardiology consulted and appreciate recommendations; newly discovered cardiomyopathy, resolved, in the setting of septic shock. (11) Acute hyponatremia: Plan: resolved (12) Thrombocytopenia: Plan: Resolved. Plts improved to 180 with no evidence of active bleeding. Heparin 5000u q12h for DVT ppx. (13) Hypophosphatemia: Plan: Resolved. (14) Bacteremia due to Klebsiella pneumoniae: Plan: Ceftriaxone for Klebsiella bacteremia to complete on 09/02/22. (15) MRSA (methicillin resistant staph aureus) culture positive: Plan: Vancomycin for MRSA positive sputum culture, completed 08/27/22. Plan Full code Regular diet Heparin for DVT ppx Rehab when accepted Admission and Anticipated Discharge Date Admission Date: August 20, 2022 Subjective patient seen and examined, feels overall improved, still with some mild SOB, especially on exertion Review of Systems Review of Systems: All systems reviewed are negative, apart from the ones contained in the history. Physical Exam Physical Exam: The patient is awake, alert and oriented 3,chronically ill looking, unkempt HEENT--PERRL, EOMI, mucous membranes and oropharynx mildly dry Neck--supple. No JVD. No bruits. Thyroid normal, trachea midline, no adenopathy. Heart--normal S1 and S2. No murmurs, rubs or gallops. Lungs--clear bilaterally, no respiratory distress, no accessory muscle use. Abdomen--normal bowel sounds and soft. Mild epigastric and left sided abdominal pain Extremities--no cyanosis or clubbing. No edema. Dermatologic--normal skin turgor, normal color, no abnormal lymph nodes, no rash. Neurologic--cranial nerves II through XII grossly intact. Rheumatologic--normal range of motion. Psychiatric--normal affect. Results & Data Results & Data ([facility]) Vital Signs (Past 12 Hours) Vital Signs Temp Pulse Pulse Resp BP Pulse Ox O2 Del Method 08/29/22 15:11 99.1 F 85 18 129/86 93 Room Air 08/29/22 12:45 99.0 F 82 16 124/83 94 Room Air 08/29/22 08:00 86 08/29/22 08:00 93 Room Air 08/29/22 07:57 98.2 F 76 16 120/78 94 Nasal Cannula 08/29/22 04:13 99.5 F 86 18 118/75 93 Nasal Cannula O2 Flow Rate 08/29/22 15:11 08/29/22 12:45 08/29/22 08:00 08/29/22 08:00 08/29/22 07:57 2 08/29/22 04:13 2 PG Care Time/CCT Total # of Minutes Spent Total Time Spent with Patient: Total time spent is greater than 50% in coordination of care (as documented) at patient's floor/unit and/or counseling patient: Coding Level of Care Code 71138 Subseq Hosp Care Lvl 2 Diagnoses Acute respiratory failure with hypoxia J96.01 Cardiomyopathy I42.9 Septic shock A41.9; R65.21 Alcohol abuse F10.10 JUAN (acute kidney injury) N17.9 Hypertension I10 Alcohol withdrawal F10.939 Acute hypokalemia E87.6 Hypomagnesemia E83.42 Non-ST elevation [place] (NSTEMI) I21.4 Acute hyponatremia E87.1 Thrombocytopenia D69.6 Hypophosphatemia E83.39 Bacteremia due to Klebsiella pneumoniae R78.81; B96.1 MRSA (methicillin resistant staph aureus) culture positive Z22.322 Time Spent (min) 35
[2022-08-29] MEDS: cefTRIAXone SODIUM 2,000 MG in DEXTROSE 5% 50 ML IV SCH (17:39)
[2022-08-30] MEDS: FOLIC ACID 400 MCG TAB PO SCH (08:18)
[2022-08-30] MEDS: PANTOprazole 40 MG TAB PO SCH (08:18)
[2022-08-30] MEDS: THIAMINE HCL 100 MG TAB PO SCH (08:18)
[2022-08-30] MEDS: MULTIVITAMIN TAB PO SCH (08:18)
[2022-08-30] MEDS: LOSARTAN POTASSIUM 25 MG TAB PO SCH (08:18)
[2022-08-30] MEDS: amLODIPine BESYLATE 5 MG TAB PO SCH (08:19)
[2022-08-30] MEDS: DOCUSATE SODIUM/SENNA 50/8.6MG TAB PO SCH (08:19)
[2022-08-30] MEDS: HEPARIN SOD 5,000 UNIT/0.5 ML VIAL SQ SCH ×2 (08:20→20:09)
[2022-08-30] MEDS: FUROSEMIDE 40 MG/4 ML VIAL IV SCH (08:25)
[2022-08-30 10:56] LABS: Calcium 8.5 mg/dl (8.5-10.1); Creatinine Clr Calc Pharmacy 155.5 ml/min; Est GFR (African American) 137.8 ml/min; Est GFR (Non-African American) 118.9 ml/min; Potassium 3.7 mmol/L (3.5-5.1)
--- NOTE | 2022-08-30 14:12 | Hospitalist Progress Note ---
Date of Service August 30, 2022 Assessment & Plan (1) Acute respiratory failure with hypoxia: Plan: Patient was admitted to the hospital after a suspected syncopal episode, chest x-ray showing evidence of aspiration pneumonia. Due to evidence of worsening alcohol withdrawal symptoms, multiple aspirations and worsening respiratory status, patient was intubated and sedated. He has since been extubated Currently on room air Blood cultures 08/20 grew pansensitive Klebsiella with repeat BCx on 08/23 negative. Continue ceftriaxone for total of 10 days after negative blood culture (complete 09/02). Sputum culture positive for MRSA, completed a 7-day course of vancomycin (end date 08/27). Blood cultures do not show MRSA. CXR 08/27 with continued evidence of pulmonary edema/multifocal pneumonia, however, discontinue daily Lasix 40mg IV on account of hyponatremia PT and OT recommending acute rehab on discharge. (2) Cardiomyopathy: Plan: Echo 08/21 showed EF 20-25% with global wall abnormality on Echo, no baseline to compare. Repeat Echo 08/25 showed resolution of ventricular dysfunction. Findings on first echo likely due to sepsis and septic shock. Echo was negative for vegetations, continue tx for bacteremia and pneumonia. Cardiology consulted earlier this admission and appreciate recs, have since signed off. (3) Septic shock: Plan: resolved (4) Alcohol abuse: Plan: History of alcoholism, and from 5 days before admission decreased his intake from 18 beers a day to 4 beers a day. Continue AWSS; received total of 2mg Ativan yesterday (in the afternoon after a nap had increased BP, some confusion). Case Management did offer Drug and Alcohol resources to the patient, which he declined. Will be staying with brother on discharge from hospital/acute physical rehab facility. (5) JUAN (acute kidney injury): Plan: Resolved, daily BMP while on IV diuretics. (6) Hypertension: Plan: BP under fair control (7) Alcohol withdrawal: Plan: as above (8) Acute hypokalemia: Plan: replete (9) Hypomagnesemia: Plan: replete (10) Non-ST elevation [place] (NSTEMI): Plan: Type II [place] in the setting of septic shock, significantly reduced EF during acute illness. Cardiology consulted and appreciate recommendations; newly discovered cardiomyopathy, resolved, in the setting of septic shock. (11) Acute hyponatremia: Plan: acute on chronic hyponatremia Looking at his previous labs, it seems he had hyponatremia before will obtain urine and serum elctrolytes discontinue lasix (12) Thrombocytopenia: Plan: Resolved. Plts improved to 180 with no evidence of active bleeding. Heparin 5000u q12h for DVT ppx. (13) Hypophosphatemia: Plan: Resolved. (14) Bacteremia due to Klebsiella pneumoniae: Plan: Ceftriaxone for Klebsiella bacteremia to complete on 09/02/22. (15) MRSA (methicillin resistant staph aureus) culture positive: Plan: Vancomycin for MRSA positive sputum culture, completed 08/27/22. Plan Full code Regular diet Heparin for DVT ppx Rehab when accepted Admission and Anticipated Discharge Date Admission Date: August 20, 2022 Subjective patient seen and examined, feels overall improved, still with some mild SOB, especially on exertion Review of Systems Review of Systems: All systems reviewed are negative, apart from the ones contained in the history. Physical Exam Physical Exam: The patient is awake, alert and oriented 3,chronically ill looking, unkempt HEENT--PERRL, EOMI, mucous membranes and oropharynx mildly dry Neck--supple. No JVD. No bruits. Thyroid normal, trachea midline, no adenopathy. Heart--normal S1 and S2. No murmurs, rubs or gallops. Lungs--clear bilaterally, no respiratory distress, no accessory muscle use. Abdomen--normal bowel sounds and soft. Mild epigastric and left sided abdominal pain Extremities--no cyanosis or clubbing. No edema. Dermatologic--normal skin turgor, normal color, no abnormal lymph nodes, no rash. Neurologic--cranial nerves II through XII grossly intact. Rheumatologic--normal range of motion. Psychiatric--normal affect. Results & Data Results & Data ([facility]) Vital Signs (Past 12 Hours) Vital Signs Temp Pulse Pulse Resp BP Pulse Ox O2 Del Method 08/30/22 13:31 77 18 95 Room Air 08/30/22 12:00 98.2 F 87 18 120/77 93 Room Air 08/30/22 08:00 99.0 F 85 18 158/94 H 92 Room Air 08/30/22 07:29 64 08/30/22 04:23 98.8 F 84 18 148/83 H 92 Room Air PG Care Time/CCT Total # of Minutes Spent Total Time Spent with Patient: Total time spent is greater than 50% in coordination of care (as documented) at patient's floor/unit and/or counseling patient: Coding Level of Care Code 92285 Subseq Hosp Care Lvl 2 Diagnoses Acute respiratory failure with hypoxia J96.01 Cardiomyopathy I42.9 Septic shock A41.9; R65.21 Alcohol abuse F10.10 JUAN (acute kidney injury) N17.9 Hypertension I10 Alcohol withdrawal F10.939 Acute hypokalemia E87.6 Hypomagnesemia E83.42 Non-ST elevation [place] (NSTEMI) I21.4 Acute hyponatremia E87.1 Thrombocytopenia D69.6 Hypophosphatemia E83.39 Bacteremia due to Klebsiella pneumoniae R78.81; B96.1 MRSA (methicillin resistant staph aureus) culture positive Z22.322 Time Spent (min) 35
[2022-08-30] MEDS: cefTRIAXone SODIUM 2,000 MG in DEXTROSE 5% 50 ML IV SCH (16:23)
[2022-08-31] MEDS: DOCUSATE SODIUM/SENNA 50/8.6MG TAB PO SCH (07:26)
[2022-08-31] MEDS: amLODIPine BESYLATE 5 MG TAB PO SCH (07:26)
[2022-08-31] MEDS: FOLIC ACID 400 MCG TAB PO SCH (07:26)
[2022-08-31] MEDS: HEPARIN SOD 5,000 UNIT/0.5 ML VIAL SQ SCH ×2 (07:27→20:29)
[2022-08-31] MEDS: LOSARTAN POTASSIUM 25 MG TAB PO SCH (07:27)
[2022-08-31] MEDS: THIAMINE HCL 100 MG TAB PO SCH (07:27)
[2022-08-31] MEDS: MULTIVITAMIN TAB PO SCH (07:27)
[2022-08-31] MEDS: PANTOprazole 40 MG TAB PO SCH (07:27)
[2022-08-31 09:46] LABS: Hemoglobin 11.1 g/dl (14.0-18.0); Mean Corpuscular Hemoglobin 33.1 pg (25.0-34.0); Mean Corpuscular Hgb Conc 34.7 g/dL (32.0-36.0); Mean Corpuscular Volume 95.5 fL (80.0-100.0); Mean Platelet Volume 10.9 fL (9.4-12.4); Platelet Count 327 K/uL (130-400); RDW Coefficient of Variation 12.7 % (11.5-14.5); RDW Standard Deviation 44.4 fL (36.4-46.3); Red Blood Count 3.35 M/uL (4.63-6.08); White Blood Count 11.85 K/ul (4.8-10.8)
[2022-08-31 10:22] LABS: BUN Creatinine Ratio 12.8 (10-20); Calcium 8.1 mg/dl (8.5-10.1); Creatinine Clr Calc Pharmacy 187.5 ml/min; Est GFR (African American) 149.2 ml/min; Est GFR (Non-African American) 128.7 ml/min; Potassium 2.9 mmol/L (3.5-5.1)
[2022-08-31] MEDS ORDERED: POTASSIUM CHLORIDE CRTAB 20 MEQ TABCR PO STA (15:08)
--- NOTE | 2022-08-31 15:17 | Hospitalist Progress Note ---
Date of Service August 31, 2022 Assessment & Plan (1) Acute respiratory failure with hypoxia: Plan: Patient was admitted to the hospital after a suspected syncopal episode, chest x-ray showing evidence of aspiration pneumonia. Due to evidence of worsening alcohol withdrawal symptoms, multiple aspirations and worsening respiratory status, patient was intubated and sedated. He has since been extubated and currently on the floors Currently on room air Blood cultures 08/20 grew pansensitive Klebsiella with repeat BCx on 08/23 negative. Continue ceftriaxone for total of 10 days after negative blood culture (complete 09/02). Sputum culture positive for MRSA, completed a 7-day course of vancomycin (end date 08/27). Blood cultures do not show MRSA. CXR 08/27 with continued evidence of pulmonary edema/multifocal pneumonia, however, discontinue daily Lasix 40mg IV on account of hyponatremia PT and OT recommending acute rehab on discharge. However, patient says he wants to go home with home health (2) Cardiomyopathy: Plan: Echo 08/21 showed EF 20-25% with global wall abnormality on Echo, no baseline to compare. Repeat Echo 08/25 showed resolution of ventricular dysfunction. Findings on first echo likely due to sepsis and septic shock. Echo was negative for vegetations, continue tx for bacteremia and pneumonia. Cardiology consulted earlier this admission and appreciate recs, have since sign ed off. (3) Septic shock: Plan: resolved (4) Alcohol abuse: Plan: History of alcoholism, and from 5 days before admission decreased his intake from 18 beers a day to 4 beers a day. Continue AWSS; received total of 2mg Ativan yesterday (in the afternoon after a nap had increased BP, some confusion). Case Management did offer Drug and Alcohol resources to the patient, which he declined. Will be staying with brother on discharge from hospital/acute physical rehab facility. (5) JUAN (acute kidney injury): Plan: Resolved, daily BMP while on IV diuretics. (6) Hypertension: Plan: BP under fair control (7) Alcohol withdrawal: Plan: as above (8) Acute hypokalemia: Plan: replete (9) Hypomagnesemia: Plan: replete (10) Non-ST elevation [place] (NSTEMI): Plan: Type II [place] in the setting of septic shock, significantly reduced EF during acute illness. Cardiology consulted and appreciate recommendations; newly discovered cardiomyopathy, resolved, in the setting of septic shock. (11) Acute hyponatremia: Plan: acute on chronic hyponatremia Looking at his previous labs, it seems he had hyponatremia before will obtain urine and serum elctrolytes discontinue lasix, start sodium chloride tablets (12) Thrombocytopenia: Plan: Resolved. Plts improved to 180 with no evidence of active bleeding. Heparin 5000u q12h for DVT ppx. (13) Hypophosphatemia: Plan: Resolved. (14) Bacteremia due to Klebsiella pneumoniae: Plan: Ceftriaxone for Klebsiella bacteremia to complete on 09/02/22. (15) MRSA (methicillin resistant staph aureus) culture positive: Plan: Vancomycin for MRSA positive sputum culture, completed 08/27/22. Plan Full code Regular diet Heparin for DVT ppx Inital plan was Rehab when accepted, but patient says he wants to go home with home health Admission and Anticipated Discharge Date Admission Date: August 20, 2022 Subjective patient seen and examined, feels overall improved, still with some mild SOB, especially on exertion Review of Systems Review of Systems: All systems reviewed are negative, apart from the ones contained in the history. Physical Exam Physical Exam: The patient is awake, alert and oriented 3,chronically ill looking, unkempt HEENT--PERRL, EOMI, mucous membranes and oropharynx mildly dry Neck--supple. No JVD. No bruits. Thyroid normal, trachea midline, no adenopathy. Heart--normal S1 and S2. No murmurs, rubs or gallops. Lungs--clear bilaterally, no respiratory distress, no accessory muscle use. Abdomen--normal bowel sounds and soft. Mild epigastric and left sided abdominal pain Extremities--no cyanosis or clubbing. No edema. Dermatologic--normal skin turgor, normal color, no abnormal lymph nodes, no rash. Neurologic--cranial nerves II through XII grossly intact. Rheumatologic--normal range of motion. Psychiatric--normal affect. Results & Data Results & Data ([facility]) Vital Signs (Past 12 Hours) Vital Signs Temp Pulse Pulse Resp BP Pulse Ox O2 Del Method 08/31/22 11:49 98.2 F 67 16 133/82 95 Room Air 08/31/22 10:29 93 08/31/22 07:57 97.9 F 69 16 144/90 H 96 Room Air 08/31/22 07:06 77 PG Care Time/CCT Total # of Minutes Spent Total Time Spent with Patient: Total time spent is greater than 50% in coordination of care (as documented) at patient's floor/unit and/or counseling patient: Coding Level of Care Code 93360 Subseq Hosp Care Lvl 2 Diagnoses Acute respiratory failure with hypoxia J96.01 Cardiomyopathy I42.9 Septic shock A41.9; R65.21 Alcohol abuse F10.10 JUAN (acute kidney injury) N17.9 Hypertension I10 Alcohol withdrawal F10.939 Acute hypokalemia E87.6 Hypomagnesemia E83.42 Non-ST elevation [place] (NSTEMI) I21.4 Acute hyponatremia E87.1 Thrombocytopenia D69.6 Hypophosphatemia E83.39 Bacteremia due to Klebsiella pneumoniae R78.81; B96.1 MRSA (methicillin resistant staph aureus) culture positive Z22.322 Time Spent (min) 35
[2022-08-31] MEDS: cefTRIAXone SODIUM 2,000 MG in DEXTROSE 5% 50 ML IV SCH (16:07)
[2022-08-31] MEDS: SODIUM CHLORIDE 1 GM TABLET PO SCH (20:29)
[2022-09-01] MEDS: LOSARTAN POTASSIUM 25 MG TAB PO SCH (07:35)
[2022-09-01] MEDS: THIAMINE HCL 100 MG TAB PO SCH (07:35)
[2022-09-01] MEDS: PANTOprazole 40 MG TAB PO SCH (07:35)
[2022-09-01] MEDS: FOLIC ACID 400 MCG TAB PO SCH (07:36)
[2022-09-01] MEDS: HEPARIN SOD 5,000 UNIT/0.5 ML VIAL SQ SCH ×2 (07:36→19:39)
[2022-09-01] MEDS: MULTIVITAMIN TAB PO SCH (07:36)
[2022-09-01] MEDS: amLODIPine BESYLATE 5 MG TAB PO SCH (07:36)
[2022-09-01] MEDS: SODIUM CHLORIDE 1 GM TABLET PO SCH ×3 (07:37→19:39)
[2022-09-01] MEDS: DOCUSATE SODIUM/SENNA 50/8.6MG TAB PO SCH (07:39)
[2022-09-01 08:58] LABS: Hematocrit (blood only) 33.3 % (40.1-51.0); Hemoglobin 11.3 g/dl (14.0-18.0); Mean Corpuscular Hemoglobin 32.5 pg (25.0-34.0); Mean Corpuscular Hgb Conc 33.9 g/dL (32.0-36.0); Mean Corpuscular Volume 95.7 fL (80.0-100.0); Mean Platelet Volume 10.9 fL (9.4-12.4); Platelet Count 353 K/uL (130-400); RDW Coefficient of Variation 12.8 % (11.5-14.5); RDW Standard Deviation 45.1 fL (36.4-46.3); Red Blood Count 3.48 M/uL (4.63-6.08); White Blood Count 13.36 K/ul (4.8-10.8)
[2022-09-01 09:30] LABS: BUN Creatinine Ratio 9.4 (10-20); Calcium 8.2 mg/dl (8.5-10.1); Creatinine Clr Calc Pharmacy 166.3 ml/min; Est GFR (Non-African American) 122.5 ml/min; Potassium 3.6 mmol/L (3.5-5.1)
--- NOTE | 2022-09-01 15:36 | Hospitalist Progress Note ---
Date of Service September 01, 2022 Assessment & Plan (1) Acute respiratory failure with hypoxia: Plan: Patient was initially admitted to the hospital after a suspected syncopal episode, chest x-ray showing evidence of aspiration pneumonia. Due to evidence of worsening alcohol withdrawal symptoms, multiple aspirations and worsening respiratory status, patient was intubated and sedated. He has since been extubated and currently on the floors Currently on room air Blood cultures 08/20 grew pansensitive Klebsiella with repeat BCx on 08/23 negative. Continue ceftriaxone for total of 10 days after negative blood culture (complete 09/02). Sputum culture positive for MRSA, completed a 7-day course of vancomycin (end date 08/27). Blood cultures do not show MRSA. CXR 08/27 with continued evidence of pulmonary edema/multifocal pneumonia, however, discontinue daily Lasix 40mg IV on account of hyponatremia PT and OT recommending acute rehab on discharge. However, patient says he wants to go home with home health (2) Cardiomyopathy: Plan: Echo 08/21 showed EF 20-25% with global wall abnormality on Echo, no baseline to compare. Repeat Echo 08/25 showed resolution of ventricular dysfunction. Findings on first echo likely due to sepsis and septic shock. Echo was negative for vegetations, continue tx for bacteremia and pneumonia. Cardiology consulted earlier this admission and appreciate recs, have since signed off. (3) Septic shock: Plan: Now resolved (4) Alcohol abuse: Plan: History of alcoholism, and from 5 days before admission decreased his intake from 18 beers a day to 4 beers a day. Continue AWSS; received total of 2mg Ativan yesterday (in the afternoon after a nap had increased BP, some confusion). Case Management did offer Drug and Alcohol resources to the patient, which he declined. Will be staying with brother on discharge from hospital/acute physical rehab facility. (5) JUAN (acute kidney injury): Plan: Resolved, daily BMP while on IV diuretics. (6) Hypertension: Plan: BP under fair control (7) Alcohol withdrawal: Plan: as above (8) Acute hypokalemia: Plan: replete (9) Hypomagnesemia: Plan: replete (10) Non-ST elevation [place] (NSTEMI): Plan: Type II [place] in the setting of septic shock, significantly reduced EF during acute illness. Cardiology consulted and appreciate recommendations; newly discovered cardiomyopathy, resolved, in the setting of septic shock. (11) Acute hyponatremia: Plan: acute on chronic hyponatremia Looking at his previous labs, it seems he had hyponatremia before looks likel hypovolemic hyponatremia discontinue lasix, start sodium chloride tablets (12) Thrombocytopenia: Plan: Resolved. Plts improved to 180 with no evidence of active bleeding. Heparin 5000u q12h for DVT ppx. (13) Hypophosphatemia: Plan: Resolved. (14) Bacteremia due to Klebsiella pneumoniae: Plan: Ceftriaxone for Klebsiella bacteremia to complete on 09/02/22. (15) MRSA (methicillin resistant staph aureus) culture positive: Plan: Vancomycin for MRSA positive sputum culture, completed 08/27/22. Plan Full code Regular diet Heparin for DVT ppx Inital plan was Rehab when accepted, but patient says he wants to go home with home health. discharge home tomorrow Admission and Anticipated Discharge Date Admission Date: August 20, 2022 Subjective patient seen and examined, feels overall improved, still with some mild SOB, especially on exertion, ambulating the hallway Review of Systems Review of Systems: All systems reviewed are negative, apart from the ones contained in the history. Physical Exam Physical Exam: The patient is awake, alert and oriented 3,chronically ill looking, unkempt HEENT--PERRL, EOMI, mucous membranes and oropharynx mildly dry Neck--supple. No JVD. No bruits. Thyroid normal, trachea midline, no adenopathy. Heart--normal S1 and S2. No murmurs, rubs or gallops. Lungs--clear bilaterally, no respiratory distress, no accessory muscle use. Abdomen--normal bowel sounds and soft. Mild epigastric and left sided abdominal pain Extremities--no cyanosis or clubbing. No edema. Dermatologic--normal skin turgor, normal color, no abnormal lymph nodes, no rash. Neurologic--cranial nerves II through XII grossly intact. Rheumatologic--normal range of motion. Psychiatric--normal affect. Results & Data Results & Data ([facility]) Vital Signs (Past 12 Hours) Vital Signs Temp Pulse Resp BP BP Pulse Ox O2 Del Method 09/01/22 15:00 98.2 F 87 18 110/67 96 Room Air 09/01/22 11:00 98.2 F 78 16 114/77 98 Room Air 09/01/22 10:37 Room Air 09/01/22 07:39 98.1 F 66 18 124/77 97 Room Air PG Care Time/CCT Total # of Minutes Spent Total Time Spent with Patient: Total time spent is greater than 50% in coordination of care (as documented) at patient's floor/unit and/or counseling patient: Coding Level of Care Code 50753 Subseq Hosp Care Lvl 2 Diagnoses Acute respiratory failure with hypoxia J96.01 Cardiomyopathy I42.9 Septic shock A41.9; R65.21 Alcohol abuse F10.10 JUAN (acute kidney injury) N17.9 Hypertension I10 Alcohol withdrawal F10.939 Acute hypokalemia E87.6 Hypomagnesemia E83.42 Non-ST elevation [place] (NSTEMI) I21.4 Acute hyponatremia E87.1 Thrombocytopenia D69.6 Hypophosphatemia E83.39 Bacteremia due to Klebsiella pneumoniae R78.81; B96.1 MRSA (methicillin resistant staph aureus) culture positive Z22.322 Time Spent (min) 35
[2022-09-01] MEDS: cefTRIAXone SODIUM 2,000 MG in DEXTROSE 5% 50 ML IV SCH (16:35)
[2022-09-02] MEDS: DOCUSATE SODIUM/SENNA 50/8.6MG TAB PO SCH (07:24)
[2022-09-02] MEDS: LOSARTAN POTASSIUM 25 MG TAB PO SCH (07:27)
[2022-09-02] MEDS: SODIUM CHLORIDE 1 GM TABLET PO SCH (07:27)
[2022-09-02] MEDS: HEPARIN SOD 5,000 UNIT/0.5 ML VIAL SQ SCH (07:28)
[2022-09-02] MEDS: FOLIC ACID 400 MCG TAB PO SCH (07:28)
[2022-09-02] MEDS: THIAMINE HCL 100 MG TAB PO SCH (07:29)
[2022-09-02] MEDS: MULTIVITAMIN TAB PO SCH (07:29)
[2022-09-02] MEDS: amLODIPine BESYLATE 5 MG TAB PO SCH (07:29)
[2022-09-02] MEDS: PANTOprazole 40 MG TAB PO SCH (07:30)
[2022-09-02] MEDS: cefTRIAXone SODIUM 2,000 MG in DEXTROSE 5% 50 ML IV SCH (11:59)
--- NOTE | 2022-09-02 14:30 | Discharge Summary ---
Date of Service September 02, 2022 Admission HPI Per Admitting Provider The patient is a 52-year-old male with a past medical history including alcoholism, and has not seen a physician regularly in years. He presents to the emergency department as noted above. While in the emergency department, patient vomited, likely aspirated as he required increasing to 6 to 8 L mask to bring pulse ox from low 80s to 90%. He appeared to go through more significant withdrawal and worsening tremors in spite of having received several milligrams of lorazepam IV in the ED. Discussion was made with ICU staff, and with patient, and it was felt the best plan would be to have the patient be intubated due to worsening respiratory status, and worsening alcohol withdrawal that was not responding well to IV lorazepam. The patient was intubated by Dr. Garcia while in ED, and was then transferred to the ICU for ongoing care Principal Diagnosis alcohol withdrawal, septic shock Discharge Exam The patient is awake, alert and oriented 3,chronically ill looking, unkempt HEENT--PERRL, EOMI, mucous membranes and oropharynx mildly dry Neck--supple. No JVD. No bruits. Thyroid normal, trachea midline, no adenopathy. Heart--normal S1 and S2. No murmurs, rubs or gallops. Lungs--clear bilaterally, no respiratory distress, no accessory muscle use. Abdomen--normal bowel sounds and soft. Mild epigastric and left sided abdominal pain Extremities--no cyanosis or clubbing. No edema. Dermatologic--normal skin turgor, normal color, no abnormal lymph nodes, no rash. Neurologic--cranial nerves II through XII grossly intact. Rheumatologic--normal range of motion. Psychiatric--normal affect. Discharge Data Allergies Allergy/AdvReac Type Severity Reaction Status Date / Time No Known Allergies Allergy Unverified 08/20/22 19:05 Consultations 08/20/22 21:07 ED Decision to Admit Stat 08/20/22 23:29 Consult Integration Solution Architect Routine 08/21/22 10:25 Consult Cardiology Routine Ordered Studies 08/20/22 18:36 CT head/brain wo con Stat 08/21/22 02:05 CT abd pelvis IV con only Urgent Hospital Course (1) Acute respiratory failure with hypoxia: Patient was initially admitted to the hospital after a suspected syncopal episode, chest x-ray showing evidence of aspiration pneumonia. Due to evidence of worsening alcohol withdrawal symptoms, multiple aspirations and worsening respiratory status, patient was intubated and sedated. He has since been extubated and currently on the floors Currently on room air Blood cultures 08/20 grew pansensitive Klebsiella with repeat BCx on 08/23 negative. Continue ceftriaxone for total of 10 days after negative blood culture (complete 09/02). Sputum culture positive for MRSA, completed a 7-day course of vancomycin (end date 08/27). Blood cultures do not show MRSA. CXR 08/27 with continued evidence of pulmonary edema/multifocal pneumonia, however, discontinue daily Lasix 40mg IV on account of hyponatremia PT and OT recommending acute rehab on discharge. However, patient says he wants to go home with home health (2) Cardiomyopathy: Echo 08/21 showed EF 20-25% with global wall abnormality on Echo, no baseline to compare. Repeat Echo 08/25 showed resolution of ventricular dysfunction. Findings on first echo likely due to sepsis and septic shock. Echo was negative for vegetations, continue tx for bacteremia and pneumonia. Cardiology consulted earlier this admission and appreciate recs, have since signed off. (3) Septic shock: Now resolved (4) Alcohol abuse: History of alcoholism, and from 5 days before admission decreased his intake from 18 beers a day to 4 beers a day. Continue AWSS; received total of 2mg Ativan yesterday (in the afternoon after a nap had increased BP, some confusion). Case Management did offer Drug and Alcohol resources to the patient, which he declined. Will be staying with brother on discharge from hospital/acute physical rehab facility. (5) JUAN (acute kidney injury): Resolved, daily BMP while on IV diuretics. (6) Hypertension: BP under fair control (7) Alcohol withdrawal: as above (8) Acute hypokalemia: replete (9) Hypomagnesemia: replete (10) Non-ST elevation TX (NSTEMI): Type II TX in the setting of septic shock, significantly reduced EF during acute illness. Cardiology consulted and appreciate recommendations; newly discovered cardiomyopathy, resolved, in the setting of septic shock. (11) Acute hyponatremia: acute on chronic hyponatremia Looking at his previous labs, it seems he had hyponatremia before looks likel hypovolemic hyponatremia discontinue lasix, start sodium chloride tablets (12) Thrombocytopenia: Resolved. Plts improved to 180 with no evidence of active bleeding. Heparin 5000u q12h for DVT ppx. (13) Hypophosphatemia: Resolved. (14) Bacteremia due to Klebsiella pneumoniae: Ceftriaxone for Klebsiella bacteremia to complete on 09/02/22. (15) MRSA (methicillin resistant staph aureus) culture positive: Vancomycin for MRSA positive sputum culture, completed 08/27/22. Plan Full code Regular diet Heparin for DVT ppx Inital plan was Rehab when accepted, but patient says he wants to go home with home health. discharge home tomorrow Total Time Total Time Spent Total Time Spent (In Minutes): 35 Discharge Plan Discharge Items Patient Disposition: Home - Self-Care Reason For Visit: ALCOHOL WITHDRAWAL, SYNCOPE, HYPONATREMIA Discharge Diagnosis: Pneumonia, Alcohol withdrawal Activity: Resume your previous activity Non-emergency contact: Primary Care Provider Call non-emergency contact if: you have any medication questions Follow-up/Referrals: Elliot Elise MD [Primary Care Provider] - 09/05/22 3:00 pm Diet: Regular Addtl Attending Provider Instructions: please abstain from alcohol, make appointment to follow up with your regular PCP Pending Studies at Discharge: No Stand-Alone Forms: My ipnexus, Smoking Cessation Medications and DC Order Prescriptions: New levofloxacin 500 mg tablet 500 mg PO DAILY 5 Days Qty: 5 0RF Discharge Orders: Discharge Order (Routine); Ordered 09/02/22 Ordered By: Wilver Wylie Admission Data Admit Date/Time: 08/20/22 21:56 Attending Provider: Wilver Wylie Admit Provider: Noe Yan Primary Care Provider: Elliot Elise Other Providers: Wilver Wylie ; Noe Yan ; Skip aKmara ; Elliot Joseph Other Interventions: Discharge Summary Assessment (RN) Last Done: 09/02/22 10:50 Coding Level of Care Code D/C DAY MANAGEMENT >30 MINS Diagnoses Acute respiratory failure with hypoxia J96.01 Cardiomyopathy I42.9 Septic shock A41.9; R65.21 Alcohol abuse F10.10 JUAN (acute kidney injury) N17.9 Hypertension I10 Alcohol withdrawal F10.939 Acute hypokalemia E87.6 Hypomagnesemia E83.42 Non-ST elevation TX (NSTEMI) I21.4 Acute hyponatremia E87.1 Thrombocytopenia D69.6 Hypophosphatemia E83.39 Bacteremia due to Klebsiella pneumoniae R78.81; B96.1 MRSA (methicillin resistant staph aureus) culture positive Z22.322 Time Spent (min) 35
== END 2022-09-02 13:52 | disposition home or self-care (01) | DRG 871 ==
LOC: ED 17:34 → SUATTDRO 21:56 → 1E 21:56 → 2W 08-28 16:06

== ENCOUNTER 2023-01-06 14:40 | Inpatient (IN) ==
[2023-01-06] MEDS ORDERED: PANTOprazole 80 MG in DEXTROSE 5% 100 ML IV ONE (15:00)
[2023-01-06] MEDS ORDERED: METOCLOPRAMIDE HCL INJ 5 MG/ML 2 ML VIAL IV STA (15:00)
[2023-01-06] MEDS ORDERED: SODIUM CHLORIDE 0.9% 1000ML 1,000 ML IV ONE ×2 (15:00→16:17)
[2023-01-06] MEDS ORDERED: PANTOPRAZOLE BOLUS/DRIP 1 EACH IV STA (15:00)
[2023-01-06] MEDS ORDERED: LORazepam 2 MG/1 ML VIAL IV STA (15:04)
--- NOTE | 2023-01-06 15:04 | Emergency Department Note ---
Impression & Plan JUAN (acute kidney injury), Alcohol abuse, Elevated troponin, Acute dehydration, Partial gastric outlet obstruction ED Provider Note NAME: MICHELL BRUNNER AGE: 52 SEX: M : 1970 ARRIVES VIA: Ambulance INFORMANT: Patient ED PROVIDER(S): Jon Burroughs DO CHIEF COMPLAINT: vomiting HPI: Patient is a 52-year-old male with a past medical history of sepsis, renal failure, alcohol abuse and cardiomyopathy which appears to have resolved who presents to the ER for nausea and vomiting since last night around 7 PM. He notes he has vomited about 40 times. Now he is vomiting up black material. He denies any diarrhea. No black stools. No headache or change in vision. No chest pain. He denies any belly pain. No dysuria, urgency, or frequency. No other exacerbating or remitting factors. PAST MEDICAL HISTORY:See Below PAST SURGICAL HISTORY:See Below FAMILY HISTORY:See Below SOCIAL HISTORY:See Below HOME MEDICATIONS:See Below ALLERGIES:See Below VITALS:See Below PHYSICAL EXAMINATION: GENERAL: Sitting up in bed, alert, ill-appearing, disheveled EYE EXAM: normal conjunctiva. PERRL and EOM's grossly intact. OROPHARYNX: mucous membranes are dry LUNGS: Clear to auscultation. Normal chest wall mechanics HEART: Tachycardic, S1 normal and S2 normal ABDOMEN: abdomen soft, non-tender, normo-active bowel sounds, no masses, no rebound or guarding. UPPER EXTREMITIES: upper extremities are grossly normal. LOWER EXTREMITIES: No pitting edema. NEURO EXAM: Normal sensorium, cranial nerves II-XII grossly intact, normal speech, no gross weakness of arms, no gross weakness of legs. MEDICAL DECISION MAKING: Patient is a 52-year-old male who presents ER for above-stated complaint. IV was established blood work was obtained. External records were reviewed. Labs show mild leukocytosis 10.9. Hemoglobin was 20 which is likely secondary to dehydration. BMP with mild hypokalemia 3.2. Creatinine was up at 2.1 from baseline of 0.8. T. bili mildly up at 1.3. No transaminitis. Lipase was normal. COVID was negative. Patient drinks several beers a night. Last time he drank was last night. He notes he is unable to keep anything down due to persistent vomiting. Patient was given 2 L of IV fluids as well as Reglan. He did feel significantly better. He was given Protonix drip and bolus due to the dark vomit and was also given IV thiamine and folate with a history of alcohol abuse. Heart rate trended down from the 130s to the low 100s. He was given IV Ativan as well to prevent any withdrawal. CT abdomen pelvis did show questionable gastric outlet obstruction. Did discuss with general surgery/Larry to make sure they were comfortable keeping this here. Did discuss with the hospitalist following this. Triage Nursing notes reviewed. Limited review of prior medical records performed Vital Signs: reviewed and remarkable for tachy Differential diagnosis: Differential diagnoses includes but is not limited to gastritis, peptic ulcer disease, GERD, gallbladder disease, pancreatitis, small bowel obstruction, appendicitis, diverticulitis, hernia, urinary tract infection, torsion, perforation, trauma, infectious. ER treatment provided: See below Diagnostics interpreted by me include EKG and cardiac monitoring as listed below: -Cardiac Monitoring: An order was placed for continuous cardiac monitoring. The monitor shows a rate of 133 with sinus rhythm. -ECG: Sinus tachycardia rate of 136 Normal axis Nonspecific T wave changes in the inferior leads Right bundle branch block QTc 454 -Laboratory studies:Interpreted by me as stated above in MDM and shown below. Imaging studies: Xrays: As interpreted by me: Portable AP upright 1 view of the chest shows no pneumonia CTs show: CT shows Consultation(s): Discussed with Dr. Grimes for further evaluation management and treatment Procedures:none Critical Care: None Past Med/Surg History Medical History (Updated 01/06/23 @ 20:55 by Jon Burroughs DO) Acute respiratory failure with hypoxia Alcohol withdrawal Social History Smoking Status: Current every day smoker Tobacco Type: Cigarettes Cigarettes Per Day: 5 per day; Second Hand Exposure: Yes; Hx Alcohol Use: Yes Alcohol type: beer Preferred Language: Italian Communication Ability: Unable Social Welfare Research Worker Required: No Beliefs That Will Affect Care: Gnosticist marital status: Unknown Feels Safe at Home: Yes Assistive Devices: None Allergies Allergies Allergy/AdvReac Type Severity Reaction Status Date / Time No Known Allergies Allergy Unverified 01/06/23 17:10 Home Meds Previous Rx's Medication Instructions Recorded triamcinolone acetonide 0.1 % See Rx Instructions topical BID 1 09/22/22 topical cream week #80 grams Results & Data (ED) Vital Signs Vital Signs - 24 hr 01/06/23 15:03 01/06/23 15:10 01/06/23 16:08 Temperature 36.9 C Temperature Source Oral Pulse Rate 123 H 124 H Pulse Rate from SpO2 Sensor Respiratory Rate 20 Respiratory Depth Normal Blood Pressure 126/105 H Blood Pressure Mean 112 Blood Pressure Position Lying Pulse Oximetry 96 95 Oxygen Delivery Method Room Air Room Air Sepsis Recent Fever Within 48 Hours No Sepsis New/Unexplained Change in Mental Status No Sepsis Action Taken by Nursing No Action Required 01/06/23 15:05 01/06/23 15:10 01/06/23 15:20 Temperature Temperature Source Pulse Rate 124 H 122 H 118 H Pulse Rate from SpO2 Sensor 124 H 123 H 117 H Respiratory Rate 19 17 15 Respiratory Depth Blood Pressure Blood Pressure Mean Blood Pressure Position Pulse Oximetry 97 97 99 Oxygen Delivery Method Sepsis Recent Fever Within 48 Hours Sepsis New/Unexplained Change in Mental Status Sepsis Action Taken by Nursing 01/06/23 15:30 01/06/23 15:40 01/06/23 15:50 Temperature Temperature Source Pulse Rate 117 H 111 H 111 H Pulse Rate from SpO2 Sensor 118 H 114 H 112 H Respiratory Rate 26 H 18 22 Respiratory Depth Blood Pressure Blood Pressure Mean Blood Pressure Position Pulse Oximetry 99 98 97 Oxygen Delivery Method Sepsis Recent Fever Within 48 Hours Sepsis New/Unexplained Change in Mental Status Sepsis Action Taken by Nursing 01/06/23 16:00 01/06/23 16:00 01/06/23 16:10 Temperature Temperature Source Pulse Rate 105 H 109 H Pulse Rate from SpO2 Sensor 103 H 110 H Respiratory Rate 20 20 Respiratory Depth Blood Pressure 147/111 H Blood Pressure Mean 123 Blood Pressure Position Pulse Oximetry 97 94 Oxygen Delivery Method Sepsis Recent Fever Within 48 Hours Sepsis New/Unexplained Change in Mental Status Sepsis Action Taken by Nursing 01/06/23 16:32 01/06/23 16:40 01/06/23 16:50 Temperature Temperature Source Pulse Rate 110 H 123 H 111 H Pulse Rate from SpO2 Sensor 111 H 122 H 113 H Respiratory Rate 22 19 20 Respiratory Depth Blood Pressure Blood Pressure Mean Blood Pressure Position Pulse Oximetry 97 95 95 Oxygen Delivery Method Sepsis Recent Fever Within 48 Hours Sepsis New/Unexplained Change in Mental Status Sepsis Action Taken by Nursing 01/06/23 17:00 01/06/23 17:10 01/06/23 17:20 Temperature Temperature Source Pulse Rate 113 H 113 H 114 H Pulse Rate from SpO2 Sensor 114 H 114 H 114 H Respiratory Rate 22 23 20 Respiratory Depth Blood Pressure Blood Pressure Mean Blood Pressure Position Pulse Oximetry 95 95 96 Oxygen Delivery Method Sepsis Recent Fever Within 48 Hours Sepsis New/Unexplained Change in Mental Status Sepsis Action Taken by Nursing 01/06/23 17:30 01/06/23 17:40 01/06/23 17:50 Temperature Temperature Source Pulse Rate 114 H 114 H 106 H Pulse Rate from SpO2 Sensor 113 H 114 H 106 H Respiratory Rate 21 17 21 Respiratory Depth Blood Pressure Blood Pressure Mean Blood Pressure Position Pulse Oximetry 95 96 97 Oxygen Delivery Method Sepsis Recent Fever Within 48 Hours Sepsis New/Unexplained Change in Mental Status Sepsis Action Taken by Nursing Laboratory Data 01/06/23 15:00 01/06/23 15:00 Lab Results 01/06/23 01/06/23 01/06/23 Range/Units 15:00 15:00 15:00 WBC 10.92 H (4.8-10.8) K/ul RBC 6.28 H (4.70-6.10) M/uL Hgb 20.3 H (14.0-18.0) g/dl Hct 55.2 H (42.0-52.0) % MCV 87.9 (80.0-100.0) fL MCH 32.3 (25.0-34.0) pg MCHC 36.8 H (32.0-36.0) g/dL RDW Std Deviation 44.8 (36.4-46.3) fL RDW Coeff of Tessy 14.1 (11.5-14.5) % Plt Count 146 (130-400) K/uL MPV 11.3 (9.4-12.4) fL Immature Gran % (Auto) 0.4 % Neut % (Auto) 56.8 % Lymph % (Auto) 5.3 % Lawrence % (Auto) 12.3 % Eos % (Auto) 24.7 % Baso % (Auto) 0.5 % Neut # (Auto) 6.20 (1.40-6.50) K/uL Lymph # (Auto) 0.58 L (1.2-3.4) K/uL Lawrence # (Auto) 1.34 H (0.11-0.59) K/uL Eos # (Auto) 2.70 H (0-0.50) K/uL Baso # (Auto) 0.06 (0-0.2) K/uL Immature Gran # (Auto) 0.04 (0.01-0.20) K/uL Sodium 137 (136-145) mmol/L Potassium 3.2 L (3.5-5.1) mmol/L Chloride 85 L (98-107) mmol/L Carbon Dioxide 27 (21-32) mmol/L Anion Gap 25 H (3-11) BUN 9 (6-23) mg/dl Creatinine 2.13 H (0.6-1.4) mg/dl Est Cr Clr Drug Dosing 41.1 ml/min Est GFR ( Amer) 40.3 ml/min Est GFR (Non-Af Amer) 34.8 ml/min BUN/Creatinine Ratio 4.2 L (10-20) Glucose 227 H (70-99(Fasting)) mg/dl Calcium 9.3 (8.6-10.3) mg/dl Total Bilirubin 1.3 H (0.2-1.0) mg/dl AST 56 H (13-39) U/L ALT 36 (7-52) U/L Alkaline Phosphatase 65 (34-104) U/L Total Protein 8.3 (6.0-8.3) gm/dl Albumin 4.0 (3.4-5.0) gm/dl Globulin 4.3 H (2.5-4.0) gm/dl Albumin/Globulin Ratio 0.9 (0.9-2) Lipase 72 (11-82) U/L Vitamin B12 334 (180-914) pg/ml Folate 17.67 (>5.38) ng/ml SARS-CoV-2, RNA, NAAT (NEGATIVE) Blood Type Antibody Screen 01/06/23 01/06/23 Range/Units 15:06 15:53 WBC (4.8-10.8) K/ul RBC (4.70-6.10) M/uL Hgb (14.0-18.0) g/dl Hct (42.0-52.0) % MCV (80.0-100.0) fL MCH (25.0-34.0) pg MCHC (32.0-36.0) g/dL RDW Std Deviation (36.4-46.3) fL RDW Coeff of Tessy (11.5-14.5) % Plt Count (130-400) K/uL MPV (9.4-12.4) fL Immature Gran % (Auto) % Neut % (Auto) % Lymph % (Auto) % Lawrence % (Auto) % Eos % (Auto) % Baso % (Auto) % Neut # (Auto) (1.40-6.50) K/uL Lymph # (Auto) (1.2-3.4) K/uL Lawrence # (Auto) (0.11-0.59) K/uL Eos # (Auto) (0-0.50) K/uL Baso # (Auto) (0-0.2) K/uL Immature Gran # (Auto) (0.01-0.20) K/uL Sodium (136-145) mmol/L Potassium (3.5-5.1) mmol/L Chloride (98-107) mmol/L Carbon Dioxide (21-32) mmol/L Anion Gap (3-11) BUN (6-23) mg/dl Creatinine (0.6-1.4) mg/dl Est Cr Clr Drug Dosing ml/min Est GFR ( Amer) ml/min Est GFR (Non-Af Amer) ml/min BUN/Creatinine Ratio (10-20) Glucose (70-99(Fasting)) mg/dl Calcium (8.6-10.3) mg/dl Total Bilirubin (0.2-1.0) mg/dl AST (13-39) U/L ALT (7-52) U/L Alkaline Phosphatase (34-104) U/L Total Protein (6.0-8.3) gm/dl Albumin (3.4-5.0) gm/dl Globulin (2.5-4.0) gm/dl Albumin/Globulin Ratio (0.9-2) Lipase (11-82) U/L Vitamin B12 (180-914) pg/ml Folate (>5.38) ng/ml SARS-CoV-2, RNA, NAAT NEGATIVE (NEGATIVE) Blood Type O Positive Antibody Screen NEGATIVE Administered Medications Lactated Ringer's (Lr) 1,000 mls @ 125 mls/hr IV .Q8H JOMAR Stop: 02/05/23 18:37 Last Admin: 01/06/23 19:41 Dose: 125 mls/hr Documented By: IRIS Potassium Chloride (K Bernardo / Wtr) 10 meq in 100 mls @ 100 mls/hr IV Q1H JOMAR Stop: 01/06/23 21:37 Last Admin: 01/06/23 19:41 Dose: 100 mls/hr Documented By: IRIS Lorazepam (Lorazepam 2 Mg/1 Ml Vial) 1 mg IV UD PRN; Protocol PRN Reason: EtOH Withdrawal AWSS Score 6,7 Stop: 02/05/23 18:37 Last Admin: 01/06/23 19:41 Dose: 1 mg Documented By: IRIS Ondansetron HCl (Ondansetron Inj 2 Mg/Ml 2 Ml Vial) 4 mg IV Q6H JOMAR Stop: 02/05/23 18:37 Last Admin: 01/06/23 19:41 Dose: 4 mg Documented By: IRIS Discontinued Medications Sodium Chloride (Nss 1000ml) 1,000 mls @ 999 mls/hr IV .Q1H1M ONE Stop: 01/06/23 16:00 Last Infusion: 01/06/23 17:34 Dose: 0 mls/hr Documented By: Admin: 01/06/23 15:44 Dose: 999 mls/hr Documented By: AM Pantoprazole Sodium (Protonix Bolus/Drip) 0 mls @ 1 mls/hr IV ONE STA Stop: 01/06/23 15:01 Last Admin: 01/06/23 16:04 Dose: Not Given Documented By: AM Pantoprazole Sodium 80 mg/ (Dextrose) 120 mls @ 400 mls/hr IV NOW ONE Stop: 01/06/23 15:17 Last Infusion: 01/06/23 15:55 Dose: 400 mls/hr Documented By: Admin: 01/06/23 15:32 Dose: 400 mls/hr Documented By: AM Pantoprazole Sodium 40 mg/ (Dextrose) 100 mls @ 20 mls/hr IV Q5H JOMAR Stop: 02/05/23 15:29 Last Infusion: 01/06/23 20:17 Dose: 0 mg/hr, 0 mls/hr Documented By: Admin: 01/06/23 15:44 Dose: 8 mg/hr, 20 mls/hr Documented By: AM Sodium Chloride (Nss 1000ml) 1,000 mls @ 999 mls/hr IV .Q1H1M ONE Stop: 01/06/23 17:17 Last Infusion: 01/06/23 18:35 Dose: 0 mls/hr Documented By: Admin: 01/06/23 17:30 Dose: 999 mls/hr Documented By: AM Thiamine HCl 100 mg/ Syringe 10 mls @ 2 mls/min IV NOW STA Stop: 01/06/23 17:02 Last Admin: 01/06/23 18:31 Dose: 2 mls/min Documented By: AM Folic Acid 1 mg/ Syringe 10 mls @ 5 mls/min IV NOW STA Stop: 01/06/23 16:59 Last Admin: 01/06/23 18:30 Dose: 5 mls/min Documented By: AM Lorazepam (Lorazepam 2 Mg/1 Ml Vial) 1 mg IV NOW STA Stop: 01/06/23 15:05 Last Admin: 01/06/23 15:48 Dose: 1 mg Documented By: AM Metoclopramide HCl (Metoclopramide Hcl Inj 5 Mg/Ml 2 Ml Vial) 10 mg IV NOW STA Stop: 01/06/23 15:01 Last Admin: 01/06/23 15:52 Dose: 10 mg Documented By: AM Imaging Data Radiologist's Impression: Chest X-Ray 01/06/23 15:04 SINGLE VIEW CHEST CLINICAL HISTORY: Vomiting. FINDINGS: An AP, portable, upright chest radiograph is compared to study dated 08/27/2022. The cardiomediastinal silhouette is top normal for projection noting atherosclerotic calcification of the thoracic aorta. Chronic interstitial thickening similar to previous. There is chronic elevation of the left hemidiaphragm and bibasilar atelectasis. There is a small right pleural effusion. No pneumothorax is seen. The skeletal structures are osteopenic. The bony thorax is grossly intact. IMPRESSION: 1. Small right pleural effusion. 2. There is no airspace consolidation identified typical for pneumonia. ACT 112: Negative or not required by law. Electronically signed by: Rajinder Borden M.D. 01/06/2023 3:40 PM Abdomen/Pelvis CT 01/06/23 15:07 CT OF THE ABDOMEN AND PELVIS WITHOUT CONTRAST CLINICAL HISTORY: Hematemesis. Abdominal pain. COMPARISON STUDY: CT of the abdomen and pelvis August 21, 2022. TECHNIQUE: Axial images of the abdomen and pelvis were obtained without IV contrast. Images were reviewed in the axial, sagittal, and coronal planes. Automated exposure control was utilized for the study. A dose lowering technique was utilized adhering to the principles of ALARA. FINDINGS: Note is made of a trace right pleural effusion. Nodular subpleural opacities within the right lower hemithorax measure up to 4.5 cm. These have developed since CT of August 21, 2022. No pneumatosis, free air or portal venous gas is present. Evacuation of the abdomen and pelvis is suboptimal as un enhanced exam. There is hepatic steatosis. There is no biliary or pancreatic ductal dilatation. Spleen, adrenal glands and kidneys are unremarkable. There is no hydronephrosis. The bladder is moderately distended. Of note, the stomach is markedly distended and fluid-filled with air-fluid level. The first portion of the duodenum is also dilated and fluid-filled. Note is made of wall thickening of the second, third and fourth portions of the duodenum with adjacent stranding. A similar pattern was shown on CT of August 21, 2022. There is a probable 2.7 cm diverticulum of the second duodenum. No extraluminal gas is present. There is no fluid collection. There is no evidence for a small or large bowel obstruction. No lymphadenopathy is present. There are no acute fractures. Moderate aortoiliac atherosclerotic plaque is present. IMPRESSION: 1. Markedly distended, fluid-filled stomach and first portion of the duodenum. Wall thickening of the second, third and fourth portions of duodenum with adjacent stranding, similar in appearance to CT of August 21, 2022. The findings suggest duodenal obstruction/gastric outlet obstruction likely due to an inflammatory process such as duodenitis. Although less likely, an underlying neoplastic process cannot be excluded and follow-up correlation with upper endoscopy is suggested. 2. Hepatic steatosis. 3. Trace right pleural effusion with subpleural nodular opacities within the right lower hemithorax which have developed since prior CT. These are nonspecific but favor foci of atelectasis. Attention at follow-up to ensure resolution is recommended. 4. Moderate distention of the bladder. ACT 112: Negative or not required by law. Electronically signed by: Morgan Alfred M.D. 01/06/2023 4:44 PM Discharge Plan Visit Data Chief Complaint: Vomiting ED Provider: Jon Burroughs Discharge Problem: JUAN (acute kidney injury), Alcohol abuse, Elevated troponin, Acute dehydration, Partial gastric outlet obstruction Patient Disposition: Admitted As Inpatient Discharge Instructions Interventions: ED Discharge Assessment Last Done: 01/06/23 18:33
[2023-01-06] MEDS ORDERED: PANTOprazole 40 MG in DEXTROSE 5% 100 ML IV SCH (15:30)
[2023-01-06 15:36] LABS: Albumin Globulin Ratio 0.9 (0.9-2); BUN Creatinine Ratio 4.2 (10-20); Bilirubin,Total 1.3 mg/dl (0.2-1.0); Calcium 9.3 mg/dl (8.6-10.3); Creatinine Clr Calc Pharmacy 41.1 ml/min; Est GFR (African American) 40.3 ml/min; Est GFR (Non-African American) 34.8 ml/min; Globulin 4.3 gm/dl (2.5-4.0); Potassium 3.2 mmol/L (3.5-5.1); Total Protein 8.3 gm/dl (6.0-8.3)
--- NOTE | 2023-01-06 15:41 | XRay Report ---
SINGLE VIEW CHEST CLINICAL HISTORY: Vomiting. FINDINGS: An AP, portable, upright chest radiograph is compared to study dated 08/27/2022. The cardiom ediastinal silhouette is top normal for projection noting atherosclerotic calcification of the thorac ic aorta. Chronic interstitial thickening similar to previous. There is chronic elevation of the left hemidiaphragm and bibasilar atelectasis. There is a small right pleural effusion. No pneumothorax is seen. The skeletal structures are osteopenic. The bony thorax is grossly intact. IMPRESSION: 1. Small right pleural effusion. 2. There is no airspace consolidation identified typical for pneumonia. ACT 112: Negative or not required by law. Electronically signed by: Rajinder Borden M.D. 01/06/2023 3:40 PM
[2023-01-06 16:16] LABS: Hematocrit (blood only) 55.2 % (42.0-52.0); Hemoglobin 20.3 g/dl (14.0-18.0); Mean Corpuscular Hemoglobin 32.3 pg (25.0-34.0); Mean Corpuscular Hgb Conc 36.8 g/dL (32.0-36.0); Mean Corpuscular Volume 87.9 fL (80.0-100.0); Mean Platelet Volume 11.3 fL (9.4-12.4); Platelet Count 146 K/uL (130-400); RDW Coefficient of Variation 14.1 % (11.5-14.5); RDW Standard Deviation 44.8 fL (36.4-46.3); Red Blood Count 6.28 M/uL (4.70-6.10); White Blood Count 10.92 K/ul (4.8-10.8)
--- NOTE | 2023-01-06 16:45 | CT Scan Report ---
CT OF THE ABDOMEN AND PELVIS WITHOUT CONTRAST CLINICAL HISTORY: Hematemesis. Abdominal pain. COMPARISON STUDY: CT of the abdomen and pelvis August 21, 2022. TECHNIQUE: Axial images of the abdomen and pelvis were obtained without IV contrast. Images were revi ewed in the axial, sagittal, and coronal planes. Automated exposure control was utilized for the sanjeev dy. A dose lowering technique was utilized adhering to the principles of ALARA. FINDINGS: Note is made of a trace right pleural effusion. Nodular subpleural opacities within the rig ht lower hemithorax measure up to 4.5 cm. These have developed since CT of August 21, 2022. No pneu matosis, free air or portal venous gas is present. Evacuation of the abdomen and pelvis is suboptimal as unenhanced exam. There is hepatic steatosis. There is no biliary or pancreatic ductal dilatation. Spleen, adrenal glands and kidneys are unremarkable. There is no hydronephrosis. The bladder is mode rately distended. Of note, the stomach is markedly distended and fluid-filled with air-fluid level. T he first portion of the duodenum is also dilated and fluid-filled. Note is made of wall thickening of the second, third and fourth portions of the duodenum with adjacent stranding. A similar pattern was shown on CT of August 21, 2022. There is a probable 2.7 cm diverticulum of the second duodenum. No extraluminal gas is present. There is no fluid collection. There is no evidence for a small or large bowel obstruction. No lymphadenopathy is present. There are no acute fractures. Moderate aortoiliac atherosclerotic plaque is present. IMPRESSION: 1. Markedly distended, fluid-filled stomach and first portion of the duodenum. Wall thickening of the second, third and fourth portions of duodenum with adjacent stranding, similar in appearance to CT o f August 21, 2022. The findings suggest duodenal obstruction/gastric outlet obstruction likely due to an inflammatory process such as duodenitis. Although less likely, an underlying neoplastic process cannot be excluded and follow-up correlation with upper endoscopy is suggested. 2. Hepatic steatosis. 3. Trace right pleural effusion with subpleural nodular opacities within the right lower hemithorax w hich have developed since prior CT. These are nonspecific but favor foci of atelectasis. Attention at follow-up to ensure resolution is recommended. 4. Moderate distention of the bladder. ACT 112: Negative or not required by law. Electronically signed by: Morgan Alfred M.D. 01/06/2023 4:44 PM
[2023-01-06 16:51] LABS: Basophils # (auto) 0.06 K/uL (0-0.2); Basophils % (auto) 0.5 %; Eosinophils % (auto) 24.7 %; Immature Granulocytes # (auto) 0.04 K/uL (0.01-0.20); Immature Granulocytes % (auto) 0.4 %; Lymphocytes # (auto) 0.58 K/uL (1.2-3.4); Lymphocytes % (auto) 5.3 %; Monocytes # (auto) 1.34 K/uL (0.11-0.59); Monocytes % (auto) 12.3 %; Neutrophils % (auto) 56.8 %
[2023-01-06] MEDS ORDERED: THIAMINE HCL 100 MG in SYRINGE 9 ML IV STA (16:58)
[2023-01-06] MEDS ORDERED: FOLIC ACID 1 MG in SYRINGE 9.8 ML IV STA (16:58)
--- NOTE | 2023-01-06 17:15 | History & Physical Report ---
Date of Service January 06, 2023 Assessment & Plan (1) Nausea: Plan: Senait is a 52-year-old male with past medical history of ongoing alcohol use who presents with nausea/vomiting for 1 day, continuous dark emesis without epigastric pain. Nausea/vomiting, suspected duodenal ulcer Initially reported as black, has been dark weak green and liquid. No thick emesis, no clots, no blood. No epigastric tenderness No history of bright red blood per rectum or melena, BUN normal Discussed with GI. Suspect CT findings from untreated duodenal ulcer. Did not recommend endoscopy at this time, duodenal stenting not recommended or indicated at this time. Recommend conservative management treatment with PPI and supportive care. Liquids as tolerated. We will finish PPI drip and convert to twice daily dosing N.p.o. for now, advance as tolerated to clears if doing well, continue LR 120 cc/h until tolerating fluids. Significantly hemoconcentrated on admission with hemoglobin of 20, improving and downtrending tachycardia on admission CBC daily - CT-A/P: 1. Markedly distended, fluid-filled stomach and first portion of the duodenum. Wall thickening of the second, third and fourth portions of duodenum with adjacent stranding, similar in appearance to CT of August 21, 2022. The findings suggest duodenal obstruction/gastric outlet obstruction likely due to an inflammatory process such as duodenitis. Although less likely, an underlying neoplastic process cannot be excluded and follow-up correlation with upper endoscopy is suggested.2. Hepatic steatosis.3. Trace right pleural effusion with subpleural nodular opacities within the right lower hemithorax which have developed since prior CT. These are nonspecific but favor foci of atelectasis. Attention at follow-up to ensure resolution is recommended.4. Moderate distention of the bladder. CBC daily, BMP daily (2) JUAN (acute kidney injury): Plan: JUAN Creatinine 2.13 from normal baseline Extremely hemoconcentrated on admission, prerenal JUAN Fluids as noted Continued on IV FM until p.o. improves Renally dose medications BMP daily (3) Alcohol abuse: Plan: Alcohol abuse Prior history of alcoholism, uptake of 18 beers per day prior to last hospitalization in August now down to around 5 beers per day. Last drink even ing 01/05 Patient has been gradually reducing his alcohol intake at home, has declined drug and alcohol resources No history of seizures, DTs Continue thiamine, B12 REX S and Ativan active protocol ordered Plan History of NSTEMI History of NSTEMI in the setting of septic shock, resolved on follow-up with treatment of his sepsis from aspiration pneumonia. Per patient he follows in [place] but is not recommended to take any medications for this, and is on no home medications. DVT prophylaxis: SCDs Disposition: Medical telemetry CODE STATUS: Full code Diet: N.p.o., may advance to clears if doing clinically well History of Present Illness Primary Care Provider: Elliot Elise MD Senait Prabhakar is a 52-year-old male with a past medical history of sepsis, renal failure, alcohol abuse, and cardiomyopathy who presents to the ER with persistent nausea and vomiting of over 40 times now with black/coffee-ground emesis. On ER assessment [id number], last hemoglobin 11.3. Potassium 3.2, creatinine baseline is less than 1, acutely elevated on admission to 2.13. CTA/P shows a fluid filled stomach, wall thickening of second third and fourth portions of duodenum with adjacent stranding similar to 07/2022 suggestive of duodenal obstruction/gastric outlet obstruction suspicious for inflammatory process & from which neoplastic process cannot be excluded. Follow-up with upper endoscopy suggested. Hepatic steatosis noted. Trace right pleural effusion of the right lower hemithorax develop since prior CT, nonspecific but favor atelectasis. Moderate distention of the bladder. Patient seen at the bedside. He reports that he felt otherwise well until last night at around 7 PM when he could no longer keep any food or liquids down and had a decreased appetite. He reports since then and overnight he has had recurrent vomiting of "many colors, yellow, orange, green, and black ". He reports his recent emesis 15 minutes ago was black but thin and liquid, no coffee-ground emesis/clots/red blood appreciated. He reports he has been down to drinking 5 days a week "only on days that end and y ". He reports he gets cold easily, and has not had no fever, chills, sweats. No lightheadedness or dizziness. No syncope or presyncope. Last bowel movement was yesterday, prior to this has had 1-2 bowel movements per day which are soft and brown and are not bloody or melanic. Not had any reflux or abdominal pain. Recently established with [facility]CP, takes no medications. Is not on aspirin or any blood thinner, reports he has not been recommended to take any medications by his doctors. He reports he had a heart issue when he was critically ill in the ICU after an aspiration pneumonia, but this resolved He does not take any vitamins or supplements. He denies any history of seizure, delirium tremens, hallucinations, or severe alcohol withdrawal. He reports he was ill in the hospital but that was from aspiration pneumonia not from alcohol withdrawal. Has been gradually reducing his alcohol intake, and has settled at around 5 beers per day. Previously 18+ per day prior to last August. Medical History: Reviewed Medications: Reviewed Surgical History: Reviewed Family history: Reviewed Allergies: Reviewed Social History: 4-6 drinks per day. Beer . +cigarette use 1ppd x35 years. Code Status: Full Code Allergies Allergy/AdvReac Type Severity Reaction Status Date / Time No Known Allergies Allergy Unverified 01/06/23 17:10 Home Medications Medication Instructions Recorded Confirmed Type triamcinolone acetonide 0.1 % See Rx Instructions topical BID 1 09/22/22 01/06/23 Rx topical cream week #80 grams Past Med/Surg History Medical History (Updated 01/06/23 @ 17:41 by Yoshi Lassiter MD) Acute respiratory failure with hypoxia Alcohol withdrawal Social History Smoking Status: Current every day smoker Tobacco Type: Cigarettes Cigarettes Per Day: 5 per day; Second Hand Exposure: Yes; Hx Alcohol Use: Yes Alcohol type: beer Preferred Language: Russian Communication Ability: Unable Olericulture Professor Required: No Beliefs That Will Affect Care: Advent marital status: Unknown Feels Safe at Home: Yes Assistive Devices: None Review of Systems Review of Systems: All systems reviewed & are unremarkable except as noted in HPI & below Physical Exam Physical Exam: General: A&Ox3. NAD. Cooperative. HEENT: Atraumatic, normocephalic. Vision and hearing grossly intact. Pupils equal and reactive to light. Mucous membranes are dry/cracked Pulm: CTAB A&P. -wheezes, -rales, -rhonchi. Symmetrical chest rise. No increased work of breathing. No respiratory distress. Cardiac: Regular, mildly tachycardic 1001 10. Radial pulses intact and symmetrical. Abdominal: Nontender, nondistended, soft. BS present. Extremities: Warm, dry. Is not tremulous on exam. C Application Developer strength, ankle dorsiflexion/plantarflexion, hip flexion in bed 5/5 bilaterally. Sensation grossly intact in hands and feet to soft touch Results & Data Results & Data Vital Signs (Past 12 Hours) Vital Signs Temp Pulse Resp BP Pulse Ox O2 Del Method 01/06/23 16:08 95 Room Air 01/06/23 15:10 124 H 01/06/23 15:03 36.9 C 123 H 20 126/105 H 96 Room Air PG Care Time/CCT Total # of Minutes Spent Total Time Spent with Patient: Total time spent is greater than 50% in coordination of care (as documented) at patient's floor/unit and/or counseling patient: Coding Level of Care Code 34041 INT INP/OBS CARE 3/75MIN Diagnoses Nausea R11.0 JUAN (acute kidney injury) N17.9 Alcohol abuse F10.10
[2023-01-06] MEDS ORDERED: Ativan IV Alcohol Withdrawal--Active Protocol IV PRN (18:38)
[2023-01-06] MEDS ORDERED: LORazepam 2 MG/1 ML VIAL IV PRN ×3 (18:38)
[2023-01-06] MEDS: ONDANSETRON INJ 2 MG/ML 2 ML VIAL IV SCH (19:41)
[2023-01-06] MEDS: POTASSIUM CHLORIDE / WTR 10 MEQ/100 ML PLCT IV SCH ×3 (19:41→22:23)
[2023-01-06] MEDS: LACTATED RINGER'S 1,000 ML IV SCH (19:41)
[2023-01-07] MEDS ORDERED: BENZONATATE 100 MG CAPSULE PO ONE (00:25)
[2023-01-07] MEDS: ONDANSETRON INJ 2 MG/ML 2 ML VIAL IV SCH ×4 (00:31→17:32)
[2023-01-07] MEDS: LACTATED RINGER'S 1,000 ML IV SCH (04:00)
[2023-01-07 04:16] LABS: Appearance Urine Clear (Clear); Bacteria Urine Automated Negative (Negative); Bilirubin Urine Negative (Negative); Blood Urine Negative (Negative); Color Urine Orange; Epithelial Cell Urine Auto >30 /lpf (0-5); Glucose Urine UA Negative (Negative); Ketones Urine Trace (Negative); Leukocyte Esterase Urine Negative (Negative); Nitrite Urine Negative (Negative); RBC Urine Automated 0-4 /hpf (0-4); Specific Gravity Urine 1.014 (1.000-1.030); Urobilinogen Urine Negative (Negative)
[2023-01-07 04:24] LABS: Protein Urine 1+ (Negative)
[2023-01-07 06:50] LABS: Hematocrit (blood only) 44.4 % (42.0-52.0); Hemoglobin 15.9 g/dl (14.0-18.0); Mean Corpuscular Hemoglobin 32.4 pg (25.0-34.0); Mean Corpuscular Hgb Conc 35.8 g/dL (32.0-36.0); Mean Corpuscular Volume 90.4 fL (80.0-100.0); Mean Platelet Volume 11.3 fL (9.4-12.4); Platelet Count 101 K/uL (130-400); RDW Standard Deviation 46.3 fL (36.4-46.3); Red Blood Count 4.91 M/uL (4.70-6.10); White Blood Count 10.34 K/ul (4.8-10.8)
[2023-01-07 07:05] LABS: Calcium 7.9 mg/dl (8.6-10.3); Creatinine Clr Calc Pharmacy 81.1 ml/min; Est GFR (African American) 100.6 ml/min; Est GFR (Non-African American) 86.8 ml/min; Potassium 3.3 mmol/L (3.5-5.1)
--- NOTE | 2023-01-07 07:44 | Electrocardiogram Report ---
Test Reason : Blood Pressure : / mmHG Vent. Rate : 136 BPM Atrial Rate : 136 BPM P-R Int : 128 ms QRS Dur : 080 ms QT Int : 302 ms P-R-T Axes : 077 047 070 degrees QTc Int : 454 ms Poor data quality, interpretation may be adversely affected Sinus tachycardia Possible Left atrial enlargement Borderline ECG When compared with ECG of 22-AUG-2022 06:12, Vent. rate has increased BY 70 BPM QRS duration has decreased Confirmed by Elliot Joseph ([id number]) on 01/07/2023 7:44:16 AM Referred By: REFERRED SELF Confirmed By:Jose Joseph
[2023-01-07] MEDS: THIAMINE HCL 100 MG in SYRINGE 9 ML IV SCH (08:06)
[2023-01-07] MEDS: FOLIC ACID 1 MG in SYRINGE 9.8 ML IV SCH (08:06)
[2023-01-07] MEDS ORDERED: FAMOTIDINE 20 MG in SYRINGE 3 ML IV ONE (09:15)
--- NOTE | 2023-01-07 09:38 | XRay Report ---
ABDOMEN 2 VIEWS CLINICAL HISTORY: Vomiting. Clinical concern for gastric outlet obstruction. FINDINGS: Supine and erect abdominal radiographs are compared to study dated 08/21/2022 and correlate d with abdominal CT dated 01/06/2023. There is a nonobstructed abdominal bowel gas pattern. Moderate f ecal retention is seen throughout the colon. There is at least moderate gaseous distention of the sto mach. No evidence of intraperitoneal free air is seen. No abnormal abdominal calcifications are ident ified. Small flow was noted in the pelvis. The bony structures appear intact. There is a small right pleural effusion. IMPRESSION: 1. Nonobstructed bowel gas pattern. 2. There is at least moderate gaseous distention of the stomach. Findings suggestive of gastric outle t obstruction were much better assessed on yesterday's abdominal CT. 3. No intraperitoneal free air is identified. Electronically signed by: Rajinder Borden M.D. 01/07/2023 9:35 AM
[2023-01-07 09:40] LABS: Magnesium 1.7 mg/dl (1.7-2.4)
[2023-01-07 09:45] LABS: Basophils # (auto) 0.03 K/uL (0-0.2); Basophils % (auto) 0.3 %; Immature Granulocytes # (auto) 0.05 K/uL (0.01-0.20); Immature Granulocytes % (auto) 0.5 %; Lymphocytes # (auto) 1.61 K/uL (1.2-3.4); Lymphocytes % (auto) 15.6 %; Monocytes # (auto) 0.89 K/uL (0.11-0.59); Monocytes % (auto) 8.6 %; Neutrophils # (auto) 7.76 K/uL (1.40-6.50)
[2023-01-07] MEDS: POTASSIUM CHLORIDE 20 MEQ in LACTATED RINGER'S 1,000 ML IV SCH ×2 (10:08→17:32)
[2023-01-07] MEDS: PANTOprazole 40 MG in DEXTROSE 5% 100 ML IV SCH ×3 (10:08→20:42)
--- NOTE | 2023-01-07 10:26 | Gastrointestinal Consultation ---
Date of Consultation January 07, 2023 Assessment & Plan (1) Partial gastric outlet obstruction: 52 yo patient with chronic ETOH abuse admitted with acute onset of abd distension.bloating and nausea with vomiting. CT scan with significant gastric distension as well as duodenal (which is similar to 07/2022). Inflammation related to ulcer disease is a possibility but also concern for lymphoma, etc. As an outpatient he has not had any obstructive symptoms. - continue with IVF - Watch closely for ETOH withdrawal - Currently comfortable and without nausea or vomiting. Would not place an NGT as patient not likely to agree - Continue with PPI gtt. - Will arrange endoscopic evaluation of the upper Gi tract early this coming week. (2) Nausea: (3) Abnormal CT of the abdomen: History of Present Illness Reason for Consultation: abnormal CT Attending Physician: Toney Gomez History of Present Illness [age]yo male who drinks at least 4-6 ETOH beverages daily on no prescription medications (has not seen a PCP in many years) admitted with acute onset of bloating and vomiting that started night and continued yesterday p rompting presentation to the ER. He tells me that he felt perfectly fine and normal until mid . Has been eating and drinking without a problem up until then. Bowels move daily. Labs on arrival showed evidence of hemoconcentration. He was given IVF resuscitation. CT scan (IV contrast only)done in the ER showed: Markedly distended, fluid-filled stomach and first portion of the duodenum. Wall thickening of the second, third and fourth portions of duodenum with adjacent stranding, similar in appearance to CT of August 21, 2022. The findings suggest duodenal obstruction/gastric outlet obstruction likely due to an inflammatory process such as duodenitis. Although less likely, an underlying neoplastic process cannot be excluded and follow-up correlation with upper endoscopy is suggested. Similar to a CT done in July 2022 when he was in the ICU for pneumonia. (He did not have any further evaluation for this in July.) On PPI gtt. HE tells me that he rarely takes OTC medication. In the last month he did take daily ibuprofen for headaches but does not do this regularly. No known family history of celiac, IBD, lymphoma, cancer, etc. Imaging shows hepatic steatosis and CT Nov showed panc calcifications. After IVF hydration, labs show normal WBC, hgb, renal function. Platelets 100. AST 56, normal ALT and TB of 1.3. Allergies Allergy/AdvReac Type Severity Reaction Status Date / Time No Known Allergies Allergy Unverified 01/06/23 17:10 Home Medications Medication Instructions Recorded Confirmed Type triamcinolone acetonide 0.1 % See Rx Instructions topical BID 1 09/22/22 01/06/23 Rx topical cream week #80 grams Patient History Medical History (Updated 01/07/23 @ 10:32 by Yamile Perez, DO) Acute respiratory failure with hypoxia Alcohol withdrawal Social History Smoking Status: Current every day smoker Tobacco Type: Cigarettes Cigarettes Per Day: 1 pack/day; Second Hand Exposure: Yes; Do You Dip or Chew Tobacco: No; Hx Alcohol Use: Yes Alcohol type: beer, wine and hard liquor Hx Substance Use: No Preferred Language: Uzbek Communication Ability: Effective Media Marketing Specialist Required: No Beliefs That Will Affect Care: None marital status: Unknown Current Living Situation: Other Current Living Situation Comment: lives with someone but did not disclose relationship Feels Safe at Home: Yes Safety Concerns: Feels Safe At This Time Assistive Devices: Glasses Review of Systems Review of Systems: All systems reviewed & are unremarkable except as noted in HPI & below Physical Exam Constitutional: WD/WN, vitals as above Respiratory: normal respiratory effort, lungs clear to auscultation Cardiovascular: RRR, no murmur, no edema Gastrointestinal (Abdomen): normal bowel sounds, soft, nontender, no hepatosplenomegaly (mildly distended) Results & Data Vital Signs (Past 12 Hours) Vital Signs Temp Pulse Pulse Pulse Resp BP BP 01/07/23 09:22 37.0 C 81 18 148/99 H 01/07/23 07:48 37.0 C 82 18 142/105 H 01/07/23 07:15 91 H 01/07/23 03:05 37.6 C H 91 H 18 147/79 H 01/06/23 23:30 37.7 C H 94 H 18 163/122 H 01/06/23 23:20 37.7 C H 94 H 18 163/122 H 165/125 H Pulse Ox O2 Del Method 01/07/23 09:22 92 Room Air 01/07/23 07:48 93 Room Air 01/07/23 07:15 01/07/23 03:05 96 Room Air 01/06/23 23:30 93 Room Air 01/06/23 23:20 93 Room Air
[2023-01-07 11:04] LABS: Influenza A virus by PCR Negative (Neg); Influenza B virus by PCR Negative (Neg); RSV by PCR Negative (Neg); SARS CoV2 RNA(COVID-19) Ceph NEGATIVE (Negative)
[2023-01-07] MEDS: SUCRALFATE 1 GM/10 ML UDC PO SCH ×2 (18:40→21:33)
--- NOTE | 2023-01-07 20:09 | Hospitalist Progress Note ---
Date of Service January 07, 2023 Assessment & Plan (1) Nausea: Plan: CT a/p yesterday appears to show possible gastric outlet obstruction, perhaps at the level of the duodenum given the duodenal inflammation. PPI drip continues. gave 1x dose of IV pepcid today for "heartburn" symptoms. added carafate 1gm QID. KUB x-ray today obtained - mod stomach distension. asked Dr Perez from [facility] to consult. Appreciate her assistance. she advises continued PPI use and early week EGD for diagnostic purposes. differential - duodenal ulcer with obstruction vs gastric ulcer vs intestinal lymphoma vs other. EGD - Monday? defer timing to GI. allow clear liquid diet as tolerated. (2) Partial gastric outlet obstruction: Plan: see #1 above defer on NG tube placement for now (3) JUAN (acute kidney injury): Plan: Creatinine 2.1 upon presentation pre-renal/volume contraction marked improvement overnight with IV fluids - now with Cr of 1 cont IV fluids BMP am (4) Alcohol abuse: Plan: Alcohol abuse - intake of 18 beers per day prior to last hospitalization in August now down to around 5 beers per day. Last drink evening 01/05/23. AWSS protocol with symptom triggered ativan thus far no symptoms/signs of etoh withdrawal cont thiamine/folate supplementation (5) RLL pneumonia: Plan: lung cuts from admission CT abd/pelvis show RLL infiltrates he has focal lung findings today on exam - rales/wheeze in the right base he has had low-grade fevers since admission he is coughing will treat for pneumonia - will start unasyn q6h IV in the event this is due to aspiration obtain a set of blood cultures prior to starting unasyn MRSA OR NURSE MANAGER swab is +. If he has clinical worsening consider MRSA coverage with vanco or zyvox. Defer for now. (6) Thrombocytopenia: Plan: etiology? due to alcohol abuse? due to suppression from infectious process? other? repeat cbc in am. (7) Hyponatremia: Plan: chronic most Na levels last year are all mildly low currently he is volume contracted from #1, #2 cont isotonic fluids with BMP am (8) Hypokalemia: Plan: replace repeat BMP am mag level 1.7 today Plan DVT proph - defer on chemical means for now since platelets are trending down appreciate GI support Admission and Anticipated Discharge Date Admission Date: January 06, 2023 Subjective patient had 2 episodes of emesis overnight but none since awakening this am continues with "heartburn" symptoms with acid taste in throat this is despite IV PPI and IV H2 kay he reports ongoing cough today he has had low-grade fevers cough is occasionally productive of sputum no dyspnea he reports that up until recently he had been able to eat/drink normally he has continued to drink etoh on regular basis tele overnight wnl Review of Systems Review of Systems: gen - no chills cv - heartburn causing sternal pain pulm - cough/congestion/sputum/wheezing; admits to active use of tobacco GI - bloating, vomiting, nausea, heartburn; no melena stools; no BRBPR Physical Exam Physical Exam: gen - very thin, NAD, coughing mouth - MMM neck - no JVD heart - RRR, s1 s2, no murmur lungs - focal rales and focal wheeze/rhonchi right base, otherwise CTA abd - distended mildly, BS+, NT, no HSM ext - no edema, pulses 2+ b/l psych - no signs of DTs Results & Data Results & Data Vital Signs (Past 12 Hours) Vital Signs Temp Pulse Pulse Pulse Resp BP BP 01/07/23 19:13 37.6 C H 66 18 150/97 H 01/07/23 16:27 70 01/07/23 15:59 37.3 C 65 18 157/100 H 01/07/23 11:49 37.2 C 73 18 153/107 H 01/07/23 09:22 37.0 C 81 18 148/99 H Pulse Ox O2 Del Method 01/07/23 19:13 94 Room Air 01/07/23 16:27 01/07/23 15:59 95 Room Air 01/07/23 11:49 95 Room Air 01/07/23 09:22 92 Room Air Laboratory Results Laboratory Results - last 24 hr 01/06/23 01/07/23 01/07/23 15:00 05:32 05:32 WBC 10.34 RBC 4.91 Hgb 15.9 D Hct 44.4 MCV 90.4 MCH 32.4 MCHC 35.8 RDW Std Deviation 46.3 RDW Coeff of Tessy 14.0 Plt Count 101 L MPV 11.3 Immature Gran % (Auto) 0.5 Neut % (Auto) 75.0 Lymph % (Auto) 15.6 [place] % (Auto) 8.6 Eos % (Auto) 0.0 Baso % (Auto) 0.3 Neut # (Auto) 7.76 H Lymph # (Auto) 1.61 [place] # (Auto) 0.89 H Eos # (Auto) 0.00 Baso # (Auto) 0.03 Immature Gran # (Auto) 0.05 Sodium 134 L Potassium 3.3 L Chloride 95 L Carbon Dioxide 29 Anion Gap 10 BUN 13 Creatinine 1.00 D Est Cr Clr Drug Dosing 81.1 Est GFR ( Amer) 100.6 Est GFR (Non-Af Amer) 86.8 BUN/Creatinine Ratio 13.0 Glucose 111 H Calcium 7.9 L Magnesium 1.7 Lipase 68 Vitamin B12 334 Folate 17.67 Urine Color Urine Appearance Urine pH Ur Specific [place] Urine Protein Urine Glucose (UA) Urine Ketones Urine Blood Urine Nitrite Urine Bilirubin Urine Urobilinogen Ur Leukocyte Esterase Urine WBC (Auto) Urine RBC (Auto) U Hyaline Cast (Auto) U Epithel Cells (Auto) Urine Bacteria (Auto) Ur Renal Epithelial Cell SARS-CoV-2 (PCR) Influenza Type A (PCR) Influenza Type B (PCR) RSV (RT-PCR) 01/07/23 01/07/23 10:07 Unknown WBC RBC Hgb Hct MCV MCH MCHC RDW Std Deviation RDW Coeff of Tessy Plt Count MPV Immature Gran % (Auto) Neut % (Auto) Lymph % (Auto) [place] % (Auto) Eos % (Auto) Baso % (Auto) Neut # (Auto) Lymph # (Auto) [place] # (Auto) Eos # (Auto) Baso # (Auto) Immature Gran # (Auto) Sodium Potassium Chloride Carbon Dioxide Anion Gap BUN Creatinine Est Cr Clr Drug Dosing Est GFR ( Amer) Est GFR (Non-Af Amer) BUN/Creatinine Ratio Glucose Calcium Magnesium Lipase Vitamin B12 Folate Urine Color [place] Urine Appearance Clear Urine pH 8.0 H Ur Specific [place] 1.014 Urine Protein 1+ H Urine Glucose (UA) Negative Urine Ketones Trace H Urine Blood Negative Urine Nitrite Negative Urine Bilirubin Negative Urine Urobilinogen Negative Ur Leukocyte Esterase Negative Urine WBC (Auto) 5-10 H Urine RBC (Auto) 0-4 U Hyaline Cast (Auto) 5-10 H U Epithel Cells (Auto) >30 H Urine Bacteria (Auto) Negative Ur Renal Epithelial Cell Not Reportable SARS-CoV-2 (PCR) NEGATIVE Influenza Type A (PCR) Negative Influenza Type B (PCR) Negative RSV (RT-PCR) Negative Diagnostic Findings Abdomen X-Ray 01/07/23 08:57 ABDOMEN 2 VIEWS CLINICAL HISTORY: Vomiting. Clinical concern for gastric outlet obstruction. FINDINGS: Supine and erect abdominal radiographs are compared to study dated 08/21/2022 and correlated with abdominal CT dated 01/06/2023. There is a nonobstructed abdominal bowel gas pattern. Moderate fecal retention is seen throughout the colon. There is at least moderate gaseous distention of the stomach. No evidence of intraperitoneal free air is seen. No abnormal abdominal calcifications are identified. Small flow was noted in the pelvis. The bony structures appear intact. There is a small right pleural effusion. IMPRESSION: 1. Nonobstructed bowel gas pattern. 2. There is at least moderate gaseous distention of the stomach. Findings suggestive of gastric outlet obstruction were much better assessed on yesterday's abdominal CT. 3. No intraperitoneal free air is identified. Electronically signed by: Rajinder Borden M.D. 01/07/2023 9:35 AM PG Care Time/CCT Total # of Minutes Spent Total Time Spent with Patient: Total time spent is greater than 50% in coordination of care (as documented) at patient's floor/unit and/or counseling patient: Coding Level of Care Code 06965 SUB INP/OBS CARE 3/50MIN Diagnoses Nausea R11.0 Partial gastric outlet obstruction K31.1 JUAN (acute kidney injury) N17.9 Alcohol abuse F10.10 RLL pneumonia J18.9 Thrombocytopenia D69.6 Hyponatremia E87.1 Hypokalemia E87.6
[2023-01-07] MEDS: AMPICILLIN/SULBACTAM SOD 3,000 MG in 0.9 % SODIUM CHLORIDE 100 ML IV SCH (20:49)
[2023-01-08] MEDS: ONDANSETRON INJ 2 MG/ML 2 ML VIAL IV SCH ×4 (00:31→18:09)
[2023-01-08] MEDS: POTASSIUM CHLORIDE 20 MEQ in LACTATED RINGER'S 1,000 ML IV SCH ×3 (01:16→16:15)
[2023-01-08] MEDS: PANTOprazole 40 MG in DEXTROSE 5% 100 ML IV SCH ×5 (01:22→21:25)
[2023-01-08] MEDS: AMPICILLIN/SULBACTAM SOD 3,000 MG in 0.9 % SODIUM CHLORIDE 100 ML IV SCH ×4 (02:30→20:25)
[2023-01-08] MEDS ORDERED: Nursing to Pharmacy Communication SCH ×2 (02:45)
[2023-01-08 06:21] LABS: Basophils # (auto) 0.06 K/uL (0-0.2); Basophils % (auto) 0.8 %; Eosinophils # (auto) 0.04 K/uL (0-0.50); Eosinophils % (auto) 0.5 %; Hematocrit (blood only) 41.4 % (42.0-52.0); Hemoglobin 14.3 g/dl (14.0-18.0); Immature Granulocytes # (auto) 0.02 K/uL (0.01-0.20); Immature Granulocytes % (auto) 0.3 %; Lymphocytes # (auto) 1.89 K/uL (1.2-3.4); Lymphocytes % (auto) 25.5 %; Mean Corpuscular Hemoglobin 31.8 pg (25.0-34.0); Mean Corpuscular Hgb Conc 34.5 g/dL (32.0-36.0); Mean Platelet Volume 11.1 fL (9.4-12.4); Monocytes # (auto) 0.63 K/uL (0.11-0.59); Monocytes % (auto) 8.5 %; Neutrophils # (auto) 4.77 K/uL (1.40-6.50); Neutrophils % (auto) 64.4 %; Platelet Count 84 K/uL (130-400); RDW Coefficient of Variation 13.6 % (11.5-14.5); RDW Standard Deviation 46.3 fL (36.4-46.3); White Blood Count 7.41 K/ul (4.8-10.8)
[2023-01-08 06:36] LABS: BUN Creatinine Ratio 10.8 (10-20); Calcium 7.9 mg/dl (8.6-10.3); Creatinine Clr Calc Pharmacy 129.7 ml/min; Est GFR (African American) 130.6 ml/min; Est GFR (Non-African American) 112.6 ml/min; Potassium 3.1 mmol/L (3.5-5.1)
[2023-01-08] MEDS: FOLIC ACID 1 MG in SYRINGE 9.8 ML IV SCH (08:15)
[2023-01-08] MEDS: SUCRALFATE 1 GM/10 ML UDC PO SCH ×4 (08:15→20:26)
[2023-01-08] MEDS: THIAMINE HCL 100 MG in SYRINGE 9 ML IV SCH (08:15)
[2023-01-08] MEDS ORDERED: STAT IV STA (11:33)
[2023-01-08] MEDS ORDERED: CALCIUM GLUCONATE 10% 1,000 MG in SODIUM CHLORIDE 0.9% 50 ML IV ONE (11:33)
--- NOTE | 2023-01-08 18:05 | Hospitalist Progress Note ---
Date of Service January 08, 2023 Assessment & Plan (1) Nausea: Plan: 52 yo M who was admitted on 01/06/23 for repeated episodes of vomiting with coffee ground emesis - CT a/p appears to show possible gastric outlet obstruction, perhaps at the level of the duodenum given the duodenal inflammation. - PPI drip continues + Carafate 1gm QID - KUB obtained 01/07/23 showing mod stomach distension. - [facility] consulted, recommending continued PPI use and EGD for diagnostic purposes; tentatively scheduled for 01/09/23 - allow clear liquid diet as tolerated --> NPO at midnight in anticipation of EGD tomorrow - differential - duodenal ulcer with obstruction vs gastric ulcer vs intestinal lymphoma vs other. (2) Partial gastric outlet obstruction: Plan: see #1 above defer on NG tube placement for now as emesis has ceased (3) JUAN (acute kidney injury): Plan: Creatinine 2.1 upon presentation -- has since resolved with IV fluid replacement - 2/2 pre-renal/volume contraction (4) Alcohol abuse: Plan: Alcohol abuse - intake of 18 beers per day prior to last hospitalization in August now down to around 5 beers per day. Last drink evening 01/05/23. AWSS protocol with symptom triggered ativan thus far no symptoms/signs of etoh withdrawal cont thiamine/folate supplementation (5) RLL pneumonia: Plan: - lung cuts from admission CT abd/pelvis show RLL infiltrates - on admission he had a cough, low grade fever, and rales/wheeze in the right base - WBC elevated on admission --> has since normalized - unasyn q6h IV initiated in the event this is due to aspiration - obtain a set of blood cultures prior to starting unasyn (currently showing NGTD) - MRSA [employer]ING [employer]MING swab is +. If he has clinical worsening consider MRSA coverage with vanco or zyvox. Defer for now. (6) Thrombocytopenia: Plan: - platelets at 84 today - etiology uncertain: due to alcohol abuse vs. suppression from infectious process vs. - repeat cbc in am. (7) Hyponatremia: Plan: - chronic - most Na levels last year are all mildly low - currently he is volume contracted from #1, #2 - cont isotonic fluids with BMP am (8) Hypokalemia: Plan: - k at 3.1. - on Kcl containing fluid - repeat BMP am -mag level 1.7 today (9) Hypocalcemia: Plan: - Ca at 7.9, ionized low at 1.03 - albumin normal - QTc was slightly prolonged at 454ms - supplement calcium given - trend CMP. Work up initiated with phos, vit D, a PTH level in am Plan DVT proph - defer on chemical means for now since platelets are trending down Med/tele Admission and Anticipated Discharge Date Admission Date: January 06, 2023 Subjective Doing well today -- sipping on clear liquids; no episodes of emesis since admission Review of Systems Review of Systems: All systems reviewed & are unremarkable except as noted in HPI & below Physical Exam Physical Exam: General Appearance: well-developed, well-nourished adult male in no acute distress HEENT: NC/AT. Sclera anicteric. Neck: Supple. No JVD. Carotid upstrokes brisk but not bounding; no bruits or palpable thrills bilaterally. No thyromegaly or thyroid nodules. CV: RRR. S1 and S2 appreciated. No murmurs, clicks, gallops or rubs. Lungs: CTA in all lung griffith bilaterally with equal air movement. No wheezes, rales, rhonchi or crackles. Abdomen: Soft, Normoactive BS in all 4 quadrants. Skin: warm, dry, and intact Neuro: AAO x 3. No focal deficits. Psych: Appropriate mood and affect. Results & Data Results & Data Vital Signs (Past 12 Hours) Vital Signs Temp Pulse Pulse Pulse Resp BP Pulse Ox 01/08/23 15:34 73 01/08/23 14:56 37.2 C 62 20 156/98 H 97 01/08/23 12:02 36.9 C 60 18 152/96 H 97 01/08/23 07:53 36.9 C 64 18 157/110 H 96 01/08/23 07:24 60 O2 Del Method 01/08/23 15:34 01/08/23 14:56 Room Air 01/08/23 12:02 Room Air 01/08/23 07:53 Room Air 01/08/23 07:24 PG Care Time/CCT Total # of Minutes Spent Total Time Spent with Patient: Total time spent is greater than 50% in coordination of care (as documented) at patient's floor/unit and/or counseling patient: Coding Level of Care Code 66373 SUB INP/OBS CARE 235MIN Diagnoses Nausea R11.0 Partial gastric outlet obstruction K31.1 JUAN (acute kidney injury) N17.9 Alcohol abuse F10.10 RLL pneumonia J18.9 Thrombocytopenia D69.6 Hyponatremia E87.1 Hypokalemia E87.6 Hypocalcemia E83.51
[2023-01-09] MEDS: ONDANSETRON INJ 2 MG/ML 2 ML VIAL IV SCH ×3 (00:25→12:00)
[2023-01-09] MEDS: POTASSIUM CHLORIDE 20 MEQ in LACTATED RINGER'S 1,000 ML IV SCH ×2 (01:16→12:00)
[2023-01-09] MEDS: AMPICILLIN/SULBACTAM SOD 3,000 MG in 0.9 % SODIUM CHLORIDE 100 ML IV SCH ×4 (02:34→20:56)
[2023-01-09] MEDS: PANTOprazole 40 MG in DEXTROSE 5% 100 ML IV SCH ×3 (02:34→13:24)
[2023-01-09 06:52] LABS: Basophils # (auto) 0.05 K/uL (0-0.2); Basophils % (auto) 0.9 %; Eosinophils # (auto) 0.09 K/uL (0-0.50); Eosinophils % (auto) 1.6 %; Hematocrit (blood only) 40.2 % (42.0-52.0); Hemoglobin 14.2 g/dl (14.0-18.0); Immature Granulocytes # (auto) 0.02 K/uL (0.01-0.20); Immature Granulocytes % (auto) 0.4 %; Lymphocytes # (auto) 1.68 K/uL (1.2-3.4); Lymphocytes % (auto) 29.9 %; Mean Corpuscular Hemoglobin 31.8 pg (25.0-34.0); Mean Corpuscular Hgb Conc 35.3 g/dL (32.0-36.0); Mean Corpuscular Volume 90.1 fL (80.0-100.0); Monocytes # (auto) 0.52 K/uL (0.11-0.59); Monocytes % (auto) 9.3 %; Neutrophils # (auto) 3.26 K/uL (1.40-6.50); Neutrophils % (auto) 57.9 %; Platelet Count 84 K/uL (130-400); RDW Coefficient of Variation 13.2 % (11.5-14.5); RDW Standard Deviation 43.7 fL (36.4-46.3); Red Blood Count 4.46 M/uL (4.70-6.10); White Blood Count 5.62 K/ul (4.8-10.8)
--- NOTE | 2023-01-09 08:28 | Anesthesiology Consultation ---
Date of Service January 09, 2023 Assessment & Plan Chart Review Chart Review: Acceptable Risk for Surgery Consults Requested none ASA ASA3 Proposed Anesthesia Anesthesia Type: MAC Risk / Benefits Reviewed With: PT / POA / Parent / Guardian, Accepts Plan and Informed Consent Obtained History Surgery Operation Date: 01/09/23 17:15 Proposed Procedures p Esophagogastroduodenoscopy Dr Camp - Godwin Camp MD Height/Weight Height: 6 ft 3 in Weight: 68.6 kg Allergies Allergy/AdvReac Type Severity Reaction Status Date / Time No Known Allergies Allergy Unverified 01/06/23 17:10 Medications Home Medications Medication Instructions Recorded Confirmed Last Taken triamcinolone acetonide 0.1 % See Rx Instructions topical BID 1 09/22/2212/2401/05/23 topical cream week #80 grams Active Medications Generic Name Dose Route Start Last Admin Trade Name Freq PRN Reason Stop Dose Admin Thiamine HCl 100 mg/ Syringe 10 mls @ 2 mls/min 01/07/23 09:00 01/08/23 08:15 IV 02/06/23 08:59 2 mls/min QAM JOMAR Administration Folic Acid 1 mg/ Syringe 10 mls @ 5 mls/min 01/07/23 09:00 01/08/23 08:15 IV 02/06/23 08:59 5 mls/min QAM JOMAR Administration Pantoprazole Sodium 40 mg/ 100 mls @ 20 mls/hr 01/07/23 09:00 01/09/23 07:03 Dextrose IV 02/06/23 08:59 8 mg/hr Q5H JOMAR 20 mls/hr Administration 8 MG/HR Potassium Chloride 20 meq/ 1,010 mls @ 125 mls/hr 01/07/23 09:00 01/09/23 01:16 Lactated Ringer's IV 02/05/23 18:37 125 mls/hr .Q8H5M JOMAR Administration Ampicillin Sodium/Sulbactam 108 mls @ 200 mls/hr 01/07/23 20:30 01/09/23 03:07 Sodium 3,000 mg/ Sodium IV 01/14/23 20:29 Infused Chloride Q6H JOMAR Infusion Protocol Lorazepam 1 mg 01/06/23 18:38 01/06/23 19:41 Lorazepam 2 Mg/1 Ml Vial IV 02/05/23 18:37 1 mg UD PRN Administration EtOH Withdrawal AWSS Score 6,7 Protocol Ondansetron HCl 4 mg 01/06/23 18:38 01/09/23 06:15 Ondansetron Inj 2 Mg/Ml 2 Ml Vial IV 02/05/23 18:37 4 mg Q6H JOMAR Administration Sucralfate 1 gm 01/07/23 18:10 01/08/23 20:26 Sucralfate 1 Gm/10 Ml Udc PO 02/06/23 18:09 1 gm QID JOMAR Administration NPO Date Last Intake of Fluids: 01/08/23 Time Last Intake of Fluids: 23:30 Date Last Intake of Solids: 01/05/23 Past Medical History Medical History (Updated 01/08/23 @ 18:13 by Ana Bryant MD) Acute respiratory failure with hypoxia Alcohol withdrawal Exercise / Class Metabolic Activity II 4-5 Yardwork/Stairs/Walk up hill Past Anesthesia History No Hx of Anesthesia Complications History of PONV No Hx of PONV Social History Smoking Status: Current every day smoker tobacco type: cigarettes Smoking cigarettes per day: 1 pack/day Do You Dip or Chew Tobacco: No Hx Alcohol Use: Yes Alcohol type: beer, wine and hard liquor alcohol intake frequency: 3 or more drinks per day Alcohol Intake Frequency Comment: 4-6 drinks/day Hx Substance Use: No Review of Systems ROS Unobtainable: All systems reviewed & are unremarkable except as noted in HPI & below Physical Exam Vital Signs Last Vital Signs Temp 36.7 C 01/09/23 07:16 Pulse 52 L 01/09/23 07:28 Resp 20 01/09/23 07:16 BP 152/92 H 01/09/23 07:16 Pulse Ox 96 01/09/23 07:16 O2 Del Method Room Air 01/09/23 07:16 ENMT Thyromental Distance: > or= 3.5 Finger Breadths Mallampati Class: II Respiratory normal respiratory effort Auscultation: lungs clear to auscultation bilaterally Cardiovascular Rate/Rhythm: regular rate Psychiatric Orientation: alert and oriented x 3 Testing Laboratory Results 01/09/23 05:40 Urine Color [place] 01/07/23 Unknown Urine Appearance Clear (Clear) 01/07/23 Unknown Urine pH 8.0 (4.5-7.5) H 01/07/23 Unknown Ur Specific [place] 1.014 (1.000-1.030) 01/07/23 Unknown Urine Protein 1+ (Negative) H 01/07/23 Unknown Urine Glucose (UA) Negative (Negative) 01/07/23 Unknown Urine Ketones Trace (Negative) H 01/07/23 Unknown Urine Nitrite Negative (Negative) 01/07/23 Unknown Ur Leukocyte Esterase Negative (Negative) 01/07/23 Unknown Urine WBC (Auto) 5-10 /hpf (0-5) H 01/07/23 Unknown Urine RBC (Auto) 0-4 /hpf (0-4) 01/07/23 Unknown U Hyaline Cast (Auto) 5-10 /lpf (0-5) H 01/07/23 Unknown U Epithel Cells (Auto) >30 /lpf (0-5) H 01/07/23 Unknown Urine Bacteria (Auto) Negative (Negative) 01/07/23 Unknown Blood Type O Positive 01/06/23 15:06 Antibody Screen NEGATIVE 01/06/23 15:06 01/07/23 20:23 Aerobic Blood Culture - Preliminary Blood No growth in Aerobic bottle after 24 hours. Anaerobic Blood Culture - Preliminary No growth in Anaerobic bottle after 24 hours. 01/07/23 20:23 Aerobic Blood Culture - Preliminary Blood No growth in Aerobic bottle after 24 hours. Anaerobic Blood Culture - Preliminary No growth in Anaerobic bottle after 24 hours.
--- NOTE | 2023-01-09 08:33 | Gastroenterology Progress Note ---
Date of Service January 09, 2023 Assessment & Plan (1) Nausea and vomiting: Plan: R/O GOO abnormal CT No signs of obstruction today with no distention, vomiting/ nausea Plan for EGD today Admission and Anticipated Discharge Date Admission Date: January 06, 2023 Subjective States he is hungry, no n/v for 2 days Physical Exam Constitutional: WD/WN, vitals as above Cardiovascular: RRR, no murmur, no edema Gastrointestinal (Abdomen): normal bowel sounds, soft, nontender, no hepatosplenomegaly Results & Data Vital Signs (Past 12 Hours) Vital Signs Temp Pulse Pulse Resp BP BP Pulse Ox 01/09/23 08:15 36.9 C 57 L 16 164/103 H 100 01/09/23 07:28 52 L 01/09/23 07:16 36.7 C 73 20 152/92 H 96 01/09/23 03:20 37.2 C 53 L 18 164/104 H 98 01/09/23 01:09 87 01/08/23 23:25 37.1 C 57 L 20 159/103 H 97 01/08/23 21:00 O2 Del Method 01/09/23 08:15 Room Air 01/09/23 07:28 01/09/23 07:16 Room Air 01/09/23 03:20 Room Air 01/09/23 01:09 01/08/23 23:25 Room Air 01/08/23 21:00 Room Air
[2023-01-09] MEDS ORDERED: PROPOFOL IV EMULSION 10 MG/ML 20 ML VIAL IV ONE (08:54)
[2023-01-09] MEDS ORDERED: LIDOCAINE 2% MPF LOCAL 5 ML VIAL ONE (08:54)
[2023-01-09] MEDS ORDERED: ALBUT/IPRATROP 3MG/0.5MG NEB 3 ML VIAL NEB STA (09:12)
[2023-01-09] MEDS ORDERED: ALBUTEROL HFA 8 GM INHALER INH ONE (09:22)
--- NOTE | 2023-01-09 09:24 | GI REPORT ---
Patient Name: Senait Prabhakar Procedure Date: 01/09/2023 8:52 AM Date of : 1970 Admit Type: Inpatient Age: 52 Gender: Male Attending MD: Godwin Camp MD, Procedure: Upper GI endoscopy Providers: Godwin Camp MD Referring MD: Jose Joseph Md Indications: Abnormal CT of the GI tract, Nausea with vomiting, Concern for gastric outlet obstruction Medicines: Propofol per Anesthesia Complications: No immediate complications. Estimated blood loss: None. Estimated Blood Loss: Estimated blood loss: none. Procedure: Pre-Anesthesia Assessment: - Pre-Anesthesia Assessment: - Prior to the procedure, a History and Physical was performed, and patient medications, allergies and sensitivities were reviewed. The patient's tolerance of previous anesthesia was reviewed. Please see [employer] for complete details. - The risks and benefits of the procedure and the sedation options and risks were discussed with the patient. All questions were answered and informed consent was obtained. - Patient identification and proposed procedure were verified prior to the procedure by the physician and the nurse. The procedure was verified in the pre-procedure area in the procedure room. After obtaining informed consent, the endoscope was passed carefully and meticuously under direct vision and only advanced when the lumen was clearly identified, C02 insuflation was utilized throughout the entirity of the procedure. Throughout the procedure, the patient's blood pressure, pulse, and oxygen saturations were monitored continuously. After obtaining informed consent, the endoscope was passed under direct vision. Throughout the procedure, the patient's blood pressure, pulse, and oxygen saturations were monitored continuously. The Endoscope was introduced through the mouth, and advanced to the third part of duodenum. The upper GI endoscopy was accomplished without difficulty. The patient tolerated the procedure poorly due to the patient's respiratory instability (hypoxia). Findings: LA Grade D (one or more mucosal breaks involving at least 75% of esophageal circumference) esophagitis with mild bleeding (oozing) was found. The entire examined stomach was normal. A large non-bleeding diverticulum was found in the second portion of the duodenum. A moderate dilated appearance deformity was found in the duodenal bulb. An acquired extrinsic moderate stenosis was found in the second portion of the duodenum and was briefly prior to desturation, but no mass lesion was identified or ulcer. Impression: - LA Grade D reflux esophagitis with bleeding. - Normal stomach. - Non-bleeding duodenal diverticulum. - Duodenal deformity. - Acquired duodenal stenosis. - No specimens collected. Recommendation: - Return patient to [facility]. - Use Prilosec (omeprazole) 40 mg PO BID indefinitely. - Will review CT scan with radiology, this area has been present since 07/2022. Will likely need EUS. To rule out extrinsic etiology - Clear liquid diet and can advance to full liquids Godwin Camp MD 01/09/2023 9:23:34 AM This report has been signed electronically. Note Initiated On: 01/09/2023 8:52 AM Number of Addenda: 0 I attest to the content of the Intraoperative Record and orders documented therein, exceptions below {[id number]}
[2023-01-09 09:40] LABS: Bilirubin,Total 1.5 mg/dl (0.2-1.0); Calcium 8.1 mg/dl (8.6-10.3); Potassium 3.2 mmol/L (3.5-5.1)
[2023-01-09 09:46] LABS: BUN Creatinine Ratio 8.3 (10-20); Creatinine Clr Calc Pharmacy 141.3 ml/min; Est GFR (African American) 134.9 ml/min; Est GFR (Non-African American) 116.4 ml/min; Globulin 2.9 gm/dl (2.5-4.0); Phosphorus 2.2 mg/dl (2.5-4.9); Total Protein 5.9 gm/dl (6.0-8.3)
--- NOTE | 2023-01-09 10:11 | Anesthesiology Progress Note ---
Date of Service January 09, 2023 Anesthesia Post Procedure Vital Signs Vital Signs: Temp Pulse Pulse Pulse Resp BP BP 01/09/23 09:48 81 16 161/110 H 01/09/23 09:34 77 16 151/107 H 01/09/23 09:20 70 16 129/99 01/09/23 09:23 76 14 01/09/23 08:15 36.9 C 57 L 16 164/103 H 01/09/23 07:28 52 L 01/09/23 07:16 36.7 C 73 20 152/92 H 01/09/23 03:20 37.2 C 53 L 18 164/104 H 01/09/23 01:09 87 01/08/23 23:25 37.1 C 57 L 20 159/103 H 01/08/23 21:00 01/08/23 19:27 37.3 C 61 18 157/91 H 01/08/23 15:34 73 01/08/23 14:56 37.2 C 62 20 156/98 H 01/08/23 12:02 36.9 C 60 18 152/96 H Pulse Ox O2 Del Method 01/09/23 09:48 96 Room Air 01/09/23 09:34 96 Room Air 01/09/23 09:20 95 Room Air 01/09/23 09:23 95 Room Air 01/09/23 08:15 100 Room Air 01/09/23 07:28 01/09/23 07:16 96 Room Air 01/09/23 03:20 98 Room Air 01/09/23 01:09 01/08/23 23:25 97 Room Air 01/08/23 21:00 Room Air 01/08/23 19:27 97 Room Air 01/08/23 15:34 01/08/23 14:56 97 Room Air 01/08/23 12:02 97 Room Air Pain Intensity Right Hand: Pain Intensity: 4 Transfer of Care Handoff Completed per policy Notes Mental Status: alert / awake / arousable and participated in evaluation Nausea / Vomiting: adequately controlled Pain: adequately controlled Airway Patency, RR, SpO2: stable & adequate BP & HR: stable & adequate Hydration State: stable & adequate Anesthetic Complications: no major complications apparent and Pt Satisfied with anesthetic care
[2023-01-09] MEDS: FOLIC ACID 1 MG in SYRINGE 9.8 ML IV SCH (10:12)
[2023-01-09] MEDS: SUCRALFATE 1 GM/10 ML UDC PO SCH ×2 (10:12→12:00)
[2023-01-09] MEDS: THIAMINE HCL 100 MG in SYRINGE 9 ML IV SCH (10:12)
--- NOTE | 2023-01-09 15:29 | Hospitalist Progress Note ---
Date of Service January 09, 2023 Assessment & Plan (1) Nausea: Plan: CT a/p showed a possible gastric outlet obstruction, perhaps at the level of the duodenum given the duodenal inflammation. EGD unremarkable Switch PPI from IV to p.o. Discontinue Carafate Advance diet Per GI, patient will likely need EUS to rule out extrinsic etiology (2) Partial gastric outlet obstruction: Plan: EGD negative ? Extrinsic etiology GI recommending EUS as the next step (3) JUAN (acute kidney injury): Plan: Creatinine 2.1 upon presentation pre-renal/volume contraction marked improvement with IV fluids - now with normal creatinine Discontinue IV fluids Start p.o. fluid (4) Alcohol abuse: Plan: Alcohol abuse - intake of 18 beers per day prior to last hospitalization in August now down to around 5 beers per day. Last drink evening 01/05/23. AWSS protocol with symptom triggered ativan thus far no symptoms/signs of etoh withdrawal cont thiamine/folate supplementation (5) RLL pneumonia: Plan: lung cuts from admission CT abd/pelvis show RLL infiltrates he has focal lung findings today on exam - rales/wheeze in the right base he has had low-grade fevers since admission he is coughing will treat for pneumonia - will start unasyn q6h IV in the event this is due to aspiration obtain a set of blood cultures prior to starting unasyn MRSA [employer] MGR swab is +. If he has clinical worsening consider MRSA coverage with vanco or zyvox. Defer for now. (6) Thrombocytopenia: Plan: etiology? due to alcohol abuse? due to suppression from infectious process? other? repeat cbc in am. (7) Hyponatremia: Plan: chronic most Na levels last year are all mildly low currently he is volume contracted from #1, #2 Discontinue IV fluids. Encourage p.o. intake (8) Hypokalemia: Plan: replace repeat BMP am Plan DVT proph - defer on chemical means for now since platelets are trending down Admission and Anticipated Discharge Date Admission Date: January 06, 2023 Subjective Patient feels well. He just completed the EGD and was told that it was negative. Review of Systems Review of Systems: All systems reviewed & are unremarkable except as noted in Subjective Physical Exam Physical Exam: General: Awake, conversant Heart: S1, S2/regular rate and rhythm, no murmur rubs or gallops Lungs: Clear to auscultation bilaterally. Normal effort Abdomen: Soft/nontender/nondistended. No hepatosplenomegaly Extremities: No clubbing/cyanosis. No edema Behavior: Appropriate, cooperative Results & Data Results & Data Vital Signs (Past 12 Hours) Vital Signs Temp Pulse Pulse Resp BP BP Pulse Ox 01/09/23 15:08 66 01/09/23 14:37 36.6 C 64 16 152/90 H 98 01/09/23 11:35 37 C 73 18 151/89 H 96 01/09/23 09:48 81 16 161/110 H 96 01/09/23 09:34 77 16 151/107 H 96 01/09/23 09:20 70 16 129/99 95 01/09/23 09:23 76 14 95 01/09/23 08:15 36.9 C 57 L 16 164/103 H 100 01/09/23 07:28 52 L 01/09/23 07:16 36.7 C 73 20 152/92 H 96 01/09/23 03:20 37.2 C 53 L 18 164/104 H 98 O2 Del Method 01/09/23 15:08 01/09/23 14:37 Room Air 01/09/23 11:35 Room Air 01/09/23 09:48 Room Air 01/09/23 09:34 Room Air 01/09/23 09:20 Room Air 01/09/23 09:23 Room Air 01/09/23 08:15 Room Air 01/09/23 07:28 01/09/23 07:16 Room Air 01/09/23 03:20 Room Air Laboratory Results Abnormal lab results 01/09/23 01/09/23 Range/Units 05:40 05:40 RBC 4.46 L (4.70-6.10) M/uL Hct 40.2 L (42.0-52.0) % Plt Count 84 L (130-400) K/uL Sodium 132 L (136-145) mmol/L Potassium 3.2 L (3.5-5.1) mmol/L Chloride 97 L (98-107) mmol/L Anion Gap 12 H (3-11) BUN 5 L (6-23) mg/dl BUN/Creatinine Ratio 8.3 L (10-20) Calcium 8.1 L (8.6-10.3) mg/dl Phosphorus 2.2 L (2.5-4.9) mg/dl Total Bilirubin 1.5 H (0.2-1.0) mg/dl AST 41 H (13-39) U/L Alkaline Phosphatase 33 L (34-104) U/L Total Protein 5.9 L (6.0-8.3) gm/dl Albumin 3.0 L (3.4-5.0) gm/dl PG Care Time/CCT Total # of Minutes Spent Total Time Spent with Patient: Total time spent is greater than 50% in coordination of care (as documented) at patient's floor/unit and/or counseling patient: Coding Level of Care Code 59005 SUB INP/OBS CARE 2/35MIN Diagnoses Nausea R11.0 Partial gastric outlet obstruction K31.1 JUAN (acute kidney injury) N17.9 Alcohol abuse F10.10 RLL pneumonia J18.9 Thrombocytopenia D69.6 Hyponatremia E87.1 Hypokalemia E87.6
[2023-01-09] MEDS: PANTOprazole 40 MG TAB PO SCH (20:56)
[2023-01-10] MEDS: AMPICILLIN/SULBACTAM SOD 3,000 MG in 0.9 % SODIUM CHLORIDE 100 ML IV SCH ×2 (02:24→08:10)
[2023-01-10 06:39] LABS: BUN Creatinine Ratio 6.7 (10-20); Calcium 7.8 mg/dl (8.6-10.3); Creatinine Clr Calc Pharmacy 141.3 ml/min; Est GFR (African American) 134.9 ml/min; Est GFR (Non-African American) 116.4 ml/min; Potassium 2.8 mmol/L (3.5-5.1)
[2023-01-10] MEDS: FOLIC ACID 1 MG in SYRINGE 9.8 ML IV SCH (08:10)
[2023-01-10] MEDS: THIAMINE HCL 100 MG in SYRINGE 9 ML IV SCH (08:10)
[2023-01-10] MEDS: PANTOprazole 40 MG TAB PO SCH ×2 (08:11→20:46)
--- NOTE | 2023-01-10 09:48 | Gastroenterology Progress Note ---
Date of Service January 10, 2023 Assessment & Plan (1) Nausea and vomiting: (2) Abnormal CT of the abdomen: Plan: Pt is a 52 yo male w hx of ETOH abuse, admitted for n/v. CT showed gastric distension w possible duodenal obstruction/GOO. EGD on 01/09 found LA Grade D reflux esophagitis w bleeding, non bleeding duodenal diverticulum, duodenal deformity and acquired stenosis. Possible compression from pancreatitis suspected. - PPI PO BID - Advanced to soft diet - Electrolyte correction per primary team - Will arrange outpt EUS to r/o extrinsic compression Admission and Anticipated Discharge Date Admission Date: January 06, 2023 Supervising Physician Co-Signing Physician Notes Attending attestation I have seen, examined this patient, and agree with the findings and above by our mid-level provider KAMALA Melendrez, with the following additions: - doing well - Advance diet - Repeat EGD/EUS in 3-4 weeks - BID PPI 40 mg for at least 2-3 months Subjective Pt tolerated FL diet wo abd pain, n/v. No acute events overnight Review of Systems Review of Systems: All systems reviewed & are unremarkable except as noted in HPI & below Physical Exam Constitutional: WD/WN, vitals as above well groomed, cooperative and comfortable Eyes: PERRL, conjunctivae normal, anicteric sclerae ENMT: external ear and nose normal, oropharynx normal Respiratory: normal respiratory effort, lungs clear to auscultation Cardiovascular: RRR, no murmur, no edema Gastrointestinal (Abdomen): normal bowel sounds, soft, nontender, no hepatosplenomegaly Skin: no rashes, warm and dry no jaundice Psychiatric: A+Ox3, euthymic affect Lymphatic: no lymphedema Results & Data Vital Signs (Past 12 Hours) Vital Signs Temp Pulse Pulse Resp BP Pulse Ox O2 Del Method 01/10/23 07:38 49 L 01/10/23 07:37 36.8 C 57 L 16 162/102 H 96 Room Air 01/10/23 03:36 36.6 C 57 L 18 146/101 H 96 Room Air 01/10/23 01:35 57 L 01/09/23 23:11 36.9 C 58 L 18 142/94 H 96 Room Air
[2023-01-10] MEDS ORDERED: POTASSIUM CHLORIDE CRTAB 20 MEQ TABCR PO STA (10:10)
[2023-01-10] MEDS: POTASSIUM CHLORIDE / WTR 10 MEQ/100 ML PLCT IV SCH ×4 (10:43→16:04)
--- NOTE | 2023-01-10 13:27 | Hospitalist Progress Note ---
Date of Service January 10, 2023 Assessment & Plan (1) Nausea: Plan: CT a/p showed a possible gastric outlet obstruction, perhaps at the level of the duodenum given the duodenal inflammation. EGD unremarkable On p.o. PPI 40 mg twice daily Discontinued Carafate Advance diet Per GI, patient will likely need outpatient EUS to rule out extrinsic compression (2) Partial gastric outlet obstruction: Plan: EGD negative ? Extrinsic etiology GI recommending EUS as the next step (3) JUAN (acute kidney injury): Plan: Creatinine 2.1 upon presentation pre-renal/volume contraction Resolved with IV fluid Now on p.o. fluids (4) Alcohol abuse: Plan: Alcohol abuse - intake of 18 beers per day prior to last hospitalization in August now down to around 5 beers per day. Last drink evening 01/05/23. AWSS protocol with symptom triggered ativan thus far no symptoms/signs of etoh withdrawal cont thiamine/folate supplementation (5) RLL pneumonia: Plan: lung cuts from admission CT abd/pelvis show RLL infiltrates he has focal lung findings today on exam - rales/wheeze in the right base he has had low-grade fevers since admission he is coughing will treat for pneumonia - will start unasyn q6h IV in the event this is due to aspiration obtain a set of blood cultures prior to starting unasyn MRSA [employer] swab is +. If he has clinical worsening consider MRSA coverage with vanco or zyvox. Defer for now. (6) Thrombocytopenia: Plan: etiology? due to alcohol abuse? due to suppression from infectious process? other? repeat cbc in am. (7) Hyponatremia: Plan: chronic most Na levels last year are all mildly low currently he is volume contracted from #1, #2 Discontinue IV fluids. Encourage p.o. intake (8) Hypokalemia: Plan: replace repeat BMP am Plan DVT proph - defer on chemical means for now since platelets are trending down Admission and Anticipated Discharge Date Admission Date: January 06, 2023 Subjective Patient feels well today. Tolerated full liquid diet for breakfast. We will have a solid meal for lunch. Review of Systems Review of Systems: All systems reviewed & are unremarkable except as noted in Subjective Physical Exam Physical Exam: General: Awake, conversant Heart: S1, S2/regular rate and rhythm, no murmur rubs or gallops Lungs: Clear to auscultation bilaterally. Normal effort Abdomen: Soft/nontender/nondistended. No hepatosplenomegaly Extremities: No clubbing/cyanosis. No edema Behavior: Appropriate, cooperative Results & Data Results & Data Vital Signs (Past 12 Hours) Vital Signs Temp Pulse Pulse Resp BP Pulse Ox O2 Del Method 01/10/23 11:41 37.4 C 58 L 14 156/104 H 98 Room Air 01/10/23 07:38 49 L 01/10/23 07:37 36.8 C 57 L 16 162/102 H 96 Room Air 01/10/23 03:36 36.6 C 57 L 18 146/101 H 96 Room Air 01/10/23 01:35 57 L PG Care Time/CCT Total # of Minutes Spent Total Time Spent with Patient: Total time spent is greater than 50% in coordination of care (as documented) at patient's floor/unit and/or counseling patient: Coding Level of Care Code 16564 SUB INP/OBS CARE 2/35MIN Diagnoses Nausea R11.0 Partial gastric outlet obstruction K31.1 JUAN (acute kidney injury) N17.9 Alcohol abuse F10.10 RLL pneumonia J18.9 Thrombocytopenia D69.6 Hyponatremia E87.1 Hypokalemia E87.6
[2023-01-10] MEDS: AMOXICILLIN/CLAVULANATE 875 MG TAB PO SCH (16:04)
[2023-01-11 07:38] LABS: BUN Creatinine Ratio 4.6 (10-20); Calcium 7.9 mg/dl (8.6-10.3); Creatinine Clr Calc Pharmacy 130.5 ml/min; Est GFR (African American) 130.6 ml/min; Est GFR (Non-African American) 112.6 ml/min; Potassium 3.1 mmol/L (3.5-5.1)
[2023-01-11] MEDS: PANTOprazole 40 MG TAB PO SCH (07:49)
[2023-01-11] MEDS: AMOXICILLIN/CLAVULANATE 875 MG TAB PO SCH (07:49)
[2023-01-11] MEDS ORDERED: POTASSIUM CHLORIDE CRTAB 20 MEQ TABCR PO STA (08:30)
[2023-01-11] MEDS: POTASSIUM CHLORIDE / WTR 10 MEQ/100 ML PLCT IV SCH ×2 (08:46→10:00)
[2023-01-11] MEDS ORDERED: THIAMINE HCL 100 MG TAB PO SCH (09:00)
[2023-01-11] MEDS ORDERED: FOLIC ACID 1 MG TAB PO SCH (09:00)
--- NOTE | 2023-01-11 09:57 | Gastroenterology Progress Note ---
Date of Service January 11, 2023 Assessment & Plan (1) Nausea and vomiting: (2) Abnormal CT of the abdomen: Plan: Pt is a 52 yo male w hx of ETOH abuse, admitted for n/v. CT showed gastric distension w possible duodenal obstruction/GOO. EGD on 01/09 found LA Grade D reflux esophagitis w bleeding, non bleeding duodenal diverticulum, duodenal deformity and acquired stenosis. Possible compression from pancreatitis suspected. Clinically well currently, tolerating diet. - PPI PO BID x 3 months, then once daily - Advanced to soft diet - Electrolyte correction per primary team - Will arrange outpt EUS to r/o extrinsic compression in 3-4 weeks - ETOH and NSAIDs avoidance recommended - GI to sign off; pls recall prn Admission and Anticipated Discharge Date Admission Date: January 06, 2023 Supervising Physician Co-Signing Physician Notes Attending attestation I have seen, examined this patient, and agree with the findings and above by our mid-level provider KAMALA Melendrez, with the following additions: tolerating diet plan for oupt EUS/EGD in 2-4 weeks Subjective No acute events overnight, patient tolerating diet well without abdominal pain, nausea or vomiting. He does complain of some burning in the esophagus when he swallows food or liquids. Had a small bowel movement this morning, stools solid, brown in color. Review of Systems Review of Systems: All systems reviewed & are unremarkable except as noted in HPI & below Physical Exam Constitutional: WD/WN, vitals as above well groomed, cooperative and comfortable Eyes: PERRL, conjunctivae normal, anicteric sclerae ENMT: external ear and nose normal, oropharynx normal Respiratory: normal respiratory effort, lungs clear to auscultation Cardiovascular: RRR, no murmur, no edema Gastrointestinal (Abdomen): normal bowel sounds, soft, nontender, no hepatosplenomegaly Skin: no rashes, warm and dry no jaundice Psychiatric: A+Ox3, euthymic affect Lymphatic: no lymphedema Results & Data Vital Signs (Past 12 Hours) Vital Signs Temp Pulse Pulse Resp BP Pulse Ox O2 Del Method 01/11/23 07:28 37.2 C 58 L 18 169/109 H 98 Room Air 01/11/23 03:41 36.9 C 64 18 159/101 H 97 Room Air 01/11/23 00:00 57 L 01/10/23 22:56 37.2 C 58 L 18 152/101 H 97 Room Air
--- NOTE | 2023-01-11 11:03 | Discharge Summary ---
Date of Service January 11, 2023 Admission HPI Per Admitting Provider Senait Prabhakar is a 52-year-old male with a past medical history of sepsis, renal failure, alcohol abuse, and cardiomyopathy who presents to the ER with persistent nausea and vomiting of over 40 times now with black/coffee-ground emesis. On ER assessment [id number], last hemoglobin 11.3. Potassium 3.2, creatinine baseline is less than 1, acutely elevated on admission to 2.13. CTA/P shows a fluid filled stomach, wall thickening of second third and fourth portions of duodenum with adjacent stranding similar to 07/2022 suggestive of duodenal obstruction/gastric outlet obstruction suspicious for inflammatory pr ocess & from which neoplastic process cannot be excluded. Follow-up with upper endoscopy suggested. Hepatic steatosis noted. Trace right pleural effusion of the right lower hemithorax develop since prior CT, nonspecific but favor atelectasis. Moderate distention of the bladder. Patient seen at the bedside. He reports that he felt otherwise well until last night at around 7 PM when he could no longer keep any food or liquids down and had a decreased appetite. He reports since then and overnight he has had recurrent vomiting of "many colors, yellow, orange, green, and black ". He reports his recent emesis 15 minutes ago was black but thin and liquid, no coffee-ground emesis/clots/red blood appreciated. He reports he has been down to drinking 5 days a week "only on days that end and y ". He reports he gets cold easily, and has not had no fever, chills, sweats. No lightheadedness or dizziness. No syncope or presyncope. Last bowel movement was yesterday, prior to this has had 1-2 bowel movements per day which are soft and brown and are not bloody or melanic. Not had any reflux or abdominal pain. Recently established with [facility] PCP, takes no medications. Is not on aspirin or any blood thinner, reports he has not been recommended to take any medications by his doctors. He reports he had a heart issue when he was critically ill in the ICU after an aspiration pneumonia, but this resolved He does not take any vitamins or supplements. He denies any history of seizure, delirium tremens, hallucinations, or severe alcohol withdrawal. He reports he was ill in the h ospital but that was from aspiration pneumonia not from alcohol withdrawal. Has been gradually reducing his alcohol intake, and has settled at around 5 beers per day. Previously 18+ per day prior to last August. Medical History: Reviewed Medications: Reviewed Surgical History: Reviewed Family history: Reviewed Allergies: Reviewed Social History: 4-6 drinks per day. Beer . +cigarette use 1ppd x35 years. Code Status: Full Code Admission Exam Per Admitting Provider General: A&Ox3. NAD. Cooperative. HEENT: Atraumatic, normocephalic. Vision and hearing grossly intact. Pupils equal and reactive to light. Mucous membranes are dry/cracked Pulm: CTAB A&P. -wheezes, -rales, -rhonchi. Symmetrical chest rise. No increased work of breathing. No respiratory distress. Cardiac: Regular, mildly tachycardic 1001 10. Radial pulses intact and symmetrical. Abdominal: Nontender, nondistended, soft. BS present. Extremities: Warm, dry. Is not tremulous on exam. Screen Vent Binder strength, ankle dorsiflexion/plantarflexion, hip flexion in bed 5/5 bilaterally. Sensation grossly intact in hands and feet to soft touch Principal Diagnosis Intractable vomiting leading to possible Priscila-Patiño tear Reflux esophagitis being discharged on Protonix p.o. twice daily Abnormal CT abdomen showing signs of gastric outlet obstruction. EGD negative. Will need outpatient endoscopic ultrasound to rule out extrinsic compression JUAN due to dehydration from vomiting Hypokalemia Discharge Exam General: Awake, conversant Heart: S1, S2/regular rate and rhythm, no murmur rubs or gallops Lungs: Clear to auscultation bilaterally. Normal effort Abdomen: Soft/nontender/nondistended. No hepatosplenomegaly Extremities: No clubbing/cyanosis. 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 EGD unremarkable On p.o. PPI 40 mg twice daily Discontinued Carafate Advance diet Per GI, patient will likely need outpatient EUS to rule out extrinsic compression. GI will call the patient to schedule appointment outpatient (2) Partial gastric outlet obstruction: EGD negative ? Extrinsic etiology GI recommending EUS as the next step (3) JUAN (acute kidney injury): Creatinine 2.1 upon presentation pre-renal/volume contraction Resolved with IV fluid Now on p.o. fluids (4) Alcohol abuse: Alcohol abuse - intake of 18 beers per day prior to last hospitalization in August now down to around 5 beers per day. Last drink evening 01/05/23. AWSS protocol with symptom triggered ativan thus far no symptoms/signs of etoh withdrawal cont thiamine/folate supplementation (5) RLL pneumonia: lung cuts from admission CT abd/pelvis show RLL infiltrates he has focal lung findings today on exam - rales/wheeze in the right base he has had low-grade fevers since admission he is coughing Patient has had no other signs of pneumonia. Was treated with IV Zosyn during the hospital stay. Completed course. (6) Thrombocytopenia: etiology? due to alcohol abuse? due to suppression from infectious process? other? repeat cbc in am. (7) Hyponatremia: chronic most Na levels last year are all mildly low currently he is volume contracted from #1, #2 Discontinue IV fluids. Encourage p.o. intake (8) Hypokalemia: replace Being discharged on potassium pills Plan DVT proph - defer on chemical means for now since platelets are trending down Total Time Total Time Spent Total Time Spent (In Minutes): 35 Discharge Plan Discharge Items Patient Disposition: Home - Self-Care Reason For Visit: ?UGIB, N/V, ETOH Discharge Diagnosis: Reflux esophagitis Gastric outlet obstruction due to ? extrinsic compression -- need outpatient EUS Activity: Resume your previous activity Non-emergency contact: Primary Care Provider Call non-emergency contact if: you have any medication questions and your symptoms worsen Follow-up/Referrals: Elliot Elise MD [Primary Care Provider] - 01/18/23 2:00 pm Diet: Regular Addtl Attending Provider Instructions: Advised to follow-up with PCP in 1 week Advised to follow-up with GI in 2 weeks Pending Studies at Discharge: No Stand-Alone Forms: My [facility] Medications and DC Order Prescriptions: New thiamine HCl (vitamin B1) 100 mg Tablet 100 mg PO DAILY Qty: 30 0RF pantoprazole 40 mg Tablet,Delayed Release (Dr/Ec) 40 mg PO BID 30 Days Qty: 60 0RF amoxicillin-pot clavulanate 875-125 mg Tablet 1 tab PO BIDM 2 Days Qty: 4 0RF folic acid 1 mg Tablet 1 mg PO DAILY 30 Days Qty: 30 0RF potassium chloride [Klor-Con] 20 mEq packet 40 meq PO DAILY Qty: 30 0RF Continued triamcinolone acetonide 0.1 % cream See Rx Instructions topical BID 7 Days Qty: 80 0RF Rx Instructions: Apply a small amount to the right back topically twice a day; Discharge Orders: Discharge Order (Routine); Ordered 01/11/23 Ordered By: Jose Joseph Admission Data Admit Date/Time: 01/06/23 17:52 Attending Provider: Jose Joseph Admit Provider: Yoshi Lassiter Primary Care Provider: Elliot Elise Other Providers: Yoshi Lassiter ; Yamile Perez ; Toney Gomez Other Interventions: Discharge Summary Assessment (RN) Last Done: 01/11/23 12:29 Coding Level of Care Code 39367 INP/OBS DISCH >30 MIN Diagnoses Nausea R11.0 Partial gastric outlet obstruction K31.1 JUAN (acute kidney injury) N17.9 Alcohol abuse F10.10 RLL pneumonia J18.9 Thrombocytopenia D69.6 Hyponatremia E87.1 Hypokalemia E87.6
[2023-01-11] MEDS ORDERED: SUCRALFATE 1 GM/10 ML UDC PO SCH (13:00)
[2023-01-13 07:53] LABS: Vitamin D 1,25 15 pg/mL (18-72); Vitamin D3,1,25 15 pg/mL
== END 2023-01-11 15:35 | disposition home or self-care (01) | DRG 380 ==
LOC: ED 14:40 → EDINP 17:52 → SUATTDRO 17:52 → 2W 18:33

== ENCOUNTER 2025-02-26 11:42 | Observation (INO) ==
[2025-02-26] MEDS: SODIUM CHLORIDE 0.9% 1,000 ML IV ONE (12:10)
[2025-02-26] MEDS: PANTOprazole 40 MG/10 ML SYR IV ONE (12:10)
[2025-02-26 12:19] LABS: Basophils # (auto) 0.06 K/uL (0.00-0.20); Basophils % (auto) 0.8 %; Eosinophils % (auto) 1.3 %; Hematocrit (blood only) 41.5 % (42.0-52.0); Hemoglobin 14.5 g/dl (14.0-18.0); Immature Granulocytes # (auto) 0.04 K/uL (0.01-0.20); Immature Granulocytes % (auto) 0.5 %; Lymphocytes # (auto) 1.57 K/uL (1.20-3.40); Lymphocytes % (auto) 20.9 %; Mean Corpuscular Hemoglobin 31.7 pg (25.0-34.0); Mean Corpuscular Hgb Conc 34.9 g/dL (32.0-36.0); Mean Corpuscular Volume 90.8 fL (80.0-100.0); Mean Platelet Volume 11.6 fL (9.4-12.4); Monocytes % (auto) 10.7 %; Neutrophils # (auto) 4.93 K/uL (1.40-6.50); Neutrophils % (auto) 65.8 %; Platelet Count 107 K/uL (130-400); RDW Coefficient of Variation 12.5 % (11.5-14.5); RDW Standard Deviation 41.2 fL (36.4-46.3); Red Blood Count 4.57 M/uL (4.70-6.10)
[2025-02-26 12:31] LABS: Albumin Globulin Ratio 0.9 (0.9-2); Albumin Level 3.8 gm/dl (3.4-5.0); Bilirubin,Total 1.3 mg/dl (0.2-1.0); Creatinine Clr Calc Pharmacy 107.2 ml/min; Globulin 4.1 gm/dl (2.5-4.0); Potassium 3.6 mmol/L (3.5-5.1); Total Protein 7.9 gm/dl (6.0-8.3)
[2025-02-26] MEDS: OPTIRAY 320 100ml IV ONE (12:43)
--- NOTE | 2025-02-26 13:20 | CT Scan Report ---
CT SCAN OF THE ABDOMEN AND PELVIS WITH IV CONTRAST CLINICAL HISTORY: Nausea and vomiting. History of gastric outlet obstruction. COMPARISON STUDY: CT of the abdomen and pelvis June 07, 2023. TECHNIQUE: Following the IV administration of 93 cc of Optiray 320, CT scan of the abdomen and pelvi s is performed from the lung bases to the proximal femora. Images are reviewed in the axial, sagittal , and coronal planes. IV contrast was administered without complication. A dose lowering technique wa s utilized adhering to the principles of ALARA. CT DOSE: 489.29 mGy.cm FINDINGS: Mild emphysema is incidentally noted within the lower lungs. No pneumatosis, free air or po rtal gas is present. There is hepatic steatosis. Spleen, adrenal glands and kidneys are unremarkable. A subcentimeter right renal lesion favors a cyst. There is no hydronephrosis. There is no biliary or pancreatic ductal dilatation. Several pancreatic calcifications are present. Of note, the stomach is moderately distended. There is an air-fluid level within the stomach. The first and second portion t he duodenum are also moderately distended. Distention is mildly decreased when compared to CT of [facility] 2022. Caliber change with wall thickening of the third portion the duodenum is noted. Mild adjacent stranding is present. A few prominent adjacent lymph nodes measure up to 9 x 8 mm. Distal du odenum is decompressed. The aortomesenteric distance is not significantly diminished. The sigmoid col on is redundant and mildly distended without evidence for a colonic obstruction. There is extensive a ortoiliac atherosclerotic plaque. No evidence for a small bowel obstruction. IMPRESSION: 1. Distended moderately distended stomach and first and second portions of the duodenum with caliber change and wall thickening of the third portion of the duodenum. Similar pattern to CT of May 262022, as described above. Mild adjacent stranding and a few prominent lymph nodes. Given stability , these nodes are likely reactive. The findings suggest a persistent/recurrent partial duodenal obstr uction. Although nonspecific, an inflammatory etiology is favored. Given pancreatic parenchymal calci fications, paraduodenal pancreatitis is within the differential. A mucosal lesion cannot be excluded. If not already performed, correlation with endoscopy is recommended. 2. Redundant, distended sigmoid colon without evidence for a colonic obstruction. 3. Hepatic steatosis. ACT 112: Negative or not required by law. Electronically signed by: Morgan Alfred M.D. 02/26/2025 1:18 PM
--- NOTE | 2025-02-26 14:59 | Emergency Department Note ---
Impression & Plan Duodenal obstruction, Nausea & vomiting ED Provider Note NAME: MICHELL BRUNNER AGE: 54 SEX: M : 1970 ARRIVES VIA: Ambulance INFORMANT: Patient, ED PROVIDER(S): Pablo Nicholson MD CHIEF COMPLAINT: Abdominal pain, vomiting HPI: This is a 54-year-old male presenting for abdominal pain and vomiting. Patient notes over the past 1 day he has noted significant nausea, vomiting. Notes that he has not been tolerating food intake due to this. He has history of previous Gastrolyte obstruction. He has not had any previous surgeries however. He reports initially having diarrhea that began a week with no bowel over the past 1 day. Reports some slight abdominal pain. No fevers, chills, currently. No flank pain chest pain or shortness of breath. ROS: See above HPI for pertinent positives & negatives. A total of 10 systems reviewed and were otherwise negative. PAST MEDICAL HISTORY: See Below PAST SURGICAL HISTORY: See Below FAMILY HISTORY: See Below SOCIAL HISTORY: See Below HOME MEDICATIONS: See Below ALLERGIES: See Below VITALS: See Below PHYSICAL EXAMINATION: General: resting comfortably in no acute distress Head: Normocephalic and atraumatic Eyes: Normal inspection, extraocular muscles intact Ear, nose, throat: Normal external exam Neck: Normal range of motion Respiratory: lungs clear to auscultation bilaterally Cardiovascular: Regular rate/rhythm, no murmur GI: Nondistended, minimally tender Neuro: The patient awake and alert, appropriately conversive, no focal deficits, symmetric faces Skin: Warm, dry, and intact MEDICAL DECISION MAKING: This is a 54-year-old male presenting for nausea vomiting. Patient history of gastric outlet obstruction, will do CT imaging at this time as well as basic blood work. Overall patient feels well with minimal pain, he currently denies needing pain medication. - Bloodwork is reviewed showing no significant leukocytosis, anemia. There is significant hyponatremia to 123, hypochloremia and anion gap at 19. Likely dehydration/starvation ketosis. Will give fluids here. - CT imaging reveals patient has persistent/recurrent partial duodenal obstruction, inflammatory etiologies favored. Paraduodenal pancreatitis is also within differential. -Discussed care with midlevel for gastroenteritis service, who will see the patient in consultation under Dr. Lee - care discussed with Dr. Tate for admission Differential diagnosis: SBO, gastric outlet obstruction, volvulus, mesenteric ischemia, volvulus, diverticulitis Diagnostics interpreted by me: ECG: None Cardiac Monitoring: An order was placed for continuous cardiac monitoring. The monitor shows a rate of 83 with sinus rhythm. Past Med/Surg History Problem List (Updated 02/26/25 @ 17:59 by Pablo Nicholson MD) Nausea & vomiting (Acute) Duodenal obstruction (Acute) Hyponatremia Injury of ear canal Elevated lipase Duodenal stricture Hypokalemia Transaminitis (Acute) Gastric outlet obstruction Hypokalemia Acute dehydration (Acute) Acute hyponatremia (Acute) Acute hypokalemia (Acute) Elevated lactic acid level (Acute) Renal insufficiency Cardiomyopathy Hypomagnesemia Thrombocytopenia Hypophosphatemia Medical History Closed fracture of acetabulum (03/19/13) RLL pneumonia JUAN (acute kidney injury) MRSA (methicillin resistant staph aureus) culture positive Bacteremia due to Klebsiella pneumoniae Septic shock Elevated troponin Alcohol abuse Acute respiratory failure with hypoxia Alcohol withdrawal Non-ST elevation NE (NSTEMI) Family History Grandfather (Maternal) Cancer Brother Diabetes Social History Smoking Status: Current every day smoker Tobacco Type: Cigarettes Age Started Using Tobacco: 19; packs per day: 1; Cigarettes Per Day: 1 pack per day; Second Hand Exposure: No; Do You Dip or Chew Tobacco: No; Hx Alcohol Use: Yes Alcohol type: beer Hx Substance Use: No Preferred Language: Niuean Communication Ability: Effective Case Management Rn Required: Yes Beliefs That Will Affect Care: None marital status: Unknown Current Living Situation: Alone Current Living Situation Comment: lives with someone but did not disclose relationship current occupational status: employed Feels Safe at Home: Yes Assistive Devices: Glasses Allergies Allergies Allergy/AdvReac Type Severity Reaction Status Date / Time No Known Allergies Allergy Unverified 01/21/25 14:07 Home Meds Home Medications Medication Instructions Recorded Confirmed cholecalciferol (vitamin D3) 25 50 mcg PO DAILY 06/28/23 02/26/25 mcg (1,000 unit) capsule fexofenadine 180 mg tablet 180 mg PO DAILY PRN Allergy 02/26/25 02/26/25 Symptoms ibuprofen 200 mg tablet (Advil) 200 mg PO Q6H PRN Pain 02/26/25 02/26/25 Previous Rx's Medication Instructions Recorded potassium chloride 20 mEq 20 meq PO DAILY #90 tabs 06/21/23 tablet,extended release(part/cryst) folic acid 1 mg tablet 1 mg PO DAILY #90 tabs 01/13/25 Results & Data (ED) Vital Signs Vital Signs - 24 hr 02/26/25 11:50 02/26/25 11:57 02/26/25 12:30 Temperature 36.7 C Temperature Source Temporal Artery Scan Pulse Rate 93 H 96 H 76 Pulse Rate from SpO2 Sensor Respiratory Rate 18 17 Respiratory Effort / Characteristics Non-Labored Spontaneous Respiratory Depth Normal Blood Pressure 123/90 120/88 Blood Pressure Mean 101 102 Pulse Oximetry 98 99 Oxygen Delivery Method Room Air Sepsis Recent Fever Within 48 Hours No Sepsis New/Unexplained Change in Mental Status N/A Sepsis Action Taken by Nursing No Action Required 02/26/25 13:00 02/26/25 13:30 02/26/25 13:30 Temperature Temperature Source Pulse Rate 81 77 78 Pulse Rate from SpO2 Sensor 80 77 Respiratory Rate 18 19 14 Respiratory Effort / Characteristics Respiratory Depth Blood Pressure 130/99 131/93 131/93 Blood Pressure Mean 109 105 107 Pulse Oximetry 98 98 98 Oxygen Delivery Method Room Air Sepsis Recent Fever Within 48 Hours Sepsis New/Unexplained Change in Mental Status Sepsis Action Taken by Nursing 02/26/25 14:09 02/26/25 14:30 Temperature Temperature Source Pulse Rate 82 87 Pulse Rate from SpO2 Sensor 84 88 Respiratory Rate 21 17 Respiratory Effort / Characteristics Respiratory Depth Blood Pressure 118/86 120/86 Blood Pressure Mean 96 97 Pulse Oximetry 98 97 Oxygen Delivery Method Sepsis Recent Fever Within 48 Hours Sepsis New/Unexplained Change in Mental Status Sepsis Action Taken by Nursing Laboratory Data 02/26/25 11:50 02/26/25 16:55 Lab Results 02/26/25 Range/Units 11:50 WBC 7.50 (4.8-10.8) K/ul RBC 4.57 L (4.70-6.10) M/uL Hgb 14.5 (14.0-18.0) g/dl Hct 41.5 L (42.0-52.0) % MCV 90.8 (80.0-100.0) fL MCH 31.7 (25.0-34.0) pg MCHC 34.9 (32.0-36.0) g/dL RDW Std Deviation 41.2 (36.4-46.3) fL RDW Coeff of Tessy 12.5 (11.5-14.5) % Plt Count 107 L (130-400) K/uL MPV 11.6 (9.4-12.4) fL Immature Gran % (Auto) 0.5 % Neut % (Auto) 65.8 % Lymph % (Auto) 20.9 % Island % (Auto) 10.7 % Eos % (Auto) 1.3 % Baso % (Auto) 0.8 % Neut # (Auto) 4.93 (1.40-6.50) K/uL Lymph # (Auto) 1.57 (1.20-3.40) K/uL Island # (Auto) 0.80 H (0.11-0.59) K/uL Eos # (Auto) 0.10 (0.00-0.50) K/uL Baso # (Auto) 0.06 (0.00-0.20) K/uL Immature Gran # (Auto) 0.04 (0.01-0.20) K/uL Sodium 123 L (136-145) mmol/L Potassium 3.6 (3.5-5.1) mmol/L Chloride 84 L (98-107) mmol/L Carbon Dioxide 20 L (21-32) mmol/L Anion Gap 19 H (3-11) BUN 9 (6-23) mg/dl Creatinine 0.69 (0.6-1.4) mg/dl Est Cr Clr Drug Dosing 107.2 ml/min eGFR 110.66 BUN/Creatinine Ratio 13.0 (10-20) Glucose 93 (70-99(Fasting)) mg/dl Calcium 9.0 (8.6-10.3) mg/dl Total Bilirubin 1.3 H (0.2-1.0) mg/dl AST 49 H (13-39) U/L ALT 30 (7-52) U/L Alkaline Phosphatase 41 (34-104) U/L Total Protein 7.9 (6.0-8.3) gm/dl Albumin 3.8 (3.4-5.0) gm/dl Globulin 4.1 H (2.5-4.0) gm/dl Albumin/Globulin Ratio 0.9 (0.9-2) Lipase 72 (11-82) U/L Administered Medications Lactated Ringer's (Lr) 1,000 mls @ 80 mls/hr IV .[id number] JOMAR Stop: 03/01/25 16:46 Last Admin: 02/26/25 17:20 Dose: 80 mls/hr Documented By: APR Famotidine (Pepcid 20mg Iv Push) 20 mg in 5 mls @ 2.5 mls/min IV Q12H JOMAR Stop: 03/28/25 17:59 Last Admin: 02/26/25 17:34 Dose: 2.5 mls/min Documented By: MATTIE Folic Acid 1 mg/ Syringe 10 mls @ 5 mls/min IV QAM JOMAR Stop: 03/28/25 16:59 Last Admin: 02/26/25 17:12 Dose: 5 mls/min Documented By: MATTIE Ondansetron HCl (Ondansetron Inj 2 Mg/Ml 2 Ml Vial) 4 mg IV Q6H JOMAR Stop: 03/28/25 16:59 Last Admin: 02/26/25 17:18 Dose: 4 mg Documented By: MATTIE Discontinued Medications Pantoprazole Sodium (Protonix) 40 mg in 10 mls @ 5 mls/min IV NOW ONE Stop: 02/26/25 11:53 Last Admin: 02/26/25 12:10 Dose: 5 mls/min Documented By: MARQUEZ Sodium Chloride (Nss) 1,000 mls @ 999 mls/hr IV .Q1H1M ONE Stop: 02/26/25 12:52 Last Infusion: 02/26/25 14:38 Dose: Infused Documented By: Admin: 02/26/25 12:10 Dose: 999 mls/hr Documented By: MARQUEZ Thiamine HCl 100 mg/ Syringe 10 mls @ 2 mls/min IV NOW STA Stop: 02/26/25 17:01 Last Admin: 02/26/25 17:12 Dose: 2 mls/min Documented By: MATTIE Ioversol (Optiray 320 100ml) 93 ml IV ONCE ONE Stop: 02/26/25 12:43 Last Admin: 02/26/25 12:43 Dose: 93 ml Documented By: JEREMI Imaging Data Radiologist's Impression: Abdomen/Pelvis CT 02/26/25 12:22 CT SCAN OF THE ABDOMEN AND PELVIS WITH IV CONTRAST CLINICAL HISTORY: Nausea and vomiting. History of gastric outlet obstruction. COMPARISON STUDY: CT of the abdomen and pelvis June 07, 2023. TECHNIQUE: Following the IV administration of 93 cc of Optiray 320, CT scan of the abdomen and pelvis is performed from the lung bases to the proximal femora. Images are reviewed in the axial, sagittal, and coronal planes. IV contrast was administered without complication. A dose lowering technique was utilized adhering to the principles of ALARA. CT DOSE: 489.29 mGy.cm FINDINGS: Mild emphysema is incidentally noted within the lower lungs. No pneumatosis, free air or portal gas is present. There is hepatic steatosis. Spleen, adrenal glands and kidneys are unremarkable. A subcentimeter right renal lesion favors a cyst. There is no hydronephrosis. There is no biliary or pancreatic ductal dilatation. Several pancreatic calcifications are present. Of note, the stomach is moderately distended. There is an air-fluid level within the stomach. The first and second portion the duodenum are also moderately distended. Distention is mildly decreased when compared to CT of June 11, 2023. Caliber change with wall thickening of the third portion the duodenum is noted. Mild adjacent stranding is present. A few prominent adjacent lymph nodes measure up to 9 x 8 mm. Distal duodenum is decompressed. The aortomesenteric distance is not significantly diminished. The sigmoid colon is redundant and mildly distended without evidence for a colonic obstruction. There is extensive aortoiliac atherosclerotic plaque. No evidence for a small bowel obstruction. IMPRESSION: 1. Distended moderately distended stomach and first and second portions of the duodenum with caliber change and wall thickening of the third portion of the duodenum. Similar pattern to CT of June 07, 2023, as described above. Mild adjacent stranding and a few prominent lymph nodes. Given stability, these nodes are likely reactive. The findings suggest a persistent/recurrent partial duodenal obstruction. Although nonspecific, an inflammatory etiology is favored. Given pancreatic parenchymal calcifications, paraduodenal pancreatitis is within the differential. A mucosal lesion cannot be excluded. If not already performed, correlation with endoscopy is recommended. 2. Redundant, distended sigmoid colon without evidence for a colonic obstruction. 3. Hepatic steatosis. ACT 112: Negative or not required by law. Electronically signed by: Morgan Alfred M.D. 02/26/2025 1:18 PM Discharge Plan Visit Data Chief Complaint: Abdominal Pain Stated Complaint: vomitting, dark emesis ED Provider: Pablo Nicholson Discharge Problem: Duodenal obstruction, Nausea & vomiting Patient Disposition: Admitted As Inpatient Condition: Fair Discharge Instructions Interventions: ED Discharge Assessment Last Done: 02/26/25 16:29
--- NOTE | 2025-02-26 15:38 | Gastrointestinal Consultation ---
Date of Consultation February 26, 2025 Assessment & Plan (1) Duodenal stricture: (2) Gastric outlet obstruction: Plan 54yowm with h/o duodenal stricture presenting with vomiting and findings consistent with gastric outlet syndrome. - Agree with admission to hospital - Continue with supportive care per primary team - Case reviewed with Dr. Lee, based on imaging patient may need decompressed prior to EGD. - We'll plan to f/u once admitted for consideration of EGD. Supervising Physician Co-Signing Physician Notes I saw and examined this patient with our nurse practitioner and agree with her assessment and plan. Recurrent duodenal obstruction of unclear etiology. He has been evaluated in the past with endoscopy and endoscopic ultrasound which failed to reveal any neoplastic process and had been symptom-free up until the last few days. Need to consider peptic ulcer disease less likely neoplasm in light of his recent workup. Also this could be functional although an unlikely presentation of duodenal dysmotility as opposed to gastroparesis. Would like to proceed with endoscopy to further assess the abnormalities noted on CT scan however he will need to have his stomach decompressed of fluid to reduce the risk of aspiration. This may occur spontaneously as patient is refusing drainage. Will recommend a repeat x-ray in the a.m. to see if his stomach is decompressed on its own. The patient n.p.o. for now. History of Present Illness Reason for Consultation: Gastric outlet obstruction Requesting Physician: ER physician. History of Present Illness 54yowm with h/o alcohol abuse, gastric outlet obstruction, esophagitis and gastritis is seen today for GI consult in [facility] per request of [facility] physician. Patient presented to [facility] ER with abdominal pain and vomiting that started on Monday. He reports that it initially started with acid and reflux symptoms. He tried treating with Folic acid x 2 which was ineffective. Then he got about 3-4 watery BMs on Monday. Patient reports that he threw up now about 30 x of yellow brown liquid. No blood or coffee grounds. CT scan abd/pelvis in ER was concerning for gastric outlet obstruction which lead to plans for admission. He denies any fevers, chills, weight loss, melena or hematochezia. I reviewed his past GI records from [facility] 05/2023 - Patient had diffuse gastritis and duodenal stenosis. EUS biopsies were unremarkable. We reviewed his family history - He denies any family history of pancrease, GI or liver issues. We reviewed his social history - He admits to NSAIDs once every 3-4 weeks. He drinks 5-7 beers a day. He's a current everyday smoker. No drugs or marijuana. Allergies Allergy/AdvReac Type Severity Reaction Status Date / Time No Known Allergies Allergy Unverified 01/21/25 14:07 Home Medications Medication Instructions Recorded Confirmed Type potassium chloride 20 mEq 20 meq PO DAILY #90 tabs 06/21/23 02/26/25 Rx tablet,extended release(part/cryst) cholecalciferol (vitamin D3) 25 50 mcg PO DAILY 06/28/23 02/26/25 History mcg (1,000 unit) capsule folic acid 1 mg tablet 1 mg PO DAILY #90 tabs 01/13/25 02/26/25 Rx fexofenadine 180 mg tablet 180 mg PO DAILY PRN Allergy 02/26/25 02/26/25 History Symptoms ibuprofen 200 mg tablet (Advil) 200 mg PO Q6H PRN Pain 02/26/25 02/26/25 History Patient History Medical History Closed fracture of acetabulum (03/19/13) RLL pneumonia JUAN (acute kidney injury) MRSA (methicillin resistant staph aureus) culture positive Bacteremia due to Klebsiella pneumoniae Septic shock Elevated troponin Alcohol abuse Acute respiratory failure with hypoxia Alcohol withdrawal Non-ST elevation [place] (NSTEMI) Family History Grandfather (Maternal) Cancer Brother Diabetes Social History Smoking Status: Current every day smoker Tobacco Type: Cigarettes Age Started Using Tobacco: 19; packs per day: 1; Cigarettes Per Day: 1 pack per day; Second Hand Exposure: No; Do You Dip or Chew Tobacco: No; Hx Alcohol Use: Yes Alcohol type: beer Hx Substance Use: No Preferred Language: Wallisian Communication Ability: Effective Sailing Instructor Required: Yes Beliefs That Will Affect Care: None marital status: Unknown Current Living Situation: Alone Current Living Situation Comment: lives with someone but did not disclose relationship current occupational status: employed Feels Safe at Home: Yes Assistive Devices: Glasses Review of Systems Review of Systems: See HPI Physical Exam Physical Exam: Constitutional: Patient is pleasant, alert answering questions appropriately and appears to be in no distress. Eyes: conjunctivae pink, anicteric sclerae. Respiratory: Breathing is even, non-labored. Lungs griffith are clear to auscult ation without wheezes, rhonchi or rales. Cardiovascular: Regular Rate and Rhythm, no murmurs, rubs or gallops appreciated. Gastrointestinal (Abdomen): Normoactive bowel sounds x4, soft, non-distended. + Mild tenderness in epigastric area. No rebound tenderness. Musculoskeletal: Patient lying comfortably. No cyanosis or clubbing is appreciated. No peripheral edema. Results & Data Vital Signs (Past 12 Hours) Vital Signs Temp Pulse Resp BP Pulse Ox O2 Del Method 02/26/25 14:30 87 17 120/86 97 02/26/25 14:09 82 21 118/86 98 02/26/25 13:30 78 14 131/93 98 02/26/25 13:30 77 19 131/93 98 02/26/25 13:00 81 18 130/99 98 Room Air 02/26/25 12:30 76 17 120/88 99 02/26/25 11:57 96 H 02/26/25 11:50 98.1 F 93 H 18 123/90 98 Room Air Laboratory Results 02/26/25 11:50 WBC 7.50 RBC 4.57 L Hgb 14.5 Hct 41.5 L MCV 90.8 MCH 31.7 MCHC 34.9 RDW Std Deviation 41.2 RDW Coeff of Tessy 12.5 Plt Count 107 L MPV 11.6 Immature Gran % (Auto) 0.5 Neut % (Auto) 65.8 Lymph % (Auto) 20.9 Ransom % (Auto) 10.7 Eos % (Auto) 1.3 Baso % (Auto) 0.8 Neut # (Auto) 4.93 Lymph # (Auto) 1.57 Ransom # (Auto) 0.80 H Eos # (Auto) 0.10 Baso # (Auto) 0.06 Immature Gran # (Auto) 0.04 Sodium 123 L Potassium 3.6 Chloride 84 L Carbon Dioxide 20 L Anion Gap 19 H BUN 9 Creatinine 0.69 Est Cr Clr Drug Dosing 107.2 eGFR 110.66 BUN/Creatinine Ratio 13.0 Glucose 93 Calcium 9.0 Total Bilirubin 1.3 H AST 49 H ALT 30 Alkaline Phosphatase 41 Total Protein 7.9 Albumin 3.8 Globulin 4.1 H Albumin/Globulin Ratio 0.9 Lipase 72 Diagnostic Findings Abdomen/Pelvis CT 02/26/25 12:22 CT SCAN OF THE ABDOMEN AND PELVIS WITH IV CONTRAST CLINICAL HISTORY: Nausea and vomiting. History of gastric outlet obstruction. COMPARISON STUDY: CT of the abdomen and pelvis June 07, 2023. TECHNIQUE: Following the IV administration of 93 cc of Optiray 320, CT scan of the abdomen and pelvis is performed from the lung bases to the proximal femora. Images are reviewed in the axial, sagittal, and coronal planes. IV contrast was administered without complication. A dose lowering technique was utilized adhering to the principles of ALARA. CT DOSE: 489.29 mGy.cm FINDINGS: Mild emphysema is incidentally noted within the lower lungs. No pneumatosis, free air or portal gas is present. There is hepatic steatosis. Spleen, adrenal glands and kidneys are unremarkable. A subcentimeter right renal lesion favors a cyst. There is no hydronephrosis. There is no biliary or pancreatic ductal dilatation. Several pancreatic calcifications are present. Of note, the stomach is moderately distended. There is an air-fluid level within the stomach. The first and second portion the duodenum are also moderately distended. Distention is mildly decreased when compared to CT of June 11, 2023. Caliber change with wall thickening of the third portion the duodenum is noted. Mild adjacent stranding is present. A few prominent adjacent lymph nodes measure up to 9 x 8 mm. Distal duodenum is decompressed. The aortomesenteric distance is not significantly diminished. The sigmoid colon is redundant and mildly distended without evidence for a colonic obstruction. There is extensive aortoiliac atherosclerotic plaque. No evidence for a small bowel obstruction. IMPRESSION: 1. Distended moderately distended stomach and first and second portions of the duodenum with caliber change and wall thickening of the third portion of the duodenum. Similar pattern to CT of June 07, 2023, as described above. Mild adjacent stranding and a few prominent lymph nodes. Given stability, these nodes are likely reactive. The findings suggest a persistent/recurrent partial duodenal obstruction. Although nonspecific, an inflammatory etiology is favored. Given pancreatic parenchymal calcifications, paraduodenal pancreatitis is within the differential. A mucosal lesion cannot be excluded. If not already performed, correlation with endoscopy is recommended. 2. Redundant, distended sigmoid colon without evidence for a colonic obstruction. 3. Hepatic steatosis. ACT 112: Negative or not required by law. Electronically signed by: Morgan Alfred M.D. 02/26/2025 1:18 PM PG Care Time/CCT Total # of Minutes Spent Total Time Spent with Patient: Total time spent is greater than 50% in coordination of care (as documented) at patient's floor/unit and/or counseling patient: Coding Level of Care Code 52326 IN/OBS CONSULT LVL 3,45M Diagnoses Duodenal stricture K31.5 Gastric outlet obstruction K31.1
--- NOTE | 2025-02-26 16:09 | History & Physical Report ---
Date of Service February 26, 2025 Assessment & Plan (1) Duodenal stricture: (2) Gastric outlet obstruction: (3) Alcohol abuse: (4) Hyponatremia: Plan # Intractable nausea vomiting and dehydrationappears to be due to gastric outlet obstruction. Interestingly he has had this for several years and notes that he gets flareups about every 2 years. Per his history and per chart review, in between it seems like he is fine. The etiology of the stricture is not clear, it has been scoped and biopsied in the past with no histologic features of sprue and no features of dysplasia or malignancy. Hopefully with supportive care we can get his symptoms to [place] and improve p.o. intake. N. p.o. for now, IV fluids for support, scheduled twice daily Pepcid and Protonix IV, scheduled Zofran for at least a day and then likely reduce to as needed. As needed Compazine for refractory nausea and vomiting, IV Tylenol or IV morphine for mild/moderate or severe pain, respectively. If he does not get better with supportive care, or if we cannot advance diet, then endoscopic workup seems warranted. As far as why his duodenal stricture seems to have flared up now, I do not have any acute reason for upper GI inflammation (no recent viral infection, no recent oral antibiotics, I did suggest that his alcohol intake may create inflammation, but also did admit that there would not really be a "why now" given that he drinks about the same all the time). #Hyponatremiadue to GI losses, possibly a degree due to beerpoto madai. He has been given a liter of saline in the ER, follow basic metabolic panel every 4 hours. Given his dehydration, we will rehydratewill utilize LR for now, and adjust his fluids based on the progress of his basic metabolic panel #alcohol abusethiamine, folate. Discussed that it may be at least a little bit playing a role in his GI inflammation/current flareup. Given that his p.o. intake has been very poor, I suspect he was drinking less over the last day or 2, and fortunately does not show any signs of withdrawal; at the same time, certainly he is at riskwill follow for alcohol withdrawal and treat if needed #DVT prophylaxisambulation History of Present Illness Chief Complaint: intractable nausea/vomiting Primary Care Provider: Burak Stevens, DO Intractable nausea and vomitinghe notes that about 2 days ago he started with feeling a lot of acid, where it would be backing up creating a lot of burning and a lot of stomach discomfort, as well as coughing and choking. This progressed into intractable nausea and vomiting yesterdayhe relates throwing up about 30 times. He is feeling weak and dehydrated, his stomach hurts. Mostly stomach seems to hurt from the vomiting. He has not eaten or drank anything differentbut also notes that from Monday through yesterday even before he started vomiting his p.o. intake had decreased quite a bit. While it was directed questioning, he notes that this does feel an awful lot like whenever he was admitted in May 2023interestingly he has not had any episodes of nausea vomiting abdominal pain of significance since. No changes in diet of note. Drinks 57 beers a day, although notes this has been chronic. No recent oral antibiotics. No recent viral illnesses. Allergies Allergy/AdvReac Type Severity Reaction Status Date / Time No Known Allergies Allergy Unverified 01/21/25 14:07 Home Medications Medication Instructions Recorded Confirmed Type potassium chloride 20 mEq 20 meq PO DAILY #90 tabs 06/21/23 02/26/25 Rx tablet,extended release(part/cryst) cholecalciferol (vitamin D3) 25 50 mcg PO DAILY 06/28/23 02/26/25 History mcg (1,000 unit) capsule folic acid 1 mg tablet 1 mg PO DAILY #90 tabs 01/13/25 02/26/25 Rx fexofenadine 180 mg tablet 180 mg PO DAILY PRN Allergy 02/26/25 02/26/25 History Symptoms ibuprofen 200 mg tablet (Advil) 200 mg PO Q6H PRN Pain 02/26/25 02/26/25 History Past Med/Surg History Problem List (Updated 02/26/25 @ 16:18 by Jon Tate DO) Hyponatremia Injury of ear canal Elevated lipase Duodenal stricture Hypokalemia Transaminitis (Acute) Gastric outlet obstruction Hypokalemia Acute dehydration (Acute) Acute hyponatremia (Acute) Acute hypokalemia (Acute) Elevated lactic acid level (Acute) Renal insufficiency Cardiomyopathy Hypomagnesemia Thrombocytopenia Hypophosphatemia Medical History Closed fracture of acetabulum (03/19/13) RLL pneumonia JUAN (acute kidney injury) MRSA (methicillin resistant staph aureus) culture positive Bacteremia due to Klebsiella pneumoniae Septic shock Elevated troponin Alcohol abuse Acute respiratory failure with hypoxia Alcohol withdrawal Non-ST elevation [place] (NSTEMI) Family History Grandfather (Maternal) Cancer Brother Diabetes Social History Smoking Status: Current every day smoker Tobacco Type: Cigarettes Age Started Using Tobacco: 19; packs per day: 1; Cigarettes Per Day: 1 pack per day; Second Hand Exposure: Yes; Do You Dip or Chew Tobacco: No; Hx Alcohol Use: No (No alcohol since 12/2022) Hx Substance Use: No Preferred Language: Icelandic Communication Ability: Effective Hand Spring Former Required: No Beliefs That Will Affect Care: None marital status: Unknown Current Living Situation: Alone Current Living Situation Comment: lives with someone but did not disclose relationship current occupational status: employed Feels Safe at Home: Yes Assistive Devices: Walker Review of Systems Review of Systems: All systems reviewed & are unremarkable except as noted in HPI & below Physical Exam Physical Exam: In general he is awake and alert oriented pleasant very fatigued no acute distress. HEENT normocephalic atraumatic mucous membranes slightly dry. Cardio is regular without rubs murmurs or gallops. Lungs are clear to auscultation bilaterally no rales rhonchi or wheeze with good effort. Abdomen soft nondistended he has a lot of epigastric tenderness but absolutely no guarding rebound or rigidity. Extremities show no cyanosis clear clubbing or edema his skin is quite dry. Neuro shows cranial nerves II through XII be grossly intact gross motor and sensory intact. Results & Data Results & Data Vital Signs (Past 12 Hours) Vital Signs Temp Pulse Resp BP Pulse Ox O2 Del Method 02/26/25 15:51 87 02/26/25 14:30 87 17 120/86 97 02/26/25 14:09 82 21 118/86 98 02/26/25 13:30 78 14 131/93 98 02/26/25 13:30 77 19 131/93 98 02/26/25 13:00 81 18 130/99 98 Room Air 02/26/25 12:30 76 17 120/88 99 02/26/25 11:57 96 H 02/26/25 11:50 98.1 F 93 H 18 123/90 98 Room Air Code Status & VTE Plan VTE Prophylaxis Plan VTE Prophylaxis will be ordered: Yes PG Care Time/CCT Total # of Minutes Spent Total Time Spent with Patient: Total time spent is greater than 50% in coordination of care (as documented) at patient's floor/unit and/or counseling patient: Coding Level of Care Code 32758 INT INP/OBS CARE 3/75MIN Diagnoses Duodenal stricture K31.5 Gastric outlet obstruction K31.1 Alcohol abuse F10.10 Hyponatremia E87.1
[2025-02-26] MEDS ORDERED: LORazepam 2 MG/1 ML VIAL IV PRN ×3 (16:47)
[2025-02-26] MEDS ORDERED: Ativan IV Alcohol Withdrawal--Active Protocol IV PRN (16:47)
[2025-02-26] MEDS: FOLIC ACID 1 MG in SYRINGE 9.8 ML IV SCH (17:12)
[2025-02-26] MEDS: THIAMINE HCL 100 MG in SYRINGE 9 ML IV STA (17:12)
[2025-02-26] MEDS: ONDANSETRON INJ 2 MG/ML 2 ML VIAL IV SCH (17:18)
[2025-02-26] MEDS: LACTATED RINGER'S 1,000 ML IV SCH (17:20)
[2025-02-26] MEDS: FAMOTIDINE 20MG IV PUSH 20 MG/5 ML SYR IV SCH (17:34)
[2025-02-26 17:43] LABS: BUN Creatinine Ratio 12.3 (10-20); Calcium 8.2 mg/dl (8.6-10.3); Creatinine Clr Calc Pharmacy 113.8 ml/min; Potassium 3.4 mmol/L (3.5-5.1)
[2025-02-26] MEDS: PANTOprazole 40 MG/10 ML SYR IV SCH (20:13)
[2025-02-26 21:14] LABS: BUN Creatinine Ratio 12.9 (10-20); Calcium 8.3 mg/dl (8.6-10.3); Creatinine Clr Calc Pharmacy 119.3 ml/min; Potassium 3.5 mmol/L (3.5-5.1)
[2025-02-27 01:00] LABS: BUN Creatinine Ratio 11.5 (10-20); Calcium 8.2 mg/dl (8.6-10.3); Creatinine Clr Calc Pharmacy 121.2 ml/min; Potassium 3.1 mmol/L (3.5-5.1)
[2025-02-27 06:31] LABS: Calcium 7.9 mg/dl (8.6-10.3); Creatinine Clr Calc Pharmacy 123.3 ml/min; Potassium 3.1 mmol/L (3.5-5.1)
[2025-02-27 06:33] LABS: Hematocrit (blood only) 34.7 % (42.0-52.0); Hemoglobin 12.2 g/dl (14.0-18.0); Mean Corpuscular Hemoglobin 31.9 pg (25.0-34.0); Mean Corpuscular Hgb Conc 35.2 g/dL (32.0-36.0); Mean Corpuscular Volume 90.8 fL (80.0-100.0); Mean Platelet Volume 11.2 fL (9.4-12.4); Platelet Count 82 K/uL (130-400); RDW Coefficient of Variation 12.4 % (11.5-14.5); RDW Standard Deviation 41.2 fL (36.4-46.3); Red Blood Count 3.82 M/uL (4.70-6.10); White Blood Count 4.65 K/ul (4.8-10.8)
[2025-02-27 07:09] LABS: Basophils # (auto) 0.07 K/uL (0.00-0.20); Basophils % (auto) 1.5 %; Eosinophils # (auto) 0.07 K/uL (0.00-0.50); Eosinophils % (auto) 1.5 %; Immature Granulocytes # (auto) 0.01 K/uL (0.01-0.20); Immature Granulocytes % (auto) 0.2 %; Lymphocytes # (auto) 0.61 K/uL (1.20-3.40); Lymphocytes % (auto) 13.1 %; Monocytes % (auto) 8.6 %; Neutrophils # (auto) 3.49 K/uL (1.40-6.50); Neutrophils % (auto) 75.1 %; Platelet Estimate Decreased (Normal)
[2025-02-27] MEDS: THIAMINE HCL 100 MG in SYRINGE 9 ML IV SCH (07:28)
[2025-02-27] MEDS: POTASSIUM CHLORIDE / WTR 10 MEQ/100 ML PLCT IV SCH (09:01)
[2025-02-27 10:01] LABS: BUN Creatinine Ratio 9.2 (10-20); Calcium 8.2 mg/dl (8.6-10.3); Creatinine Clr Calc Pharmacy 113.8 ml/min; Potassium 3.6 mmol/L (3.5-5.1)
--- NOTE | 2025-02-27 10:59 | Hospitalist Progress Note ---
Date of Service February 27, 2025 Assessment & Plan (1) Duodenal stricture: (2) Gastric outlet obstruction: (3) Hyponatremia: Plan #Duodenal Stricture - Etiology unknown, previous scopes and biopsies in the past had had no histological features/dysplasia/malignancy - Had had flares ups in the past, it is unclear what caused his current GI flare - CT abdomen:Distended moderately distended stomach and first and second portions of the duodenum with caliber change and wall thickening of the third portion of the duodenum. Similar pattern to CT of June 07, 2023, as described above. Mild adjacent stranding and a few prominent lymph nodes. Given stability, these nodes are likely reactive. The findings suggest a persistent/recurrent partial duodenal obstruction. Although nonspecific, an inflammatory etiology is favored. Given pancreatic parenchymal calcifications, paraduodenal pancreatitis is within the differential. A mucosal lesion cannot be excluded. If not already performed, correlation with endoscopy is recommended. - Abdominal X-ray shows s mild residual gaseous distention of the stomach, improved - Seen by GI, plan for repeat x-ray to see if his stomach is decompressed on its own, reassess for EGD. Patient n.p.o. for now. #Gastric Outlet Obstruction - Intractable nausea vomiting and dehydration - NPO - IV fluids - Pepcid BID and IV Protonix - Zofran PRN - Compazine for refractory n/v - Pantoprazole - IV Tylenol or Morphine PRN for pain - Imaging does not show evidence of new obstruction, plan for observation to monitor symptom progression #Hyponatremia - Likely in the setting of vomiting +/- beer potomania - Received a liter of saline in the ER - Manage hydration with LR - Repeat BMP Q4hrs - Sodium up-trending #Hypokalemia - Potassium chloride for hypokalemia #alcohol abusethiamine, folate - Monitor for any withdrawal symptoms - PRN Ativan - Thymine and folate supplementation - plan for discussion about alcohol/nutrition management #DVT prophylaxis - encourage ambulation Admission and Anticipated Discharge Date Admission Date: February 26, 2025 Supervising Physician Co-Signing Physician Notes I personally examined the patient and verified all [place] points of history and exam, discussed case, and agree with decision making with Dr Jennings and Erlin Ramírez MS2 feeling more or less the same, although no vomiting since he has been admitted. For EGD tomorrow. Vitals noted, in general he is awake and alert thin appearing but no distress. HEENT normocephalic atraumatic mucous membranes moist. Breathing unlabored no accessory muscle use good effort. Skin without rashes pallor or icterus. Neuro without focal deficits. Intractable nausea vomitingseems to relate to gastric outlet obstruction/duodenal stricture. Hydrate, acid suppression, supportive care, antiemetics, time gastric outlet obstruction/duodenal strictureetiology not clear was biopsied 2 years agono malignancy or inflammatory changes. Given his alcohol abuse history, I do wonder could he have had a duodenal ulcer that healed poorly and led to stricture and scarring? Alcohol abuse and severe malnutritiongiven that he notes no difficulty with p.o. intake in the 2 years since his prior hospitalization before his onset of symptom recurrence on Monday, I really do not think that his malnutrition relates to his gastric outlet obstruction/duodenal stricture, rather probably relates to alcohol abuse and getting most of his calories through beer intake. Fortunately no signs of withdrawal at this time. Will need to try to help diet counselor on cessation. Continue to supplement thiamine, B12, folate Subjective No acute events overnight, pt slept well. He feels about the same as yesterday. He is still is experiencing epigastric and lower abdominal pain. Pain is localized in his (midepigastric and mid abdominal) midline. Still has nausea but no vomiting. He has an appetite and is feeling a little light headed/weak this morning, in the setting of NPO and recent vomiting. Last bowl movement was 6/2, which was all diarrhea. He said that he has not been be getting up to go to the bathroom because of weakness; encouraged ambulation with assistance. No confusion, no headache, no chest pain, no calf pain. Physical Exam Physical Exam: General: Thin, moderately malnourish HEENT: Normocephalic, atraumatic, pale conjunctiva, dry mucous membranes, oral thrush noted CV: RRR, no murmurs, rubs, or gallops Resp: CTAB, no wheezing GI: Epigastric tenderness, mild tenderness to palpation around umbilicus, no rebound tenderness, no rigidity Extremities: Ecchymosis appreciated on arms, skin is dry, no pitting edema. Neuro: Alert, awake, and oriented Resident Activity Tracking Resident Involvement: Resident Care Provided Care Provided: Adult Hospital Medicine Resident Supervision Co-Signing Physician Notes I also saw the patient and confirmed [place] portions of the history and exam. I agree with the assessment and plan as written by student-Dr. Ramírez. Any c hanges or additions are summarized as follows: Subjective: Reports significant nausea and vomiting for past several days, mostly bilious, once slightly bloody. Still having the abd pain, describes it as periumbilical and radiating up, but n/v improved now. Denies CP, SOB, diarrhea or urinary sx. Does feel weak, and reports concern about being able to get out of bed. Exam: Appears frail/underweight, A&Ox3, MMM, nl conjunctiva, heart RRR with no m/r/g, lungs CTAB with normal WOB, abd soft nondistended mildly tender with voluntary guarding but no peritoneal signs, no focal neuro deficits, significant ecchymoses on arms, no rashes Duodenal stricture, gastric outlet obstruction: presented with intractable n/v, abd pain; CTAP showed gastric distension, duodenal obstruction. Reportedly his 3rd episode of sx from stricture/obstruction, each ~2y apart, no obvious cause behind current flare. Keep NPO. Continue protonix and pepcid. GI consulted; obtained XR, plan for EGD after more bowel rest & gastric decompression. EtOH abuse: reports 5-7 beers daily; last drink on ?; likely cause or contributing factor to malnutrition, stricture flare-up, and low cell counts; will supplement B12, thiamine, and folate (last levels Dec 2023 B12 sl low at 334) Electrolyte derangements: likely 2/2 malnutrition + GI losses. Pt asymptomatic. Initial Na 123 and K 3.1; improving with repletion, now 129 and 3.6; continue to monitor Ca Milton Jennings MD PGY-1, P[facility] FCM
--- NOTE | 2025-02-27 11:18 | Gastroenterology Progress Note ---
Date of Service February 27, 2025 Assessment & Plan (1) Duodenal stricture: (2) Gastric outlet obstruction: Plan 54yowm with h/o duodenal stricture presenting with vomiting and findings consistent with gastric outlet syndrome. - Continue with supportive care per primary team - Labs reviewed. H/H Stable. No leukocytosis. Lipase normal. Renal function stable. LFTs mildly elevated. - Patient states an "NG tube won't work", so we may need to give him a few days until he'd be able to have an EGD. - Xray of Abdomen ordered to assess for fluid/food retention. Report - There is mild residual gaseous distention of the stomach, improved. There is mild retained stool. No specific evidence of bowel obstruction seen. Urinary bladder is distended with retained contrast. No gross free air seen. - Xrays personally reviewed and interpreted by Dr. Lee. Recommend scheduling for EGD tomorrow. - Continue with NPO orders and maintenance IVF per primary team. Admission and Anticipated Discharge Date Admission Date: February 26, 2025 Supervising Physician Co-Signing Physician Notes I saw and examined this patient with our nurse practitioner and agree with her assessment and plan. Clinically feeling better less abdominal discomfort and distention. Repeat KUB today no evidence of significant gastric distention will proceed with endoscopy in a.m. Subjective 54yowm with h/o alcohol abuse, gastric outlet obstruction, esophagitis and gastritis is seen today for daily GI rounds. Seen aside Dr. Lee, Gastroenterology. Patient presented to [facility] ER with abdominal pain and vomiting CT scan abd/pelvis in ER was concerning for gastric outlet obstruction which lead to plans for admission. Patient reports that he threw up now about 30 x of yellow brown liquid. No blood or coffee grounds. Today he reports he continues to have epigastric discomfort with nausea. No vomiting. Review of Systems Review of Systems: See HPI Physical Exam Physical Exam: Exam completed by Dr. Lee. Gen NAD. Answering questions appropriately. Abd Soft NT BS + 4 Lungs CTA B anteriorly. Results & Data Results & Data Vital Signs (Past 12 Hours) Vital Signs Temp Pulse Resp BP Pulse Ox O2 Del Method 02/27/25 08:36 98.2 F 70 16 132/93 97 Room Air Laboratory Results 02/27/25 02/27/25 02/27/25 09:01 05:35 00:13 WBC 4.65 L RBC 3.82 L Hgb 12.2 L Hct 34.7 L MCV 90.8 MCH 31.9 MCHC 35.2 RDW Std Deviation 41.2 RDW Coeff of Tessy 12.4 Plt Count 82 L MPV 11.2 Immature Gran % (Auto) 0.2 Neut % (Auto) 75.1 Lymph % (Auto) 13.1 [place] % (Auto) 8.6 Eos % (Auto) 1.5 Baso % (Auto) 1.5 Neut # (Auto) 3.49 Lymph # (Auto) 0.61 L [place] # (Auto) 0.40 Eos # (Auto) 0.07 Baso # (Auto) 0.07 Immature Gran # (Auto) 0.01 Platelet Estimate Decreased L Sodium 129 L 128 L 126 L Potassium 3.6 3.1 L 3.1 L Chloride 93 L 94 L 93 L Carbon Dioxide 26 23 22 Anion Gap 10 11 11 BUN 6 6 7 Creatinine 0.65 0.60 0.61 Est Cr Clr Drug Dosing 113.8 123.3 121.2 eGFR 112.67 115.43 114.85 BUN/Creatinine Ratio 9.2 L 10.0 11.5 Glucose 95 95 96 Calcium 8.2 L 7.9 L 8.2 L Total Bilirubin AST ALT Alkaline Phosphatase Total Protein Albumin Globulin Albumin/Globulin Ratio Lipase 02/26/25 02/26/25 02/26/25 20:45 16:55 11:50 WBC 7.50 RBC 4.57 L Hgb 14.5 Hct 41.5 L MCV 90.8 MCH 31.7 MCHC 34.9 RDW Std Deviation 41.2 RDW Coeff of Tessy 12.5 Plt Count 107 L MPV 11.6 Immature Gran % (Auto) 0.5 Neut % (Auto) 65.8 Lymph % (Auto) 20.9 [place] % (Auto) 10.7 Eos % (Auto) 1.3 Baso % (Auto) 0.8 Neut # (Auto) 4.93 Lymph # (Auto) 1.57 [place] # (Auto) 0.80 H Eos # (Auto) 0.10 Baso # (Auto) 0.06 Immature Gran # (Auto) 0.04 Platelet Estimate Sodium 125 L 125 L 123 L Potassium 3.5 3.4 L 3.6 Chloride 91 L 91 L 84 L Carbon Dioxide 20 L 22 20 L Anion Gap 14 H 12 H 19 H BUN 8 8 9 Creatinine 0.62 0.65 0.69 Est Cr Clr Drug Dosing 119.3 113.8 107.2 eGFR 114.29 112.67 110.66 BUN/Creatinine Ratio 12.9 12.3 13.0 Glucose 97 91 93 Calcium 8.3 L 8.2 L 9.0 Total Bilirubin 1.3 H AST 49 H ALT 30 Alkaline Phosphatase 41 Total Protein 7.9 Albumin 3.8 Globulin 4.1 H Albumin/Globulin Ratio 0.9 Lipase 72 Of note - H/H Stable. No leukocytosis. Lipase normal. Renal function stable. LFTs mildly elevated. Diagnostic Findings Abdomen/Pelvis CT 02/26/25 12:22 CT SCAN OF THE ABDOMEN AND PELVIS WITH IV CONTRAST CLINICAL HISTORY: Nausea and vomiting. History of gastric outlet obstruction. COMPARISON STUDY: CT of the abdomen and pelvis June 07, 2023. TECHNIQUE: Following the IV administration of 93 cc of Optiray 320, CT scan of the abdomen and pelvis is performed from the lung bases to the proximal femora. Images are reviewed in the axial, sagittal, and coronal planes. IV contrast was administered without complication. A dose lowering technique was utilized adhering to the principles of ALARA. CT DOSE: 489.29 mGy.cm FINDINGS: Mild emphysema is incidentally noted within the lower lungs. No pneumatosis, free air or portal gas is present. There is hepatic steatosis. Spleen, adrenal glands and kidneys are unremarkable. A subcentimeter right renal lesion favors a cyst. There is no hydronephrosis. There is no biliary or pancreatic ductal dilatation. Several pancreatic calcifications are present. Of note, the stomach is moderately distended. There is an air-fluid level within the stomach. The first and second portion the duodenum are also moderately distended. Distention is mildly decreased when compared to CT of June 11, 2023. Caliber change with wall thickening of the third portion the duodenum is noted. Mild adjacent stranding is present. A few prominent adjacent lymph nodes measure up to 9 x 8 mm. Distal duodenum is decompressed. The aortomesenteric distance is not significantly diminished. The sigmoid colon is redundant and mildly distended without evidence for a colonic obstruction. There is extensive aortoiliac atherosclerotic plaque. No evidence for a small bowel obstruction. IMPRESSION: 1. Distended moderately distended stomach and first and second portions of the duodenum with caliber change and wall thickening of the third portion of the duodenum. Similar pattern to CT of June 07, 2023, as described above. Mild adjacent stranding and a few prominent lymph nodes. Given stability, these nodes are likely reactive. The findings suggest a persistent/recurrent partial duodenal obstruction. Although nonspecific, an inflammatory etiology is favored. Given pancreatic parenchymal calcifications, paraduodenal pancreatitis is within the differential. A mucosal lesion cannot be excluded. If not already performed, correlation with endoscopy is recommended. 2. Redundant, distended sigmoid colon without evidence for a colonic obstruction. 3. Hepatic steatosis. ACT 112: Negative or not required by law. Electronically signed by: Morgan Alfred M.D. 02/26/2025 1:18 PM Chest/Abdomen X-ray 02/27/25 11:14 XR abdomen 2V w PA chest CLINICAL HISTORY: Assess stomach content. F/U GOO prior to EGD COMPARISON STUDY: 01/07/2023 x-ray and CT scan yesterday FINDINGS: CHEST: Heart size and pulmonary vasculature are normal. There is stable moderate elevation of the left hemidiaphragm with stable atelectasis or scarring at the left lung base. No other consolidation or pleural effusion. No pneumothorax. ABDOMEN: There is mild residual gaseous distention of the stomach, improved. There is mild retained stool. No specific evidence of bowel obstruction seen. Urinary bladder is distended with retained contrast. No gross free air seen. IMPRESSION: 1. Mild gaseous gastric distention, improved. 2. Otherwise as described. ACT 112: Negative or not required by law. Electronically signed by: Luc Hunt M.D. 02/27/2025 12:24 PM PG Care Time/CCT Total # of Minutes Spent Total Time Spent with Patient: Total time spent is greater than 50% in coordination of care (as documented) at patient's floor/unit and/or counseling patient: Coding Level of Care Code 52445 SUB INP/OBS CARE 3/50MIN Diagnoses Duodenal stricture K31.5 Gastric outlet obstruction K31.1
--- NOTE | 2025-02-27 12:26 | XRay Report ---
XR abdomen 2V w PA chest CLINICAL HISTORY: Assess stomach content. F/U GOO prior to EGD COMPARISON STUDY: 01/07/2023 x-ray and CT scan yesterday FINDINGS: CHEST: Heart size and pulmonary vasculature are normal. There is stable moderate elevation of the lef t hemidiaphragm with stable atelectasis or scarring at the left lung base. No other consolidation or pleural effusion. No pneumothorax. ABDOMEN: There is mild residual gaseous distention of the stomach, improved. There is mild retained s tool. No specific evidence of bowel obstruction seen. Urinary bladder is distended with retained cont rast. No gross free air seen. IMPRESSION: 1. Mild gaseous gastric distention, improved. 2. Otherwise as described. ACT 112: Negative or not required by law. Electronically signed by: Luc Hunt M.D. 02/27/2025 12:24 PM
[2025-02-27 15:22] LABS: BUN Creatinine Ratio 9.2 (10-20); Calcium 7.9 mg/dl (8.6-10.3); Creatinine Clr Calc Pharmacy 113.8 ml/min
--- NOTE | 2025-02-27 17:38 | Billing Data ---
Date of Service February 27, 2025 Coding Level of Care Code 45927 SUB INP/OBS CARE MIN
[2025-02-27] MEDS: ACETAMINOPHEN 1,000 MG/100 ML VIAL IV PRN (20:20)
[2025-02-28] MEDS: PROCHLORPERAZINE 5 MG in SYRINGE 4 ML IV PRN (02:44)
[2025-02-28 06:45] LABS: Hematocrit (blood only) 34.9 % (42.0-52.0); Hemoglobin 11.8 g/dl (14.0-18.0); Mean Corpuscular Hemoglobin 31.7 pg (25.0-34.0); Mean Corpuscular Hgb Conc 33.8 g/dL (32.0-36.0); Mean Corpuscular Volume 93.8 fL (80.0-100.0); Mean Platelet Volume 11.2 fL (9.4-12.4); Platelet Count 74 K/uL (130-400); RDW Coefficient of Variation 12.4 % (11.5-14.5); RDW Standard Deviation 43.2 fL (36.4-46.3); Red Blood Count 3.72 M/uL (4.70-6.10); White Blood Count 3.59 K/ul (4.8-10.8)
[2025-02-28 07:01] LABS: BUN Creatinine Ratio 8.1 (10-20); Calcium 7.9 mg/dl (8.6-10.3); Creatinine Clr Calc Pharmacy 119.3 ml/min; Potassium 3.6 mmol/L (3.5-5.1)
--- NOTE | 2025-02-28 08:51 | History & Physical Bridge Note ---
Date of Service February 28, 2025 History & Physical Bridge Note I have examined the patient, reviewed the History & Physical and in the interval since the performance of the History & Physical I have noted the following changes of clinical significance: no changes noted. Patient completed NPO for EGD for GOO. No concerns. Plan to continue with EGD as scheduled. Supervising Physician Co-Signing Physician Notes I saw and examined this patient with our nurse practitioner and agree with her assessment and plan. Will proceed with endoscopy to further evaluate possible outlet obstruction.
--- NOTE | 2025-02-28 09:44 | Hospitalist Progress Note ---
Date of Service February 28, 2025 Assessment & Plan (1) Duodenal stricture: (2) Gastric outlet obstruction: (3) Hyponatremia: Plan #Duodenal Stricture - Etiology unknown, previous scopes and biopsies in the past had had no histological features/dysplasia/malignancy - Had had flares ups in the past, it is unclear what caused his current GI flare - CT abdomen:Distended moderately distended stomach and first and second portions of the duodenum with caliber change and wall thickening of the third portion of the duodenum. Similar pattern to CT of June 07, 2023, as described above. Mild adjacent stranding and a few prominent lymph nodes. - Abdominal X-ray shows mild residual gaseous distention of the stomach, improved - Seen by GI, plan for repeat x-ray to see if his stomach is decompressed on its own, reassess for EGD. Patient n.p.o. for now. #Gastric Outlet Obstruction - Intractable nausea vomiting and dehydration - Pepcid BID and IV Protonix and Famotidine - Zofran PRN - Compazine for refractory n/v - IV Tylenol or Morphine PRN for pain - Imaging does not show evidence of new obstruction, plan for observation to monitor symptom progression - GI consulted, EGD scheduled for today 02/28 #Hyponatremia - Likely in the setting of vomiting +/- beer potomania - Received a liter of saline in the ER - Manage hydration with LR - Repeat BMP Q4hrs - Sodium up-trending #Hypokalemia - Potassium chloride for hypokalemia #alcohol abusethiamine, folate - Monitor for any withdrawal symptoms - PRN Ativan - Thymine and folate supplementation - plan for discussion about alcohol/nutrition management #DVT prophylaxis - encourage ambulation Admission and Anticipated Discharge Date Admission Date: February 26, 2025 Supervising Physician Co-Signing Physician Notes I personally examined the patient and verified all [place] points of history and exam, discussed case, and agree with decision making with Dr Jennings and Erlin Ramírez MS2 Resting at the time I see him. Given that he is for EGD later in the day (discussed with GI afterwards) and he was finally comfortable, I allowed him to sleep. Vitals noted, in general he was resting comfortably in bed appeared in no distress. HEENT normocephalic atraumatic, Breathing unlabored no accessory muscle use, skin without rashes pallor or icterus. Intractable nausea vomitingseems to relate to gastric outlet obstruction/duodenal stricture. Hydrate, acid suppression, supportive care, antiemetics, timeAfter EGD clearly also related to diffuse gastritis and esophagitiscontinue same plan. gastric outlet obstruction/duodenal strictureetiology not clear was biopsied 2 years agono malignancy or inflammatory changes. Given his alcohol abuse histor y, I do wonder could he have had a duodenal ulcer that healed poorly and led to stricture and scarring? His current degree of inflammation on scope makes this certainly seem possiblebiopsies are pending. Alcohol abuse and severe malnutritiongiven that he notes no difficulty with p.o. intake in the 2 years since his prior hospitalization before his onset of symptom recurrence on Monday, I really do not think that his malnutrition relates to his gastric outlet obstruction/duodenal stricture, rather probably relates to alcohol abuse and getting most of his calories through beer intake. Fortunately no signs of withdrawal at this time. Will need to try to help counseling services director on cessation. Continue to supplement thiamine, B12, folate Subjective His epigastric pain and abdominal pain have increased since yesterday and has moved to his lower left and right quadrants. Has some relief of heartburn after Protonix. He had 3 small bowel movements overnight of liquid diarrhea He has an appetite, and feels very weak with with some dizziness and lightheaded when he ambulates. He is anxious for a diet. Continued nausea, no vomiting. No FENTON, SOB, chest pain/tightness, hematuria, Review of Systems Review of Systems: Negative as per HPI Physical Exam Physical Exam: General: Thin, moderately malnourished HEENT: Normocephalic, atraumatic, pale conjunctiva, dry mucous membranes, oral thrush noted CV: RRR, no murmurs, rubs, or gallops Resp: Non labored breathing, no wheezing, slight crackles noted in the lower right base. GI: Epigastric tenderness, tenderness to palpation around umbilicus, LLQ and LRQ. No rebound tenderness, no rigidity . Extremities: Ecchymosis appreciated on arms, skin is dry, no pitting edema. Neuro: Alert, awake, and oriented Results & Data Results & Data Vital Signs (Past 12 Hours) Vital Signs Temp Pulse Resp BP Pulse Ox O2 Del Method 02/28/25 07:17 36.8 C 58 L 16 134/84 98 Room Air 02/27/25 20:29 36.8 C 62 17 111/76 97 Room Air Resident Activity Tracking Resident Involvement: Resident Care Provided Care Provided: Adult Hospital Medicine Resident Supervision Co-Signing Physician Notes I also saw the patient and confirmed [place] portions of the history and exam. I agree with the assessment and plan as written by student-Dr. Ramírez. Any changes or additions are summarized as follows: Subjective: Reports still having abd pain and nausea, no significant improvement since admission. No emesis. +BM. Denies CP, SOB, diarrhea or urinary sx. Still weak, reports concern about being able to get out of bed. Exam: Thin, frail, A&Ox3, MMM, nl conjunctiva, heart RRR with no m/r/g, lungs CTAB with normal WOB, abd soft nondistended mildly tender with voluntary guarding but no peritoneal signs, no focal neuro deficits, ecchymoses on arms, no rashes Duodenal stricture, gastric outlet obstruction: presented with intractable n/v, abd pain; CTAP showed gastric distension, duodenal obstruction. Reportedly his 3rd episode of sx from stricture/obstruction, each ~2y apart, no obvious cause behind current flare. Has been NPO. Still having pain but not requiring morphine. GI consulted; plan for EGD today. Continue protonix and pepcid. EtOH abuse: reports 5-7 beers daily; likely cause or contributing factor to malnutrition, stricture flare-up, and low cell counts. Continue to supplement B12, thiamine, and folate (last levels Dec 2022) Electrolyte derangements: likely 2/2 malnutrition + GI losses. Pt asymptomatic. Initial Na 123 and K 3.1; improving with repletion, now 131 and 3.6; continue to monitor Ca. Milton Jennings MD PGY-1, PSH FCM
[2025-02-28] MEDS: MoRPHine SULFATE 4 MG/ML 1 ML CARP\\VIAL IV PRN (10:52)
[2025-02-28] MEDS ORDERED: PROPOFOL IV EMULSION 10 MG/ML 20 ML VIAL IV ONE (13:12)
[2025-02-28] MEDS ORDERED: ONDANSETRON INJ 2 MG/ML 2 ML VIAL ONE (13:12)
[2025-02-28] MEDS ORDERED: LIDOCAINE 2% 2 ML VIAL/AMP(20MG/ML) INFIL ONE (13:12)
[2025-02-28] MEDS ORDERED: SUCCINYLCHOLINE CHLORIDE 20 MG/ML 10 ML VIAL IV ONE (13:12)
[2025-02-28] MEDS ORDERED: fentaNYL citrate PF 100 MCG/2 ML VIAL ONE (13:12)
--- NOTE | 2025-02-28 13:12 | Anesthesiology Consultation ---
Date of Service February 28, 2025 Assessment & Plan Chart Review Chart Review: Acceptable Risk for Surgery ASA ASA3 Proposed Anesthesia Anesthesia Type: General Risk / Benefits Reviewed With: PT / POA / Parent / Guardian, Accepts Plan and Informed Consent Obtained History Surgery Operation Date: 02/28/25 08:20 Proposed Procedures p Esophagogastroduodenoscopy - Damon Lee MD Height/Weight Height: 6 ft 3 in Weight: 61.2 kg Allergies Allergy/AdvReac Type Severity Reaction Status Date / Time No Known Allergies Allergy Unverified 01/21/25 14:07 Medications Home Medications Medication Instructions Recorded Confirmed Last Taken potassium chloride 20 mEq 20 meq PO DAILY #90 tabs 06/21/23 02/26/25 Unknown tablet,extended release(part/cryst) cholecalciferol (vitamin D3) 25 50 mcg PO DAILY 06/28/23 02/26/25 Unknown mcg (1,000 unit) capsule folic acid 1 mg tablet 1 mg PO DAILY #90 tabs 01/13/25 02/26/25 Unknown fexofenadine 180 mg tablet 180 mg PO DAILY PRN Allergy 02/26/25 02/26/25 Unknown Symptoms ibuprofen 200 mg tablet (Advil) 200 mg PO Q6H PRN Pain 02/26/25 02/26/25 Unknown Active Medications Generic Name Dose Route Start Last Admin Trade Name Ismaq PRN Reason Stop Dose Admin Lactated Ringer's 1,000 mls @ 125 mls/hr 02/26/25 16:47 02/28/25 10:39 Lr IV 03/01/25 16:46 80 mls/hr .Q8H JOMAR Administration Acetaminophen 1,000 mg in 100 mls @ 400 mls/hr 02/26/25 16:47 02/27/25 20:37 Ofirmev IV 03/01/25 16:46 Infused Q8H PRN Infusion pain - mild/moderate Famotidine 20 mg in 5 mls @ 2.5 mls/min 02/26/25 18:00 02/28/25 07:48 Pepcid 20mg Iv Push IV 03/28/25 17:59 2.5 mls/min Q12H JOMAR Administration Prochlorperazine 5 mg/ Syringe 5 mls @ 5 mls/min 02/26/25 16:47 02/28/25 10:40 IV 03/28/25 16:46 5 mls/min Q6H PRN Administration Nausea And Vomiting Folic Acid 1 mg/ Syringe 10 mls @ 5 mls/min 02/26/25 17:00 02/28/25 08:35 IV 03/28/25 16:59 5 mls/min QAM JOMAR Administration Pantoprazole Sodium 40 mg in 10 mls @ 5 mls/min 02/26/25 21:00 02/28/25 08:34 Protonix IV 03/28/25 20:59 5 mls/min BID JOMAR Administration Thiamine HCl 100 mg/ Syringe 10 mls @ 2 mls/min 02/27/25 09:00 02/28/25 08:35 IV 03/29/25 08:59 2 mls/min QAM JOMAR Administration Morphine Sulfate 4 mg 02/26/25 16:47 02/28/25 10:52 Morphine Sulfate 4 Mg/Ml 1 Ml Carp\Vial IV 03/12/25 16:46 4 mg Q4H PRN Administration Pain - severe Ondansetron HCl 4 mg 02/26/25 17:00 02/28/25 12:46 Ondansetron Inj 2 Mg/Ml 2 Ml Vial IV 03/28/25 16:59 4 mg Q6H JOMAR Administration NPO Date Last Intake of Fluids: 02/28/25 Time Last Intake of Fluids: 08:00 Date Last Intake of Solids: 02/23/25 Time Last Intake of Solids: 08:00 Past Medical History Medical History Closed fracture of acetabulum (03/19/13) RLL pneumonia JUAN (acute kidney injury) MRSA (methicillin resistant staph aureus) culture positive Bacteremia due to Klebsiella pneumoniae Septic shock Elevated troponin Alcohol abuse Acute respiratory failure with hypoxia Alcohol withdrawal Non-ST elevation NV (NSTEMI) Exercise / Class Metabolic Activity III < 4 Walking/Shop/Light housework Past Family History Family History Grandfather (Maternal) Cancer Brother Diabetes Past Anesthesia History No Hx of Anesthesia Complications and No Family Hx of Anesthesia Complications History of PONV No Hx of PONV and No Hx of Motion Sickness Social History Smoking Status: Current every day smoker tobacco type: cigarettes Smoking cigarettes per day: 1 pack per day Do You Dip or Chew Tobacco: No Hx Alcohol Use: Yes Alcohol type: beer alcohol intake frequency: 3 or more drinks per day Hx Substance Use: No Physical Exam Vital Signs Last Vital Signs Temp 37.2 C 02/28/25 12:58 Pulse 54 L 02/28/25 12:58 Resp 16 02/28/25 12:58 BP 132/91 02/28/25 12:58 Pulse Ox 99 02/28/25 12:58 O2 Del Method Room Air 02/28/25 12:58 Constitutional + cachectic; no acute distress ENMT Mouth: + poor dentition and + chipped teeth; no TMJ abnormality Thyromental Distance: > or= 3.5 Finger Breadths Mallampati Class: I Neck normal visual inspection and + facial hair Respiratory normal respiratory effort and + respiratory distress Auscultation: lungs clear to auscultation bilaterally and + breath sounds absent Cardiovascular Rate/Rhythm: regular rate and regular rhythm Neurologic moves all extremities Psychiatric Orientation: alert and oriented x 3 Testing Laboratory Results 02/28/25 06:02 02/28/25 06:02 Electrocardiogram Date: 01/06/23 Findings: + ST @ Chest X-Ray Date: 01/06/25 Findings: + pleural effusion Echocardiogram Date: 08/25/22 EF: 40-50% LV Function: normal Other Findings: + pertinent finding (RVSP 40-50mmHg)
[2025-02-28] MEDS ORDERED: ePHEDrine sulfate 50 MG/ML AMP IV PRN (14:02)
[2025-02-28] MEDS ORDERED: ATROPINE SULFATE 0.1 MG/ML 10ML SYR IV PRN (14:02)
--- NOTE | 2025-02-28 14:03 | GI REPORT ---
[facility] Patient: MICHELL BRUNNER : 1970 Sex at : Male Age: 54 Years Procedure: Upper GI endoscopy Date: 02/28/2025 Attending Physician: Damon Lee MD Referring MD: Referred Self; Jon Tate Indications: - Epigastric abdominal pain - Duodenal outlet obstruction Medications: - Monitored Anesthesia Care Complications: - No immediate complications. Procedure: - Prior to the procedure, a History and Physical was performed, and patient medications and allergies were reviewed. The patient's tolerance of previous anesthesia was also reviewed. The risks and benefits of the procedure and the sedation options and risks were discussed with the patient. All questions were answered, and informed consent was obtained. [Anticoagulant Agents] [Days Prior to Procedure]. [ASA Grade]. After reviewing the risks and benefits, the patient was deemed in satisfactory condition to undergo the procedure. - The egd scope was introduced through the mouth and advanced to the third part of the duodenum. - The upper GI endoscopy was accomplished without difficulty. - The patient tolerated the procedure well. Findings: - LA Grade D (one or more mucosal breaks involving at least 75% of esophageal circumference) esophagitis with no bleeding was found in the entire esophagus. Biopsies were taken with a cold forceps for histology. - Diffuse severe inflammation characterized by erythema and friability was found in the entire examined stomach. Biopsies were taken with a cold forceps for histology. - Diffuse severe mucosal changes characterized by erythema, congestion, nodularity and friability (with contact bleeding) were found in the entire duodenum. Biopsies were taken with a cold forceps for histology. - An acquired benign-appearing, intrinsic moderate stenosis was found in the third portion of the duodenum and was traversed. Biopsies were taken with a cold forceps for histology. Impression: - LA Grade D esophagitis with no bleeding. Biopsied. - Gastritis, characterized by erythema and friability. Biopsied. - Mucosal changes in the duodenum. Biopsied. - Acquired duodenal stenosis. Biopsied. Recommendation: - Resume previous diet. - Patient has a contact number available for emergencies. The signs and symptoms of potential delayed complications were discussed with the patient. Return to normal activities tomorrow. Written discharge instructions were provided to the patient. Procedure Code(s): - 58495, Esophagogastroduodenoscopy, flexible, transoral; with biopsy, single or multiple Diagnosis Code(s): - R10.13, Epigastric pain - K20.90, Esophagitis, unspecified without bleeding - K29.70, Gastritis, unspecified, without bleeding - K31.89, Other diseases of stomach and duodenum - K31.5, Obstruction of duodenum CPT(R) - 2022 copyright [employer]. All Rights Reserved. The CPT codes, CCI edits and ICD codes generated are intended as suggestions and were generated based on input data. These codes are preliminary and upon case mgr review may be revised to meet current compliance and payer requirements. The provider is responsible for the final determination of appropriate codes, and modifiers. Damon Lee MD This document has been electronically signed. Note Initiated:02/28/2025 Note Completed:02/28/2025 2:03 PM \\[email or web address]\[email or web address]\[id number]
--- NOTE | 2025-02-28 14:27 | Anesthesiology Progress Note ---
Date of Service February 28, 2025 Anesthesia Post Procedure Vital Signs Vital Signs: Temp Pulse Pulse Resp BP Pulse Ox O2 Del Method 02/28/25 14:25 75 15 163/95 H 97 Room Air 02/28/25 14:15 64 15 143/93 H 97 Room Air 02/28/25 14:07 36.4 C L 77 19 149/99 H 97 Room Air 02/28/25 12:58 37.2 C 54 L 16 132/91 99 Room Air 02/28/25 07:17 36.8 C 58 L 16 134/84 98 Room Air 02/27/25 20:29 36.8 C 62 17 111/76 97 Room Air 02/27/25 15:04 36.8 C 79 16 125/86 98 Room Air Pain Intensity Abdomen: Pain Intensity: 7 Transfer of Care Handoff Completed per policy Notes Mental Status: alert / awake / arousable Patient Amnestic to Procedure: Yes Nausea / Vomiting: adequately controlled Pain: adequately controlled Airway Patency, RR, SpO2: stable & adequate BP & HR: stable & adequate Hydration State: stable & adequate Anesthetic Complications: no major complications apparent and Pt Satisfied with anesthetic care
--- NOTE | 2025-02-28 19:22 | Billing Data ---
Date of Service February 28, 2025 Coding Level of Care Code 25952 SUB INP/OBS CARE
[2025-02-28] MEDS: ONDANSETRON INJ 2 MG/ML 2 ML VIAL IV PRN (21:51)
[2025-03-01 06:40] LABS: Hematocrit (blood only) 33.5 % (42.0-52.0); Hemoglobin 11.4 g/dl (14.0-18.0); Mean Corpuscular Hemoglobin 31.9 pg (25.0-34.0); Mean Corpuscular Volume 93.8 fL (80.0-100.0); Mean Platelet Volume 11.5 fL (9.4-12.4); Platelet Count 74 K/uL (130-400); RDW Coefficient of Variation 12.3 % (11.5-14.5); RDW Standard Deviation 42.4 fL (36.4-46.3); Red Blood Count 3.57 M/uL (4.70-6.10); White Blood Count 3.63 K/ul (4.8-10.8)
[2025-03-01 06:54] LABS: Calcium 7.7 mg/dl (8.6-10.3); Creatinine Clr Calc Pharmacy 123.3 ml/min
--- NOTE | 2025-03-01 07:04 | Hospitalist Progress Note ---
Date of Service March 01, 2025 Assessment & Plan (1) Duodenal stricture: (2) Gastric outlet obstruction: (3) Hyponatremia: Plan Pt is a 54 yo male with a PMH of alcohol abuse and NSTEMI who presented with intractable nausea vomiting and dehydration. Pt has history of GI disturbances and found to have strictures at duodenum in 2022. Imaging in ED demonstrated mild gaseous distension as well as similar thickening of duodenum. Pt admitted for GI consult and further testing to determine of current symptoms as well as resolve dehydration and electrolyte imbalances. #Duodenal Stricture/Gastric Outlet Obstruction - Etiology unknown, previous scopes and biopsies in the past had had no histological features/dysplasia/malignancy - Had had flares ups in the past, it is unclear what caused his current GI flare - CT abdomen:Distended moderately distended stomach and first and second portions of the duodenum with caliber change and wall thickening of the third portion of the duodenum. Similar pattern to CT of June 07, 2023, as described above. Mild adjacent stranding and a few prominent lymph nodes. - Abdominal X-ray shows mild residual gaseous distention of the stomach, improved - Pepcid BID and IV Protonix and Famotidine - Zofran PRN - Compazine for refractory n/v - IV Tylenol or Morphine PRN for pain - Imaging does not show evidence of new obstruction, plan for observation to monitor symptom progression - GI consulted, EGD completed 02/28. Recommendations appreciated: EGD found Grade D esophagitis without bleeding, gastritis, and duodenal mucosal changes with acquired stenosis Multiple biopsies were taken, anticipate results on 03/03 Continue on clear liquid diet until biopsy results return - Progress diet per tolerance #Hyponatremia - Likely in the setting of vomiting +/- beer potomania - Received a liter of saline in the ER - Manage hydration with LR - Repeat BMP Q4hrs - Sodium continues up-trending #Hypokalemia - 3.0 today, ordered 40mEq IV - Will recheck level at 1300 #Alcohol abusethiamine, folate - Monitor for any withdrawal symptoms - PRN Ativan - Thymine and folate supplementation - plan for discussion about alcohol/nutrition management DVT prophylaxis: encourage ambulation Diet: clears-progress as tolerated Code status: DNR/DNI Admission and Anticipated Discharge Date Admission Date: February 26, 2025 Supervising Physician Co-Signing Physician Notes I personally examined the patient and verified all [place] points of history and exam, discussed case, and agree with decision making with Dr Sesay feeling ok - tolerated clears well and would like more substantial food. awaiting biopsy. Vitals noted, in general he was resting comfortably in bed appeared in no distress. HEENT normocephalic atraumatic, Breathing unlabored no accessory muscle use, skin without rashes pallor or icterus. Intractable nausea vomitingdiffuse gastritis/esophagitis - bx pending. pepcid,protonix,antiemetics gastric outlet obstruction/duodenal strictureetiology not clear, biopsies pending Alcohol abuse and severe malnutritiongiven that he notes no difficulty with p.o. intake in the 2 years since his prior hospitalization before his onset of symptom recurrence on Monday, I really do not think that his malnutrition relates to his gastric outlet obstruction/duodenal stricture, rather probably relates to alcohol abuse and getting most of his calories through beer intake. i do worry that his upper gi inflammation and possibly stricture relate to etoh abuse. Fortunately no signs of withdrawal at this time. Will need to try to help counseling director on cessation. Continue to supplement thiamine, B12, folate Subjective Pt reports he continues with nausea, abdominal and central chest pain that is tender to palpation. He denies SOB, vomiting, recent BM, FENTON, or dysuria. Pt reports having an appetite, but wishes he could eat more than broth and jello. He spoke with GI physician this morning. Review of Systems Review of Systems: Negative as per HPI Physical Exam Physical Exam: General: Thin, moderately malnourished HEENT: Normocephalic, atraumatic, pale conjunctiva, Moist mucous membranes CV: RRR, no murmurs, rubs, or gallops Resp: Non labored breathing, no wheezing or crackles noted. GI: Non distended, soft, but significant tenderness to palpation diffusely throughout abdomen. No rebound tenderness, no rigidity . Extremities: Ecchymosis appreciated on arms and upper chest, skin is dry, no pitting edema. Neuro: Alert, awake, and oriented Results & Data Results & Data Vital Signs (Past 12 Hours) Vital Signs Temp Pulse Resp BP Pulse Ox O2 Del Method 02/28/25 19:24 36.4 C L 84 18 116/79 98 Room Air Resident Activity Tracking Resident Involvement: Resident Care Provided Care Provided: Adult Hospital Medicine
[2025-03-01] MEDS: POTASSIUM CHLORIDE / WTR 10 MEQ/100 ML PLCT IV SCH (07:25)
--- NOTE | 2025-03-01 07:54 | Gastroenterology Progress Note ---
Date of Service March 01, 2025 Assessment & Plan (1) Duodenal obstruction: Plan: Endoscopy revealed severe erosive esophagitis, diffuse gastritis duodenitis and luminal narrowing in the third portion of duodenum suspect related to inflammation intrinsically. Multiple biopsies taken which are pending. Etiology is unclear. Can maintain him on clear liquids for now and await pathology results hopefully will be back on Monday. Continue IV PPI of esophagitis. Admission and Anticipated Discharge Date Admission Date: February 26, 2025 Subjective Tolerated some clear liquids last night but still with abdominal discomfort. No nausea or vomiting. Physical Exam Physical Exam: No acute distress Respiratory rate regular Cardiac rhythm regular Abdomen soft mild epigastric tenderness Results & Data Results & Data Vital Signs (Past 12 Hours) Vital Signs Temp Pulse Resp BP Pulse Ox O2 Del Method 03/01/25 07:12 36.5 C 65 16 123/83 98 Room Air PG Care Time/CCT Total # of Minutes Spent Total Time Spent with Patient: Total time spent is greater than 50% in coordination of care (as documented) at patient's floor/unit and/or counseling patient: Coding Level of Care Code 12553 SUB INP/OBS CARE 2/35MIN Diagnoses Duodenal obstruction K31.5
--- NOTE | 2025-03-01 17:18 | Billing Data ---
Date of Service March 01, 2025 Coding Level of Care Code 17714 SUB INP/OBS CARE MIN
[2025-03-01] MEDS: ACETAMINOPHEN 500 MG TAB PO PRN (21:23)
[2025-03-02 06:27] LABS: Hematocrit (blood only) 35.1 % (42.0-52.0); Hemoglobin 11.7 g/dl (14.0-18.0); Mean Corpuscular Hemoglobin 31.7 pg (25.0-34.0); Mean Corpuscular Hgb Conc 33.3 g/dL (32.0-36.0); Mean Corpuscular Volume 95.1 fL (80.0-100.0); Mean Platelet Volume 11.5 fL (9.4-12.4); Platelet Count 74 K/uL (130-400); RDW Coefficient of Variation 12.2 % (11.5-14.5); RDW Standard Deviation 42.5 fL (36.4-46.3); Red Blood Count 3.69 M/uL (4.70-6.10); White Blood Count 2.98 K/ul (4.8-10.8)
[2025-03-02 06:55] LABS: BUN Creatinine Ratio 3.1 (10-20); Creatinine Clr Calc Pharmacy 115.5 ml/min; Potassium 3.5 mmol/L (3.5-5.1)
--- NOTE | 2025-03-02 07:09 | Hospitalist Progress Note ---
Date of Service March 02, 2025 Assessment & Plan (1) Duodenal stricture: (2) Gastric outlet obstruction: (3) Hyponatremia: Plan Pt is a 54 yo male with a PMH of alcohol abuse and NSTEMI who presented with intractable nausea vomiting and dehydration. Pt has history of GI disturbances and found to have strictures at duodenum in 2022. Imaging in ED demonstrated mild gaseous distension as well as similar thickening of duodenum. Pt admitted for GI consult and further testing to determine of current symptoms as well as resolve dehydration and electrolyte imbalances. #Duodenal Stricture/Gastric Outlet Obstruction - Etiology unknown, previous scopes and biopsies in the past had had no histological features/dysplasia/malignancy - Had had flares ups in the past, it is unclear what caused his current GI flare - CT abdomen:Distended moderately distended stomach and first and second portions of the duodenum with caliber change and wall thickening of the third portion of the duodenum. Similar pattern to CT of June 07, 2023, as described above. Mild adjacent stranding and a few prominent lymph nodes. - Abdominal X-ray shows mild residual gaseous distention of the stomach, improved - Transition to PO Protonix and Famotidine BID - Zofran PRN - Compazine for refractory n/v - PO Tylenol or IV Morphine PRN for pain - GI consulted, EGD completed 02/28. Recommendations appreciated: EGD found Grade D esophagitis without bleeding, gastritis, and duodenal mucosal changes with acquired stenosis Multiple biopsies were taken, anticipate results on 03/03 Continue on clear liquid diet until biopsy results return - IV fluids stopped at 1600 on 03/01. Pt maintaining hydration on po - Pt has transitioned self to regular diet, tolerating fairly well. Will continue to monitor. #Hyponatremia - Likely in the setting of vomiting +/- beer potomania - Received a liter of saline in the ER - Manage hydration with po - Sodium has normalized #Hypokalemia - Improved 3.0 to 3.4 after IV KCl 40mEq on 03/01 - K+ is 3.5 today - Continue to monitor with BMP #Alcohol abusethiamine, folate - Monitor for any withdrawal symptoms - PRN Ativan - PO Thymine and folate supplementation - plan for discussion about alcohol/nutrition management DVT prophylaxis: encourage ambulation Diet: regular per pt tolerance Code status: DNR/DNI Admission and Anticipated Discharge Date Admission Date: February 26, 2025 Supervising Physician Co-Signing Physician Notes I personally examined the patient and verified all [place] points of history and exam, discussed case, and agree with decision making with Dr Sesay a little nauseated after eating but no vomiting. tolerating ok overall. some BMs. still waiting on bx. Vitals noted, in general he was resting comfortably in bed appeared in no distress. HEENT normocephalic atraumatic, Breathing unlabored no accessory muscle use, skin without rashes pallor or icterus. Intractable nausea vomitingdiffuse gastritis/esophagitis - bx pending. transition pepcid and protonix to PO. continue diet gastric outlet obstruction/duodenal strictureetiology not clear, biopsies pending Alcohol abuse and severe malnutritiongiven that he notes no difficulty with p.o. intake in the 2 years since his prior hospitalization before his onset of symptom recurrence on Monday, I really do not think that his malnutrition relates to his gastric outlet obstruction/duodenal stricture, rather probably relates to alcohol abuse and getting most of his calories through beer intake. i do worry that his upper gi inflammation and possibly stricture relate to etoh abuse. Fortunately no signs of withdrawal at this time. Will need to try to help counselor camp on cessation. fortunately no withdrawal. Continue to supplement thiamine, B12, folate Subjective Pt reports he continues with nausea and abdominal pain. He has transitioned to eating regular diet and tolerating fairly well. He has one episode of dry heaving after dinner yesterday evening. No issues with breakfast this morning. He denies SOB, vomiting, recent BM, [place], or dysuria. Review of Systems Review of Systems: Negative as per HPI Physical Exam Physical Exam: General: Thin, moderately malnourished HEENT: Normocephalic, atraumatic, pale conjunctiva, Moist mucous membranes CV: RRR, no murmurs, rubs, or gallops Resp: Non labored breathing, no wheezing or crackles noted. GI: Non distended, soft, with normoactive bowel sounds Skin/Extremities: Ecchymosis appreciated on arms and upper chest, skin is dry, no pitting edema. Neuro: Alert, awake, and oriented Results & Data Results & Data Vital Signs (Past 12 Hours) Vital Signs Temp Pulse Resp BP Pulse Ox O2 Del Method 03/02/25 00:30 36.8 C 72 14 123/76 97 Room Air 03/01/25 20:45 36.7 C 65 16 116/80 97 Room Air Resident Activity Tracking Resident Involvement: Resident Care Provided Care Provided: Adult Hospital Medicine
--- NOTE | 2025-03-02 16:54 | Billing Data ---
Date of Service March 02, 2025 Coding Level of Care Code 23225 SUB INP/OBS CARE MIN
[2025-03-02] MEDS: PANTOprazole 40 MG TAB PO SCH (20:54)
[2025-03-02] MEDS: diphenhydrAMINE Capsule 25 MG CAP PO PRN (20:55)
[2025-03-02] MEDS: FAMOTIDINE 20 MG TAB PO SCH (20:55)
[2025-03-03 06:28] LABS: Hematocrit (blood only) 33.5 % (42.0-52.0); Hemoglobin 11.5 g/dl (14.0-18.0); Mean Corpuscular Hemoglobin 31.9 pg (25.0-34.0); Mean Corpuscular Hgb Conc 34.3 g/dL (32.0-36.0); Mean Corpuscular Volume 93.1 fL (80.0-100.0); Mean Platelet Volume 11.7 fL (9.4-12.4); Platelet Count 90 K/uL (130-400); RDW Coefficient of Variation 12.3 % (11.5-14.5); RDW Standard Deviation 42.1 fL (36.4-46.3); White Blood Count 3.86 K/ul (4.8-10.8)
[2025-03-03 06:42] LABS: BUN Creatinine Ratio 4.4 (10-20); Creatinine Clr Calc Pharmacy 108.8 ml/min; Potassium 2.9 mmol/L (3.5-5.1)
--- NOTE | 2025-03-03 08:07 | Hospitalist Progress Note ---
Date of Service March 03, 2025 Assessment & Plan (1) Duodenal stricture: (2) Gastric outlet obstruction: (3) Hyponatremia: Plan Pt is a 54 yo male with a PMH of alcohol abuse and NSTEMI who presented with intractable nausea vomiting and dehydration. Pt has history of GI disturbances and found to have strictures at duodenum in 2022. Imaging in ED demonstrated mild gaseous distension as well as similar thickening of duodenum. Pt admitted for GI consult and further testing to determine of current symptoms as well as resolve dehydration and electrolyte imbalances. #Duodenal Stricture/Gastric Outlet Obstruction - Etiology unknown, previous scopes and biopsies in the past had had no histological features/dysplasia/malignancy - Had had flares ups in the past, it is unclear what caused his current GI flare - CT abdomen: Distended moderately distended stomach and first and second portions of the duodenum with caliber change and wall thickening of the third portion of the duodenum. Similar pattern to CT of June 07, 2023, as described above. Mild adjacent stranding and a few prominent lymph nodes. - Abdominal X-ray shows mild residual gaseous distention of the stomach, improved - Continue PO Protonix 40mg BID and Pepcid 20mg BID - Zofran PRN, Compazine for refractory n/v - PO Tylenol or IV Morphine PRN for pain - GI consulted, EGD completed 02/28/25. Recommendations appreciated EGD found Grade D esophagitis without bleeding, gastritis, and duodenal mucosal changes with acquired stenosis Biopsy results: all negative for acute infectious pathology; ulcerated esophageal mucosa - Continue PO hydration - Regular diet changed to low fiber soft diet, tolerating well - will discuss need for gen surg outpatient followup with GI, otherwise stable for discharge tomorrow 03/04/25 #Hypokalemia - was improved 3.0 to 3.4 after IV KCl 40mEq on 03/01 - K+ was 2.9 this AM -> repleted with 3 bags KCl IV and 40meq PO PM BMP showed K+ 4.3 - BMP in AM, determine PO repletion need based on AM K+ #Hyponatremia, resolved - Likely in the setting of vomiting +/- beer potomania - Received a liter of saline in the ER - Manage hydration PO - Sodium has normalized #Alcohol abusethiamine, folate - Monitor for any withdrawal symptoms - PRN Ativan - PO Thymine and folate supplementation - plan for discussion about alcohol/nutrition management DVT prophylaxis: encourage ambulation Diet: regular per pt tolerance Code status: DNR/DNI Admission and Anticipated Discharge Date Admission Date: February 26, 2025 Supervising Physician Co-Signing Physician Notes ATTESTATION I also saw the patient and confirmed [place] portions of the history and exam. I agree with the impression and plan in the resident documentation, and as summarized below. Low residue/low fiber lunch today was well tolerated. He is associating the presence of bowel movements enough to advance diet - I tried to re-enforce low residue/low fiber/soft mechanical diet so support passage thru the gastric outlet. EXAM A/O. NAD CV regular Lungs with normal, non labored respirations ABD soft and non tender DATA Labs HgB stable at 11.5 platelet low but trending up at 90 potassium 2.9 this morning IMPRESSION & PLAN Gastric outlet obstruction Low residue/low fiber/mechanical soft diet Continue PO PPI and H2B, switch to PO ETOH cessation No NSAIDs Hyponatremia Hypokalemia Supplement and monitor; recheck this PM and in AM Anemia Thrombocytopenia Severe malnutrition Likely related to myelosuppression secondary to ETOH and nutritional status Additional per resident documentation Jena Sapp was seen and evaluated at bedside this AM. Was suffering from LUE pain due to potassium infusion due to K+ level of 2.9 with AM labs, initially unwilling to talk until L arm pain was controlled. Once K+ infusion was slowed and thus pain improved to a manageable degree, he was willing to talk. Endorsed he was still having moderate central abdominal pain in the distribution of his esophagus. Additionally his regular diet was changed to a low fiber and soft diet. He denies SOB, vomiting, hematemesis, hemoptysis, hematochezia or melena. Physical Exam Physical Exam: General: Thin, moderately malnourished, A&Ox4 HEENT: Normocephalic, atraumatic, pale conjunctiva, Moist mucous membranes CV: RRR, no murmurs, rubs, or gallops Resp: Non labored breathing, no wheezing or crackles noted. GI: normoactive bowel sounds, soft and nondistended, tender to palpation of all abdominal quadrants without rebound or guarding Skin/Extremities: patchy ecchymosis observed on arms and upper chest, skin dry, no pitting edema. Neuro: no facial droop, speech intact; 5/5 strength in all extremities Results & Data Results & Data Vital Signs (Past 12 Hours) Vital Signs Temp Pulse Resp BP Pulse Ox O2 Del Method 03/03/25 07:31 36.7 C 61 16 159/94 H 99 Room Air Resident Activity Tracking Resident Involvement: Resident Care Provided Care Provided: Adult Hospital Medicine
[2025-03-03] MEDS: THIAMINE HCL 100 MG TAB PO SCH (08:32)
[2025-03-03] MEDS: FOLIC ACID 1 MG TAB PO SCH (08:32)
[2025-03-03] MEDS: POTASSIUM CHLORIDE CRTAB 20 MEQ TABCR PO STA (08:32)
[2025-03-03] MEDS: POTASSIUM CHLORIDE / WTR 10 MEQ/100 ML PLCT IV SCH (08:42)
--- NOTE | 2025-03-03 10:18 | Gastroenterology Progress Note ---
Date of Service March 03, 2025 Assessment & Plan (1) Nausea & vomiting: Plan: 54 year old male w/ history of ETOH abuse, known duodenal stricture admitted w/ suspected gastric outlet obstruction s/p EGD 02/28 w/ evidence of LA Grade D esophagitis, gastritis, mucosal changes in the duodenum, acquired duodenal stenosis (biopsies pending). Previously, EGD/EUS w/ benign findings in 2022. Will follow up w/ pathology when available. May continue IV PPI while admitted. Convert to oral Pantoprazole 40 mg twice daily. Recommend NSAID avoidance. Recommend ETOH abstinence. He should not be advanced past a low residue, low fiber, mechanical soft diet. He should follow up with general surgery as an outpatient for evaluation as ultimately need surgical intervention given this is his third admission. I spent a total of 55 minutes on the date of service in review of patient's record, and previously obtained information in person and appropriate medical visit, discussion and education of plan, with patient and/or caregiver, placing orders for tests/referral/procedures as medically necessary and documentation of pertinent clinical information in patient's medical records for their visit today. Admission and Anticipated Discharge Date Admission Date: February 26, 2025 Supervising Physician Co-Signing Physician Notes I personally saw and examined the patient. I have reviewed the chart and agree with the documentation provided by the INTERLOCKER including discussion about the assessment, treatment and plan. Briefly, overall improved. A little pain today after eating some regular food. Would keep him on a mechanical soft diet and check a KUB. He has chronic pain and chronic nausea associated with his duodenal stricture. Subjective Pt was seen and evaluated, chart reviewed. EGD last week reviewed - LA Grade D esophagitis, Gastritis, Mucosal changes in the duodenum, Acquired duodenal stenosis. Biopsies are still pending. Appears his diet was advanced to a "regular diet." He reports unchanged abd pain, nausea. No vomiting. Pathology 2024: pending Pathology 2022:FINAL DIAGNOSIS A. Duodenum, stricture, biopsy: - Duodenal mucosa with no diagnostic abnormality - Negative for histologic features of sprue - Negative for parasites - Negative for dysplasia and malignancy B. Stomach, biopsy: - Gastric mucosa with mild chronic inflammation - Negative for intestinal metaplasia, dysplasia and malignancy - Negative for Helicobacter pylori organisms EGD 2024: LA Grade D esophagitis with no bleeding. Biopsied. - Gastritis, characterized by erythema and friability. Biopsied. - Mucosal changes in the duodenum. Biopsied. - Acquired duodenal stenosis. Biopsied. EUS 2022: - There was dilation in the common bile duct which measured up to 9 mm. - There was no sign of significant pathology in the gallbladder. - There was abnormal echogenicity in the visualized portion of the liver. This was hyperechoic. Tissue has not been obtained. However, the endosonographic appearance is consistent with fatty infiltration. - Pancreatic parenchymal abnormalities consisting of lobularity were noted in the entire pancreas. - Endosonographic images of the left adrenal gland were unremarkable. -Suspect patient has an inflammatory stricture of the third portion of the duodenum. EGD 2022: Normal esophagus. - Small hiatal hernia. - Diffuse gastritis. Biopsied. - Normal duodenal bulb. - Non-bleeding duodenal diverticulum. - Acquired duodenal stenosis. Biopsied. Tattooed. EGD 2022: - LA Grade D reflux esophagitis with bleeding. - Normal stomach. - Non-bleeding duodenal diverticulum. - Duodenal deformity. - Acquired duodenal stenosis. - No specimens collected. Review of Systems Review of Systems: All other findings negative except as noted in HPI. Physical Exam Constitutional: WD/WN, vitals as above Respiratory: normal respiratory effort Cardiovascular: Rate/Rhythm: regular rate Gastrointestinal (Abdomen): normal bowel sounds, soft, nontender, no hepatosplenomegaly Skin: no rashes, warm and dry Results & Data Results & Data Vital Signs (Past 12 Hours) Vital Signs Temp Pulse Resp BP Pulse Ox O2 Del Method 03/03/25 07:31 98.1 F 61 16 159/94 H 99 Room Air Laboratory Results 03/03/25 Range/Units 05:23 WBC 3.86 L (4.8-10.8) K/ul RBC 3.60 L (4.70-6.10) M/uL Hgb 11.5 L (14.0-18.0) g/dl Hct 33.5 L (42.0-52.0) % MCV 93.1 (80.0-100.0) fL MCH 31.9 (25.0-34.0) pg MCHC 34.3 (32.0-36.0) g/dL RDW Std Deviation 42.1 (36.4-46.3) fL RDW Coeff of Tessy 12.3 (11.5-14.5) % Plt Count 90 L (130-400) K/uL MPV 11.7 (9.4-12.4) fL Sodium 136 (136-145) mmol/L Potassium 2.9 L (3.5-5.1) mmol/L Chloride 101 (98-107) mmol/L Carbon Dioxide 29 (21-32) mmol/L Anion Gap 6 (3-11) BUN 3 L (6-23) mg/dl Creatinine 0.68 (0.6-1.4) mg/dl Est Cr Clr Drug Dosing 108.8 ml/min eGFR 111.15 BUN/Creatinine Ratio 4.4 L (10-20) Glucose 102 H (70-99(Fasting)) mg/dl Calcium 8.0 L (8.6-10.3) mg/dl PG Care Time/CCT Total # of Minutes Spent Total Time Spent with Patient: Total time spent is greater than 50% in coordination of care (as documented) at patient's floor/unit and/or counseling patient: Coding Level of Care Code 48613 SUB INP/OBS CARE 3/50MIN Diagnoses Nausea & vomiting R11.2
--- NOTE | 2025-03-03 13:14 | XRay Report ---
KUB HISTORY: duodenal stricture, abd pain COMPARISON STUDY: 02/27/2025 FINDINGS: There is moderate retained stool. There is mild gaseous distention of the stomach. No bowel obstruction seen. No gross free air. Stable elevation of the left hemidiaphragm. IMPRESSION: Mild gaseous distention of the stomach, mildly increased. No other acute findings seen. ACT 112: Negative or not required by law. The above report was generated using voice recognition software. It may contain grammatical, syntax o r spelling errors. Electronically signed by: Luc Hunt M.D. 03/03/2025 1:12 PM
[2025-03-03 15:36] LABS: BUN Creatinine Ratio 6.3 (10-20); Calcium 8.1 mg/dl (8.6-10.3); Creatinine Clr Calc Pharmacy 92.4 ml/min; Potassium 4.3 mmol/L (3.5-5.1)
[2025-03-03 19:09] VITALS: RESP 16
[2025-03-04 06:47] LABS: Hematocrit (blood only) 34.2 % (42.0-52.0); Hemoglobin 11.5 g/dl (14.0-18.0); Mean Corpuscular Hemoglobin 31.7 pg (25.0-34.0); Mean Corpuscular Hgb Conc 33.6 g/dL (32.0-36.0); Mean Corpuscular Volume 94.2 fL (80.0-100.0); Mean Platelet Volume 12.1 fL (9.4-12.4); Platelet Count 100 K/uL (130-400); RDW Coefficient of Variation 12.8 % (11.5-14.5); RDW Standard Deviation 44.4 fL (36.4-46.3); Red Blood Count 3.63 M/uL (4.70-6.10); White Blood Count 4.51 K/ul (4.8-10.8)
[2025-03-04 06:54] VITALS: BP 148/94; PULSE 64; TEMP 98.1; O2SAT 100
[2025-03-04 07:13] LABS: BUN Creatinine Ratio 7.4 (10-20); Calcium 8.3 mg/dl (8.6-10.3); Creatinine Clr Calc Pharmacy 108.8 ml/min; Potassium 3.5 mmol/L (3.5-5.1)
--- NOTE | 2025-03-04 08:18 | Gastroenterology Progress Note ---
Date of Service March 04, 2025 Assessment & Plan (1) Nausea & vomiting: Plan: 54 year old male w/ history of ETOH abuse, known duodenal stricture admitted w/ suspected gastric outlet obstruction s/p EGD 02/28 w/ evidence of LA Grade D esophagitis, gastritis, mucosal changes in the duodenum, acquired duodenal stenosis (biopsies negative). Previously, EGD/EUS w/ benign findings in 2022 as well. May continue IV PPI while admitted. Convert to oral Pantoprazole 40 mg twice daily. Recommend NSAID avoidance. Recommend ETOH abstinence. He should not be advanced past a low residue, low fiber, mechanical soft diet. He should follow up with general surgery as an outpatient for evaluation as ultimately need surgical intervention given this is his third admission. Recall GI as needed. No GI contraindication if tolerating low residue/low fiber diet and moving bowels. Recall as needed. I spent a total of 40 minutes on the date of service in review of patient's record, and previously obtained information in person and appropriate medical visit, discussion and education of plan, with patient and/or caregiver, placing orders for tests/referral/procedures as medically necessary and documentation of pertinent clinical information in patient's medical records for their visit today. Admission and Anticipated Discharge Date Admission Date: February 26, 2025 Supervising Physician Co-Signing Physician Notes I personally saw and examined the patient. I have reviewed the chart and agree with the documentation provided by the COMMERCIAL REPORTER including discussion about the assessment, treatment and plan. Briefly, biopsies again are benign KUB showed some mild gastric distention but patient had 4-5 major bowel movements and feels better. Stick to a low residue partially chopped diet doing okay. Stable for discharge. Subjective Pt was seen and evaluated, chart reviewed. Moved bowels. Abd discomfort slightly improved. Chronic nausea. Chronic appetite suppression. No fever, chills, CP, SOB. KUB 2024: Mild gaseous distention of the stomach, mildly increased. No other acute findings seen. Pathology 2024: FINAL DIAGNOSIS A. Duodenum, biopsy: - Mild nonspecific duodenitis. - Cytomegalovirus immunohistochemistry: Negative. - [place] red stain: Negative for amyloid. B. Stomach, biopsy: - Mild chronic inactive gastritis. - Helicobacter pylori immunohistochemistry: Negative. - Cytomegalovirus immunohistochemistry: Negative. - [place] red stain: Negative for amyloid. C. Esophagus, random, biopsy: - Ulcerated squamous mucosa. - GMS stain for fungal organisms: Negative. - Cytomegalovirus immunohistochemistry: Negative. - [place] red stain: Negative for amyloid. - Clinical correlation is recommended. Pathology 2022:FINAL DIAGNOSIS A. Duodenum, stricture, biopsy: - Duodenal mucosa with no diagnostic abnormality - Negative for histologic features of sprue - Negative for parasites - Negative for dysplasia and malignancy B. Stomach, biopsy: - Gastric mucosa with mild chronic inflammation - Negative for intestinal metaplasia, dysplasia and malignancy - Negative for Helicobacter pylori organisms EGD 2024: LA Grade D esophagitis with no bleeding. Biopsied. - Gastritis, characterized by erythema and friability. Biopsied. - Mucosal changes in the duodenum. Biopsied. - Acquired duodenal stenosis. Biopsied. EUS 2022: - There was dilation in the common bile duct which measured up to 9 mm. - There was no sign of significant pathology in the gallbladder. - There was abnormal echogenicity in the visualized portion of the liver. This was hyperechoic. Tissue has not been obtained. However, the endosonographic appearance is consistent with fatty infiltration. - Pancreatic parenchymal abnormalities consisting of lobularity were noted in the entire pancreas. - Endosonographic images of the left adrenal gland were unremarkable. -Suspect patient has an inflammatory stricture of the third portion of the duodenum. EGD 2022: Normal esophagus. - Small hiatal hernia. - Diffuse gastritis. Biopsied. - Normal duodenal bulb. - Non-bleeding duodenal diverticulum. - Acquired duodenal stenosis. Biopsied. Tattooed. EGD 2022: - LA Grade D reflux esophagitis with bleeding. - Normal stomach. - Non-bleeding duodenal diverticulum. - Duodenal deformity. - Acquired duodenal stenosis. - No specimens collected. Review of Systems Review of Systems: All other findings negative except as noted in HPI. Physical Exam Constitutional: WD/WN, vitals as above Respiratory: normal respiratory effort, lungs clear to auscultation Gastrointestinal (Abdomen): normal bowel sounds, soft, nontender, no hepatosplenomegaly Skin: no rashes, warm and dry Results & Data Results & Data Vital Signs (Past 12 Hours) Vital Signs Temp Pulse Resp BP Pulse Ox O2 Del Method 03/04/25 06:53 98.1 F 64 16 148/94 H 100 Room Air Laboratory Results 03/04/25 03/03/25 Range/Units 05:37 14:59 WBC 4.51 L (4.8-10.8) K/ul RBC 3.63 L (4.70-6.10) M/uL Hgb 11.5 L (14.0-18.0) g/dl Hct 34.2 L (42.0-52.0) % MCV 94.2 (80.0-100.0) fL MCH 31.7 (25.0-34.0) pg MCHC 33.6 (32.0-36.0) g/dL RDW Std Deviation 44.4 (36.4-46.3) fL RDW Coeff of Tessy 12.8 (11.5-14.5) % Plt Count 100 L (130-400) K/uL MPV 12.1 (9.4-12.4) fL Sodium 134 L 132 L (136-145) mmol/L Potassium 3.5 4.3 D (3.5-5.1) mmol/L Chloride 100 101 (98-107) mmol/L Carbon Dioxide 27 27 (21-32) mmol/L Anion Gap 7 4 (3-11) BUN 5 L 5 L (6-23) mg/dl Creatinine 0.68 0.80 (0.6-1.4) mg/dl Est Cr Clr Drug Dosing 108.8 92.4 ml/min eGFR 111.15 105.82 BUN/Creatinine Ratio 7.4 L 6.3 L (10-20) Glucose 119 H 104 H (70-99(Fasting)) mg/dl Calcium 8.3 L 8.1 L (8.6-10.3) mg/dl Magnesium 1.3 L (1.7-2.4) mg/dl PG Care Time/CCT Total # of Minutes Spent Total Time Spent with Patient: Total time spent is greater than 50% in coordination of care (as documented) at patient's floor/unit and/or counseling patient: Coding Level of Care Code 74787 SUB INP/OBS CARE 2/35MIN Diagnoses Nausea & vomiting R11.2
[2025-03-04 09:03] LABS: Magnesium 1.3 mg/dl (1.7-2.4)
[2025-03-04] MEDS: MAGNESIUM SULFATE / D5W 1 GM/100 ML BAG IV SCH (09:50)
[2025-03-04] MEDS: POTASSIUM CHLORIDE CRTAB 20 MEQ TABCR PO STA (09:50)
--- NOTE | 2025-03-04 11:46 | Discharge Summary ---
Date of Service March 04, 2025 Admission HPI Per Admitting Provider Intractable nausea and vomitinghe notes that about 2 days ago he started with feeling a lot of acid, where it would be backing up creating a lot of burning and a lot of stomach discomfort, as well as coughing and choking. This progressed into intractable nausea and vomiting yesterdayhe relates throwing up about 30 times. He is feeling weak and dehydrated, his stomach hurts. Mostly stomach seems to hurt from the vomiting. He has not eaten or drank anything differentbut also notes that from Monday through yesterday even before he started vomiting his p.o. intake had decreased quite a bit. While it was direc denise questioning, he notes that this does feel an awful lot like whenever he was admitted in May 2023interestingly he has not had any episodes of nausea vomiting abdominal pain of significance since. No changes in diet of note. Drinks 57 beers a day, although notes this has been chronic. No recent oral antibiotics. No recent viral illnesses. Admission Exam Per Admitting Provider In general he is awake and alert oriented pleasant very fatigued no acute distress. HEENT normocephalic atraumatic mucous membranes slightly dry. Cardio is regular without rubs murmurs or gallops. Lungs are clear to auscultation bilaterally no rales rhonchi or wheeze with good effort. Abdomen soft nondistended he has a lot of epigastric tenderness but absolutely no guarding rebound or rigidity. Extremities show no cyanosis clear clubbing or edema his skin is quite dry. Neuro shows cranial nerves II through XII be grossly intact gross motor and sensory intact. Principal Diagnosis duodenal stricture Discharge Exam General: Thin, moderately malnourished, A&Ox4 HEENT: Normocephalic, atraumatic, pale conjunctiva, Moist mucous membranes CV: RRR, no murmurs, rubs, or gallops Resp: Non labored breathing, no wheezing or crackles noted. GI: normoactive bowel sounds, soft and nondistended, tender to palpation of all abdominal quadrants without rebound or guarding Skin/Extremities: patchy ecchymosis observed on arms and upper chest, skin dry, no pitting edema. Neuro: no facial droop, speech intact; 5/5 strength in all extremities Discharge Data Allergies Allergy/AdvReac Type Severity Reaction Status Date / Time No Known Allergies Allergy Unverified 01/21/25 14:07 Consultations 02/26/25 14:48 ED Decision to Admit Stat Procedures Performed Operation Date: 02/28/25 08:20 Actual Procedures p EGD Biopsy Cytology(Not Applicable) - Damon Lee MD Ordered Studies 02/26/25 12:22 CT abd pelvis IV con only Stat Hospital Course (1) Duodenal stricture: (2) Gastric outlet obstruction: (3) Hyponatremia: Plan Pt is a 54 yo male with a PMH of alcohol abuse and NSTEMI who presented with intractable nausea vomiting and dehydration. Pt has history of GI disturbances and found to have strictures at duodenum in 2022. Imaging in ED demonstrated mild gaseous distension as well as similar thickening of duodenum. Discharged today #Duodenal Stricture/Gastric Outlet Obstruction - Etiology unknown, previous scopes and biopsies in the past had had no histological features/dysplasia/malignancy - Had had flares ups in the past, it is unclear what caused his current GI flare - CT abdomen: Distended moderately distended stomach and first and second portions of the duodenum with caliber change and wall thickening of the third portion of the duodenum. Similar pattern to CT of June 07, 2023, as described above. Mild adjacent stranding and a few prominent lymph nodes. - Abdominal X-ray shows mild residual gaseous distention of the stomach, improved - Continue PO Protonix 40mg BID and Pepcid 20mg BID - Zofran PRN, Compazine for refractory n/v - PO Tylenol or IV Morphine PRN for pain - GI consulted, EGD completed 02/28/25. Recommendations appreciated EGD found Grade D esophagitis without bleeding, gastritis, and duodenal mucosal changes with acquired stenosis Biopsy results: all negative for acute infectious pathology; ulcerated esophageal mucosa - Continue PO hydration - Regular diet changed to low fiber soft diet - not tolerating minced food, may continue soft and bite-sized foods upon discharge - discussed need for outpatient gen surg followup for stricture, surgical intervention may be warranted - stable for discharge today 03/04/25 - to follow up with PCP within 2wks, gen surg as well #Hypokalemia - was improved 3.0 to 3.4 after IV KCl 40mEq on 03/01 - K+ was 2.9 this 03/03 AM -> repleted with 3 bags KCl IV and 40meq PO -> 4.3 in PM AM BMP on 03/04/25 3.5, continued to KCl tablets - discharging on home dosage of KCl tablets - Mag found to be 1.3 -> Mag x3 IV given prior to discharge, prescribed mag sulfate tablets 100mg daily to start 03/05/25 as this can help pt maintain potassium level #Hyponatremia, resolved - Likely in the setting of vomiting +/- beer potomania - Received a liter of saline in the ER - Manage hydration PO - Sodium has normalized, 134 on 03/04/25 #Alcohol abusethiamine, folate - Monitor for any withdrawal symptoms - PRN Ativan - PO Thymine and folate supplementation - plan for discussion about alcohol/nutrition management DVT prophylaxis: encourage ambulation Diet: regular per pt tolerance Code status: DNR/DNI Total Time Total Time Spent Total Time Spent (In Minutes): Patricio Morris DO, attending physician, spent 25 minutes myself seeing the patient, reviewing the chart, and documenting today. Discharge Plan Discharge Items Patient Disposition: Home - Self-Care Reason For Visit: INTRACTABLE NAUSEA/VOMITING, GASTRIC OUTLET OBSTRU Discharge Diagnosis: gastric outlet obstruction by duodenal stricture Condition on Discharge: Fair Activity: Per Instructions section Non-emergency contact: Primary Care Provider Call non-emergency contact if: your symptoms worsen and your pain is not controlled Follow-up/Referrals: Daryl Gomez DO [Surgeon] - 03/10/25 11:45 am (outpatient followup post- hospitalization for nausea and vomiting related to duodenal stricture) Burak Stevens DO [Primary Care Provider] - 03/11/25 1:00 pm Diet: Low Fiber Addtl Attending Provider Instructions: You were seen and evaluated for intractable nausea and vomiting at [facility]. EGD (upper endoscopy) showed that you have a duodenal stricture (narrowing) that is preventing ingested food from easily moving from the stomach to the first part of the small intestine. Additionally, your esophagus (food pipe) was found to have some ulcers and your stomach and duodenum were found to have non-specific irritation. Due to your condition we recommend avoiding any potentially irritating substances, such as alcohol, NSAIDs (such as ibuprofen/advil, aspirin, naproxen/Aleve, etc.) as well as sharp, very hot/spicy, and hard foods. In addition, we recommend that you continue taking Protonix (pantoprazole) 40mg twice daily and Pepcid (famotidine) 20mg once nightly, both of which help to reduce stomach acid production, which will help reduce inflammation. We additionally recommend that you eat a soft and low-fiber diet as these can both help food move easily from the stomach into the intestine without getting stuck and resulting in nausea and vomiting. Foods need not be minced, but we at least recommend soft and bite sized foods to minimize the risk of food getting stuck and resulting in nausea and vomiting again. In addition to your daily potassium tablet, we recommend that you take oral magnesium daily as this will help keep your potassium levels within normal limits. As you received IV magnesium today prior to discharge, you may start taking the oral magnesium tomorrow 03/05. Please follow up with your PCP and general surgery so that your condition and associated medications can be managed outside of the hospital. Pending Studies at Discharge: No Stand-Alone Forms: My [facility] tu.[email or web address], Smoking Cessation Medications and DC Order Prescriptions: New famotidine 20 mg Tablet 20 mg PO HS 30 Days Qty: 30 0RF pantoprazole 40 mg Tablet,Delayed Release (Dr/Ec) 40 mg PO BID 30 Days Qty: 60 0RF magnesium sulfate 100 mg capsule 100 mg PO DAILY Qty: 7 0RF Rx Instructions: start taking daily tomorrow 03/05/25 as you have received IV magnesium today prior to discharge - follow up with PCP within the next week for evaluation of potassium and magnesium levels as dosage or frequency may need to be adjusted Continued folic acid 1 mg tablet 1 mg PO DAILY Qty: 90 3RF potassium chloride 20 mEq tablet,ER particles/crystals 20 meq PO DAILY Qty: 90 3RF cholecalciferol (vitamin D3) 25 mcg (1,000 unit) capsule 50 mcg PO DAILY fexofenadine 180 mg Tablet 180 mg PO DAILY PRN (Reason: Allergy Symptoms) ibuprofen [Advil] 200 mg Tablet 200 mg PO Q6H PRN (Reason: Pain) Discharge Orders: Discharge Order (Routine); Ordered 03/04/25 Ordered By: Guerrero Baker/Other Patient Handouts: Low-Fiber Diet, Soft Diet Ch Dc, Anatomy of the Digestive System, Obstruction Intestinal Admission Data Admit Date/Time: 02/26/25 15:17 Attending Provider: Patricio Jacinto Admit Provider: Jon Tate Primary Care Provider: Burak Stevens Other Providers: Jon Tate Other Interventions: Discharge Summary Assessment (RN) Last Done: 03/04/25 11:40 Supervising Physician Co-Signing Physician Notes ATTESTATION I also saw the patient and confirmed [place] portions of the history and exam. I agree with the impression and plan in the resident documentation, and as summarized below. Tolerating diet although he is not keen on continuing the same upon discharge. I think it's the minced part that he does not like - discussed soft mechanical along with the low fiber and residue. We had nutrition discuss the diet with his this morning as well. EXAM 148/94, 64, 16 A/O. NAD CV regular Lungs with normal, non labored respirations ABD soft and non tender DATA Labs HgB stable platelet low but trending up at 100 potassium 3.5 Magnesium 1.3 IMPRESSION & PLAN Gastric outlet obstruction Low residue/low fiber/mechanical soft diet Continue PO PPI and H2B, switch to PO ETOH cessation No NSAIDs Outpatient follow up with general surgery Hyponatremia Hypokalemia Hypomagnesemia Replete magnesium prior to discharge Outpatient oral supplementation Anemia Thrombocytopenia Severe malnutrition Likely related to myelosuppression secondary to ETOH and nutritional status Additional per resident documentation Resident Activity Tracking Resident Involvement: Resident Care Provided Care Provided: Adult Hospital Medicine
== END 2025-03-04 13:26 | disposition home or self-care (01) | DRG 380 ==
LOC: ED 11:42 → 3E 15:17 → INTOOBSV 15:17 → SUATTDRO 15:17 → 3E 16:29

== ENCOUNTER 2025-05-21 10:06 | Inpatient (IN) ==
--- NOTE | 2025-05-21 10:45 | Emergency Department Note ---
Impression & Plan Nausea & vomiting, Abdominal pain, Dehydration, Hyponatremia ED Provider Note ED Provider Note NAME: MICHELL BRUNNER AGE:54 SEX: Male : 1970 ARRIVES VIA: EMS INFORMANT: Patient ED PROVIDER(s): Maribel Weller DO CHIEF COMPLAINT: nausea and vomiting, abdominal pain HPI: This is a 54-year-old male who presents to the emergency department due to concern for nausea and vomiting for the last 2 days. Patient states he did have diarrhea last week however that had stopped a few days ago. Patient states symptoms initially began as an increase since of heartburn and indigestion in his upper abdomen up into his chest. He states he does have a history of heartburn and does take a daily medication for it. Patient does admit that the last food he had before his symptoms started was spaghetti with marinara sauce. Patient denies any blood in the emesis or any recent black or bloody stools. He states the abdominal pain is otherwise nonradiating. He states symptoms are similar to prior episodes that he has had because he has "a narrowed spot in his stomach". Patient states when he was previously admitted with his symptoms he was seen and evaluated by surgery. He states he did have a follow-up appointment in the office with them in February and the plan was to wait and watch as he seemed to be doing okay. Patient denies any recent change in diet or medications. He denies any recent fevers, chills, or illness. Patient does continue to smoke and consume alcohol on a regular basis. PAST MEDICAL HISTORY:See Below PAST SURGICAL HISTORY:See Below FAMILY HISTORY:See Below SOCIAL HISTORY:See Below HOME MEDICATIONS:See Below ALLERGIES:See Below VITALS:See Below PHYSICAL EXAMINATION: GENERAL: alert, well appearing, thin body habitus, no distress, non-toxic EYE EXAM: normal conjunctiva, PERRL and EOM's grossly intact OROPHARYNX: no exudate, no erythema, lips, buccal mucosa, and tongue normal and mucous membranes are dry NECK: supple, no nuchal rigidity, no adenopathy, non-tender LUNGS: Clear to auscultation. Normal chest wall mechanics, no w/r/r HEART: no murmurs, S1 normal and S2 normal ABDOMEN: abdomen soft, non-tender, normo-active bowel sounds, no masses, no rebound or guarding. SKIN: no rashes, petechiae, orbruising UPPER EXTREMITIES: upper extremities are grossly normal. FROM, nml pulses b/l. LOWER EXTREMITIES: No pitting edema. FROM, nml pulses b/l. NEURO EXAM: Normal sensorium, cranial nerves II-XII grossly intact, normal speech, no facial droop,nogross weakness of arms, no gross weakness of legs. Gross sensation intact. No ataxia. Vital Signs: reviewed and remarkable Differential Diagnosis: Foodborne illness, viral syndrome, gastritis, GERD, GI bleed, pancreatitis, colitis, bowel obstruction, alcohol withdrawal, medication ADR, perforation, GI bleed, as well as others were considered MEDICAL DECISION MAKING: This is a 54-year-old male presents to the emergency department due to concern for abdominal pain, nausea and vomiting. Patient was afebrile and vital signs are stable on arrival however the patient was noted to be mildly tachycardic. Labs drawn and sent, IV established, EKG performed and interpreted at bedside, and patient placed on telemetry. Patient started on IV fluids and given IV Protonix, IV Pepcid, IV reglan, and IM bentyl. He was then given IV zofran. After the first IVF bolus his rate of NSS was slowed as he was noted to have hyponatremia. I suspect part of this is related to his routine use of beer. Patient sent for CT of the abdomen and pelvis. CT showed a stable condition of a distal duodenal stricture, no other evidence of bowel obstruction. Patient given additional antiemetics and did report improvement. He was able to tolerate oral Maalox. We then tried additional oral Carafate and patient had recurrent vomiting and return of nausea and abdominal pain. Given persistent symptoms after many medications, concern for hyponatremia, as well as in consideration for risk of alcohol withdrawal given regular use, case discussed with the hospitalist team for additional management. Consultation(s): 1700: Discussed with Dr. Fisher, OR hospitalist team, for additional evaluation and mgmt. ER Treatment Provided: See below Diagnostics Interpreted By Me: -ECG: Sinus tachycardia at 109, normal axis, normal intervals, no acute ST/T wave changes -Cardiac Monitoring: An order was placed for continuous cardiac monitoring. The monitor shows a rate of 80 with normal sinus rhythm. -Laboratory studies: As stated above and show below. -Imaging studies: ct a/p - stable appearing duodenal stricture Triage Nursing Note Reviewed Prior/Outside Records Reviewed-general surgery office visit from February 2025 reviewed Past Med/Surg History Problem List (Updated 05/22/25 @ 06:47 by Maribel Weller DO) Hyponatremia (Acute) Dehydration (Acute) Abdominal pain (Acute) Nausea & vomiting (Acute) Alcohol use disorder, mild, in early remission Hyponatremia with extracellular fluid depletion Chronic hyponatremia Small bowel obstruction, partial Chronic heart failure with reduced ejection fraction (HFrEF, <= 40%) Sensorineural hearing loss (SNHL) of both ears (Chronic) Duodenal stricture (Chronic) Medical History Closed fracture of acetabulum (03/19/13) RLL pneumonia JUAN (acute kidney injury) MRSA (methicillin resistant staph aureus) culture positive Bacteremia due to Klebsiella pneumoniae Septic shock Elevated troponin Alcohol abuse Acute respiratory failure with hypoxia Alcohol withdrawal Non-ST elevation TN (NSTEMI) Family History Grandfather (Maternal) Cancer Brother Diabetes Social History (Updated 05/21/25 @ 19:09 by Anthony Fisher DO) Smoking Status: Current every day smoker Tobacco Type: Cigarettes Age Started Using Tobacco: 19; packs per day: 1; Cigarettes Per Day: 1 pack per day; Second Hand Exposure: No; Do You Dip or Chew Tobacco: No; Hx Alcohol Use: Yes Alcohol type: beer Hx Substance Use: No Preferred Language: Syriac Communication Ability: Effective Communication Tools: Other Lamp Assembler Required: No Beliefs That Will Affect Care: None marital status: Current Living Situation: Alone current occupational status: employed Feels Safe at Home: Yes Safety Concerns: Feels Safe At This Time Assistive Devices: Walker Allergies Allergies Allergy/AdvReac Type Severity Reaction Status Date / Time No Known Allergies Allergy Verified 05/21/25 19:09 Home Meds Home Medications Medication Instructions Recorded Confirmed cholecalciferol (vitamin D3) 25 50 mcg PO QAM 06/28/23 05/21/25 mcg (1,000 unit) capsule ibuprofen 200 mg tablet (Advil) 200 mg PO Q6H PRN Pain 02/26/25 05/21/25 famotidine 20 mg tablet 20 mg PO AMHS 05/21/25 05/21/25 folic acid 1 mg tablet 1 mg PO QAM 05/21/25 05/21/25 magnesium oxide 500 mg capsule 500 mg PO QAM 05/21/25 05/21/25 ofloxacin 0.3 % eye drops 5 drp otic (ear) HS 05/21/25 05/21/25 potassium chloride 20 mEq 20 meq PO QAM 05/21/25 05/21/25 tablet,extended release(part/cryst) Results & Data (ED) Vital Signs Vital Signs - 24 hr 05/21/25 10:14 05/21/25 10:17 05/21/25 10:18 Temperature 36.8 C Temperature Source Oral Pulse Rate 109 H 111 H 109 H Pulse Rate [Apical] Pulse Rate from SpO2 Sensor 109 H Pulse Rhythm [Apical] Respiratory Rate 18 15 Respiratory Effort / Characteristics Non-Labored Spontaneous Respiratory Depth Normal Respiratory Pattern Regular Blood Pressure 148/128 H Blood Pressure [Right Arm] Blood Pressure Mean 134 Blood Pressure Mean [Right Arm] Blood Pressure Position [Right Arm] Pulse Oximetry 97 97 Oxygen Delivery Method Room Air Room Air Sepsis Recent Fever Within 48 Hours No Sepsis New/Unexplained Change in Mental Status No Sepsis Action Taken by Nursing No Action Required 05/21/25 10:42 05/21/25 11:03 05/21/25 11:30 Temperature Temperature Source Pulse Rate 106 H 112 H 97 H Pulse Rate [Apical] Pulse Rate from SpO2 Sensor 107 H 111 H 97 H Pulse Rhythm [Apical] Respiratory Rate 15 22 16 Respiratory Effort / Characteristics Respiratory Depth Respiratory Pattern Blood Pressure Blood Pressure [Right Arm] Blood Pressure Mean Blood Pressure Mean [Right Arm] Blood Pressure Position [Right Arm] Pulse Oximetry 98 98 99 Oxygen Delivery Method Room Air Room Air Room Air Sepsis Recent Fever Within 48 Hours Sepsis New/Unexplained Change in Mental Status Sepsis Action Taken by Nursing 05/21/25 12:06 05/21/25 12:45 05/21/25 12:47 Temperature Temperature Source Pulse Rate 97 H 74 Pulse Rate [Apical] 76 Pulse Rate from SpO2 Sensor 74 Pulse Rhythm [Apical] Respiratory Rate 15 15 20 Respiratory Effort / Characteristics Non-Labored Respiratory Depth Normal Respiratory Pattern Blood Pressure Blood Pressure [Right Arm] 135/96 Blood Pressure Mean Blood Pressure Mean [Right Arm] 109 Blood Pressure Position [Right Arm] Pulse Oximetry 100 100 Oxygen Delivery Method Room Air Room Air Sepsis Recent Fever Within 48 Hours Sepsis New/Unexplained Change in Mental Status Sepsis Action Taken by Nursing 05/21/25 12:49 05/21/25 13:09 05/21/25 13:48 Temperature Temperature Source Pulse Rate 71 70 Pulse Rate [Apical] Pulse Rate from SpO2 Sensor 71 71 Pulse Rhythm [Apical] Respiratory Rate 17 15 Respiratory Effort / Characteristics Respiratory Depth Respiratory Pattern Blood Pressure 135/96 Blood Pressure [Right Arm] Blood Pressure Mean 110 Blood Pressure Mean [Right Arm] Blood Pressure Position [Right Arm] Pulse Oximetry 100 99 Oxygen Delivery Method Room Air Room Air Sepsis Recent Fever Within 48 Hours Sepsis New/Unexplained Change in Mental Status Sepsis Action Taken by Nursing 05/21/25 14:09 05/21/25 14:17 05/21/25 15:28 Temperature Temperature Source Pulse Rate 107 H 79 Pulse Rate [Apical] 78 Pulse Rate from SpO2 Sensor 109 H Pulse Rhythm [Apical] Regular Respiratory Rate 24 16 Respiratory Effort / Characteristics Non-Labored Spontaneous Respiratory Depth Normal Respiratory Pattern Regular Blood Pressure Blood Pressure [Right Arm] 133/90 Blood Pressure Mean Blood Pressure Mean [Right Arm] 104 Blood Pressure Position [Right Arm] Lying Pulse Oximetry 98 98 Oxygen Delivery Method Room Air Sepsis Recent Fever Within 48 Hours Sepsis New/Unexplained Change in Mental Status Sepsis Action Taken by Nursing Laboratory Data 05/21/25 10:56 05/22/25 03:55 Lab Results 05/21/25 05/21/25 05/21/25 Range/Units 10:56 11:00 14:02 WBC 9.31 (4.8-10.8) K/ul RBC 4.80 (4.70-6.10) M/uL Hgb 16.2 (14.0-18.0) g/dl Hct 45.1 (42.0-52.0) % MCV 94.0 (80.0-100.0) fL MCH 33.8 (25.0-34.0) pg MCHC 35.9 (32.0-36.0) g/dL RDW Std Deviation 43.5 (36.4-46.3) fL RDW Coeff of Tessy 12.4 (11.5-14.5) % Plt Count 163 (130-400) K/uL MPV 10.5 (9.4-12.4) fL Immature Gran % (Auto) 0.4 % Neut % (Auto) 78.1 % Lymph % (Auto) 14.0 % [place] % (Auto) 7.1 % Eos % (Auto) 0.0 % Baso % (Auto) 0.4 % Neut # (Auto) 7.27 H (1.40-6.50) K/uL Lymph # (Auto) 1.30 (1.20-3.40) K/uL [place] # (Auto) 0.66 H (0.11-0.59) K/uL Eos # (Auto) 0.00 (0.00-0.50) K/uL Baso # (Auto) 0.04 (0.00-0.20) K/uL Immature Gran # (Auto) 0.04 (0.01-0.20) K/uL PT 11.4 (9.0-12.0) Seconds INR 1.1 (0.9-1.1) Sodium 126 L (136-145) mmol/L Potassium 4.2 (3.5-5.1) mmol/L Chloride 85 L (98-107) mmol/L Carbon Dioxide 23 (21-32) mmol/L Anion Gap 18 H (3-11) BUN 13 (6-23) mg/dl Creatinine 0.86 (0.6-1.4) mg/dl Est Cr Clr Drug Dosing Not Reportable eGFR 103.54 BUN/Creatinine Ratio 15.1 (10-20) Glucose 99 (70-99(Fasting)) mg/dl Osmolality 269 L (280-300) mOsm/kg Calcium 9.4 (8.6-10.3) mg/dl Magnesium 1.9 (1.7-2.4) mg/dl Total Bilirubin 1.4 H (0.2-1.0) mg/dl AST 66 H (13-39) U/L ALT 51 (7-52) U/L Alkaline Phosphatase 64 (34-104) U/L Troponin I High Sens 3.8 (0-20) pg/ml Total Protein 8.5 H (6.0-8.3) gm/dl Albumin 4.0 (3.4-5.0) gm/dl Globulin 4.5 H (2.5-4.0) gm/dl Albumin/Globulin Ratio 0.9 (0.9-2) Lipase 86 H (11-82) U/L Urine Color Yellow Urine Appearance Clear (Clear) Urine pH 7.0 (4.5-7.5) Ur Specific [place] 1.041 H (1.000-1.030) Urine Protein Negative (Negative) Urine Glucose (UA) Negative (Negative) Urine Ketones 1+ H (Negative) Urine Blood Negative (Negative) Urine Nitrite Negative (Negative) Urine Bilirubin Negative (Negative) Urine Urobilinogen Negative (Negative) Ur Leukocyte Esterase Negative (Negative) Urine Comment Urine Opiates Screen Neg (Neg) Ur Methadone, Qual Neg (Neg) Urine Fentanyl Screen Neg (Neg) Urine Barbiturates Neg (Neg) Ur Phencyclidine (PCP) Neg (Neg) U Amphetamin/Meth Scrn Neg (Neg) MDMA (Ecstasy) Screen Neg (Neg) U Benzodiazepines Scrn Neg (Neg) Ur Cocaine Metabolite Neg (Neg) U Marijuana (THC) Screen Neg (Neg) Ethyl Alcohol mg/dL < 10.0 (<10.0) mg/dl Administered Medications Ofloxacin (Ofloxacin 0.3% 75 Drops/5 Ml Btl) 5 drops OTR HS JOMAR Stop: 05/31/25 20:59 Last Admin: 05/21/25 20:38 Dose: Not Given Documented By: [facility] Discontinued Medications Al Hydrox/Mg Hydrox/Simethicone (Aluminum/Magnesium Susp 30 Ml Udc) 15 ml PO NOW STA Stop: 05/21/25 14:16 Last Admin: 05/21/25 14:26 Dose: 15 ml Documented By: CAP Dicyclomine HCl (Dicyclomine Hcl 10 Mg/Ml 2 Ml Amp/Vial) 20 mg IM NOW ONE Stop: 05/21/25 14:36 Last Admin: 05/21/25 14:42 Dose: 20 mg Documented By: CAP Sodium Chloride (Nss) 1,000 mls @ 999 mls/hr IV .Q1H1M ONE Stop: 05/21/25 11:46 Last Infusion: 05/21/25 12:47 Dose: Infused Documented By: Admin: 05/21/25 11:15 Dose: 999 mls/hr Documented By: CAP Pantoprazole Sodium (Protonix) 40 mg in 10 mls @ 5 mls/min IV NOW ONE Stop: 05/21/25 10:47 Last Admin: 05/21/25 11:15 Dose: 5 mls/min Documented By: CAP Famotidine (Pepcid 20mg Iv Push) 20 mg in 5 mls @ 2.5 mls/min IV NOW STA Stop: 05/21/25 10:47 Last Admin: 05/21/25 11:15 Dose: 2.5 mls/min Documented By: DADA Sodium Chloride (Nss) 1,000 mls @ 125 mls/hr IV .Q8H JOMAR Stop: 05/24/25 12:44 Last Infusion: 05/21/25 20:24 Dose: Infused Documented By: Admin: 05/21/25 12:47 Dose: 125 mls/hr Documented By: DEMARCUS Ioversol (Optiray 320 100ml) 94 ml IV ONCE ONE Stop: 05/21/25 11:55 Last Admin: 05/21/25 11:54 Dose: 94 ml Documented By: LIBERTAD Metoclopramide HCl (Metoclopramide Hcl Inj 5 Mg/Ml 2 Ml Vial) 5 mg IV ONE ONE Stop: 05/21/25 12:41 Last Admin: 05/21/25 12:47 Dose: 5 mg Documented By: DEMARCUS Metoclopramide HCl (Metoclopramide Hcl Inj 5 Mg/Ml 2 Ml Vial) 5 mg IV ONE ONE Stop: 05/21/25 16:54 Last Admin: 05/21/25 18:24 Dose: 5 mg Documented By: ALEKSANDRA Ondansetron HCl (Ondansetron Inj 2 Mg/Ml 2 Ml Vial) 4 mg IV NOW STA Stop: 05/21/25 11:42 Last Admin: 05/21/25 11:45 Dose: 4 mg Documented By: DADA Ondansetron HCl (Ondansetron Inj 2 Mg/Ml 2 Ml Vial) 4 mg IV NOW STA Stop: 05/21/25 15:33 Last Admin: 05/21/25 15:40 Dose: 4 mg Documented By: ALEKSANDRA Sucralfate (Sucralfate 1 Gm/10 Ml Udc) 1 gm PO NOW STA Stop: 05/21/25 15:32 Last Admin: 05/21/25 15:39 Dose: 1 gm Documented By: ALEKSANDRA Imaging Data Radiologist's Impression: Abdomen/Pelvis CT 05/21/25 11:[address] WITH IV CONTRAST CT DOSE: 628.68 mGy.cm HISTORY: Acute generalized abdominal pain abd pain, n/v; hx gastric outlet TECHNIQUE: Multiaxial CT images of the abdomen and pelvis were performed following the IV administration of 94 cc of Optiray, A dose lowering technique was utilized adhering to the principles of ALARA. COMPARISON STUDY: CT abdomen and pelvis 02/26/2025, June 07, 2023. FINDINGS: Pulmonary emphysema redemonstrated. Coronary artery calcifications. Moderate left hemidiaphragmatic elevation. 4 mm subpleural solid nodule of the inferior segment lingula on image 6 is stable and likely benign. Calcified granuloma of the right middle lobe. No pneumatosis, free air or portal gas is present. There is hepatic steatosis. Ill-defined subcentimeter hypodensity of the inferior spleen on image 114 series 3 is unchanged and likely benign. The gallbladder, adrenal glands and kidneys are unremarkable. A subcentimeter right renal lesion favors a cyst. There is no hydronephrosis. There is no biliary or pancreatic ductal dilatation. Several pancreatic calcifications are seen. Redemonstration of gastric distention with air-fluid level. The first and second portions of the duodenum are also again moderately distended. Distention is generally unchanged from the 02/26/2025 exam. Caliber change with wall thickening of the third portion of the duodenum is also again similar to prior exam with mild adjacent inflammatory stranding (the second portion of the duodenum measures up to 6 cm transversely, previously 6.2 cm). Subcentimeter calcifications involving the pancreatic head and uncinate process are again noted. A few prominent adjacent lymph nodes measure up to 9 x 8 mm on image 166 series 3. The third portion duodenum is again decompressed with luminal narrowing. The sigmoid colon is redundant and mildly distended without evidence for a colonic obstruction. There is extensive aortoiliac atherosclerotic plaque. No evidence for a small bowel obstruction. Mild prostamegaly. Urinary bladder wall thickening may represent chronic outlet obstruction. No acute fracture or destructive bone lesion. IMPRESSION: 1. Generally stable exam compared to the 02/26/2025 study with similar findings also present on the June 07, 2023 exam. 2. Distended stomach, first and second portions of the duodenum with abrupt luminal narrowing/caliber change involving the third portion of the duodenum redemonstrated. Primary differential consideration based on nearly two-year stability would favor a benign process with a mucosal lesion considered less likely. If not already conducted, correlation with endoscopy recommended. 3. Unchanged mild inflammatory stranding adjacent to the duodenum and uncinate process pancreas. 4. Pulmonary emphysema. ACT 112: Negative or not required by law. The above report was generated using voice recognition software. It may contain grammatical, syntax or spelling errors. Electronically signed by: Clifton Eastman M.D. 05/21/2025 12:33 PM Discharge Plan Visit Data Chief Complaint: Nausea Stated Complaint: NAUSEA ED Provider: Maribel Weller Discharge Problem: Nausea & vomiting, Abdominal pain, Dehydration, Hyponatremia Patient Disposition: Being Evaluated by Hospitalist Condition: Fair Discharge Instructions Interventions: ED Discharge Assessment Last Done: 05/21/25 19:44
[2025-05-21] MEDS: SODIUM CHLORIDE 0.9% 1,000 ML IV ONE (11:15)
[2025-05-21] MEDS: FAMOTIDINE 20MG IV PUSH 20 MG/5 ML SYR IV STA (11:15)
[2025-05-21] MEDS: PANTOprazole 40 MG/10 ML SYR IV ONE (11:15)
[2025-05-21 11:19] LABS: Hematocrit (blood only) 45.1 % (42.0-52.0); Hemoglobin 16.2 g/dl (14.0-18.0); Immature Granulocytes # (auto) 0.04 K/uL (0.01-0.20); Immature Granulocytes % (auto) 0.4 %; Mean Corpuscular Hemoglobin 33.8 pg (25.0-34.0); Mean Corpuscular Volume 94.0 fL (80.0-100.0); Platelet Count 163 K/uL (130-400); RDW Standard Deviation 43.5 fL (36.4-46.3); Red Blood Count 4.80 M/uL (4.70-6.10); White Blood Count 9.31 K/ul (4.8-10.8)
[2025-05-21 11:38] LABS: Alanine Aminotransferase 51 U/L (7-52); Albumin Globulin Ratio 0.9 (0.9-2); Alkaline Phosphatase 64 U/L (34-104); Anion Gap 18 (3-11); Bilirubin,Total 1.4 mg/dl (0.2-1.0); Blood Urea Nitrogen 13 mg/dl (6-23); Calcium 9.4 mg/dl (8.6-10.3); Carbon Dioxide 23 mmol/L (21-32); Chloride 85 mmol/L (98-107); Globulin 4.5 gm/dl (2.5-4.0); Glucose 99 mg/dl (70-99(Fasting)); Lipase 86 U/L (11-82); Magnesium 1.9 mg/dl (1.7-2.4); Potassium 4.2 mmol/L (3.5-5.1); Sodium 126 mmol/L (136-145); Total Protein 8.5 gm/dl (6.0-8.3)
[2025-05-21] MEDS: ONDANSETRON INJ 2 MG/ML 2 ML VIAL IV STA ×2 (11:45→15:40)
[2025-05-21 11:48] LABS: INR 1.1 (0.9-1.1); Prothrombin Time 11.4 Seconds (9.0-12.0)
[2025-05-21] MEDS: OPTIRAY 320 100ml IV ONE (11:54)
--- NOTE | 2025-05-21 12:35 | CT Scan Report ---
ABDOMEN AND PELVIS CT WITH IV CONTRAST CT DOSE: 628.68 mGy.cm HISTORY: Acute generalized abdominal pain abd pain, n/v; hx gastric outlet TECHNIQUE: Multiaxial CT images of the abdomen and pelvis were performed following the IV administrat ion of 94 cc of Optiray, A dose lowering technique was utilized adhering to the principles of ALARA. COMPARISON STUDY: CT abdomen and pelvis 02/26/2025, June 07, 2023. FINDINGS: Pulmonary emphysema redemonstrated. Coronary artery calcifications. Moderate left hemidiaph ragmatic elevation. 4 mm subpleural solid nodule of the inferior segment lingula on image 6 is stable and likely benign. Calcified granuloma of the right middle lobe. No pneumatosis, free air or portal gas is present. There is hepatic steatosis. Ill-defined subcentime ter hypodensity of the inferior spleen on image 114 series 3 is unchanged and likely benign. The gall bladder, adrenal glands and kidneys are unremarkable. A subcentimeter right renal lesion favors a cys t. There is no hydronephrosis. There is no biliary or pancreatic ductal dilatation. Several pancreati c calcifications are seen. Redemonstration of gastric distention with air-fluid level. The first and second portions of the duodenum are also again moderately distended. Distention is generally unchange d from the 02/26/2025 exam. Caliber change with wall thickening of the third portion of the duodenum is also again similar to prior exam with mild adjacent inflammatory stranding (the second portion of th e duodenum measures up to 6 cm transversely, previously 6.2 cm). Subcentimeter calcifications involvi ng the pancreatic head and uncinate process are again noted. A few prominent adjacent lymph nodes juancho sure up to 9 x 8 mm on image 166 series 3. The third portion duodenum is again decompressed with jessica nal narrowing. The sigmoid colon is redundant and mildly distended without evidence for a colonic obs truction. There is extensive aortoiliac atherosclerotic plaque. No evidence for a small bowel obstruc tion. Mild prostamegaly. Urinary bladder wall thickening may represent chronic outlet obstruction. No acute fracture or destructive bone lesion. IMPRESSION: 1. Generally stable exam compared to the 02/26/2025 study with similar findings also present on the May exam. 2. Distended stomach, first and second portions of the duodenum with abrupt luminal narrowing/caliber change involving the third portion of the duodenum redemonstrated. Primary differential consideratio n based on nearly two-year stability would favor a benign process with a mucosal lesion considered le ss likely. If not already conducted, correlation with endoscopy recommended. 3. Unchanged mild inflammatory stranding adjacent to the duodenum and uncinate process pancreas. 4. Pulmonary emphysema. ACT 112: Negative or not required by law. The above report was generated using voice recognition software. It may contain grammatical, syntax o r spelling errors. Electronically signed by: Clifton Eastman M.D. 05/21/2025 12:33 PM
[2025-05-21] MEDS: METOCLOPRAMIDE HCL INJ 5 MG/ML 2 ML VIAL IV ONE ×2 (12:47→18:24)
[2025-05-21] MEDS: SODIUM CHLORIDE 0.9% 1,000 ML IV SCH (12:47)
[2025-05-21 14:16] LABS: Appearance Urine Clear (Clear); Glucose Urine UA Negative (Negative)
[2025-05-21] MEDS: ALUMINUM/MAGNESIUM SUSP 30 ML UDC PO STA (14:26)
[2025-05-21] MEDS: DICYCLOMINE HCL 10 MG/ML 2 ML AMP/VIAL IM ONE (14:42)
[2025-05-21 14:53] LABS: Amphetamines+Metham, Urine Neg (Neg); MDMA (Ecstacy), Urine Neg (Neg); Marijuana, Urine Neg (Neg)
[2025-05-21] MEDS: SUCRALFATE 1 GM/10 ML UDC PO STA (15:39)
--- NOTE | 2025-05-21 18:06 | History & Physical Report ---
Date of Service May 21, 2025 Assessment & Plan (1) Small bowel obstruction, partial: (2) Duodenal stricture: (3) Hyponatremia with extracellular fluid depletion: (4) Chronic hyponatremia: (5) Alcohol use disorder, mild, in early remission: (6) Chronic heart failure with reduced ejection fraction (HFrEF, <= 40%): Plan In summary this is a 54-year-old male presenting for persistent nonbloody, nonbilious emesis with inability to tolerate oral intake complicated by intravascular volume depletion and hyponatremia #Small bowel obstruction, partial // Duodenal stricture, chronic Patient presents with inability tolerate oral intake, persistent nonbloody nonbilious emesis concerning for a partial SBO given the patient's established diagnosis of duodenal stricture for which she does follow with general surgery in the outpatient setting; this is most likely a flare of this condition based on imaging that was obtained in the emergency department No indication for NG decompression at this time Consult general surgery #Chronic hyponatremia in the setting of gastric loss At presentation patient's sodium was 126; clinically hypovolemic; patient is not established on any SSRIs, antiepileptics, sulfonylureas, opioids, nor thiazides; serum osmolarity 269; urine osmolality and urine sodium pending; clinically consequential of his gastrointestinal fluid losses, they will pursue further diagnostic testing given his alcohol use history - Intake and output measure every shift - Follow daily RFP and Magnesium - trend sodium every 4 hours for next 24 hours - Full liquid diet DVT PPx: not indicated at this time Admission and Anticipated Discharge Date Admission Date: 05/21/2025 Anticipated date of discharge: 05/23/25 History of Present Illness Chief Complaint: Persistent nausea and vomiting Primary Care Provider: Burak Stevens DO Mr. Prabhakar is a 54-year-old male whose active medical conditions include chronic duodenal stricture, heart failure with reduced ejection fraction, alcohol use disorder in early remission who presented to [facility] on 05/21 due to persistent and progressive nausea with nonbilious nonbloody emesis. The patient has had similar episodes in the past, requiring hospitalization, though it has been sometime since the patient's previous hospitalization. They endorse abdominal distention without significant abdominal pain other than whenever having episodes of emesis; they do feel as though they are gastroesophageal reflux has been worse for the past week without changes in their medications. The patient denies fevers, chills, chest pain, shortness of breath, cough, lower extremity swelling, stool changes other than decreased frequency of bowel movements. Allergies Allergy/AdvReac Type Severity Reaction Status Date / Time No Known Allergies Allergy Verified 05/21/25 19:09 Home Medications Medication Instructions Recorded Confirmed Type cholecalciferol (vitamin D3) 25 50 mcg PO QAM 06/28/23 05/21/25 History mcg (1,000 unit) capsule ibuprofen 200 mg tablet (Advil) 200 mg PO Q6H PRN Pain 02/26/25 05/21/25 History famotidine 20 mg tablet 20 mg PO AMHS 05/21/25 05/21/25 History folic acid 1 mg tablet 1 mg PO QAM 05/21/25 05/21/25 History magnesium oxide 500 mg capsule 500 mg PO QAM 05/21/25 05/21/25 History ofloxacin 0.3 % eye drops 5 drp otic (ear) HS 05/21/25 05/21/25 History potassium chloride 20 mEq 20 meq PO QAM 05/21/25 05/21/25 History tablet,extended release(part/cryst) Past Med/Surg History Problem List (Updated 05/21/25 @ 18:06 by Anthony Fisher DO) Alcohol use disorder, mild, in early remission Hyponatremia with extracellular fluid depletion Chronic hyponatremia Small bowel obstruction, partial Chronic heart failure with reduced ejection fraction (HFrEF, <= 40%) Sensorineural hearing loss (SNHL) of both ears (Chronic) Duodenal stricture (Chronic) Medical History Closed fracture of acetabulum (03/19/13) RLL pneumonia JUAN (acute kidney injury) MRSA (methicillin resistant staph aureus) culture positive Bacteremia due to Klebsiella pneumoniae Septic shock Elevated troponin Alcohol abuse Acute respiratory failure with hypoxia Alcohol withdrawal Non-ST elevation [place] (NSTEMI) Family History Grandfather (Maternal) Cancer Brother Diabetes Social History (Updated 05/21/25 @ 19:09 by Anthony Fisher DO) Smoking Status: Current every day smoker Tobacco Type: Cigarettes Age Started Using Tobacco: 19; packs per day: 1; Cigarettes Per Day: 1 pack per day; Second Hand Exposure: No; Do You Dip or Chew Tobacco: No; Hx Alcohol Use: Yes Alcohol type: beer Hx Substance Use: No Preferred Language: [place] Communication Ability: Effective 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 Physical Exam Physical Exam: General: Adult male in no acute distress Vital Signs: reviewed HEENT: pupils equally round react to light; extraocular motion intact without associated nystagmus; dry mucous membranes Neck: Pulmonary: symmetric chest wall excursion without restriction; clear to auscultation bilaterally Cardiovascular: regular rate and rhythm without murmurs, rubs, or gallops; S1 and S2 normal; bilateral radial and posterior tibial pulse 2+ without associated lower extremity edema Gastrointestinal: protuberant, tympanic with percussion; no associated significant abdominal discomfort with palpation nor acute peritoneal findings; bowel sounds are high-frequency and high-pitched Neurologic: CN II-XII grossly intact; no discernible focal weakness nor paresthesias Results & Data Results & Data Vital Signs (Past 12 Hours) Vital Signs Temp Pulse Pulse Resp BP BP Pulse Ox 05/21/25 17:41 103 H 20 138/91 98 05/21/25 15:28 78 16 133/90 98 05/21/25 14:17 79 05/21/25 14:09 107 H 24 98 05/21/25 13:48 70 15 99 05/21/25 13:09 71 17 100 05/21/25 12:49 135/96 05/21/25 12:47 76 20 135/96 100 05/21/25 12:45 74 15 100 05/21/25 12:06 97 H 15 05/21/25 11:30 97 H 16 99 05/21/25 11:03 112 H 22 98 05/21/25 10:42 106 H 15 98 05/21/25 10:18 109 H 15 97 05/21/25 10:17 111 H 05/21/25 10:14 36.8 C 109 H 18 148/128 H 97 O2 Del Method 05/21/25 17:41 Room Air 08/27/25 15:28 Room Air 05/21/25 14:17 05/21/25 14:09 05/21/25 13:48 Room Air 05/21/25 13:09 Room Air 05/21/25 12:49 05/21/25 12:47 Room Air 05/21/25 12:45 Room Air 05/21/25 12:06 05/21/25 11:30 Room Air 05/21/25 11:03 Room Air 05/21/25 10:42 Room Air 05/21/25 10:18 Room Air 05/21/25 10:17 05/21/25 10:14 Room Air Code Status & VTE Plan Code Status Full Code VTE Prophylaxis Plan VTE Prophylaxis will be ordered: No Reason for no VTE drug order: Treatment not indicated PG Care Time/CCT Total # of Minutes Spent Total Time Spent with Patient: Total time spent is greater than 50% in coordination of care (as documented) at patient's floor/unit and/or counseling patient: Coding Level of Care Code 36278 INT INP/OBS CARE 2MIN Diagnoses Small bowel obstruction, partial K56.600 Duodenal stricture K31.5 Hyponatremia with extracellular fluid depletion E87.1 Chronic hyponatremia E87.1 Alcohol use disorder, mild, in early remission F10.11 Chronic heart failure with reduced ejection fraction (HFrEF, <= 40%) I50.22
[2025-05-21] MEDS ORDERED: MELATONIN 3 MG TAB PO PRN (19:44)
[2025-05-21] MEDS: OFLOXACIN 0.3% 75 DROPS/5 ML BTL OTR SCH (20:38)
--- NOTE | 2025-05-21 20:59 | Surgery Consultation ---
Date of Consultation May 21, 2025 Assessment & Plan (1) Small bowel obstruction, partial: Patient with known duodenum stricture and does see general surgery as an outpatient for, presents to the emergency department for complaints of inability tolerate oral intake and emesis. Patient was seen and evaluated this evening, he is resting comfortably in bed, VSS, and is nontoxic appearing. From a surgical standpoint recommend the following: -Patient with no signs of acute abdomen that would warrant emergent surgical intervention, will treat conservatively for now -Keep NPO and provide appropriate IV hydration and electrolyte repletion -Can hold off on NGT placement at this time as patient is currently not symptomatic. I did discuss with him that if he does start with N/V we would recommend an NGT to be placed. -Medical management per primary team, surgery will continue to follow (2) Duodenal stricture: Supervising Physician Co-Signing Physician Notes He can have clear liquids from a surgical standpoint for today and see how he tolerates this Will place an NG tube if he has any recurrent vomiting He is following along with Dr. Gomez who he can see as an outpatient to discuss elective surgery for his chronic duodenal stricture Will follow History of Present Illness Reason for Consultation: pSBO History of Present Illness Patient is a 54-year old male with a PMH significant for duodenal stricture, alcohol abuse, renal insufficiency, Hypokalemia, Hypocalcemia, Hyponatremia, NSTEMI, cardiomyopathy, that presented to the emergency room with complains of nausea and vomiting since yesterday. The patient states his symptoms felt similar to those in the past that has required him to be admitted to the hospital for. He denies passing gas and has not had a BM since the onset of his symptoms. He states he has not been able to keep anything down for the past day, his abdomen feels more distended, and states he has felt lightheaded/dizzy. His last hospitalization was roughly 3 months ago and at that time he did undergo an EGD with results of Grade D esophagitis, gastritis, and duodenal stenosis. The patient also sees outpatient general surgery for his chronic duodenal stricture and so far his symptoms have been well managed that he has not required any surgical intervention. Allergies Allergy/AdvReac Type Severity Reaction Status Date / Time No Known Allergies Allergy Verified 05/21/25 19:09 Home Medications Medication Instructions Recorded Confirmed Type cholecalciferol (vitamin D3) 25 50 mcg PO QAM 06/28/23 05/21/25 History mcg (1,000 unit) capsule ibuprofen 200 mg tablet (Advil) 200 mg PO Q6H PRN Pain 02/26/25 05/21/25 History famotidine 20 mg tablet 20 mg PO AMHS 05/21/25 05/21/25 History folic acid 1 mg tablet 1 mg PO QAM 05/21/25 05/21/25 History magnesium oxide 500 mg capsule 500 mg PO QAM 05/21/25 05/21/25 History ofloxacin 0.3 % eye drops 5 drp otic (ear) HS 05/21/25 05/21/25 History potassium chloride 20 mEq 20 meq PO QAM 05/21/25 05/21/25 History tablet,extended release(part/cryst) Patient History Medical History Closed fracture of acetabulum (03/19/13) RLL pneumonia JUAN (acute kidney injury) MRSA (methicillin resistant staph aureus) culture positive Bacteremia due to Klebsiella pneumoniae Septic shock Elevated troponin Alcohol abuse Acute respiratory failure with hypoxia Alcohol withdrawal Non-ST elevation [place] (NSTEMI) Family History Grandfather (Maternal) Cancer Brother Diabetes Social History (Updated 05/21/25 @ 19:09 by Anthony Fisher DO) Smoking Status: Current every day smoker Tobacco Type: Cigarettes Age Started Using Tobacco: 19; packs per day: 1; Cigarettes Per Day: 1 pack per day; Second Hand Exposure: No; Do You Dip or Chew Tobacco: No; Hx Alcohol Use: Yes Alcohol type: beer Hx Substance Use: No Preferred Language: [place] Communication Ability: Effective Communication Tools: Other [employer] Required: No Beliefs That Will Affect Care: None marital status: Current Living Situation: Alone current occupational status: employed Feels Safe at Home: Yes Safety Concerns: Feels Safe At This Time Assistive Devices: Walker Review of Systems Constitutional: no fever, no chills and no sweats Respiratory: no cough, no chest congestion and no dyspnea Cardiovascular: no chest pain and no palpitations Gastrointestinal: as per Subjective / HPI, + abdominal pain, + nausea and + vomiting Physical Exam Constitutional: WD/WN, vitals as above Respiratory: normal respiratory effort, lungs clear to auscultation Cardiovascular: Rate/Rhythm: regular rate Gastrointestinal (Abdomen): Abdomen soft, nondistended, +mild TTP throughout without rebound, guarding or signs of peritonitis Skin: no rashes, warm and dry Psychiatric: A+Ox3, euthymic affect Results & Data Vital Signs (Past 12 Hours) Vital Signs Temp Pulse Pulse Resp BP BP Pulse Ox 05/21/25 19:10 75 18 118/88 99 05/21/25 17:41 103 H 20 138/91 98 05/21/25 15:28 78 16 133/90 98 05/21/25 14:17 79 05/21/25 14:09 107 H 24 98 05/21/25 13:48 70 15 99 05/21/25 13:09 71 17 100 05/21/25 12:49 135/96 05/21/25 12:47 76 20 135/96 100 05/21/25 12:45 74 15 100 05/21/25 12:06 97 H 15 05/21/25 11:30 97 H 16 99 05/21/25 11:03 112 H 22 98 05/21/25 10:42 106 H 15 98 05/21/25 10:18 109 H 15 97 05/21/25 10:17 111 H 05/21/25 10:14 36.8 C 109 H 18 148/128 H 97 O2 Del Method 05/21/25 19:10 Room Air 05/21/25 17:41 Room Air 05/21/25 15:28 Room Air 05/21/25 14:17 05/21/25 14:09 05/21/25 13:48 Room Air 05/21/25 13:09 Room Air 05/21/25 12:49 05/21/25 12:47 Room Air 05/21/25 12:45 Room Air 05/21/25 12:06 05/21/25 11:30 Room Air 05/21/25 11:03 Room Air 05/21/25 10:42 Room Air 05/21/25 10:18 Room Air 05/21/25 10:17 05/21/25 10:14 Room Air Diagnostic Findings ABDOMEN AND PELVIS CT WITH IV CONTRAST CT DOSE: 628.68 mGy.cm HISTORY: Acute generalized abdominal pain abd pain, n/v; hx gastric outlet TECHNIQUE: Multiaxial CT images of the abdomen and pelvis were performed following the IV administration of 94 cc of Optiray, A dose lowering technique was utilized adhering to the principles of ALARA. COMPARISON STUDY: CT abdomen and pelvis 02/26/2025, June 07, 2023. FINDINGS: Pulmonary emphysema redemonstrated. Coronary artery calcifications. Moderate left hemidiaphragmatic elevation. 4 mm subpleural solid nodule of the inferior segment lingula on image 6 is stable and likely benign. Calcified gra nuloma of the right middle lobe. No pneumatosis, free air or portal gas is present. There is hepatic steatosis. Ill-defined subcentimeter hypodensity of the inferior spleen on image 114 series 3 is unchanged and likely benign. The gallbladder, adrenal glands and kidneys are unremarkable. A subcentimeter right renal lesion favors a cyst. There is no hydronephrosis. There is no biliary or pancreatic ductal dilatation. Several pancreatic calcifications are seen. Redemonstration of gastric distention with air-fluid level. The first and second portions of the duodenum are also again moderately distended. Distention is generally unchanged from the 02/26/2025 exam. Caliber change with wall thickening of the third portion of the duodenum is also again similar to prior exam with mild adjacent inflammatory stranding (the second portion of the duodenum measures up to 6 cm transversely, previously 6.2 cm). Subcentimeter calcifications involving the pancreatic head and uncinate process are again noted. A few prominent adjacent lymph nodes measure up to 9 x 8 mm on image 166 series 3. The third portion duodenum is again decompressed with luminal narrowing. The sigmoid colon is redundant and mildly distended without evidence for a colonic obstruction. There is extensive aortoiliac atherosclerotic plaque. No evidence for a small bowel obstruction. Mild prostamegaly. Urinary bladder wall thickening may represent chronic outlet obstruction. No acute fracture or destructive bone lesion. IMPRESSION: 1. Generally stable exam compared to the 02/26/2025 study with similar findings also present on the June 07, 2023 exam. 2. Distended stomach, first and second portions of the duodenum with abrupt luminal narrowing/caliber change involving the third portion of the duodenum redemonstrated. Primary differential consideration based on nearly two-year stability would favor a benign process with a mucosal lesion considered less likely. If not already conducted, correlation with endoscopy recommended. 3. Unchanged mild inflammatory stranding adjacent to the duodenum and uncinate process pancreas. 4. Pulmonary emphysema. PG Care Time/CCT Total # of Minutes Spent Total Time Spent with Patient: Total time spent is greater than 50% in coordination of care (as documented) at patient's floor/unit and/or counseling patient: [place] [address] INT INP/OBS CARE 1/40MIN Patient Type New Medical Decision Making Straight Forward Diagnoses Small bowel obstruction, partial K56.600 Duodenal stricture K31.5
[2025-05-22 04:42] LABS: Anion Gap 6.0 (3-11); Blood Urea Nitrogen 8.0 mg/dl (6-23); Calcium 8.4 mg/dl (8.6-10.3); Carbon Dioxide 23.0 mmol/L (21-32); Chloride 97.0 mmol/L (98-107); Creatinine Clr Calc Pharmacy 129.1 ml/min; Glucose 105.0 mg/dl (70-99(Fasting)); Magnesium 1.8 mg/dl (1.7-2.4); Potassium 3.5 mmol/L (3.5-5.1); Sodium 126.0 mmol/L (136-145)
--- NOTE | 2025-05-22 07:29 | Hospitalist Progress Note ---
Date of Service May 22, 2025 Assessment & Plan (1) Small bowel obstruction, partial: (2) Duodenal stricture: (3) Hyponatremia with extracellular fluid depletion: (4) Chronic hyponatremia: (5) Alcohol use disorder, mild, in early remission: (6) Chronic heart failure with reduced ejection fraction (HFrEF, <= 40%): Plan In summary this is a 54-year-old male presenting for persistent nonbloody, nonbilious emesis with inability to tolerate oral intake complicated by intravascular volume depletion and hyponatremia #Small bowel obstruction, partial // Duodenal stricture, chronic Patient presents with inability tolerate oral intake, persistent nonbloody nonbilious emesis concerning for a partial SBO given the patient's established diagnosis of duodenal stricture for which she does follow with general surgery in the outpatient setting; this is most likely a flare of this condition based on imaging that was obtained in the emergency department No indication for NG decompression at this time pending fecal calprotectin and lactoferrin to rule out inflammatory bowel disease contributing to the stricture Consult general surgery #Chronic hyponatremia in the setting of gastric loss At presentation patient's sodium was 126; sodium trend 126, 120, 126; clinically hypovolemic; patient is not established on any SSRIs, antiepileptics, sulfonylureas, opioids, nor thiazides; consistent with hypovolemic hypoosmolar hyponatremia however the patient's urinalysis revealing a diminished urine osmolality and elevated urine sodium of 35 is more consistent with a renal source rather than initially suspected gastrointestinal. May be multifactorial; not likely to be consequential of ketonuria nor bicarbonate urea given there urinalysis; there is no additional evidence the patient's laboratory assessment thus far of a mineralocorticoid deficiency - Intake and output measure every shift - Follow daily RFP and Magnesium pending urinary chloride to differentiate between potential causes - trend sodium every 4 hours through evening of 05/22 Start hypertonic saline 3% at 55 mL/h for 1 bag - Full liquid diet DVT PPx: not indicated at this time Admission and Anticipated Discharge Date Admission Date: May 21, 2025 Anticipated date of discharge: 05/23/25 Subjective Mr. Prabhakar is a 54-year-old male whose active medical conditions include chronic duodenal stricture, heart failure with reduced ejection fraction, alcohol use disorder in early remission who presented to [facility] on 05/21 due to persistent and progressive nausea with nonbilious nonbloody emesis. The patient has had similar episodes in the past, requiring hospitalization, though it has been sometime since the patient's previous hospitalization. They endorse abdominal distention without significant abdominal pain other than whenever having episodes of emesis; they do feel as though they are gastroesophageal reflux has been worse for the past week without changes in their medications. The patient denies fevers, chills, chest pain, shortness of breath, cough, lower extremity swelling, stool changes other than decreased frequency of bowel movements. No acute overnight events; patient has not had any recurrent episodes of emesis during hospitalization. Review of Systems Review of Systems: Review of constitutional, cardiovascular, gastrointestinal systems were unr emarkable. Physical Exam Physical Exam: General: Adult male in no acute distress Vital Signs: reviewed HEENT: tacky mucous membranes Pulmonary: symmetric chest wall excursion without restriction; clear to auscultation bilaterally Cardiovascular: regular rate and rhythm without murmurs, rubs, or gallops; S1 and S2 normal; bilateral radial pulse 2+ Gastrointestinal: protuberant, tympanic with percussion; no associated significant abdominal discomfort with palpation nor acute peritoneal findings; bowel sounds are high-frequency and high-pitched Results & Data Results & Data Vital Signs (Past 12 Hours) Vital Signs Pulse Resp BP Pulse Ox O2 Del Method 05/22/25 01:33 71 20 145/97 H 98 Room Air 05/21/25 22:46 70 18 136/92 100 Room Air 05/21/25 22:42 72 18 136/92 Laboratory Results Persistent hyponatremia with trend 126, 128, 126, 126; renal function panel in the morning 05/22 is relatively unremarkable except for persistent hyponatremia; urine osmolality of 427, urine sodium of 35 PG Care Time/CCT Total # of Minutes Spent Total Time Spent with Patient: Total time spent is greater than 50% in coordination of care (as documented) at patient's floor/unit and/or counseling patient: Coding Level of Care Code 74325 SUB INP/OBS CARE 2/35MIN Diagnoses Small bowel obstruction, partial K56.600 Duodenal stricture K31.5 Hyponatremia with extracellular fluid depletion E87.1 Chronic hyponatremia E87.1 Alcohol use disorder, mild, in early remission F10.11 Chronic heart failure with reduced ejection fraction (HFrEF, <= 40%) I50.22
[2025-05-22] MEDS ORDERED: STOP ORDER ONE (07:31)
[2025-05-22] MEDS ORDERED: STAT IV/IM STA (07:31)
[2025-05-22] MEDS: SODIUM CHLORIDE 3 % 500 ML IV SCH (08:06)
[2025-05-22] MEDS: PROMETHAZINE 12.5 MG/50.5 ML BAG IV PRN (18:12)
--- NOTE | 2025-05-22 18:22 | Electrocardiogram Report ---
Test Reason : Blood Pressure : */* mmHG Vent. Rate : 109 BPM Atrial Rate : 109 BPM P-R Int : 116 ms QRS Dur : 76 ms QT Int : 348 ms P-R-T Axes : -19 -6 -19 degrees QTcB Int : 468 ms Poor data quality, interpretation may be adversely affected Sinus tachycardia Possible Inferior infarct , age undetermined Abnormal ECG When compared with ECG of 06-Jan-2023 14:53, Borderline criteria for Inferior infarct are now Present T wave inversion now evident in Inferior leads Confirmed by Tima Myers ([id number]) on 05/22/2025 6:22:11 PM Referred By: REFERRED SELF Confirmed By: Tima Myers
--- NOTE | 2025-05-23 07:52 | Hospitalist Progress Note ---
Date of Service May 23, 2025 Assessment & Plan (1) Small bowel obstruction, partial: (2) Duodenal stricture: (3) Hyponatremia with extracellular fluid depletion: (4) Chronic hyponatremia: (5) Alcohol use disorder, mild, in early remission: (6) Chronic heart failure with reduced ejection fraction (HFrEF, <= 40%): Plan In summary this is a 54-year-old male presenting for persistent nonbloody, nonbilious emesis with inability to tolerate oral intake complicated by intravascular volume depletion and hyponatremia #Small bowel obstruction, partial // Duodenal stricture, chronic Patient presents with inability tolerate oral intake, persistent nonbloody nonbilious emesis concerning for a partial SBO given the patient's established diagnosis of duodenal stricture for which she does follow with general surgery in the outpatient setting; this is most likely a flare of this condition based on imaging that was obtained in the emergency department No indication for NG decompression at this time pending fecal calprotectin and lactoferrin to rule out inflammatory bowel disease contributing to the stricture Consult general surgery #Chronic hyponatremia in the setting of gastric loss Initial hyponatremia resolved; consistent with hypovolemic hypoosmolar hyponatremia however the patient's urinalysis revealing a diminished urine osmolality and elevated urine sodium of 35 is more consistent with a renal source rather than initially suspected gastrointestinal. May be multifactorial; not likely to be consequential of ketonuria nor bicarbonate urea given there urinalysis; there is no additional evidence the patient's laboratory assessment thus far of a mineralocorticoid deficiency - Intake and output measure every shift - Follow daily RFP and Magnesium - Full liquid diet DVT PPx: not indicated at this time Admission and Anticipated Discharge Date Admission Date: May 21, 2025 Subjective Mr. Prabhakar is a 54-year-old male whose active medical conditions include chronic duodenal stricture, heart failure with reduced ejection fraction, alcohol use disorder in early remission who presented to [facility] on 05/21 due to persistent and progressive nausea with nonbilious nonbloody emesis. The patient has had similar episodes in the past, requiring hospitalization, though it has been sometime since the patient's previous hospitalization. They endorse abdominal distention without significant abdominal pain other than whenever having episodes of emesis; they do feel as though they are gastroesophageal reflux has been worse for the past week without changes in their medications. The patient denies fevers, chills, chest pain, shortness of breath, cough, lower extremity swelling, stool changes other than decreased frequency of bowel movements. No acute overnight events; patient has not had any recurrent episodes of emesis during hospitalization. Review of Systems Review of Systems: Review of constitutional, cardiovascular, gastrointestinal systems were unremarkable. Physical Exam Physical Exam: General: Adult male in no acute distress Vital Signs: reviewed HEENT: tacky mucous membranes Pulmonary: symmetric chest wall excursion without restriction; clear to auscultation bilaterally Cardiovascular: regular rate and rhythm without murmurs, rubs, or gallops; S1 and S2 normal; bilateral radial pulse 2+ Gastrointestinal: protuberant, tympanic with percussion; no associated significant abdominal discomfort with palpation nor acute peritoneal findings; bowel sounds are high-frequency and high-pitched Results & Data Results & Data Vital Signs (Past 12 Hours) Vital Signs Temp Pulse Resp BP Pulse Ox O2 Del Method 05/23/25 07:21 36.7 C 58 L 16 145/89 H 99 Room Air 05/22/25 23:30 36.9 C 70 18 130/84 98 Room Air PG Care Time/CCT Total # of Minutes Spent Total Time Spent with Patient: Total time spent is greater than 50% in coordination of care (as documented) at patient's floor/unit and/or counseling patient: Coding Level of Care Code 18470 SUB INP/OBS CARE 2/35MIN Diagnoses Small bowel obstruction, partial K56.600 Duodenal stricture K31.5 Hyponatremia with extracellular fluid depletion E87.1 Chronic hyponatremia E87.1 Alcohol use disorder, mild, in early remission F10.11 Chronic heart failure with reduced ejection fraction (HFrEF, <= 40%) I50.22
[2025-05-23 09:03] LABS: Anion Gap 6.0 (3-11); Blood Urea Nitrogen 3.0 mg/dl (6-23); Calcium 8.3 mg/dl (8.6-10.3); Carbon Dioxide 27.0 mmol/L (21-32); Chloride 99.0 mmol/L (98-107); Creatinine Clr Calc Pharmacy 123.2 ml/min; Glucose 156.0 mg/dl (70-99(Fasting)); Magnesium 1.6 mg/dl (1.7-2.4); Potassium 2.9 mmol/L (3.5-5.1); Sodium 132.0 mmol/L (136-145)
[2025-05-23] MEDS: MAGNESIUM SULFATE / D5W 1 GM/100 ML BAG IV SCH (09:42)
--- NOTE | 2025-05-23 10:00 | Surgery Progress Note ---
Date of Service May 23, 2025 Assessment & Plan (1) Duodenal stricture: Plan: He is tolerating his liquids, can advance as tolerated The goal would be to get him out of the hospital tolerating a diet and he can follow-up with Dr. Gomez as an outpatient Surgery will sign off at this time, please call with any questions or concerns Admission and Anticipated Discharge Date Admission Date: May 21, 2025 Subjective Patient seen and examined. Tolerated clear liquids with minimal nausea. Afebrile. Abdominal pain improved. Review of Systems Constitutional: no fever, no chills and no sweats Respiratory: no cough, no chest congestion and no dyspnea Cardiovascular: no chest pain and no palpitations Gastrointestinal: as per Subjective / HPI, + abdominal pain, + nausea and + vomiting Integumentary: no acne and no lesions Psychiatric: no behavioral changes and no depression Physical Exam Constitutional: WD/WN, vitals as above Neck: trachea midline, no thyromegaly Respiratory: normal respiratory effort, lungs clear to auscultation Cardiovascular: RRR, no murmur, no edema Gastrointestinal (Abdomen): normal bowel sounds, soft, nontender, no hepatosplenomegaly Musculoskeletal: no cyanosis or clubbing, extremities motor strength 5/5 Skin: no rashes, warm and dry Results & Data Vital Signs (Past 12 Hours) Vital Signs Temp Pulse Resp BP Pulse Ox O2 Del Method 05/23/25 07:21 36.7 C 58 L 16 145/89 H 99 Room Air 05/22/25 23:30 36.9 C 70 18 130/84 98 Room Air PG Care Time/CCT Total # of Minutes Spent Total Time Spent with Patient: Total time spent is greater than 50% in coordination of care (as documented) at patient's floor/unit and/or counseling patient: Coding Level of Care Code 12531 SUB INP/OBS CARE 10/19MIN Diagnoses Duodenal stricture K31.5
[2025-05-23] MEDS: POTASSIUM CHLORIDE CRTAB 20 MEQ TABCR PO SCH (13:26)
[2025-05-24 07:24] LABS: Anion Gap 5.0 (3-11); Blood Urea Nitrogen 4.0 mg/dl (6-23); Calcium 8.3 mg/dl (8.6-10.3); Carbon Dioxide 24.0 mmol/L (21-32); Chloride 102.0 mmol/L (98-107); Creatinine Clr Calc Pharmacy 156.4 ml/min; Glucose 109.0 mg/dl (70-99(Fasting)); Magnesium 1.8 mg/dl (1.7-2.4); Potassium 3.5 mmol/L (3.5-5.1); Sodium 131.0 mmol/L (136-145)
--- NOTE | 2025-05-24 07:51 | Hospitalist Progress Note ---
Date of Service May 24, 2025 Assessment & Plan (1) Small bowel obstruction, partial: (2) Duodenal stricture: (3) Hyponatremia with extracellular fluid depletion: (4) Chronic hyponatremia: (5) Alcohol use disorder, mild, in early remission: (6) Chronic heart failure with reduced ejection fraction (HFrEF, <= 40%): Plan In summary this is a 54-year-old male presenting for persistent nonbloody, nonbilious emesis with inability to tolerate oral intake complicated by intravascular volume depletion and hyponatremia #Small bowel obstruction, partial // Duodenal stricture, chronic Resolved; advised patient they are stable for discharge. Given the lack of a formidable bowel movement and lack of access to transport home, he will remain admitted through 05/25 at which time he will be discharged unless an unforseen complication arises Consult general surgery #Chronic hyponatremia in the setting of gastric loss Resolved DVT PPx: not indicated at this time Admission and Anticipated Discharge Date Admission Date: May 23, 2025 Subjective Mr. Prabhakar is a 54-year-old male whose active medical conditions include chronic duodenal stricture, heart failure with reduced ejection fraction, alcohol use disorder in early remission who presented to [facility] on 05/21 due to persistent and progressive nausea with nonbilious nonbloody emesis. The patient has had similar episodes in the past, requiring hospitalization, though it has been sometime since the patient's previous hos pitalization. They endorse abdominal distention without significant abdominal pain other than whenever having episodes of emesis; they do feel as though they are gastroesophageal reflux has been worse for the past week without changes in their medications. The patient denies fevers, chills, chest pain, shortness of breath, cough, lower extremity swelling, stool changes other than decreased frequency of bowel movements. No acute overnight events; patient has not had any recurrent episodes of emesis during hospitalization. He is concerned with the lack of a robust bowel movement to this point of his hospitalization Review of Systems Review of Systems: Review of constitutional, cardiovascular, gastrointestinal systems were unremarkable. Physical Exam Physical Exam: General: Adult male in no acute distress Vital Signs: reviewed HEENT: tacky mucous membranes Pulmonary: symmetric chest wall excursion without restriction; clear to auscultation bilaterally Cardiovascular: regular rate and rhythm without murmurs, rubs, or gallops; S1 and S2 normal; bilateral radial pulse 2+ Gastrointestinal: distended, soft; no associated significant abdominal discomfort with palpation nor acute peritoneal findings; bowel sounds are high- frequency and high-pitched Results & Data Results & Data Vital Signs (Past 12 Hours) Vital Signs Temp Pulse Resp BP Pulse Ox O2 Del Method 05/23/25 23:03 37 C 62 12 135/85 96 Room Air PG Care Time/CCT Total # of Minutes Spent Total Time Spent with Patient: Total time spent is greater than 50% in coordination of care (as documented) at patient's floor/unit and/or counseling patient: Coding Level of Care Code 40668 SUB INP/OBS CARE 10/19MIN Diagnoses Small bowel obstruction, partial K56.600 Duodenal stricture K31.5 Hyponatremia with extracellular fluid depletion E87.1 Chronic hyponatremia E87.1 Alcohol use disorder, mild, in early remission F10.11 Chronic heart failure with reduced ejection fraction (HFrEF, <= 40%) I50.22
[2025-05-24 16:18] VITALS: RESP 16
[2025-05-24] MEDS: POLYETHYLENE (MIRALAX) 17 GM PACK PO SCH (16:46)
--- NOTE | 2025-05-25 07:27 | Hospitalist Progress Note ---
Date of Service May 25, 2025 Assessment & Plan Admission and Anticipated Discharge Date Admission Date: May 23, 2025 Results & Data Results & Data Vital Signs (Past 12 Hours) Vital Signs Temp Pulse Resp BP Pulse Ox O2 Del Method 05/24/25 22:59 36.6 C 62 16 166/99 H 97 Room Air PG Care Time/CCT Total # of Minutes Spent Total Time Spent with Patient: Total time spent is greater than 50% in coordination of care (as documented) at patient's floor/unit and/or counseling patient: Coding
[2025-05-25 07:38] VITALS: BP 163/96; PULSE 58; TEMP 97.7; O2SAT 100
--- NOTE | 2025-05-25 13:35 | Discharge Summary ---
Discharge Summary Date of Service May 25, 2025 Principal Dx & Hospital Course #1 = Principal Diagnosis (1) Small bowel obstruction, partial: (2) Duodenal stricture: (3) Hyponatremia with extracellular fluid depletion: (4) Chronic hyponatremia: (5) Alcohol use disorder, mild, in early remission: (6) Chronic heart failure with reduced ejection fraction (HFrEF, <= 40%): Plan In summary this is a 54-year-old male presenting for persistent nonbloody, nonbilious emesis with inability to tolerate oral intake complicated by intravascular volume depletion and hyponatremia #Small bowel obstruction, partial // Duodenal stricture, chronic Resolved; advised patient they are stable for discharge. Had a robust bowel movement in the evening 05/24 Consulted general surgery; recommend outpatient follow up #Chronic hyponatremia in the setting of gastric loss Resolved DVT PPx: not indicated at this time Admission HPI Per Admitting Provider Mr. Prabhakar is a 54-year-old male whose active medical conditions include chronic duodenal stricture, heart failure with reduced ejection fraction, alcoho l use disorder in early remission who presented to [facility] on 05/21 due to persistent and progressive nausea with nonbilious nonbloody emesis. The patient has had similar episodes in the past, requiring hospitalization, though it has been sometime since the patient's previous hospitalization. They endorse abdominal distention without significant abdominal pain other than whenever having episodes of emesis; they do feel as though they are gastroesophageal reflux has been worse for the past week without changes in their medications. The patient denies fevers, chills, chest pain, shortness of breath, cough, lower extremity swelling, stool changes other than decreased frequency of bowel movements. Discharge Exam General: Adult male in no acute distress Vital Signs: reviewed HEENT: tacky mucous membranes Pulmonary: symmetric chest wall excursion without restriction; clear to auscultation bilaterally Cardiovascular: regular rate and rhythm without murmurs, rubs, or gallops; S1 and S2 normal; bilateral radial pulse 2+ Gastrointestinal: protuberant, soft; no associated significant abdominal discomfort with palpation nor acute peritoneal findings; bowel sounds are normal Discharge Plan Discharge Items Patient Disposition: Home - Self-Care Reason For Visit: HYPONATREMIA // INTRACTABLE EMESIS Discharge Diagnosis: Partial SBO Condition on Discharge: Fair Activity: Per Instructions section Non-emergency contact: Primary Care Provider and Surgeon Call non-emergency contact if: you have any medication questions and your symptoms worsen Follow-up/Referrals: Daryl Gomez DO [Surgeon] - (please call to schedule an appointment with the surgeon in a couple weeks) Burak Stevens DO [Primary Care Provider] - 05/30/25 1:00 pm (Primary care hospital follow up scheduled on 05/30/25 at 1:00 with Burak Stevens) Diet: Regular Fluids: 1800ml (7 cups) Diet Texture: Dental soft (bite-sized) Addtl Attending Provider Instructions: You were admitted to [facility] for a partial small bowel obstruction resulting in hyponatremia that was asymptomatic. With regard to your small bowel obstruction, this was able to be resolved without insertion of an NG tube nor surgical intervention; general surgery was consulted during your hospitalization and provided recommendations, recommend you follow with them in the outpatient setting per their recommendation You initially presented with hyponatremia that was asymptomatic, likely consequential of your gastrointestinal fluid losses with a small component of renal insufficiency as a consequence of prerenal azotemia. This is resolved during the hospitalization and should remain resolved with resumption of your usual diet Thank you for choosing [facility] as your healthcare provider. Pending Studies at Discharge: No Stand-Alone Forms: My [facility] Medications and DC Order Prescriptions: New pantoprazole 40 mg Tablet,Delayed Release (Dr/Ec) 40 mg PO BID 21 Days Qty: 42 0RF polyethylene glycol 3350 [ClearLax] 17 gram/dose powder 17 g PO DAILY 30 Days Qty: 510 0RF Rx Instructions: Use one half capful daily in 8 oz of uncarbonated fluid without dairy products; increase or decrease by one half capful every 3-4 days to maintain an easily passed bowel movement at a frequency of 1-2 times per day bisacodyl 5 mg tablet,delayed release (DR/EC) 5 mg PO .at bed PRN (Reason: refractory constipation) 30 Days Qty: 30 0RF Rx Instructions: if you are unable to have an easily passed bowel movement for 2 or 3 consecutive days, take this medication before bed Continued cholecalciferol (vitamin D3) 25 mcg (1,000 unit) capsule 50 mcg PO QAM folic acid 1 mg tablet 1 mg PO QAM magnesium oxide 500 mg capsule 500 mg PO QAM ofloxacin 0.3 % drops 5 drp otic (ear) HS Rx Instructions: right ear Discontinued famotidine 20 mg tablet 20 mg PO [facility] potassium chloride 20 mEq tablet,ER particles/crystals 20 meq PO QAM ibuprofen [Advil] 200 mg Tablet 200 mg PO Q6H PRN (Reason: Pain) Discharge Orders: Discharge Order (Routine); Ordered 05/25/25 Ordered By: Anthony Baker/Other Patient Handouts: Treating Constipation, Hyponatremia Dc Admission Data Admit Date/Time: 05/23/25 13:07 Attending Provider: Anthony Fisher Admit Provider: Anthony Fisher Primary Care Provider: Burak Stevens Other Providers: Anthony Fisher; Daryl Gomez Other Interventions: Discharge Summary Assessment (RN) Last Done: 05/24/25 11:43 Hospital Stay Data Consultations 05/21/25 17:11 ED Decision to Admit Stat 05/21/25 17:36 Consult General Surgery Stat Diagnostic Imagining Performed 05/21/25 11:36 CT abd pelvis IV con only Stat Pending Results Patient Have Any Pending Studies at Discharge: No Discharge Instructions Given to Patient (Per Discharging Provider) You were admitted to [facility] for a partial small bowel obstruction resulting in hyponatremia that was asymptomatic. With regard to your small bowel obstruction, this was able to be resolved without insertion of an NG tube nor surgical intervention; general surgery was consulted during your hospitalization and provided recommendations, recommend you follow with them in the outpatient setting per their recommendation You initially presented with hyponatremia that was asymptomatic, likely consequential of your gastrointestinal fluid losses with a small component of renal insufficiency as a consequence of prerenal azotemia. This is resolved during the hospitalization and should remain resolved with resumption of your usual diet Thank you for choosing [facility] as your healthcare provider. Total Time Total Time Spent Total Time Spent (In Minutes): I personally spent 40 minutes in review the patient's chart, discussion of the discharge plan at bedside, physical exam and review of consultations and coordinating the patient's discharge Coding Level of Care Code 10625 INP/OBS DISCH >30 MIN Diagnoses Small bowel obstruction, partial K56.600 Duodenal stricture K31.5 Hyponatremia with extracellular fluid depletion E87.1 Chronic hyponatremia E87.1 Alcohol use disorder, mild, in early remission F10.11 Chronic heart failure with reduced ejection fraction (HFrEF, <= 40%) I50.22
== END 2025-05-25 12:45 | disposition home or self-care (01) | DRG 381 ==
LOC: ED 10:06 → EDINP 17:09 → INTOOBSV 17:09 → 3E 19:44

== ENCOUNTER 2025-07-08 16:52 | Observation (INO) ==
[2025-07-08 17:24] LABS: Hematocrit (blood only) 40.8 % (42.0-52.0); Hemoglobin 14.8 g/dl (14.0-18.0); Immature Granulocytes # (auto) 0.04 K/uL (0.01-0.20); Immature Granulocytes % (auto) 0.4 %; Mean Corpuscular Hemoglobin 33.2 pg (25.0-34.0); Mean Corpuscular Volume 91.5 fL (80.0-100.0); Platelet Count 237 K/uL (130-400); RDW Standard Deviation 40.5 fL (36.4-46.3); Red Blood Count 4.46 M/uL (4.70-6.10); White Blood Count 10.96 K/ul (4.8-10.8)
[2025-07-08 17:43] LABS: Alanine Aminotransferase 24 U/L (7-52); Albumin Globulin Ratio 1.0 (0.9-2); Albumin Level 4.2 gm/dl (3.4-5.0); Alkaline Phosphatase 45 U/L (34-104); Anion Gap 11 (3-11); Bilirubin,Total 1.1 mg/dl (0.2-1.0); Blood Urea Nitrogen 12 mg/dl (6-23); Calcium 9.7 mg/dl (8.6-10.3); Carbon Dioxide 26 mmol/L (21-32); Chloride 87 mmol/L (98-107); Globulin 4.3 gm/dl (2.5-4.0); Glucose 111 mg/dl (70-99(Fasting)); Lipase 116 U/L (11-82); Potassium 3.7 mmol/L (3.5-5.1); Sodium 124 mmol/L (136-145); Total Protein 8.5 gm/dl (6.0-8.3)
--- NOTE | 2025-07-08 17:56 | Emergency Department Note ---
Impression & Plan Duodenal stricture, Small bowel obstruction, Acute hyponatremia ED Provider Note Patient is a 54-year-old who presents emergency department with abdominal pain, nausea, vomiting. Patient states that he has been dealing with this off and on for some time. He has had some sort of duodenal obstruction every few months. He was recently admitted about a month and a half ago. He is typically treated with IV fluids, pain control, and it resolves with time. He does state that there was biopsies taken during his last visit that were considered benign. He has no specific plans to have surgical resection or intervention. ROS: Gen: No fevers, chills, fatigue or malaise ENT: No URI symptoms, no sore throat, no ear pain Neck: No neck pain or stiffness CV: No chest pain, palpitations or edema Pulm: No cough, SOB, wheezing, GI: No abdominal pain, nausea, vomiting, diarrhea : No Flank pain, no dysuria or hematuria Skin: No rashes or Erythema Neuro: No headache, numbness, weakness or dizziness Endo: No polyuria or polydipsia EXAM: Gen: No acute distress, generally well appearing Eyes: PERRL, no redness or injection, EOMI Neck: Supple, normal ROM CV: S1, S2, No murmurs, no lower extremity edema Pulm: CTA bilaterally, no increased work of breathing, no wheezing GI: Abd soft, nontender, normal bowel sounds, no distension : No CVA tenderness, no suprapubic abdominal tenderness or distension Neuro: No acute focal neuro deficits, normal strength and sensation Skin: No rashes, wounds, or erythema. ED Course: Patient with recurrent nausea, vomiting, abdominal pain. Plan for labs, fluids, pain control, nausea control and CT imaging. Likely require hospitalization if recurrent obstruction. Patient reevaluated, he is still having abdominal pain, nausea, gastric reflux type symptoms. We are on Protonix and Reglan. CT scan is resulted and looks consistent with previous episodes of duodenal stricture and obstruction. Patient follows with Dr. Gomez as an outpatient and possible plans to do a bypass if symptoms keep persisting. Currently we will continue to try symptomatic management. Previously NG tube had been unsuccessful. General Surgery paged at 7:35 PM, previously has been admitted to the hospitalist service with general surgery consult. Patient does have some ongoing hyponatremia which seems chronic in nature. He has received some IV fluids here in the emergency department. 7:51 PM, discussed the case with general surgery PAL Longoria, she is similarly with the patient, plan for admission to the hospital service with surgery consult, continue medical management for now. Past Med/Surg History Problem List (Updated 07/08/25 @ 21:01 by Nithin Morse MD) Acute hyponatremia (Acute) Small bowel obstruction (Acute) Duodenal stricture (Acute) Slow transit constipation Alcohol use disorder, mild, in early remission Chronic heart failure with reduced ejection fraction (HFrEF, <= 40%) Sensorineural hearing loss (SNHL) of both ears (Chronic) Duodenal stricture (Chronic) Medical History Hyponatremia with extracellular fluid depletion Chronic hyponatremia Small bowel obstruction, partial Nausea & vomiting Duodenal obstruction Hyponatremia Closed fracture of acetabulum (03/19/13) RLL pneumonia JUAN (acute kidney injury) MRSA (methicillin resistant staph aureus) culture positive Bacteremia due to Klebsiella pneumoniae Septic shock Elevated troponin Acute respiratory failure with hypoxia Alcohol withdrawal Non-ST elevation [place] (NSTEMI) Family History Grandfather (Maternal) Cancer Brother Diabetes Social History Smoking Status: Current every day smoker Tobacco Type: Cigarettes Age Started Using Tobacco: 19; packs per day: 1; Cigarettes Per Day: 1 pack per day; Second Hand Exposure: No; Do You Dip or Chew Tobacco: No; Hx Alcohol Use: Yes Alcohol type: beer Hx Substance Use: No Preferred Language: Kinyarwanda Communication Ability: Effective Communication Tools: Other Steel Loader Required: No Beliefs That Will Affect Care: None marital status: Current Living Situation: Alone current occupational status: employed Feels Safe at Home: Yes Assistive Devices: None Allergies Allergies Allergy/AdvReac Type Severity Reaction Status Date / Time No Known Allergies Allergy Verified 07/08/25 19:49 Home Meds Home Medications Medication Instructions Recorded Confirmed folic acid 1 mg tablet 1 mg PO QAM 05/21/25 07/08/25 bisacodyl 5 mg tablet,delayed 5 mg PO DIRECTED 07/08/25 07/08/25 release (Laxative (bisacodyl)) famotidine 20 mg tablet 20 mg PO DAILY 07/08/25 07/08/25 magnesium oxide 250 mg PO BID 07/08/25 07/08/25 pantoprazole 40 mg tablet,delayed 40 mg PO BID 07/08/25 07/08/25 release polyethylene glycol 3350 17 17 g PO DAILY PRN NEEDED 07/08/25 07/08/25 gram/dose oral powder (Miralax) potassium chloride 20 mEq 20 meq PO DAILY 07/08/25 07/08/25 tablet,extended release(part/cryst) Results & Data (ED) Vital Signs Vital Signs - 24 hr 07/08/25 16:55 07/08/25 17:53 07/08/25 18:03 Temperature 36.5 C Temperature Source Temporal Artery Scan Pulse Rate 118 H 86 Pulse Rate [Apical] 93 H Respiratory Rate 18 16 16 Respiratory Effort / Characteristics Non-Labored Spontaneous Non-Labored Spontaneous Respiratory Depth Normal Normal Respiratory Pattern Regular Regular Blood Pressure 126/84 Blood Pressure [Right Arm] 118/88 Blood Pressure Mean 98 Blood Pressure Mean [Right Arm] 98 Pulse Oximetry 99 97 97 Oxygen Delivery Method Room Air Room Air Room Air Sepsis Recent Fever Within 48 Hours No Sepsis New/Unexplained Change in Mental Status N/A Sepsis Action Taken by Nursing No Action Required 07/08/25 19:54 07/08/25 20:00 Temperature Temperature Source Pulse Rate 86 Pulse Rate [Apical] 88 Respiratory Rate 16 Respiratory Effort / Characteristics Non-Labored Respiratory Depth Normal Respiratory Pattern Blood Pressure Blood Pressure [Right Arm] 118/88 Blood Pressure Mean Blood Pressure Mean [Right Arm] 98 Pulse Oximetry 98 Oxygen Delivery Method Room Air Sepsis Recent Fever Within 48 Hours Sepsis New/Unexplained Change in Mental Status Sepsis Action Taken by [facility] Medications Current Medication List: was personally reviewed by me Laboratory Data Attestation: I reviewed the patient's lab results. Hyponatremia, acute on chronic 07/08/25 Unknown 07/08/25 Unknown Lab Results 07/08/25 Range/Units 18:28 WBC 8.99 (4.8-10.8) K/ul RBC 4.05 L (4.70-6.10) M/uL Hgb 13.4 L (14.0-18.0) g/dl Hct 37.7 L (42.0-52.0) % MCV 93.1 (80.0-100.0) fL MCH 33.1 (25.0-34.0) pg MCHC 35.5 (32.0-36.0) g/dL RDW Std Deviation 41.8 (36.4-46.3) fL RDW Coeff of Tessy 12.1 (11.5-14.5) % Plt Count 192 (130-400) K/uL MPV 10.0 (9.4-12.4) fL Immature Gran % (Auto) 0.6 % Neut % (Auto) 66.6 % Lymph % (Auto) 21.5 % Porter % (Auto) 10.3 % Eos % (Auto) 0.3 % Baso % (Auto) 0.7 % Neut # (Auto) 5.99 (1.40-6.50) K/uL Lymph # (Auto) 1.93 (1.20-3.40) K/uL Porter # (Auto) 0.93 H (0.11-0.59) K/uL Eos # (Auto) 0.03 (0.00-0.50) K/uL Baso # (Auto) 0.06 (0.00-0.20) K/uL Immature Gran # (Auto) 0.05 (0.01-0.20) K/uL Sodium 123 L (136-145) mmol/L Potassium 3.1 L (3.5-5.1) mmol/L Chloride 86 L (98-107) mmol/L Carbon Dioxide 29 (21-32) mmol/L Anion Gap 8 (3-11) BUN 13 (6-23) mg/dl Creatinine 0.76 (0.6-1.4) mg/dl Est Cr Clr Drug Dosing Not Reportable eGFR 107.48 BUN/Creatinine Ratio 17.1 (10-20) Glucose 91 (70-99(Fasting)) mg/dl Lactate 1.8 (0.4-2.0) mmol/L Calcium 8.7 (8.6-10.3) mg/dl Total Bilirubin 1.0 (0.2-1.0) mg/dl AST 26 (13-39) U/L ALT 20 (7-52) U/L Alkaline Phosphatase 38 (34-104) U/L Total Protein 7.3 (6.0-8.3) gm/dl Albumin 3.6 (3.4-5.0) gm/dl Globulin 3.7 (2.5-4.0) gm/dl Albumin/Globulin Ratio 1.0 (0.9-2) Lipase 114 H (11-82) U/L Administered Medications Lactated Ringer's (Lr) 1,000 mls @ 80 mls/hr IV .[id number] JOMAR Stop: 07/09/25 09:29 Last Admin: 07/08/25 21:09 Dose: 80 mls/hr Documented By: CIRO Discontinued Medications Sodium Chloride (Nss) 1,000 mls @ 999 mls/hr IV .[id number] STA Stop: 07/08/25 18:53 Last Infusion: 07/08/25 19:44 Dose: Infused Documented By: Admin: 07/08/25 18:00 Dose: 999 mls/hr Documented By: AJITH Pantoprazole Sodium (Protonix) 40 mg in 10 mls @ 5 mls/min IV NOW ONE Stop: 07/08/25 19:34 Last Admin: 07/08/25 19:40 Dose: 5 mls/min Documented By: CIRO Ioversol (Optiray 320 100ml) 93 ml IV ONCE ONE Stop: 07/08/25 18:13 Last Admin: 07/08/25 18:13 Dose: 93 ml Documented By: LIBERTAD Metoclopramide HCl (Metoclopramide Hcl Inj 5 Mg/Ml 2 Ml Vial) 10 mg IV NOW STA Stop: 07/08/25 19:35 Last Admin: 07/08/25 19:40 Dose: 10 mg Documented By: CIRO Ondansetron HCl (Ondansetron Inj 2 Mg/Ml 2 Ml Vial) 4 mg IV NOW STA Stop: 07/08/25 17:54 Last Admin: 07/08/25 18:00 Dose: 4 mg Documented By: AJITH Imaging Data My Impression: Similar to previous studies with bowel obstruction at the level duodenum. Distended stomach. Suspicious for stricture. Radiologist's Impression: Abdomen/Pelvis CT 07/08/25 17:53 CT ABDOMEN and PELVIS with INTRAVENOUS CONTRAST HISTORY: Abdominal pain TECHNIQUE: CT abdomen and pelvis with contrast. IV CONTRAST: 100 mL of OMNIPAQUE 300 ENTERIC CONTRAST: Not Given COMPARISON: CT abdomen pelvis May 21, 2025 FINDINGS: LOWER CHEST: Unchanged elevation of the left hemidiaphragm. Mild cardiomegaly is also unchanged. Coronary and valvular calcifications of the heart. Bibasilar atelectasis. LIVER: Scattered subcentimeter hypodensities are too small to characterize but likely represent cysts or hemangiomas. Hepatic steatosis and hepatomegaly. GALLBLADDER/BILIARY: Unremarkable gallbladder. No abnormal biliary dilatation. SPLEEN: Tiny calcified granulomas. PANCREAS: Calcifications over the pancreas parenchyma likely represent sequela of chronic pancreatitis. ADRENALS: Unremarkable. KIDNEYS: Unremarkable. No stones or hydronephrosis identified. PERITONEUM/RETROPERITONEUM. No lymphadenopathy by size criteria. No aortic aneurysm. Moderate atherosclerosis GASTROINTESTINAL: No obstruction. As before, there is moderate distention of the stomach and the first and the second segments of the duodenum with a transition point we identified in the transverse segment of the duodenum where there is irregular wall thickening (series 2, image 42). Overall this appears similar to the previous examination dated April 2025. The remainder of the hollow viscus is of normal caliber. REPRODUCTIVE: No suspicious pelvic masses identified. URINARY BLADDER: Mild wall thickening. BONES: No acute findings. IMPRESSION: Redemonstration of obstruction at the transverse segment of the duodenum that is similar to the previous examination dated May 21, 2025. Again, given the prolonged overall stability of this finding, stricturing would be a favored consideration although difficult to exclude a slow-growing neoplasm. Please correlate clinically with workup up to this point. Inflammatory changes of the stomach may be due to cystitis. Electronically signed by James Oswald 07-08-2025 7:06 PM Discharge Plan Visit Data Chief Complaint: Abdominal Pain ED Provider: Nithin Morse Discharge Problem: Duodenal stricture, Small bowel obstruction, Acute hyponatremia Patient Disposition: Admitted As Inpatient Condition: Fair Discharge Instructions Interventions: ED Discharge Assessment Last Done: 07/08/25 22:27
[2025-07-08] MEDS: SODIUM CHLORIDE 0.9% 1,000 ML IV STA (18:00)
[2025-07-08] MEDS: ONDANSETRON INJ 2 MG/ML 2 ML VIAL IV STA (18:00)
[2025-07-08] MEDS: OPTIRAY 320 100ml IV ONE (18:13)
[2025-07-08 18:48] LABS: Hematocrit (blood only) 37.7 % (42.0-52.0); Hemoglobin 13.4 g/dl (14.0-18.0); Immature Granulocytes # (auto) 0.05 K/uL (0.01-0.20); Immature Granulocytes % (auto) 0.6 %; Mean Corpuscular Hemoglobin 33.1 pg (25.0-34.0); Mean Corpuscular Volume 93.1 fL (80.0-100.0); Platelet Count 192 K/uL (130-400); RDW Standard Deviation 41.8 fL (36.4-46.3); Red Blood Count 4.05 M/uL (4.70-6.10); White Blood Count 8.99 K/ul (4.8-10.8)
[2025-07-08 19:07] LABS: Alanine Aminotransferase 20 U/L (7-52); Albumin Globulin Ratio 1.0 (0.9-2); Albumin Level 3.6 gm/dl (3.4-5.0); Alkaline Phosphatase 38 U/L (34-104); Anion Gap 8 (3-11); Bilirubin,Total 1.0 mg/dl (0.2-1.0); Blood Urea Nitrogen 13 mg/dl (6-23); Calcium 8.7 mg/dl (8.6-10.3); Carbon Dioxide 29 mmol/L (21-32); Chloride 86 mmol/L (98-107); Globulin 3.7 gm/dl (2.5-4.0); Glucose 91 mg/dl (70-99(Fasting)); Lipase 114 U/L (11-82); Potassium 3.1 mmol/L (3.5-5.1); Sodium 123 mmol/L (136-145); Total Protein 7.3 gm/dl (6.0-8.3)
--- NOTE | 2025-07-08 19:07 | CT Scan Report ---
CT ABDOMEN and PELVIS with INTRAVENOUS CONTRAST HISTORY: Abdominal pain TECHNIQUE: CT abdomen and pelvis with contrast. IV CONTRAST: 100 mL of OMNIPAQUE 300 ENTERIC CONTRAST: Not Given COMPARISON: CT abdomen pelvis May 21, 2025 FINDINGS: LOWER CHEST: Unchanged elevation of the left hemidiaphragm. Mild cardiomegaly is also unchanged. Coronary and valvular calcifications of the heart. Bibasilar atelectasis. LIVER: Scattered subcentimeter hypodensities are too small to characterize but likely represent cysts or hemangiomas. Hepatic steatosis and hepatomegaly. GALLBLADDER/BILIARY: Unremarkable gallbladder. No abnormal biliary dilatation. SPLEEN: Tiny calcified granulomas. PANCREAS: Calcifications over the pancreas parenchyma likely represent sequela of chronic pancreatitis. ADRENALS: Unremarkable. KIDNEYS: Unremarkable. No stones or hydronephrosis identified. PERITONEUM/RETROPERITONEUM. No lymphadenopathy by size criteria. No aortic aneurysm. Moderate atherosclerosis GASTROINTESTINAL: No obstruction. As before, there is moderate distention of the stomach and the first and the second segments of the duodenum with a transition point we identified in the transverse segment of the duodenum where there is irregular wall thickening (series 2, image 42). Overall this appears similar to the previous examination dated April 2025. The remainder of the hollow viscus is of normal caliber. REPRODUCTIVE: No suspicious pelvic masses identified. URINARY BLADDER: Mild wall thickening. BONES: No acute findings. IMPRESSION: Redemonstration of obstruction at the transverse segment of the duodenum that is similar to the previous examination dated May 21, 2025. Again, given the prolonged overall stability of this finding, stricturing would be a favored consideration although difficult to exclude a slow-growing neoplasm. Please correlate clinically with workup up to this point. Inflammatory changes of the stomach may be due to cystitis. Electronically signed by James Oswald 07-08-2025 7:06 PM
[2025-07-08] MEDS: PANTOprazole 40 MG/10 ML SYR IV ONE (19:40)
[2025-07-08] MEDS: METOCLOPRAMIDE HCL INJ 5 MG/ML 2 ML VIAL IV STA (19:40)
--- NOTE | 2025-07-08 19:54 | Surgery Consultation ---
Date of Consultation July 08, 2025 Assessment & Plan (1) Duodenal stricture: Patient with known duodenum stricture and follows with Dr. Gomez with general surgery as an outpatient, presents to the emergency department for complaints of inability tolerate oral intake, abdominal pain and nausea and vomiting. Workup this evening again demonstrating obstruction secondary to duodenal stricture. Patient was seen and evaluated this evening, he is resting comfortably in bed, VSS, and is nontoxic appearing. From a surgical standpoint recommend the following: -Patient with no signs of acute abdomen that would warrant emergent surgical intervention, will treat conservatively for now -Keep NPO , IV hydration, electrolyte repletion, pain control as needed -Patient currently without any nausea or vomiting, can hold off on NGT placement. However I did discuss with him that if he does become sympatic we wo uld recommend an NGT be placed for bowel decompression. -Medical management per primary team, surgery will continue to follow (2) Small bowel obstruction: History of Present Illness Reason for Consultation: obstruction due to duodenum stricture History of Present Illness Patient is a 54-year old male with a PMH significant for duodenal stricture, alcohol abuse, renal insufficiency, Hypokalemia, Hypocalcemia, Hyponatremia, NSTEMI, cardiomyopathy, that presented to the emergency room with complains of nausea, vomiting, and abdominal pain. The patient has a known history of recurrent bowel obstructions due to duodenal stricture and he does see Dr. Gomez for this and up until this point he has not required any surgical intervention.The patient states his symptoms feel similar to those in the past and states his symptoms started roughly 2 days ago. He tried to manage his symptoms at home however due to recurrent episodes of emesis he came into the emergency room for evaluation. He states that his last bowel movement was roughly 2 days ago right before his symptoms started and has not had one since and is currently not passing gas. The patient was worked up in the emergency department this evening and was found to have CT findings again showing moderate distention of stomach and the first and second segments of the duodenum with wall thickening that was similar to his CT scan back in April. Allergies Allergy/AdvReac Type Severity Reaction Status Date / Time No Known Allergies Allergy Verified 07/08/25 19:49 Home Medications Medication Instructions Recorded Confirmed Type folic acid 1 mg tablet 1 mg PO QAM 05/21/25 07/08/25 History bisacodyl 5 mg tablet,delayed 5 mg PO DIRECTED 07/08/25 07/08/25 History release (Laxative (bisacodyl)) famotidine 20 mg tablet 20 mg PO DAILY 07/08/25 07/08/25 History magnesium oxide 250 mg PO BID 07/08/25 07/08/25 History pantoprazole 40 mg tablet,delayed 40 mg PO BID 07/08/25 07/08/25 History release polyethylene glycol 3350 17 17 g PO DAILY PRN NEEDED 07/08/25 07/08/25 History gram/dose oral powder (Miralax) potassium chloride 20 mEq 20 meq PO DAILY 07/08/25 07/08/25 History tablet,extended release(part/cryst) Patient History Medical History Hyponatremia with extracellular fluid depletion Chronic hyponatremia Small bowel obstruction, partial Nausea & vomiting Duodenal obstruction Hyponatremia Closed fracture of acetabulum (03/19/13) RLL pneumonia JUAN (acute kidney injury) MRSA (methicillin resistant staph aureus) culture positive Bacteremia due to Klebsiella pneumoniae Septic shock Elevated troponin Acute respiratory failure with hypoxia Alcohol withdrawal Non-ST elevation [place] (NSTEMI) Family History Grandfather (Maternal) Cancer Brother Diabetes Social History Smoking Status: Current every day smoker Tobacco Type: Cigarettes Age Started Using Tobacco: 19; packs per day: 1; Cigarettes Per Day: 1 PPD; Second Hand Exposure: No; Do You Dip or Chew Tobacco: No; Tobacco Cessation Education Requested by Patient: No Hx Alcohol Use: No Hx Substance Use: No Preferred Language: Jamaican Communication Ability: Effective Communication Tools: Other Hostess Required: No Beliefs That Will Affect Care: None marital status: Current Living Situation: Alone current occupational status: employed Other Information That Helps Us Care for You: No Feels Safe at Home: Yes Safety Concerns: Feels Safe At This Time Assistive Devices: Glasses Review of Systems Constitutional: no fever and no chills Respiratory: no cough and no chest congestion Cardiovascular: no chest pain and no palpitations Gastrointestinal: + abdominal pain, + nausea and + vomitin g Genitourinary: + decreased urination; no difficulty uri nating or no hematuria Physical Exam Constitutional: WD/WN, vitals as above Respiratory: normal respiratory effort; no respiratory distress Cardiovascular: Rate/Rhythm: regular rate Gastrointestinal (Abdomen): Abdomen soft, nondistended, +TTP throughout without any rebound, guarding or signs of peritonitis Results & Data Vital Signs (Past 12 Hours) Vital Signs Temp Pulse Pulse Resp BP BP Pulse Ox 07/08/25 18:03 93 H 16 118/88 97 07/08/25 17:53 86 16 97 07/08/25 16:55 36.5 C 118 H 18 126/84 99 O2 Del Method 07/08/25 18:03 Room Air 07/08/25 17:53 Room Air 07/08/25 16:55 Room Air Diagnostic Findings CT ABDOMEN and PELVIS with INTRAVENOUS CONTRAST HISTORY: Abdominal pain TECHNIQUE: CT abdomen and pelvis with contrast. IV CONTRAST: 100 mL of OMNIPAQUE 300 ENTERIC CONTRAST: Not Given COMPARISON: CT abdomen pelvis May 21, 2025 FINDINGS: LOWER CHEST: Unchanged elevation of the left hemidiaphragm. Mild cardiomegaly is also unchanged. Coronary and valvular calcifications of the heart. Bibasilar atelectasis. LIVER: Scattered subcentimeter hypodensities are too small to characterize but likely represent cysts or hemangiomas. Hepatic steatosis and hepatomegaly. GALLBLADDER/BILIARY: Unremarkable gallbladder. No abnormal biliary dilatation. SPLEEN: Tiny calcified granulomas. PANCREAS: Calcifications over the pancreas parenchyma likely represent sequela of chronic pancreatitis. ADRENALS: Unremarkable. KIDNEYS: Unremarkable. No stones or hydronephrosis identified. PERITONEUM/RETROPERITONEUM. No lymphadenopathy by size criteria. No aortic aneurysm. Moderate atherosclerosis GASTROINTESTINAL: No obstruction. As before, there is moderate distention of the stomach and the first and the second segments of the duodenum with a transition point we identified in the transverse segment of the duodenum where there is irregular wall thickening (series 2, image 42). Overall this appears similar to the previous examination dated April 2025. The remainder of the hollow viscus is of normal caliber. REPRODUCTIVE: No suspicious pelvic masses identified. URINARY BLADDER: Mild wall thickening. BONES: No acute findings. IMPRESSION: Redemonstration of obstruction at the transverse segment of the duodenum that is similar to the previous examination dated May 21, 2025. Again, given the prolonged overall stability of this finding, stricturing would be a favored consideration although difficult to exclude a slow-growing neoplasm. Please correlate clinically with workup up to this point. Inflammatory changes of the stomach may be due to cystitis. PG Care Time/CCT Total # of Minutes Spent Total Time Spent with Patient: Total time spent is greater than 50% in coordination of care (as documented) at patient's floor/unit and/or counseling patient: [place] [address] INT INP/OBS CARE 1/40MIN Patient Type Established Medical Decision Making Straight Forward Diagnoses Duodenal stricture K31.5 Small bowel obstruction K56.609
--- NOTE | 2025-07-08 20:14 | History & Physical Report ---
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 Patient was admitted 05/21/2025 until 05/25/2025 for small bowel obstruction and chronic hyponatremia. Evaluation does reveal leukocytosis of 10.96, sodium 120, bilirubin 1.1, lipase 116. CTAP shows redemonstration of stricture of the transverse segment duodenal segment similar to prior imaging. 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 H/o duodenal stricture and with prior SBO. Did follow with general surgery as outpatient, 06/06/2025. Prior EGD/EUS with benign findings in 2022, repeat EGD 02/28/2025 LA grade D esophagitis with no bleeding, biopsies negative. Seems to be having more frequent flares than previously. Will admit for further management for SBO with assistance by general surgery, consider GI consult as appropriate. - CBC mild leukocytosis 10.96; CMP Na 124, Cl 87, bili 1.1, lipase 116; Mg pending - CBC, BMP am - CTAP redemonstration of stricture of transverse segment of duodenal segment, similar to prior imaging - NPO - IVF LR @ 80 mL/hr x 1L - Zofran alternating with metoclopramide prn IV for N/V -- alert provider with onset of vomiting - EKG am to monitor QT - Acetaminophen prn fever/pain, morphine prn mod-severe pain - Pantoprazole IV BID + Famotidine IV BID - Gen sx consulted- appreciate input + recs - Consider GI consult -- last seen February 2025 during hospital admission #Chronic hyponatremia Likely multifactorial in conjunction with GI losses as well as previously diagno sed renal etiology per last admission, pending further workup to clarify this. Currently asx. 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 - Na 124, glucose 111 - no correction -- trend Na q4h, BMP am - Pending UA - Serum osmol, urine Na, urine osmol pending - IVF w/ LR @ 80 mL/hr for now -- adjust pending trend in Na #GERD- Famotidine, pantoprazole - continue in IV form Daily necessary medications transitioned to IV while NPO. Dispo: Admit, med/tele VTE Prophylaxis: SCDs This document was dictated utilizing [employer]IKTIVO. Please excuse any grammatical errors that may be secondary to use of this software. 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 States that it feels similar to prior bowel obstructions in the past, describing as a generalized 10 out of 10 abdominal pain that is not resolved. The night LOAD PLANNER he was having episodes of emesis "every hour it felt like". Patient reports that his abdomen does not feel distended but is very tender throughout. He has not had a bowel movement and he is not passing gas at present. He is without current vomiting, but does feel slightly nauseous. He has not been feverish or had any chills. Otherwise he is without symptoms, denies chest pain, SOB, palpitations, numbness/tingling, fever/chills, URI symptoms, LUTS, weakness, falls, or syncope. He denies current alcohol use. Has been unable to tolerate oral intake, and also feels as though he has not been urinating much because he has been unable to keep down fluids. ED evaluation CBC with leukocytosis 10.96, RBC 4.46, H&H 14.8/40.8; CMP sodium 124, chloride 87, glucose 111, bilirubin 1.1, protein 8.5, globulin 4.3; lipase 116; lactate 1.8; CTAP redemonstration of obstruction of the transverse segment of duodenum similar to previous exam dated May 21, 2025, inflammatory changes of stomach noted due to cystitis.; EKG sinus tachycardia, possible LAE at 112 bpm.; Provided with 1L NSS, pantoprazole 40 mg IV, Zofran 4 mg IV, metoclopramide 10 mg IV, and fentanyl citrate 50 mcg IV in ED. Please see Dr. Yan's attestation for adjustments/additions to treatment plan. Allergies Allergy/AdvReac Type Severity Reaction Status Date / Time No Known Allergies Allergy Verified 07/08/25 19:49 Home Medications Medication Instructions Recorded Confirmed Type folic acid 1 mg tablet 1 mg PO QAM 05/21/25 07/08/25 History bisacodyl 5 mg tablet,delayed 5 mg PO DIRECTED 07/08/25 07/08/25 History release (Laxative (bisacodyl)) famotidine 20 mg tablet 20 mg PO DAILY 07/08/25 07/08/25 History magnesium oxide 250 mg PO BID 07/08/25 07/08/25 History pantoprazole 40 mg tablet,delayed 40 mg PO BID 07/08/25 07/08/25 History release polyethylene glycol 3350 17 17 g PO DAILY PRN NEEDED 07/08/25 07/08/25 History gram/dose oral powder (Miralax) potassium chloride 20 mEq 20 meq PO DAILY 07/08/25 07/08/25 History tablet,extended release(part/cryst) Past Med/Surg History Problem List (Updated 07/08/25 @ 21:01 by Nithin Morse MD) Acute hyponatremia (Acute) Small bowel obstruction (Acute) Duodenal stricture (Acute) Slow transit constipation Alcohol use disorder, mild, in early remission Chronic heart failure with reduced ejection fraction (HFrEF, <= 40%) Sensorineural hearing loss (SNHL) of both ears (Chronic) Duodenal stricture (Chronic) Medical History Hyponatremia with extracellular fluid depletion Chronic hyponatremia Small bowel obstruction, partial Nausea & vomiting Duodenal obstruction Hyponatremia Closed fracture of acetabulum (03/19/13) RLL pneumonia JUAN (acute kidney injury) MRSA (methicillin resistant staph aureus) culture positive Bacteremia due to Klebsiella pneumoniae Septic shock Elevated troponin Acute respiratory failure with hypoxia Alcohol withdrawal Non-ST elevation ME (NSTEMI) Family History Grandfather (Maternal) Cancer Brother Diabetes Social History Smoking Status: Current every day smoker Tobacco Type: Cigarettes Age Started Using Tobacco: 19; packs per day: 1; Cigarettes Per Day: 1 PPD; Second Hand Exposure: No; Do You Dip or Chew Tobacco: No; Tobacco Cessation Education Requested by Patient: No Hx Alcohol Use: No Hx Substance Use: No Preferred Language: Kinyarwanda Communication Ability: Effective Communication Tools: Other Television Anchor Required: No Beliefs That Will Affect Care: None marital status: Current Living Situation: Alone current occupational status: employed Other Information That Helps Us Care for You: No Feels Safe at Home: Yes Safety Concerns: Feels Safe At This Time Assistive Devices: Glasses Review of Systems Review of Systems: All systems reviewed & are unremarkable except as noted in Subjective Physical Exam Physical Exam: General: No acute distress Skin: Warm and dry Head: Normocephalic, atraumatic Eyes: PERRL, conjunctivae clear, sclera non-icteric ENT: External ear and ear canal without swelling; nose atraumatic; good dentition, tongue normal appearance, pharynx normal but appears dry Neck: Supple, no LAD Cardio: RRR, no M/G/R, S1 and S2 normal Resp: No respiratory distress, Lungs CTA in all lobes bilaterally, no wheezes, rales, or rhonchi Abdomen: Soft, symmetric, diffuse tenderness to light palpation, no distention, no guarding; No masses or hepatosplenomegaly; Bowel sounds slightly hyperactive RQs, normoactive LQs MSK: No deformities; pulses palpable and equal; no edema. Neuro: Awake, alert; Sensation intact bilaterally; CN grossly intact Psych: Appropriate mood and affect; good judgement and insight. Results & Data Results & Data Vital Signs (Past 12 Hours) Vital Signs Temp Pulse Pulse Resp BP BP Pulse Ox 07/08/25 19:54 86 07/08/25 18:03 93 H 16 118/88 97 07/08/25 17:53 86 16 97 07/08/25 16:55 36.5 C 118 H 18 126/84 99 O2 Del Method 07/08/25 19:54 07/08/25 18:03 Room Air 07/08/25 17:53 Room Air 07/08/25 16:55 Room Air Laboratory Results 07/08/25 07/08/25 Unknown 18:28 WBC 10.96 H 8.99 RBC 4.46 L 4.05 L Hgb 14.8 13.4 L Hct 40.8 L 37.7 L MCV 91.5 93.1 MCH 33.2 33.1 MCHC 36.3 H 35.5 RDW Std Deviation 40.5 41.8 RDW Coeff of Tessy 12.0 12.1 Plt Count 237 192 MPV 10.1 10.0 Immature Gran % (Auto) 0.4 0.6 Neut % (Auto) 66.9 66.6 Lymph % (Auto) 23.2 21.5 [place] % (Auto) 8.7 10.3 Eos % (Auto) 0.2 0.3 Baso % (Auto) 0.6 0.7 Neut # (Auto) 7.34 H 5.99 Lymph # (Auto) 2.54 1.93 [place] # (Auto) 0.95 H 0.93 H Eos # (Auto) 0.02 0.03 Baso # (Auto) 0.07 0.06 Immature Gran # (Auto) 0.04 0.05 Sodium 124 L 123 L Potassium 3.7 3.1 L Chloride 87 L 86 L Carbon Dioxide 26 29 Anion Gap 11 8 BUN 12 13 Creatinine 0.69 0.76 Est Cr Clr Drug Dosing Not Reportable Not Reportable eGFR 110.66 107.48 BUN/Creatinine Ratio 17.4 17.1 Glucose 111 H 91 Lactate 1.8 Calcium 9.7 8.7 Total Bilirubin 1.1 H 1.0 AST 30 26 ALT 24 20 Alkaline Phosphatase 45 38 Total Protein 8.5 H 7.3 Albumin 4.2 3.6 Globulin 4.3 H 3.7 Albumin/Globulin Ratio 1.0 1.0 Lipase 116 H 114 H Diagnostic Findings Abdomen/Pelvis CT 07/08/25 17:53 CT ABDOMEN and PELVIS with INTRAVENOUS CONTRAST HISTORY: Abdominal pain TECHNIQUE: CT abdomen and pelvis with contrast. IV CONTRAST: 100 mL of OMNIPAQUE 300 ENTERIC CONTRAST: Not Given COMPARISON: CT abdomen pelvis May 21, 2025 FINDINGS: LOWER CHEST: Unchanged elevation of the left hemidiaphragm. Mild cardiomegaly is also unchanged. Coronary and valvular calcifications of the heart. Bibasilar atelectasis. LIVER: Scattered subcentimeter hypodensities are too small to characterize but likely represent cysts or hemangiomas. Hepatic steatosis and hepatomegaly. GALLBLADDER/BILIARY: Unremarkable gallbladder. No abnormal biliary dilatation. SPLEEN: Tiny calcified granulomas. PANCREAS: Calcifications over the pancreas parenchyma likely represent sequela of chronic pancreatitis. ADRENALS: Unremarkable. KIDNEYS: Unremarkable. No stones or hydronephrosis identified. PERITONEUM/RETROPERITONEUM. No lymphadenopathy by size criteria. No aortic aneurysm. Moderate atherosclerosis GASTROINTESTINAL: No obstruction. As before, there is moderate distention of the stomach and the first and the second segments of the duodenum with a transition point we identified in the transverse segment of the duodenum where there is irregular wall thickening (series 2, image 42). Overall this appears similar to the previous examination dated April 2025. The remainder of the hollow viscus is of normal caliber. REPRODUCTIVE: No suspicious pelvic masses identified. URINARY BLADDER: Mild wall thickening. BONES: No acute findings. IMPRESSION: Redemonstration of obstruction at the transverse segment of the duodenum that is similar to the previous examination dated May 21, 2025. Again, given the prolonged overall stability of this finding, stricturing would be a favored consideration although difficult to exclude a slow-growing neoplasm. Please correlate clinically with workup up to this point. Inflammatory changes of the stomach may be due to cystitis. Electronically signed by James Oswald 07-08-2025 7:06 PM Medications Administered 1L NSS Pantoprazole 40 mg IV Zofran 4 mg IV Metoclopramide 10 mg IV Fentanyl citrate 50 mcg IV ECG Additional Comments: Sinus tachycardia, possible LAE 112 bpm, SC 128, QRS 76, QT/QTc 340/464, PRT 95/61/78 Code Status & VTE Plan Code Status DNR/DNI Supervising Physician Co-Signing Physician Notes Attending addendum: I have physically seen this patient, have supervised the TALON's activities, and agree with the H&P unless as otherwise noted. Assessment and Plan: The patient is a 54-year-old male with past medical history including small bowel obstruction, duodenal stricture, hyponatremia, alcohol use disorder in remission, HFrEF, and SNHL bilaterally. He presented to the emergency department with 2 days of worsening abdominal pain. His most recent admission was from 05/21-05/25/2025 for small bowel obstruction and chronic hyponatremia. Significant laboratories revealed sodium of 124, and WBC 10.96. Obstruction of transverse segment of duodenum/duodenal stricture- Moderate distention of the stomach and 1st and 2nd segments of the duodenum with transition point in the transverse segment of duodenum. Reported to be overall similar to previous examination April 2025. The colonic overall stability of the finding favors a duodenal stricture, although difficult to exclude a slow-growing neoplasm. NPO Status post 1 L normal saline bolus in the ED LR at 80 mL/h x 1 L Zofran/metoclopramide as noted Acetaminophen 1 g IV every 8 hours as needed for mild pain or fever Pantoprazole 40 mg IV twice daily Famotidine 20 mg IV twice daily Consult general surgery Seen by gastroenterology in February 2025. EGD 02/28/2025 with LA grade D esophagitis with no bleeding, and negative biopsies Chronic hyponatremia- Hypovolemia associated with GI losses Sodium 124 on admission, with range 126-133 intermittently since 08/20/2022, when labs are first recorded here. BMP every 4 hours Replace volume initially, may require hypertonic saline boluses. Patient not symptomatic at this time GERD/LA grade D esophagitis- Pantoprazole and famotidine IV as noted above PG Care Time/CCT Total # of Minutes Spent Total Time Spent with Patient: Total time spent is greater than 50% in coordination of care (as documented) at patient's floor/unit and/or counseling patient: Coding Level of Care Code 90111 INT INP/OBS CARE 375MIN Diagnoses Small bowel obstruction K56.609 Duodenal stricture K31.5 Chronic hyponatremia E87.1
[2025-07-08] MEDS: LACTATED RINGER'S 1,000 ML IV SCH (21:09)
[2025-07-08 21:30] LABS: Sodium 125.0 mmol/L (136-145)
[2025-07-08 21:42] LABS: Magnesium 1.8 mg/dl (1.7-2.4)
[2025-07-08] MEDS ORDERED: METOCLOPRAMIDE HCL INJ 5 MG/ML 2 ML VIAL IV PRN (22:44)
[2025-07-08] MEDS ORDERED: PANTOprazole 40 MG/10 ML SYR IV SCH (22:44)
[2025-07-09] MEDS: FAMOTIDINE 20MG IV PUSH 20 MG/5 ML SYR IV SCH (00:07)
[2025-07-09] MEDS: ONDANSETRON INJ 2 MG/ML 2 ML VIAL IV PRN (00:14)
[2025-07-09 02:38] LABS: Appearance Urine Clear (Clear); Bacteria Urine Automated None Seen (None Seen); Cast Urine Automated 0-2 /lpf (0-2); Epithelial Cell Urine Auto 0-2 /hpf (0-2); Glucose Urine UA Negative (Negative); RBC Urine Automated 0-2 /hpf (0-2); WBC Urine Automated 0-5 /hpf (0-5)
[2025-07-09 07:59] LABS: Hematocrit (blood only) 34.8 % (42.0-52.0); Hemoglobin 12.1 g/dl (14.0-18.0); Mean Corpuscular Hemoglobin 32.7 pg (25.0-34.0); Mean Corpuscular Volume 94.1 fL (80.0-100.0); Platelet Count 161 K/uL (130-400); RDW Standard Deviation 42.2 fL (36.4-46.3); Red Blood Count 3.70 M/uL (4.70-6.10); White Blood Count 8.34 K/ul (4.8-10.8)
[2025-07-09] MEDS: PANTOprazole 40 MG/10 ML SYR IV SCH (08:02)
[2025-07-09] MEDS: FOLIC ACID 1 MG in SYRINGE 9.8 ML IV SCH (08:03)
[2025-07-09] MEDS: ACETAMINOPHEN 1,000 MG/100 ML VIAL IV PRN (08:16)
[2025-07-09 08:24] LABS: Anion Gap 8.0 (3-11); Blood Urea Nitrogen 8.0 mg/dl (6-23); Calcium 8.5 mg/dl (8.6-10.3); Carbon Dioxide 24.0 mmol/L (21-32); Chloride 96.0 mmol/L (98-107); Creatinine Clr Calc Pharmacy 142.8 ml/min; Glucose 94.0 mg/dl (70-99(Fasting)); Potassium 3.8 mmol/L (3.5-5.1); Sodium 128.0 mmol/L (136-145)
[2025-07-09] MEDS: SODIUM CHLORIDE 0.9% 1,000 ML IV SCH (09:33)
[2025-07-09] MEDS: 4.5GM X1 IV STA (09:33)
--- NOTE | 2025-07-09 10:48 | Surgery Progress Note ---
Date of Service July 09, 2025 Assessment & Plan (1) Duodenal stricture: Plan: Trial clears today Admission and Anticipated Discharge Date Admission Date: July 08, 2025 Subjective Patient seen and examined. States he feels better than when he came in yesterday. Afebrile. Passing some flatus. Review of Systems Constitutional: no fever and no chills Respiratory: no cough and no dyspnea Cardiovascular: no chest pain and no dyspnea on exertion Gastrointestinal: no abdominal pain, no nausea and no vomiting Integumentary: no acne and no changing lesions Neurologic: no gait abnormality and no unsteadiness Hematologic / Lymphatic: no easy bleeding and no easy bruising Physical Exam Constitutional: WD/WN, vitals as above Eyes: PERRL, conjunctivae normal, anicteric sclerae Respiratory: normal respiratory effort, lungs clear to auscultation Cardiovascular: RRR, no murmur, no edema Gastrointestinal (Abdomen): normal bowel sounds, soft, nontender, no hepatosplenomegaly Musculoskeletal: no cyanosis or clubbing, extremities motor strength 5/5 Psychiatric: A+Ox3, euthymic affect Results & Data Vital Signs (Past 12 Hours) Vital Signs Temp Pulse Resp BP Pulse Ox O2 Del Method 07/09/25 10:18 37.3 C 07/09/25 07:08 37.6 C H 72 18 143/85 H 95 Room Air 07/08/25 23:47 Room Air PG Care Time/CCT Total # of Minutes Spent Total Time Spent with Patient: Total time spent is greater than 50% in coordination of care (as documented) at patient's floor/unit and/or counseling patient: Coding Level of Care Code 32656 SUB INP/OBS CARE 10/19MIN Diagnoses Duodenal stricture K31.5
--- NOTE | 2025-07-09 10:56 | Hospitalist Progress Note ---
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 Patient was admitted 05/21/2025 until 05/25/2025 for small bowel obstruction and chronic hyponatremia. #Small bowel obstruction/Duodenal stricture CTAP: re-demonstration of obstruction @ transverse segment of duodenum that is similar to previous exam in 04/2025. Given prolonged overall stability of this finding, stricturing would be favored consideration although difficult to exclude a slow-growing neoplasm. CBC w/ resolution of leukocytosis at 8.34. Surgery following: conservative measures at this time. advance to clear liquids. Hx of EGD in February 2025 w/ grade D esophagitis. --> consider GI referral on discharge. Continue IV PPI & IV Pepcid Did have fever 07/09, added Zosyn, continue for now. #Chronic hyponatremia w/ improvement from 124 to 128 after IVF urine osmol 271 Continue gentle fluid rehydration #GERD- Famotidine, pantoprazole - continue in IV form Dispo: Admit, med/tele VTE Prophylaxis: SCDs Discussed w/ general surgery 07/09. Admission and Anticipated Discharge Date Admission Date: July 08, 2025 Supervising Physician Co-Signing Physician Notes The patient was not seen by me. The chart was reviewed. Case discussed with PAL Wilkins. Agree with assessment and plan Jena Sapp was seen & examined this morning. He reports that he has abdominal pain and nausea. Denies any emesis. He had not passed gas yet at time of my encounter. Physical Exam Physical Exam: General: NAD, VS: BP 123/82; P78; R18; T37.4C Resp: normal respiratory effort Abd: soft. no bowel sounds. generalized abdominal tenderness Extremities: no edema Neuro: A&O x3 Skin: intact, no lesions noted Results & Data Results & Data Vital Signs (Past 12 Hours) Vital Signs Temp Pulse Resp BP Pulse Ox O2 Del Method 07/09/25 10:18 37.3 C 07/09/25 07:08 37.6 C H 72 18 143/85 H 95 Room Air 07/08/25 23:47 Room Air PG Care Time/CCT Total # of Minutes Spent Total Time Spent with Patient: Total time spent is greater than 50% in coordination of care (as documented) at patient's floor/unit and/or counseling patient: Coding Level of Care Code 02262 SUB INP/OBS CARE 3/50MIN Diagnoses Small bowel obstruction K56.609 Duodenal stricture K31.5 Chronic hyponatremia E87.1
[2025-07-09] MEDS: PIPERACILLIN/TAZOBACTAM 4.5 GM/100 ML BAG IV SCH (13:37)
[2025-07-10 09:02] LABS: Hematocrit (blood only) 36.0 % (42.0-52.0); Hemoglobin 11.9 g/dl (14.0-18.0); Mean Corpuscular Hemoglobin 32.0 pg (25.0-34.0); Mean Corpuscular Volume 96.8 fL (80.0-100.0); Platelet Count 136 K/uL (130-400); RDW Standard Deviation 43.3 fL (36.4-46.3); Red Blood Count 3.72 M/uL (4.70-6.10); White Blood Count 4.35 K/ul (4.8-10.8)
[2025-07-10 09:24] LABS: Anion Gap 8.0 (3-11); Blood Urea Nitrogen 3.0 mg/dl (6-23); Calcium 8.2 mg/dl (8.6-10.3); Carbon Dioxide 25.0 mmol/L (21-32); Chloride 100.0 mmol/L (98-107); Creatinine Clr Calc Pharmacy 126.7 ml/min; Glucose 169.0 mg/dl (70-99(Fasting)); Potassium 3.0 mmol/L (3.5-5.1); Sodium 133.0 mmol/L (136-145)
--- NOTE | 2025-07-10 10:40 | Surgery Progress Note ---
Date of Service July 10, 2025 Assessment & Plan (1) Duodenal stricture: Plan: His KUB does appear to have some gaseous distention, await radiology read There is nothing surgically to offer this patient from my standpoint Advance his diet as tolerated Surgery will sign off at this time, please call with any questions or concerns Admission and Anticipated Discharge Date Admission Date: July 08, 2025 Subjective Patient seen and examined. He states he feels improved since yesterday. Has tolerated clear liquids. Afebrile. Review of Systems Constitutional: no fever and no chills Respiratory: no cough and no dyspnea Cardiovascular: no chest pain and no dyspnea on exertion Gastrointestinal: no abdominal pain, no nausea and no vomiting Integumentary: no acne and no changing lesions Neurologic: no gait abnormality and no unsteadiness Hematologic / Lymphatic: no easy bleeding and no easy bruising Physical Exam Constitutional: WD/WN, vitals as above Eyes: PERRL, conjunctivae normal, anicteric sclerae Respiratory: normal respiratory effort, lungs clear to auscultation Cardiovascular: RRR, no murmur, no edema Gastrointestinal (Abdomen): normal bowel sounds, soft, nontender, no hepatosplenomegaly Musculoskeletal: no cyanosis or clubbing, extremities motor strength 5/5 Psychiatric: A+Ox3, euthymic affect Results & Data Vital Signs (Past 12 Hours) Vital Signs Temp Pulse Resp BP Pulse Ox O2 Del Method 07/10/25 07:15 36.8 C 62 18 120/84 97 Room Air 07/09/25 23:29 36.9 C 67 16 102/70 97 Room Air PG Care Time/CCT Total # of Minutes Spent Total Time Spent with Patient: Total time spent is greater than 50% in coordination of care (as documented) at patient's floor/unit and/or counseling patient: Coding Level of Care Code 06697 SUB INP/OBS CARE 10/19MIN Diagnoses Duodenal stricture K31.5
--- NOTE | 2025-07-10 11:06 | XRay Report ---
KUB HISTORY: reassess SBO COMPARISON STUDY: 07/08/2025 CT scan FINDINGS: There is gaseous distention of the stomach, grossly stable. There are a few mildly distende d small bowel loops at the left upper quadrant measuring up to 4 cm greatest diameter. There is mild gaseous distention of the colon measuring up to 7 cm diameter, stable. No gross free air seen. IMPRESSION: Grossly stable bowel distention. ACT 112: Negative or not required by law. The above report was generated using voice recognition software. It may contain grammatical, syntax o r spelling errors. Electronically signed by: Luc Hunt M.D. 07/10/2025 11:04 AM
[2025-07-10] MEDS: POTASSIUM CHLORIDE / WTR 10 MEQ/100 ML PLCT IV SCH (11:09)
--- NOTE | 2025-07-10 13:18 | Hospitalist Progress Note ---
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 Patient was admitted 05/21/2025 until 05/25/2025 for small bowel obstruction and chronic hyponatremia. #Small bowel obstruction/Duodenal stricture CTAP: re-demonstration of obstruction @ transverse segment of duodenum that is similar to previous exam in 04/2025. Given prolonged overall stability of this finding, stricturing would be favored consideration although difficult to exclude a slow-growing neoplasm. CBC w/ resolution of leukocytosis at 8.34. Surgery following: conservative measures at this time. advance to full liquids. Hx of EGD in February 2025 w/ grade D esophagitis. --> consider GI referral on discharge. Continue IV PPI & IV Pepcid Did have fever 07/09, added Zosyn, continue for now. #Hypokalemia K low 07/10 @ 3.0, likely secondary to poor po intake in setting of SBO s/p 3 KCl riders Repeat in AM + mag level. #Chronic hyponatremia w/ improvement to 133 after IVF urine osmol 271 #GERD- Famotidine, pantoprazole - continue in IV form Dispo: Admit, med/tele VTE Prophylaxis: SCDs Discussed w/ general surgery 07/10. Admission and Anticipated Discharge Date Admission Date: July 08, 2025 Supervising Physician Co-Signing Physician Notes The patient was not seen by me. The chart was reviewed. Case discussed with PAL Wilkins. Agree with assessment and plan Subjective Senait seen & examined this morning. He was upset as he wanted his diet advanced at time of encounter. Reports that when he has his diet advanced he will have a bowel movement. Reports passing minimal gas& complaints of abdominal pain and nausea. He denies any vomiting. Physical Exam Physical Exam: General: NAD, VS: BP 122/82; P66; R18; T36.9C Resp: normal respiratory effort Abd: refused abdominal exam Extremities: no edema Neuro: A&O x3 Skin: intact Results & Data Results & Data Vital Signs (Past 12 Hours) Vital Signs Temp Pulse Resp BP Pulse Ox O2 Del Method 07/10/25 07:15 36.8 C 62 18 120/84 97 Room Air PG Care Time/CCT Total # of Minutes Spent Total Time Spent with Patient: Total time spent is greater than 50% in coordination of care (as documented) at patient's floor/unit and/or counseling patient: Coding Level of Care Code 87393 SUB INP/OBS CARE 2/35MIN Diagnoses Small bowel obstruction K56.609 Duodenal stricture K31.5 Chronic hyponatremia E87.1
[2025-07-11 07:10] LABS: Hematocrit (blood only) 33.3 % (42.0-52.0); Hemoglobin 11.0 g/dl (14.0-18.0); Mean Corpuscular Hemoglobin 31.4 pg (25.0-34.0); Mean Corpuscular Volume 95.1 fL (80.0-100.0); Platelet Count 126 K/uL (130-400); RDW Standard Deviation 42.7 fL (36.4-46.3); Red Blood Count 3.50 M/uL (4.70-6.10); White Blood Count 4.49 K/ul (4.8-10.8)
[2025-07-11 07:32] LABS: Anion Gap 7.0 (3-11); Blood Urea Nitrogen 2.0 mg/dl (6-23); Calcium 8.3 mg/dl (8.6-10.3); Carbon Dioxide 24.0 mmol/L (21-32); Chloride 102.0 mmol/L (98-107); Creatinine Clr Calc Pharmacy 133.1 ml/min; Glucose 117.0 mg/dl (70-99(Fasting)); Magnesium 1.7 mg/dl (1.7-2.4); Potassium 3.1 mmol/L (3.5-5.1); Sodium 133.0 mmol/L (136-145)
[2025-07-11 08:11] VITALS: RESP 18
[2025-07-11] MEDS: POTASSIUM CHLORIDE CRTAB 20 MEQ TABCR PO SCH (08:33)
--- NOTE | 2025-07-11 13:19 | Hospitalist Progress Note ---
Date of Service July 11, 2025 Assessment & Plan (1) Small bowel obstruction: (2) Duodenal stricture: (3) Chronic hyponatremia: Plan 54-year-old male PMHx SBO, duodenal stricture, hyponatremia, alcohol use disorder in remission, HFrEF, and SNHL of bilateral ears presenting for abd ominal pain starting 2 days [employer] and worsening. Patient was admitted 05/21/2025 until 05/25/2025 for small bowel obstruction and chronic hyponatremia. #Small bowel obstruction/Duodenal stricture CTAP: re-demonstration of obstruction @ transverse segment of duodenum that is similar to previous exam in 04/2025. Given prolonged overall stability of this finding, stricturing would be favored consideration although difficult to exclude a slow-growing neoplasm. CBC w/ resolution of leukocytosis Surgery signed off 07/11: conservative measures at this time. advance diet as t olerated & follow up w/ Dr. Gomez in outpatient clinic. Hx of EGD in February 2025 w/ grade D esophagitis. --> consider GI referral on discharge. Continue IV PPI & IV Pepcid Did have fever 07/09, added Zosyn, continue for now. On low fiber diet, pt requesting to trial regular diet prior to home. Will plan for that 07/12 for breakfast. #Hypokalemia K low 07/11 @ 3.1, likely secondary to poor po intake in setting of SBO s/p repletion Mag stable at 1.7 #Chronic hyponatremia w/ improvement to 133 after IVF urine osmol 271 #GERD- Famotidine, pantoprazole - continue in IV form #Underweight with BMI 17.9 Dispo: Admit, med/tele VTE Prophylaxis: SCDs Discussed w/ general surgery 07/11. Admission and Anticipated Discharge Date Admission Date: July 08, 2025 Supervising Physician Co-Signing Physician Notes The patient was not seen by me. The chart was reviewed. Case discussed with PAL Wilkins. Agree with assessment and plan Jena Sapp was seen & examined this morning. He reports that he is feeling better today. States he still has pain but improved. states he has had 3-4 BM's. States that he does still occassionally get nauseous. Physical Exam Physical Exam: General: NAD, VS: BP 135/75; P59; R18; T36.8C Resp: normal respiratory effort Abd: +BS, generalized tenderness to palpation. Extremities: Moves all extremities, no edema Neuro: A&O x3 Skin: intact, no lesions noted Results & Data Results & Data Vital Signs (Past 12 Hours) Vital Signs Temp Pulse Resp BP Pulse Ox O2 Del Method 07/11/25 08:09 36.8 C 59 L 18 135/75 96 Room Air PG Care Time/CCT Total # of Minutes Spent Total Time Spent with Patient: Total time spent is greater than 50% in coordination of care (as documented) at patient's floor/unit and/or counseling patient: Coding Level of Care Code 63465 SUB INP/OBS CARE 2/35MIN Diagnoses Small bowel obstruction K56.609 Duodenal stricture K31.5 Chronic hyponatremia E87.1
--- NOTE | 2025-07-11 15:59 | Electrocardiogram Report ---
Test Reason : Blood Pressure : */* mmHG Vent. Rate : 77 BPM Atrial Rate : 77 BPM P-R Int : 112 ms QRS Dur : 92 ms QT Int : 416 ms P-R-T Axes : 64 4 26 degrees QTcB Int : 470 ms Normal sinus rhythm Normal ECG When compared with ECG of 08-Jul-2025 17:10, (unconfirmed) Questionable change in QRS axis Nonspecific T wave abnormality now evident in Inferior leads T wave amplitude has increased in Lateral leads Confirmed by Chris Willett ([id number]) on 07/11/2025 3:59:21 PM Referred By: REFERRED SELF Confirmed By: Chris Willett
[2025-07-11] MEDS: MoRPHine SULFATE 4 MG/ML 1 ML CARP\\VIAL IV PRN (20:27)
[2025-07-12 07:35] LABS: Anion Gap 6.0 (3-11); Blood Urea Nitrogen 2.0 mg/dl (6-23); Calcium 8.5 mg/dl (8.6-10.3); Carbon Dioxide 26.0 mmol/L (21-32); Chloride 100.0 mmol/L (98-107); Creatinine Clr Calc Pharmacy 110.6 ml/min; Glucose 107.0 mg/dl (70-99(Fasting)); Potassium 3.4 mmol/L (3.5-5.1); Sodium 132.0 mmol/L (136-145)
[2025-07-12 09:14] VITALS: TEMP 98.2
[2025-07-12] MEDS: POTASSIUM CHLORIDE CRTAB 20 MEQ TABCR PO STA (09:37)
--- NOTE | 2025-07-12 12:50 | Hospitalist Progress Note ---
Date of Service July 12, 2025 Assessment & Plan (1) Small bowel obstruction: (2) Duodenal stricture: (3) Chronic hyponatremia: Plan 54-year-old male PMHx SBO, duodenal stricture, hyponatremia, alcohol use disorder in remission, HFrEF, and SNHL of bilateral ears presenting for abd ominal pain starting 2 days [employer] and worsening. Patient was admitted 05/21/2025 until 05/25/2025 for small bowel obstruction and chronic hyponatremia. #Small bowel obstruction/Duodenal stricture CTAP: re-demonstration of obstruction @ transverse segment of duodenum that is similar to previous exam in 04/2025. Given prolonged overall stability of this finding, stricturing would be favored consideration although difficult to exclude a slow-growing neoplasm. CBC w/ resolution of leukocytosis Surgery signed off 07/11: conservative measures at this time. advance diet as t olerated & follow up w/ Dr. Gomez in outpatient clinic. Hx of EGD in February 2025 w/ grade D esophagitis. --> consider GI referral on discharge. Continue IV PPI & IV Pepcid Did have fever 07/09, added Zosyn, continue for now. On low fiber diet, pt requesting to trial regular diet prior to home. Will plan for that 07/12 for breakfast. #Hypokalemia K low 07/11 @ 3.1, likely secondary to poor po intake in setting of SBO s/p repletion Mag stable at 1.7 #Chronic hyponatremia w/ improvement to 133 after IVF urine osmol 271 #GERD- Famotidine, pantoprazole - continue in IV form #Underweight with BMI 17.9 Dispo: Admit, med/tele VTE Prophylaxis: SCDs Discussed w/ general surgery 07/11. Admission and Anticipated Discharge Date Admission Date: July 08, 2025 Results & Data Results & Data Vital Signs (Past 12 Hours) Vital Signs Temp Pulse Resp BP Pulse Ox O2 Del Method 07/12/25 08:37 36.8 C 68 18 145/95 H 98 Room Air PG Care Time/CCT Total # of Minutes Spent Total Time Spent with Patient: Total time spent is greater than 50% in coordination of care (as documented) at patient's floor/unit and/or counseling patient: Coding Diagnoses Small bowel obstruction K56.609 Duodenal stricture K31.5 Chronic hyponatremia E87.1
[2025-07-12 14:57] VITALS: BP 153/99; PULSE 66; O2SAT 100
--- NOTE | 2025-07-12 15:19 | Discharge Summary ---
Discharge Summary Date of Service July 12, 2025 Principal Dx & Hospital Course #1 = Principal Diagnosis (1) Small bowel obstruction: (2) Duodenal stricture: (3) Chronic hyponatremia: Plan 54-year-old male PMHx SBO, duodenal stricture, hyponatremia, alcohol use disorder in remission, HFrEF, and SNHL of bilateral ears presenting for abdominal pain starting 2 days [employer] and worsening. Patient was admitted 05/21/2025 until 05/25/2025 for small bowel obstruction and chronic hyponatremia. #Small bowel obstruction/Duodenal stricture CTAP: re-demonstration of obstruction @ transverse segment of duodenum that is similar to previous exam in 04/2025. Given prolonged overall stability of this finding, stricturing would be favored consideration although difficult to exclude a slow-growing neoplasm. CBC w/ resolution of leukocytosis Surgery signed off 07/11: conservative measures at this time. advance diet as tolerated & follow up w/ Dr. Gomez in outpatient clinic. Resume PPI & Pepcid outpatient. --> consider repeat EGD but discuss w/ PCP s/p Zosyn during hospital stay. No abx required ond c. Advanced to regular diet & defecating prior to dc. #Hypokalemia Improvement of K to 3.4 Resume home supplementation on discharge. resume magnesium supplement on discharge #Chronic hyponatremia urine osmol 271 Monitor in outpatient setting, Na 132 at day of discharge. #GERD- Famotidine, pantoprazole - continue in IV form #Underweight with BMI 17.9 Patient discharged home 07/12 Admission HPI Per Admitting Provider 54-year-old male PMHx SBO, duodenal stricture, hyponatremia, alcohol use disorder in remission, HFrEF, and SNHL of bilateral ears presenting for abdominal pain starting 2 days [employer] and worsening. Patient states that the evening of 2 nights [employer] he started to have vomiting and worsening abdominal pain. States that it feels similar to prior bowel obstructions in the past, describing as a generalized 10 out of 10 abdominal pain that is not resolved. The night [employer] he was having episodes of emesis "every hour it felt like". Patient reports that his abdomen does not feel distended but is very tender throughout. He has not had a bowel movement and he is not passing gas at prese nt. He is without current vomiting, but does feel slightly nauseous. He has not been feverish or had any chills. Otherwise he is without symptoms, denies chest pain, SOB, palpitations, numbness/tingling, fever/chills, URI symptoms, LUTS, weakness, falls, or syncope. He denies current alcohol use. Has been unable to tolerate oral intake, and also feels as though he has not been urinating much because he has been unable to keep down fluids. ED evaluation CBC with leukocytosis 10.96, RBC 4.46, H&H 14.8/40.8; CMP sodium 124, chloride 87, glucose 111, bilirubin 1.1, protein 8.5, globulin 4.3; lipase 116; lactate 1.8; CTAP redemonstration of obstruction of the transverse segment of duodenum similar to previous exam dated May 21, 2025, inflammatory changes of stomach noted due to cystitis.; EKG sinus tachycardia, possible LAE at 112 bpm.; Provided with 1L NSS, pantoprazole 40 mg IV, Zofran 4 mg IV, metoclopramide 10 mg IV, and fentanyl citrate 50 mcg IV in ED. Please see Dr. Yan's attestation for adjustments/additions to treatment plan. Discharge Exam General: NAD, VS: BP 153/99; P66; R18; T36.8C Abd: normal bowel sounds, non tender Extremities: Moves all extremities, no edema Neuro: A&O x3 Skin: intact, no lesions noted Discharge Plan Discharge Items Patient Disposition: Home - Self-Care Reason For Visit: ABDOMINAL PAIN Discharge Diagnosis: Small bowel obstruction Condition on Discharge: Fair Activity: Resume your previous activity Non-emergency contact: Primary Care Provider and Surgeon Call non-emergency contact if: you have any medication questions, your symptoms worsen and you have a fever Follow-up/Referrals: Daryl Gomez DO [Surgeon] - Burak Stevens DO [Primary Care Provider] - 07/21/25 1:00 pm Diet: Regular Addtl Attending Provider Instructions: Mr. Prabhakar, You were recently hospitalized secondary to abdominal pain. You were found to have a bowel obstruction. Medications: Your medication list has been reviewed and reconciled upon discharge to ensure accuracy and continuity of care. An updated list of all your medications is included with your hospital discharge paperwork. Please review this list closely, and make note of any changes. A refill of your potassium, magnesium, and folic acid has been sent in to the pharmacy. Please ensure you are taking these supplements on a daily basis. Take your medications as instructed; do not skip a dose of your medicines. Make sure all of your doctors know every medicine you are taking (including wezx-cgg-ppqwsem medicines, vitamins, and supplements). Call your primary care provider before taking any new medicines (including over- the-counter medicines, vitamins, and supplements), because some of these may interact with your current medications, or may make your symptoms worse. Tell your primary care provider if you cannot afford your medications. Activity: You can do normal everyday activities as your body allows. Take rest breaks if you feel tired. Do not overexert. Stop activity if you have pain, shortness of breath or feel dizzy. Follow-up appointments: Make an appointment with your primary care physician within one week of discharge. A copy of this summary will be sent to them. Every time you see your primary care physician, or any other doctor, bring your medication list, and a list of questions. Please follow up with Dr. Gomez in the outpatient clinic for continued care of your duodenal stricture. CONTACT YOUR PRIMARY CARE PROVIDER if you experience any of the following: Shortness of breath or difficulty breathing Fevers or chills Feeling tired with normal activity or experiencing dizziness or fainting Difficulty following your treatment plan, or difficulty taking medications CALL 911 OR GO TO THE EMERGENCY DEPARTMENT if you experience any of the following: Severe abdominal pain or nausea/vomiting Severe chest pain, or chest pain that radiates (moves) to your jaw or arm Sudden, severe shortness of breath or difficulty breathing Thank you for allowing us to participate in your care. Pending Studies at Discharge: No Stand-Alone Forms: [facility], Smoking Cessation Medications and DC Order Prescriptions: Continued famotidine 20 mg tablet 20 mg PO DAILY Rx Instructions: LAST FILLED 03/04/25 FOR 30 DAYS/30 TABS. bisacodyl [Laxative (bisacodyl)] 5 mg tablet,delayed release (DR/EC) 5 mg PO DIRECTED Rx Instructions: LAST FILLED 05/25/25 FOR 30 DAYS/30 TABS. polyethylene glycol 3350 [Miralax] 17 gram/dose Powder 17 g PO DAILY PRN (Reason: NEEDED) potassium chloride 20 mEq tablet,ER particles/crystals 20 meq PO DAILY Qty: 30 0RF Rx Instructions: LAST FILLED 03/06/25 FOR 30 DAYS/30 TABS. pantoprazole 40 mg tablet,delayed release (DR/EC) 40 mg PO BID Qty: 60 0RF Rx Instructions: LAST FILLED 05/24/25 FOR 21 DAYS. folic acid 1 mg tablet 1 mg PO QAM Qty: 30 0RF Rx Instructions: LAST FILLED 01/13/25 FOR 90 DAYS/90 TABS magnesium oxide 250 mg magnesium tablet 250 mg PO BID Qty: 60 0RF Rx Instructions: LAST FILLED 03/11/25 FOR 30 TABS/30 DAYS Discharge Orders: Discharge Order (Routine); Ordered 07/12/25 Ordered By: Maria A Baker/Other Patient Handouts: Small Bowel Obstruction Admission Data Admit Date/Time: 07/08/25 20:30 Attending Provider: Dennis Brown Admit Provider: Noe Yan Primary Care Provider: Burak Stevens Other Providers: Noe Yan Other Interventions: Discharge Summary Assessment (RN) Last Done: 07/12/25 15:19 Hospital Stay Data Consultations 07/08/25 20:21 ED Decision to Admit Stat Diagnostic Imagining Performed 07/08/25 17:53 CT abd pelvis IV con only Stat Pending Results Patient Have Any Pending Studies at Discharge: No Discharge Instructions Given to Patient (Per Discharging Provider) Mr. Prabhakar, Derik were recently hospitalized secondary to abdominal pain. You were found to have a bowel obstruction. Medications: Your medication list has been reviewed and reconciled upon discharge to ensure accuracy and continuity of care. An updated list of all your medications is included with your hospital discharge paperwork. Please review this list closely, and make note of any changes. A refill of your potassium, magnesium, and folic acid has been sent in to the pharmacy. Please ensure you are taking these supplements on a daily basis. Take your medications as instructed; do not skip a dose of your medicines. Make sure all of your doctors know every medicine you are taking (including aiew-qgf-qaehpmj medicines, vitamins, and supplements). Call your primary care provider before taking any new medicines (including over- the-counter medicines, vitamins, and supplements), because some of these may interact with your current medications, or may make your symptoms worse. Tell your primary care provider if you cannot afford your medications. Activity: You can do normal everyday activities as your body allows. Take rest breaks if you feel tired. Do not overexert. Stop activity if you have pain, shortness of breath or feel dizzy. Follow-up appointments: Make an appointment with your primary care physician within one week of discharge. A copy of this summary will be sent to them. Every time you see your primary care physician, or any other doctor, bring your medication list, and a list of questions. Please follow up with Dr. Gomez in the outpatient clinic for continued care of your duodenal stricture. CONTACT YOUR PRIMARY CARE PROVIDER if you experience any of the following: Shortness of breath or difficulty breathing Fevers or chills Feeling tired with normal activity or experiencing dizziness or fainting Difficulty following your treatment plan, or difficulty taking medications CALL 911 OR GO TO THE EMERGENCY DEPARTMENT if you experience any of the f ollowing: Severe abdominal pain or nausea/vomiting Severe chest pain, or chest pain that radiates (moves) to your jaw or arm Sudden, severe shortness of breath or difficulty breathing Thank you for allowing us to participate in your care. Supervising Physician Co-Signing Physician Notes The patient was not seen by me. The chart was reviewed. Case discussed with PAL Wilkins. Agree with assessment and plan Total Time Total Time Spent Total Time Spent (In Minutes): 45 Total Time Includes: Examination of the Patient, Discharge Planning, Medication Reconciliation and Communication With Other Providers Coding Level of Care Code 78719 INP/OBS DISCH >30 MIN Diagnoses Small bowel obstruction K56.609 Duodenal stricture K31.5 Chronic hyponatremia E87.1
--- NOTE | 2025-07-14 06:26 | Electrocardiogram Report ---
Test Reason : Blood Pressure : */* mmHG Vent. Rate : 112 BPM Atrial Rate : 112 BPM P-R Int : 128 ms QRS Dur : 76 ms QT Int : 340 ms P-R-T Axes : 95 61 78 degrees QTcB Int : 464 ms Sinus tachycardia Possible Left atrial enlargement Borderline ECG When compared with ECG of 21-May-2025 11:09, Borderline criteria for Inferior infarct are no longer Present T wave inversion no longer evident in Inferior leads Confirmed by Chris Willett ([id number]) on 07/14/2025 6:26:04 AM Referred By: Confirmed By: Chris Willett
== END 2025-07-12 15:35 | disposition home or self-care (01) | DRG 381 ==
LOC: ED 16:52 → SUATTDRO 20:30 → INTOOBSV 20:30 → 3W 20:30

== ENCOUNTER 2025-07-27 11:54 | Observation (INO) ==
--- NOTE | 2025-07-27 12:40 | Emergency Department Note ---
Impression & Plan Vomiting, Gastric outlet obstruction, Acute dehydration, Hypomagnesemia, Tachycardia, Diffuse abdominal pain, Hyponatremia ED Provider Note NAME: MICHELL BRUNNER AGE: 54 SEX: M : 1970 ARRIVES VIA: Ambulance INFORMANT: [Patient] ED PROVIDER(S): [Rajinder Pichardo MD] CHIEF COMPLAINT: Vomiting HISTORY OF PRESENT ILLNESS: Patient is a 54-year-old male who states that for 2 days, he has been vomiting and cannot tolerate oral intake despite nausea medication prescribed. The patient states that he did take some laxatives yesterday, he had multiple bowel movements but, he is still vomiting. He has a history of small bowel obstruction and was hoping to avoid coming to the hospital with the laxatives. Patient has not had fever, there has been no cough or congestion. He states he has noticed some decreased urine output, he thinks he is dehydrated. Patient describes diffuse abdominal pain, he does not feel bloated. He states he feels similar to how he felt a few weeks ago when he required hospitalization. PMHx/PSHx/Social Hx: See Below PHYSICAL EXAM: GENERAL: Patient is in no acute distress. HEENT: No acute trauma, normocephalic atraumatic, mucous membranes moist, no nasal congestion. NECK: No stridor, no adenopathy, no meningismus, trachea is midline. LUNGS: Clear to auscultation bilaterally, no wheeze, no rhonchi, breath sounds equal. HEART: Without murmurs gallops or rubs, mildly tachycardic, normal rhythm. ABDOMEN: Soft, mildly diffusely tender, no distention. EXTREMITIES: No cyanosis, full range of motion of all the joints without pain or difficulty. NEUROLOGIC: Oriented x 3, no acute motor or sensory deficits, no focal weakness. SKIN: No jaundice, no diaphoresis. DIFFERENTIAL DIAGNOSIS: Small bowel obstruction, gastroenteritis, electrolyte imbalance, dehydration, foodborne or viral illness, among others. EMERGENCY DEPARTMENT PROCEDURES: MEDICAL DECISION MAKING: There is no leukocytosis or concerning anemia. There is a normal platelet count. No bandemia. Sodium is low, magnesium is low. There is no renal failure. No worrisome liver enzyme elevation. No evidence for pancreatitis. ECG shows sinus tachycardia, no ischemia. Cardiac enzyme testing x 1 is not consistent with acute cardiac injury. Urinalysis does not show findings of infection. Chest x-ray does not show free air, there is a large amount of air in the stomach. Abdominal and pelvis CT shows evidence for gastric outlet obstruction. On exam, the patient was tachycardic, he was not febrile or toxic. Patient was given IV saline, 1.5 L. He was given IV Phenergan, IV Zofran and IV morphine. He received IV magnesium and IV Protonix. He was given IV Pepcid. With the above intervention, the patient is feeling improved. His pulse has decreased and is now normal. He is much more comfortable. No further vomiting. I did talk about placing an NG tube, the patient refused as this has not been helpful in the past. I did speak with case management and the on-call hospitalist. Admission is clearly warranted. In short, the patient appears to have a gastric outlet obstruction, this has been an ongoing issue. He presents dehydrated with some electrolyte disturbances. He will be hospitalized. Prior/Outside records/notes reviewed: Discharge summary note from 07/12/2025 describing his hospital presentation, his hospital course and discharge plan. ECG per my interpretation: Indication was abdominal pain. The ECG shows a sinus tachycardia with a rate of 116. There is no ST elevation, no PVCs. The QTc is 478. Continuous Cardiac Monitoring per my interpretation: An order was placed for continuous cardiac monitoring. The monitor shows a rate of 121 with sinus tachycardia. Imaging/x-ray results per my interpretation: Chest x-ray does not show pneumonia or free air. The stomach is quite distended from gas. Chronic Medical/Social conditions affecting care: Recent hospitalization for small bowel obstruction Care/Management discussed with: Case management and the on-call hospitalist. Level of care consideration(s): After review of the information above and other included data: --I believe the patient requires escalation of care to admission DISPOSITION: Admission Past Med/Surg History Problem List Hyponatremia (Acute) Diffuse abdominal pain (Acute) Tachycardia (Acute) Hypomagnesemia (Acute) Acute dehydration (Acute) Gastric outlet obstruction (Acute) Vomiting (Acute) Acute hyponatremia (Acute) Small bowel obstruction (Acute) Duodenal stricture (Acute) Slow transit constipation Alcohol use disorder, mild, in early remission Chronic heart failure with reduced ejection fraction (HFrEF, <= 40%) Sensorineural hearing loss (SNHL) of both ears (Chronic) Duodenal stricture (Chronic) Medical History Hyponatremia with extracellular fluid depletion Chronic hyponatremia Small bowel obstruction, partial Nausea & vomiting Duodenal obstruction Hyponatremia Closed fracture of acetabulum (03/19/13) RLL pneumonia JUAN (acute kidney injury) MRSA (methicillin resistant staph aureus) culture positive Bacteremia due to Klebsiella pneumoniae Septic shock Elevated troponin Acute respiratory failure with hypoxia Alcohol withdrawal Non-ST elevation DE (NSTEMI) Family History Grandfather (Maternal) Cancer Brother Diabetes Social History Smoking Status: Current every day smoker Tobacco Type: Cigarettes Age Started Using Tobacco: 19; packs per day: 1; Cigarettes Per Day: 1 PPD; Second Hand Exposure: No; Do You Dip or Chew Tobacco: No; Hx Alcohol Use: No Hx Substance Use: No Preferred Language: Greek Communication Ability: Effective Communication Tools: Other Cupola Tapper Helper Required: No Beliefs That Will Affect Care: None marital status: Current Living Situation: Alone current occupational status: employed Feels Safe at Home: Yes Assistive Devices: None Allergies Allergies Allergy/AdvReac Type Severity Reaction Status Date / Time No Known Allergies Allergy Verified 07/08/25 19:49 Home Meds Home Medications Medication Instructions Recorded Confirmed bisacodyl 5 mg tablet,delayed 5 mg PO DIRECTED 07/08/25 07/27/25 release (Laxative (bisacodyl)) famotidine 20 mg tablet 20 mg PO DAILY 07/08/25 07/27/25 polyethylene glycol 3350 17 17 g PO DAILY PRN NEEDED 07/08/25 07/27/25 gram/dose oral powder (Miralax) Previous Rx's Medication Instructions Recorded folic acid 1 mg tablet 1 mg PO QAM #30 tabs 07/12/25 magnesium oxide 250 mg PO BID #60 tabs 07/12/25 pantoprazole 40 mg tablet,delayed 40 mg PO BID #60 tabs 07/12/25 release potassium chloride 20 mEq 20 meq PO DAILY #30 tabs 07/12/25 tablet,extended release(part/cryst) Results & Data (ED) Vital Signs Vital Signs - 24 hr 07/27/25 12:12 07/27/25 12:19 07/27/25 12:30 Temperature 36.5 C Temperature Source Oral Pulse Rate 117 H 121 H 116 H Pulse Rate [Apical] Pulse Rate from SpO2 Sensor 118 H 114 H Respiratory Rate 22 19 24 Respiratory Effort / Characteristics Respiratory Depth Blood Pressure 150/104 H Blood Pressure [Right Arm] Blood Pressure Mean 119 Blood Pressure Mean [Right Arm] Blood Pressure Position Semi-fowlers Pulse Oximetry 99 100 99 Oxygen Delivery Method Room Air Sepsis Recent Fever Within 48 Hours No Sepsis New/Unexplained Change in Mental Status No Sepsis Action Taken by Nursing No Action Required 07/27/25 13:00 07/27/25 13:24 07/27/25 13:33 Temperature Temperature Source Pulse Rate 109 H 120 H 99 H Pulse Rate [Apical] Pulse Rate from SpO2 Sensor 109 H 99 H Respiratory Rate 20 19 Respiratory Effort / Characteristics Respiratory Depth Blood Pressure 125/94 Blood Pressure [Right Arm] Blood Pressure Mean 104 Blood Pressure Mean [Right Arm] Blood Pressure Position Pulse Oximetry 99 98 Oxygen Delivery Method Sepsis Recent Fever Within 48 Hours Sepsis New/Unexplained Change in Mental Status Sepsis Action Taken by Nursing 07/27/25 14:15 07/27/25 15:00 07/27/25 16:10 Temperature Temperature Source Pulse Rate 85 102 H Pulse Rate [Apical] 88 Pulse Rate from SpO2 Sensor 85 Respiratory Rate 17 13 Respiratory Effort / Characteristics Non-Labored Spontaneous Respiratory Depth Normal Blood Pressure 143/106 H Blood Pressure [Right Arm] 136/98 Blood Pressure Mean 118 Blood Pressure Mean [Right Arm] 110 Blood Pressure Position Pulse Oximetry 100 98 Oxygen Delivery Method Room Air Sepsis Recent Fever Within 48 Hours Sepsis New/Unexplained Change in Mental Status Sepsis Action Taken by Alf Medications Current Medication List: was personally reviewed by me Laboratory Data Attestation: I reviewed the patient's lab results. 07/27/25 12:51 07/27/25 12:51 Lab Results 07/27/25 07/27/25 Range/Units 12:51 15:15 WBC 9.66 (4.8-10.8) K/ul RBC 4.81 (4.70-6.10) M/uL Hgb 15.4 (14.0-18.0) g/dl Hct 43.7 (42.0-52.0) % MCV 90.9 (80.0-100.0) fL MCH 32.0 (25.0-34.0) pg MCHC 35.2 (32.0-36.0) g/dL RDW Std Deviation 42.3 (36.4-46.3) fL RDW Coeff of Tessy 12.9 (11.5-14.5) % Plt Count 212 (130-400) K/uL MPV 10.2 (9.4-12.4) fL Immature Gran % (Auto) 0.4 % Neut % (Auto) 74.4 % Lymph % (Auto) 17.6 % [place] % (Auto) 6.5 % Eos % (Auto) 0.0 % Baso % (Auto) 1.1 % Neut # (Auto) 7.18 H (1.40-6.50) K/uL Lymph # (Auto) 1.70 (1.20-3.40) K/uL [place] # (Auto) 0.63 H (0.11-0.59) K/uL Eos # (Auto) 0.00 (0.00-0.50) K/uL Baso # (Auto) 0.11 (0.00-0.20) K/uL Immature Gran # (Auto) 0.04 (0.01-0.20) K/uL PT 11.3 (9.0-12.0) Seconds INR 1.1 (0.9-1.1) Sodium 128 L (136-145) mmol/L Potassium 3.7 (3.5-5.1) mmol/L Chloride 92 L (98-107) mmol/L Carbon Dioxide 23 (21-32) mmol/L Anion Gap 13 H (3-11) BUN 7 (6-23) mg/dl Creatinine 0.87 (0.6-1.4) mg/dl Est Cr Clr Drug Dosing 88.9 ml/min eGFR 103.18 BUN/Creatinine Ratio 8.0 L (10-20) Glucose 131 H (70-99(Fasting)) mg/dl Calcium 9.9 (8.6-10.3) mg/dl Magnesium 1.6 L (1.7-2.4) mg/dl Total Bilirubin 1.2 H (0.2-1.0) mg/dl AST 27 (13-39) U/L ALT 19 (7-52) U/L Alkaline Phosphatase 60 (34-104) U/L Troponin I High Sens 3.5 (0-20) pg/ml Total Protein 9.2 H (6.0-8.3) gm/dl Albumin 4.3 (3.4-5.0) gm/dl Globulin 4.9 H (2.5-4.0) gm/dl Albumin/Globulin Ratio 0.9 (0.9-2) Lipase 78 (11-82) U/L Urine Color Yellow Urine Appearance Clear (Clear) Urine pH 8.0 H (4.5-7.5) Ur Specific [place] 1.038 H (1.000-1.030) Urine Protein Negative (Negative) Urine Glucose (UA) Negative (Negative) Urine Ketones Negative (Negative) Urine Blood Negative (Negative) Urine Nitrite Negative (Negative) Urine Bilirubin Negative (Negative) Urine Urobilinogen Negative (Negative) Ur Leukocyte Esterase Negative (Negative) Urine Comment Administered Medications Discontinued Medications Sodium Chloride (Nss) 1,000 mls @ 999 mls/hr IV .Q1H1M STA Stop: 07/27/25 13:28 Last Infusion: 07/27/25 14:52 Dose: Infused Documented By: Admin: 07/27/25 13:11 Dose: 999 mls/hr Documented By: CEF Promethazine HCl (Phenergan) 6.25 mg in 50.25 mls @ 201 mls/hr IV NOW STA Stop: 07/27/25 12:42 Last Infusion: 07/27/25 13:35 Dose: Infused Documented By: Admin: 07/27/25 13:15 Dose: 201 mls/hr Documented By: CEF Magnesium Sulfate/Dextrose (Magnesium Sulfate / D5w) 1 gm in 100 mls @ 100 mls/hr IV NOW STA Stop: 07/27/25 14:25 Last Infusion: 07/27/25 14:52 Dose: Infused Documented By: Admin: 07/27/25 13:34 Dose: 100 mls/hr Documented By: CEF Sodium Chloride (Nss) 500 mls @ 999 mls/hr IV .Q31M ONE Stop: 07/27/25 13:56 Last Infusion: 07/27/25 14:53 Dose: Infused Documented By: Admin: 07/27/25 14:14 Dose: 999 mls/hr Documented By: CEF Pantoprazole Sodium (Protonix) 40 mg in 10 mls @ 5 mls/min IV NOW ONE Stop: 07/27/25 15:19 Last Admin: 07/27/25 15:28 Dose: 5 mls/min Documented By: TIMUR Famotidine (Pepcid 20mg Iv Push) 20 mg in 5 mls @ 2.5 mls/min IV NOW STA Stop: 07/27/25 15:19 Last Admin: 07/27/25 15:26 Dose: 2.5 mls/min Documented By: TIMUR Ioversol (Optiray 320 100ml) 93 ml IV ONCE ONE Stop: 07/27/25 13:50 Last Admin: 07/27/25 13:49 Dose: 93 ml Documented By: SAMMY Morphine Sulfate (Morphine Sulfate 4 Mg/Ml 1 Ml Carp\Vial) 4 mg IV NOW STA Stop: 07/27/25 12:29 Last Admin: 07/27/25 13:05 Dose: 4 mg Documented By: CEF Ondansetron HCl (Ondansetron Inj 2 Mg/Ml 2 Ml Vial) 4 mg IV NOW STA Stop: 07/27/25 12:29 Last Admin: 07/27/25 13:09 Dose: 4 mg Documented By: CEF Imaging Data Radiologist's Impression: Abdomen/Pelvis CT 07/27/25 12:[address] WITH IV CONTRAST CT DOSE: 604.15 mGy.cm HISTORY: poss obstruc TECHNIQUE: Multiaxial CT images of the abdomen and pelvis were performed following the IV administration of 90 cc of Optiray, A dose lowering technique was utilized adhering to the principles of ALARA. COMPARISON STUDY: 07/08/2025 FINDINGS: There is stable elevation of the left hemidiaphragm. Stable mild atelectasis left lung base. ABDOMEN: The stomach is prominently distended with fluid and gas, stable. There is stable wall thickening and stricture at the duodenum. No other bowel inflammation or obstruction seen. Liver, gallbladder, spleen, and adrenal glands are unremarkable. There are stable calcifications at the pancreatic head which can represent sequela of chronic pancreatitis. No other pancreatic abnormality seen. Kidneys show no hydronephrosis or calculi. Stable tiny cyst at the right kidney. There are scattered atherosclerotic calcifications. No abdominal aortic aneurysm. Pelvis: Prostate is mildly enlarged. Urinary bladder is nondistended. No pelvic free fluid, free air, or abscess. No enlarged adenopathy. Osseous structures: Stable lumbar degenerative disc disease. No acute osseous findings. IMPRESSION: 1. Stable thickening and stricture of the duodenum could represents severe duodenitis, ulcer, or mass. This causes gastric outlet obstruction and gastric distention, also stable. 2. No other acute findings seen. Otherwise as described. ACT 112: Negative or not required by law. The above report was generated using voice recognition software. It may contain grammatical, syntax or spelling errors. Electronically signed by: Luc Hunt M.D. 07/27/2025 2:27 PM Chest X-Ray 07/27/25 12:29 XR chest 1V portable CLINICAL HISTORY: abd pain COMPARISON STUDY: 02/27/2025 FINDINGS: Heart size and pulmonary vasculature are normal. Stable moderate elevation of the left hemidiaphragm with mild atelectasis left lung base. No new consolidation or pleural effusion seen. No pneumothorax. There is gaseous distention of the stomach or hepatic flexure of the colon. IMPRESSION: 1. No acute findings in the chest. 2. Gaseous distention of the stomach or hepatic flexure of the colon. ACT 112: Negative or not required by law. Electronically signed by: Luc Hunt M.D. 07/27/2025 1:04 PM Discharge Plan Visit Data Chief Complaint: Vomiting ED Provider: Rajinder Pichardo Discharge Problem: Vomiting, Gastric outlet obstruction, Acute dehydration, Hypomagnesemia, Tachycardia, Diffuse abdominal pain, Hyponatremia Prescriptions Prescriptions: No Action famotidine 20 mg tablet 20 mg PO DAILY Rx Instructions: LAST FILLED 03/04/25 FOR 30 DAYS/30 TABS. bisacodyl [Laxative (bisacodyl)] 5 mg tablet,delayed release (DR/EC) 5 mg PO DIRECTED Rx Instructions: LAST FILLED 05/25/25 FOR 30 DAYS/30 TABS. polyethylene glycol 3350 [Miralax] 17 gram/dose Powder 17 g PO DAILY PRN (Reason: NEEDED) potassium chloride 20 mEq tablet,ER particles/crystals 20 meq PO DAILY Qty: 30 0RF Rx Instructions: LAST FILLED 03/06/25 FOR 30 DAYS/30 TABS. pantoprazole 40 mg tablet,delayed release (DR/EC) 40 mg PO BID Qty: 60 0RF Rx Instructions: LAST FILLED 05/24/25 FOR 21 DAYS. folic acid 1 mg tablet 1 mg PO QAM Qty: 30 0RF Rx Instructions: LAST FILLED 01/13/25 FOR 90 DAYS/90 TABS magnesium oxide 250 mg magnesium tablet 250 mg PO BID Qty: 60 0RF Rx Instructions: LAST FILLED 03/11/25 FOR 30 TABS/30 DAYS Discharge Problem: Vomiting Qualifiers: Vomiting type: unspecified Nausea presence: with nausea Qualified Code(s): R 11.2 - Nausea with vomiting, unspecified
[2025-07-27 13:04] LABS: Hematocrit (blood only) 43.7 % (42.0-52.0); Hemoglobin 15.4 g/dl (14.0-18.0); Immature Granulocytes # (auto) 0.04 K/uL (0.01-0.20); Immature Granulocytes % (auto) 0.4 %; Mean Corpuscular Hemoglobin 32.0 pg (25.0-34.0); Mean Corpuscular Volume 90.9 fL (80.0-100.0); Platelet Count 212 K/uL (130-400); RDW Standard Deviation 42.3 fL (36.4-46.3); Red Blood Count 4.81 M/uL (4.70-6.10); White Blood Count 9.66 K/ul (4.8-10.8)
[2025-07-27] MEDS: MoRPHine SULFATE 4 MG/ML 1 ML CARP\\VIAL IV STA (13:05)
--- NOTE | 2025-07-27 13:05 | XRay Report ---
XR chest 1V portable CLINICAL HISTORY: abd pain COMPARISON STUDY: 02/27/2025 FINDINGS: Heart size and pulmonary vasculature are normal. Stable moderate elevation of the left olimpia diaphragm with mild atelectasis left lung base. No new consolidation or pleural effusion seen. No pne umothorax. There is gaseous distention of the stomach or hepatic flexure of the colon. IMPRESSION: 1. No acute findings in the chest. 2. Gaseous distention of the stomach or hepatic flexure of the colon. ACT 112: Negative or not required by law. Electronically signed by: Luc Hunt M.D. 07/27/2025 1:04 PM
[2025-07-27] MEDS: ONDANSETRON INJ 2 MG/ML 2 ML VIAL IV STA (13:09)
[2025-07-27] MEDS: SODIUM CHLORIDE 0.9% 1,000 ML IV STA (13:11)
[2025-07-27] MEDS: PROMETHAZINE 6.25 MG/50.25 ML BAG IV STA (13:15)
[2025-07-27 13:20] LABS: Alanine Aminotransferase 19.0 U/L (7-52); Albumin Globulin Ratio 0.9 (0.9-2); Albumin Level 4.3 gm/dl (3.4-5.0); Alkaline Phosphatase 60.0 U/L (34-104); Anion Gap 13.0 (3-11); Bilirubin,Total 1.2 mg/dl (0.2-1.0); Blood Urea Nitrogen 7.0 mg/dl (6-23); Calcium 9.9 mg/dl (8.6-10.3); Carbon Dioxide 23.0 mmol/L (21-32); Chloride 92.0 mmol/L (98-107); Creatinine Clr Calc Pharmacy 88.9 ml/min; Globulin 4.9 gm/dl (2.5-4.0); Glucose 131.0 mg/dl (70-99(Fasting)); Lipase 78.0 U/L (11-82); Magnesium 1.6 mg/dl (1.7-2.4); Potassium 3.7 mmol/L (3.5-5.1); Sodium 128.0 mmol/L (136-145); Total Protein 9.2 gm/dl (6.0-8.3)
[2025-07-27 13:28] LABS: INR 1.1 (0.9-1.1); Prothrombin Time 11.3 Seconds (9.0-12.0)
[2025-07-27] MEDS: MAGNESIUM SULFATE / D5W 1 GM/100 ML BAG IV STA (13:34)
[2025-07-27] MEDS: OPTIRAY 320 100ml IV ONE (13:49)
[2025-07-27] MEDS: SODIUM CHLORIDE 0.9% 500 ML IV ONE (14:14)
--- NOTE | 2025-07-27 14:30 | CT Scan Report ---
ABDOMEN AND PELVIS CT WITH IV CONTRAST CT DOSE: 604.15 mGy.cm HISTORY: poss obstruc TECHNIQUE: Multiaxial CT images of the abdomen and pelvis were performed following the IV administrat ion of 90 cc of Optiray, A dose lowering technique was utilized adhering to the principles of ALARA. COMPARISON STUDY: 07/08/2025 FINDINGS: There is stable elevation of the left hemidiaphragm. Stable mild atelectasis left lung base . ABDOMEN: The stomach is prominently distended with fluid and gas, stable. There is stable wall thicke graham and stricture at the duodenum. No other bowel inflammation or obstruction seen. Liver, gallbladder, spleen, and adrenal glands are unremarkable. There are stable calcifications at t he pancreatic head which can represent sequela of chronic pancreatitis. No other pancreatic abnormali ty seen. Kidneys show no hydronephrosis or calculi. Stable tiny cyst at the right kidney. There are s cattered atherosclerotic calcifications. No abdominal aortic aneurysm. Pelvis: Prostate is mildly enlarged. Urinary bladder is nondistended. No pelvic free fluid, free air, or abscess. No enlarged adenopathy. Osseous structures: Stable lumbar degenerative disc disease. No acute osseous findings. IMPRESSION: 1. Stable thickening and stricture of the duodenum could represents severe duodenitis, ulcer, or mass . This causes gastric outlet obstruction and gastric distention, also stable. 2. No other acute findings seen. Otherwise as described. ACT 112: Negative or not required by law. The above report was generated using voice recognition software. It may contain grammatical, syntax o r spelling errors. Electronically signed by: Luc Hunt M.D. 07/27/2025 2:27 PM
[2025-07-27 15:23] LABS: Appearance Urine Clear (Clear); Glucose Urine UA Negative (Negative)
[2025-07-27] MEDS: FAMOTIDINE 20MG IV PUSH 20 MG/5 ML SYR IV STA (15:26)
[2025-07-27] MEDS: PANTOprazole 40 MG/10 ML SYR IV ONE (15:28)
--- NOTE | 2025-07-27 16:00 | History & Physical Report ---
Date of Service July 27, 2025 Assessment & Plan (1) Hyponatremia: (2) Diffuse abdominal pain: (3) Hypomagnesemia: (4) Gastric outlet obstruction: (5) Vomiting: (6) Acute hyponatremia: (7) Small bowel obstruction: (8) Duodenal stricture: (9) Alcohol dependence: (10) Intractable vomiting: Plan 54-year-old male PMHx SBO, duodenal stricture, hyponatremia, alcohol use disorder , HFrEF, and SNHL of bilateral ears, heavy smoking, recent admission to hospital with similar issue, presenting for nausea, vomiting and not able to tolerate food since 07/25/2025( past Monday). He was admitted for similar issue 2 weeks ago and was sent home after being managed conservatively. Surgery recommended no surgical intervention on last admission. Today he does have hyponatremia, hypomagnesemia on lab and also has intractable nausea and vomiting. Hence he is getting admitted for sx management as well as surgery re- evaluation. #Intractable nausea vomiting - Multiple RF: GOO vs Duodenal stricture vs Alcohol use vs Poor appetite. - Recommend NPO - Belly is not overtly distended; no need of NG tube now. Plan: Zofran as needed. #Dehydration - RL 100 ml/ hr #GOO/ Duodenal Stricture/ DUodenitis - CT scan : Stable thickening of duodenum represent severe duodenitis vs mass vs ulcer which could cause GOO. - Chest XR: Gaseous distension of hepatic flexure of colon or stomach. - Pt with vomiting. However was subsided with one dose of Zofran makes GOO less potential DD than gastritis/ duodenitis component. Plan: Admit inpatient med/surg tele Protonix 40 mg IV BID. NPO diet continue. NG does not seem helpful now, no overt distension on exam Patient does not want NG tube as well. However if worsens in distension should discuss NG #Hyponatremia Na: 128 on arrival. IVF in ED 1.5L Plan - Repeat BMP, urine osmolality and Urine sodium. - Anticipate correction with fluid and vomit control. #Hypomagnesemia - M.6 2/2 to vomiting, GOO and Poor PO. - S/P 1 gm supplementation in ED. Plan: Additional 1 gm on admission Follow AM lab. #Alcohol use - Last drink on - High risk for withdrawal - AWWS Q shift #Smoking : - 1 pack a day - Offered patch- denied. Dispo: Admit inpatient med surg tele Code : Conditional, only intubation if needed, no CPR. NPO diet DVT prophylaxis: Non pharmacological History of Present Illness Primary Care Provider: Burak Stevens DO 54-year-old male PMHx SBO, duodenal stricture, hyponatremia, alcohol use disorder , HFrEF, and SNHL of bilateral ears, heavy smoking, recent admission to hospital with similar issue, presenting for nausea, vomiting and not able to tolerate food since 07/25/2025( past Monday). He was admitted with similar complain 2 weeks ago, was managed for duodenal obstruction and stricture. Surgery recommended no surgical intervention on last admission. He drinks 2-3 beers almost everyday and had drank same on by himself at home. Lisa lott after discharge from hospital 2 weeks ago, he was persistently feeling fine until this Monday. Bowel movement was fine "like regular " as endorsed by patient after discharge. He even tried Miralax yesterday as he felt he was probably "jammed again", had multiple bowel movements but nausea, vomiting did not subside. He endorses getting very hot and throw up and feels cold then after. Vomitus Color is mostly greenish yellow, no blood in vomit. No blood from down. Explains Belly pain as Dull aching pain, non radiating, non migrating, and it's diffuse in his belly. Sometimes gets headache throwing up. Patient endorse no fever, no chest pain or SOB. After coming to ED he got IV fluids, lab work and imaging. Labs remarkable for hyponatremia, hypomagnesemia, increased anion gap. He got IV fluids with mag replacement 1 gm. Imaging shows distension of stomach and hepatic flexure of colon. CT shows stable thickening of duodenum with possible duodenitis, underlying mass or ulcer, could be reason for GOO. 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 This morning he felt really terrible, was constantly throwing up, threw up more than 2 bags in hospital and hence he called ambulance. He was also feeling really dizzy and LH that point. The last time he threw up was after he came to ED. As close family member he has got his mother and two brothers who live 2-3 miles from him an dpt verbalized no update needed to family. Allergies Allergy/AdvReac Type Severity Reaction Status Date / Time No Known Allergies Allergy Verified 07/08/25 19:49 Home Medications Medication Instructions Recorded Confirmed Type bisacodyl 5 mg tablet,delayed 5 mg PO DIRECTED 07/08/25 07/27/25 History release (Laxative (bisacodyl)) famotidine 20 mg tablet 20 mg PO DAILY 07/08/25 07/27/25 History polyethylene glycol 3350 17 17 g PO DAILY PRN NEEDED 07/08/25 07/27/25 History gram/dose oral powder (Miralax) folic acid 1 mg tablet 1 mg PO QAM #30 tabs 07/12/25 07/27/25 Rx magnesium oxide 250 mg PO BID #60 tabs 07/12/25 07/27/25 Rx pantoprazole 40 mg tablet,delayed 40 mg PO BID #60 tabs 07/12/25 07/27/25 Rx release potassium chloride 20 mEq 20 meq PO DAILY #30 tabs 07/12/25 07/27/25 Rx tablet,extended release(part/cryst) Past Med/Surg History Problem List (Updated 07/27/25 @ 17:24 by Daija Antunez MD) Intractable vomiting Alcohol dependence Hyponatremia (Acute) Diffuse abdominal pain (Acute) Tachycardia (Acute) Hypomagnesemia (Acute) Acute dehydration (Acute) Gastric outlet obstruction (Acute) Vomiting (Acute) Acute hyponatremia (Acute) Small bowel obstruction (Acute) Duodenal stricture (Acute) Slow transit constipation Alcohol use disorder, mild, in early remission Chronic heart failure with reduced ejection fraction (HFrEF, <= 40%) Sensorineural hearing loss (SNHL) of both ears (Chronic) Duodenal stricture (Chronic) Medical History Hyponatremia with extracellular fluid depletion Chronic hyponatremia Small bowel obstruction, partial Nausea & vomiting Duodenal obstruction Hyponatremia Closed fracture of acetabulum (03/19/13) RLL pneumonia JUAN (acute kidney injury) MRSA (methicillin resistant staph aureus) culture positive Bacteremia due to Klebsiella pneumoniae Septic shock Elevated troponin Acute respiratory failure with hypoxia Alcohol withdrawal Non-ST elevation MS (NSTEMI) Family History Grandfather (Maternal) Cancer Brother Diabetes Social History Smoking Status: Current every day smoker Tobacco Type: Cigarettes Age Started Using Tobacco: 19; packs per day: 1; Cigarettes Per Day: 1 PPD; Second Hand Exposure: No; Do You Dip or Chew Tobacco: No; Hx Alcohol Use: No Hx Substance Use: No Preferred Language: [place] Communication Ability: Effective Communication 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 No rhonchi, wheezes, or crackles. No increased work of breathing GI: Soft, Nondistended, Nontender, Bowel sounds + MSK: No gross deformities noted Skin: Warm, Dry, Superficial Bruise noted in right forearm around site of IV canula. Neuro: Alert, Oriented to TPP, No Focal deficit Psych: Mood and Affect congruent, Cooperative on exam Results & Data Results & Data Vital Signs (Past 12 Hours) Vital Signs Temp Pulse Pulse Resp BP BP Pulse Ox 07/27/25 15:00 88 13 136/98 98 07/27/25 14:15 85 17 143/106 H 100 07/27/25 13:33 99 H 19 98 07/27/25 13:24 120 H 07/27/25 13:00 109 H 20 125/94 99 07/27/25 12:30 116 H 24 99 07/27/25 12:19 36.5 C 121 H 19 150/104 H 100 07/27/25 12:12 117 H 22 99 O2 Del Method 07/27/25 15:00 Room Air 07/27/25 14:15 07/27/25 13:33 07/27/25 13:24 07/27/25 13:00 07/27/25 12:30 07/27/25 12:19 Room Air 07/27/25 12:12 Supervising Physician Co-Signing Physician Notes Attending attestation Pt seen and examined in concert with Dr. Antunez. In agreement with the documented findings as noted in the resident documentation with any exceptions or additions as noted here. Resting in bed with improved nausea, abdominal pain and distention following events leading to admission as noted above. Onset of symptoms after eating an entire 16" cheese pizza on Monday night (normally does not eat that much at once) with rapid onset of n/v. Tried laxatives which resulted in diarrhea but no improvement in symptoms. Did have considerable reflux with vomiting reported. VS as noted. On examination, S1/S2 nl RRR no MCG. CTAB. Abd NT/ND BS+ve. Na 128, Cr 0.87. Admit to telemetry w/ h/o HF, electrolyte abn but can likely transition to med/surg quickly. Hyponatremia, likely hypovolemic w/ emesis - IV fluids as noted, repeat BMP, s/uOSM in PM and trend BMP daily. Gastroenteritis in the setting of suspected duodenal stricture without complete obstruction - general surgery consult - NPO with low threshold for NGT with ongoing N/V. Continue PPI, antiemetic therapy and monitor. Tobacco use disorder - declines nicotine patch h/o EtOH use disorder - presently denies use. AWSS. Else see resident documentation as noted. (5) Vomiting Nausea presence: with nausea Vomiting type: unspecified Qualified Code(s): R11.2 - Nausea with vomiting, unspecified
[2025-07-27] MEDS ORDERED: MELATONIN 3 MG TAB PO PRN (17:53)
[2025-07-27] MEDS: LACTATED RINGER'S 1,000 ML IV SCH ×2 (18:59→19:12)
[2025-07-27] MEDS: MAGNESIUM SULFATE / D5W 1 GM/100 ML BAG IV ONE (19:12)
[2025-07-27 20:16] LABS: Anion Gap 9.0 (3-11); Blood Urea Nitrogen 8.0 mg/dl (6-23); Calcium 8.3 mg/dl (8.6-10.3); Carbon Dioxide 22.0 mmol/L (21-32); Chloride 97.0 mmol/L (98-107); Creatinine Clr Calc Pharmacy 104.5 ml/min; Glucose 120.0 mg/dl (70-99(Fasting)); Magnesium 2.1 mg/dl (1.7-2.4); Potassium 3.8 mmol/L (3.5-5.1); Sodium 128.0 mmol/L (136-145)
[2025-07-27] MEDS: PANTOprazole 40 MG/10 ML SYR IV SCH (22:11)
[2025-07-27] MEDS: ONDANSETRON INJ 2 MG/ML 2 ML VIAL IV PRN (23:12)
[2025-07-27] MEDS ORDERED: MoRPHine SULFATE 2 MG/ML CARP IV STA (23:29)
[2025-07-27] MEDS: MoRPHine SULFATE 4 MG/ML 1 ML CARP\\VIAL ONE (23:44)
[2025-07-28] MEDS: MoRPHine SULFATE 4 MG/ML 1 ML CARP\\VIAL IV STA (00:05)
[2025-07-28 07:28] LABS: Hematocrit (blood only) 35.1 % (42.0-52.0); Hemoglobin 11.9 g/dl (14.0-18.0); Mean Corpuscular Hemoglobin 32.2 pg (25.0-34.0); Mean Corpuscular Volume 94.9 fL (80.0-100.0); Platelet Count 131 K/uL (130-400); RDW Standard Deviation 44.6 fL (36.4-46.3); Red Blood Count 3.70 M/uL (4.70-6.10); White Blood Count 6.69 K/ul (4.8-10.8)
[2025-07-28 07:29] LABS: Albumin Level 3.4 gm/dl (3.4-5.0); Anion Gap 6.0 (3-11); Bilirubin,Total 1.4 mg/dl (0.2-1.0); Calcium 8.6 mg/dl (8.6-10.3); Carbon Dioxide 24.0 mmol/L (21-32); Chloride 100.0 mmol/L (98-107); Magnesium 1.8 mg/dl (1.7-2.4); Potassium 3.5 mmol/L (3.5-5.1); Sodium 130.0 mmol/L (136-145)
[2025-07-28 07:39] LABS: Alanine Aminotransferase 12.0 U/L (7-52); Albumin Globulin Ratio 1.1 (0.9-2); Alkaline Phosphatase 40.0 U/L (34-104); Blood Urea Nitrogen 6.0 mg/dl (6-23); Creatinine Clr Calc Pharmacy 131.7 ml/min; Globulin 3.2 gm/dl (2.5-4.0); Glucose 88.0 mg/dl (70-99(Fasting)); Total Protein 6.6 gm/dl (6.0-8.3)
[2025-07-28 08:11] LABS: Immature Granulocytes # (auto) 0.03 K/uL (0.01-0.20); Immature Granulocytes % (auto) 0.4 %
[2025-07-28] MEDS: FAMOTIDINE 20MG IV PUSH 20 MG/5 ML SYR IV SCH (08:37)
[2025-07-28] MEDS: ACETAMINOPHEN 1,000 MG/100 ML VIAL IV PRN (08:40)
--- NOTE | 2025-07-28 11:18 | Hospitalist Progress Note ---
Date of Service July 28, 2025 Assessment & Plan (1) Hyponatremia: (2) Diffuse abdominal pain: (3) Hypomagnesemia: (4) Gastric outlet obstruction: (5) Vomiting: (6) Acute hyponatremia: (7) Small bowel obstruction: (8) Duodenal stricture: (9) Alcohol dependence: (10) Intractable vomiting: Plan 54-year-old male PMHx SBO, duodenal stricture, hyponatremia, alcohol use disorder , HFrEF, and SNHL of bilateral ears, heavy smoking, recent admission to hospital with similar issue, presenting for nausea, vomiting and not able to tolerate food since 07/25/2025( past Monday). He was admitted for similar issue 2 weeks ago and was sent home after being managed conservatively. Surgery recommended no surgical intervention on last admission. Today he does have hyponatremia, hypomagnesemia on lab and also has intractable nausea and vomiting. Hence he is getting admitted for sx management as well as surgery re- evaluation. #Intractable nausea vomiting - Multiple RF: GOO vs Duodenal stricture vs Alcohol use vs Poor appetite. - Diet changed from NPO to clear liquid diet. - Belly is not overtly distended; no need of NG tube now. Plan: Zofran as needed. #Dehydration - RL 100 ml/ hr #GOO/ Duodenal Stricture/ DUodenitis - CT scan : Stable thickening of duodenum represent severe duodenitis vs mass vs ulcer which could cause GOO. - Chest XR: Gaseous distension of hepatic flexure of colon or stomach. - Pt with vomiting. However was subsided with one dose of Zofran makes GOO less potential DD than gastritis/ duodenitis component. Plan: Admit inpatient med/surg tele Protonix 40 mg IV BID. Clear liquid diet continue. NG does not seem helpful now, no overt distension on exam Continue surgery consult. Recommend NG tube if intractable vomiting but patient says he would decline. #Hyponatremia Na: 128-> 130, Urine osm 373, S.Osm 272. U.Na 19, Possibly extrarenal loss from vomiting, bowel obstruction. IVF in ED 1.5L Plan - Repeat BMP - Anticipate correction with fluid and vomit control. #Hypomagnesemia - M.6 2/2 to vomiting, GOO and Poor PO. - S/P 1 gm supplementation in ED. Plan: Additional 1 gm on admission Follow AM lab. #Alcohol use - Last drink on - High risk for withdrawal - AWWS Q shift #Smoking : - 1 pack a day - Offered patch- denied. Dispo: Admit inpatient med surg tele Code : Conditional, only intubation if needed, no CPR. NPO diet DVT prophylaxis: Non pharmacological Admission and Anticipated Discharge Date Admission Date: July 27, 2025 Supervising Physician Co-Signing Physician Notes I personally examined the patient and verified all [place] points of history and exam, discussed case, and agree with decision making with Dr Condon Feeling okaywould like to try clears. Fortunately has not lost weight, but has not been able to stay out of the hospital for very long since his initial admission a few months ago. Has cut down to about 2 beers a day. Notes that he would prefer surgery to just intervene, although seems to not have a depth of understanding of how big a deal at a [facility] would be. Intractable/recurrent nausea and vomitingappears to be due to duodenal stricture. Alcohol intake appears to be significantly down from before, so I doubt it is alcohol related gastritis/duodenitis at this time. Reaching out to GI to see if any tertiary level interventions might be endoscopically feasible. Will probably need to have this done before he deteriorates into malnutrition Hyponatremia, likely hypovolemic w/ emesis - IV fluids as noted, repeat BMP, s/uOSM in PM and trend BMP daily. Gastroenteritis in the setting of suspected duodenal stricture without complete obstruction - general surgery consult - continue acid suppression Tobacco use disorder - declines nicotine patch h/o EtOH use disorder - presently denies use. AWSS. doing well. Else see resident documentation as noted. Subjective Patient lying in bed looked uncomfortable with abdominal pain and discomfort that progressed since weekend. He still has nausea and pain. Reports he has not passed gas since monday. No significant abdominal distension, fever, tremor, vomiting, Review of Systems Review of Systems: As per HPI. Physical Exam Constitutional: WD/WN, vitals as above Respiratory: normal respiratory effort, lungs clear to auscultation Cardiovascular: RRR, no murmur, no edema Gastrointestinal (Abdomen): Inspection/Auscultation: + abdomen distended (Mild distention) Percussion/Palpation: + abdomen tender (Mild epigastric tenderness to palpation); no guarding, abdomen not rigid and + abdomen not soft Results & Data Results & Data Vital Signs (Past 12 Hours) Vital Signs Temp Pulse Pulse Resp BP BP Pulse Ox 07/28/25 07:54 37.0 C 62 20 163/102 H 162/87 H 98 07/28/25 07:21 56 L 07/28/25 03:08 37.0 C 65 18 151/89 H 98 O2 Del Method 07/28/25 07:54 Room Air 07/28/25 07:21 07/28/25 03:08 Room Air (5) Vomiting Nausea presence: with nausea Vomiting type: unspecified Qualified Code(s): R11.2 - Nausea with vomiting, unspecified
--- NOTE | 2025-07-28 11:45 | Electrocardiogram Report ---
Test Reason : Blood Pressure : */* mmHG Vent. Rate : 116 BPM Atrial Rate : 116 BPM P-R Int : 112 ms QRS Dur : 82 ms QT Int : 344 ms P-R-T Axes : 90 45 75 degrees QTcB Int : 478 ms Sinus tachycardia Otherwise normal ECG When compared with ECG of 09-Jul-2025 05:58, Vent. rate has increased by 39 bpm Confirmed by Marco A Patton ([id number]) on 07/28/2025 11:45:16 AM Referred By: REFERRED SELF Confirmed By: Marco A Patton
--- NOTE | 2025-07-28 12:17 | Surgery Consultation ---
Date of Consultation July 28, 2025 Assessment & Plan (1) Duodenal stricture: Chronic duodenal stricture, feeling little better. No acute surgical intervention indicated If continues with intractable vomiting then would recommend NG tube which the patient says he will refuse Will start clear liquids, gently advance his diet. He can follow-up with Dr. Gomez to discuss surgical intervention Surgery will follow, call with questions or concerns (2) Alcohol dependence: (3) Chronic heart failure with reduced ejection fraction (HFrEF, <= 40%): History of Present Illness Reason for Consultation: Duodenal stricture Attending Physician: Jno Tate DO History of Present Illness Consulted for duodenal stricture. Patient well-known to service has been admitted on multiple occasions. Has a benign duodenal stricture that has been present for many years. Initially only had a few episodes a year. This year he has been admitted 5 times per his report. Most recently he was here 2 weeks ago and resolved with nonoperative intervention. He follows with Dr. Gomez as an outpatient. He was doing okay over the past week or 2 since his recent discharge, however started having vomiting and pain yesterday. No other changes since last visit. He has had biopsies of the area which were benign. Workup has been largely unremarkable. He is feeling better and requesting clear liquids for lunch. Allergies Allergy/AdvReac Type Severity Reaction Status Date / Time No Known Allergies Allergy Verified 07/08/25 19:49 Home Medications Medication Instructions Recorded Confirmed Type bisacodyl 5 mg tablet,delayed 5 mg PO DIRECTED 07/08/25 07/27/25 History release (Laxative (bisacodyl)) famotidine 20 mg tablet 20 mg PO DAILY 07/08/25 07/27/25 History polyethylene glycol 3350 17 17 g PO DAILY PRN NEEDED 07/08/25 07/27/25 History gram/dose oral powder (Miralax) folic acid 1 mg tablet 1 mg PO QAM #30 tabs 07/12/25 07/27/25 Rx magnesium oxide 250 mg PO BID #60 tabs 07/12/25 07/27/25 Rx pantoprazole 40 mg tablet,delayed 40 mg PO BID #60 tabs 07/12/25 07/27/25 Rx release potassium chloride 20 mEq 20 meq PO DAILY #30 tabs 07/12/25 07/27/25 Rx tablet,extended release(part/cryst) Patient History Medical History Hyponatremia with extracellular fluid depletion Chronic hyponatremia Small bowel obstruction, partial Nausea & vomiting Duodenal obstruction Hyponatremia Closed fracture of acetabulum (03/19/13) RLL pneumonia JUAN (acute kidney injury) MRSA (methicillin resistant staph aureus) culture positive Bacteremia due to Klebsiella pneumoniae Septic shock Elevated troponin Acute respiratory failure with hypoxia Alcohol withdrawal Non-ST elevation AL (NSTEMI) Family History Grandfather (Maternal) Cancer Brother Diabetes Social History Smoking Status: Current every day smoker Tobacco Type: Cigarettes Age Started Using Tobacco: 19; packs per day: 1; Cigarettes Per Day: 1 PPD; Second Hand Exposure: No; Do You Dip or Chew Tobacco: No; Hx Alcohol Use: Yes Alcohol type: beer Hx Substance Use: No Preferred Language: Sammarinese Communication Ability: Effective Communication Tools: Other Data Processing Consultant Required: No Beliefs That Will Affect Care: None marital status: Current Living Situation: Alone current occupational status: employed Other Information That Helps Us Care for You: No Feels Safe at Home: Yes Safety Concerns: Feels Safe At This Time Assistive Devices: Glasses Review of Systems Review of Systems: All systems reviewed & are unremarkable except as noted in HPI & below Physical Exam Constitutional: WD/WN, vitals as above Respiratory: normal respiratory effort, lungs clear to auscultation Cardiovascular: RRR, no murmur, no edema Gastrointestinal (Abdomen): Inspection/Auscultation: + abdomen distended (Mild distention) Percussion/Palpation: + abdomen tender (Mild epigastric tenderness to palpation); no guarding, abdomen not rigid and + abdomen not soft Results & Data Vital Signs (Past 12 Hours) Vital Signs Temp Pulse Pulse Resp BP BP Pulse Ox 07/28/25 12:01 36.9 C 60 20 155/95 H 97 07/28/25 07:54 37.0 C 62 20 163/102 H 162/87 H 98 07/28/25 07:21 56 L 07/28/25 03:08 37.0 C 65 18 151/89 H 98 O2 Del Method 07/28/25 12:01 Room Air 07/28/25 07:54 Room Air 07/28/25 07:21 07/28/25 03:08 Room Air Laboratory Results Laboratory Results - last 24 hr 07/27/25 07/27/25 07/27/25 12:51 15:15 19:41 WBC 9.66 RBC 4.81 Hgb 15.4 Hct 43.7 MCV 90.9 MCH 32.0 MCHC 35.2 RDW Std Deviation 42.3 RDW Coeff of Tessy 12.9 Plt Count 212 MPV 10.2 Immature Gran % (Auto) 0.4 Neut % (Auto) 74.4 Lymph % (Auto) 17.6 [place] % (Auto) 6.5 Eos % (Auto) 0.0 Baso % (Auto) 1.1 Neut # (Auto) 7.18 H Lymph # (Auto) 1.70 [place] # (Auto) 0.63 H Eos # (Auto) 0.00 Baso # (Auto) 0.11 Immature Gran # (Auto) 0.04 PT 11.3 INR 1.1 Sodium 128 L 128 L Potassium 3.7 3.8 Chloride 92 L 97 L Carbon Dioxide 23 22 Anion Gap 13 H 9 BUN 7 8 Creatinine 0.87 0.74 Est Cr Clr Drug Dosing 88.9 104.5 eGFR 103.18 108.34 BUN/Creatinine Ratio 8.0 L 10.8 Glucose 131 H 120 H Osmolality Calcium 9.9 8.3 L Phosphorus Magnesium 1.6 L 2.1 Total Bilirubin 1.2 H AST 27 ALT 19 Alkaline Phosphatase 60 Troponin I High Sens 3.5 Total Protein 9.2 H Albumin 4.3 Globulin 4.9 H Albumin/Globulin Ratio 0.9 Lipase 78 Urine Color Yellow Urine Appearance Clear Urine pH 8.0 H Ur Specific [place] 1.038 H Urine Protein Negative Urine Glucose (UA) Negative Urine Ketones Negative Urine Blood Negative Urine Nitrite Negative Urine Bilirubin Negative Urine Urobilinogen Negative Ur Leukocyte Esterase Negative Urine Osmolality Ur Random Sodium Urine Comment 07/27/25 07/28/25 07/28/25 20:15 06:23 11:24 WBC 6.69 RBC 3.70 L Hgb 11.9 L D Hct 35.1 L MCV 94.9 MCH 32.2 MCHC 33.9 RDW Std Deviation 44.6 RDW Coeff of Tessy 13.0 Plt Count 131 MPV 10.4 Immature Gran % (Auto) 0.4 Neut % (Auto) 67.2 Lymph % (Auto) 22.1 [place] % (Auto) 7.9 Eos % (Auto) 1.2 Baso % (Auto) 1.2 Neut # (Auto) 4.49 Lymph # (Auto) 1.48 [place] # (Auto) 0.53 Eos # (Auto) 0.08 Baso # (Auto) 0.08 Immature Gran # (Auto) 0.03 PT INR Sodium 130 L Potassium 3.5 Chloride 100 Carbon Dioxide 24 Anion Gap 6 BUN 6 Creatinine 0.61 Est Cr Clr Drug Dosing 131.7 eGFR 114.85 BUN/Creatinine Ratio 9.8 L Glucose 88 Osmolality Pending Calcium 8.6 Phosphorus 3.2 Magnesium 1.8 Total Bilirubin 1.4 H AST 21 ALT 12 Alkaline Phosphatase 40 Troponin I High Sens Total Protein 6.6 D Albumin 3.4 Globulin 3.2 Albumin/Globulin Ratio 1.1 Lipase Urine Color Urine Appearance Urine pH Ur Specific [place] Urine Protein Urine Glucose (UA) Urine Ketones Urine Blood Urine Nitrite Urine Bilirubin Urine Urobilinogen Ur Leukocyte Esterase Urine Osmolality 373 L Ur Random Sodium 19 Urine Comment Diagnostic Findings CT personally viewed and interpreted and agree with the assessment of distended stomach and proximal duodenum with narrowing of the third portion. Consistent with a duodenal stricture, partial. Abdomen/Pelvis CT 07/27/25 12:[address] WITH IV CONTRAST CT DOSE: 604.15 mGy.cm HISTORY: poss obstruc TECHNIQUE: Multiaxial CT images of the abdomen and pelvis were performed following the IV administration of 90 cc of Optiray, A dose lowering technique was utilized adhering to the principles of ALARA. COMPARISON STUDY: 07/08/2025 FINDINGS: There is stable elevation of the left hemidiaphragm. Stable mild atelectasis left lung base. ABDOMEN: The stomach is prominently distended with fluid and gas, stable. There is stable wall thickening and stricture at the duodenum. No other bowel inflammation or obstruction seen. Liver, gallbladder, spleen, and adrenal glands are unremarkable. There are stable calcifications at the pancreatic head which can represent sequela of chronic pancreatitis. No other pancreatic abnormality seen. Kidneys show no hydronephrosis or calculi. Stable tiny cyst at the right kidney. There are scattered atherosclerotic calcifications. No abdominal aortic aneurysm. Pelvis: Prostate is mildly enlarged. Urinary bladder is nondistended. No pelvic free fluid, free air, or abscess. No enlarged adenopathy. Osseous structures: Stable lumbar degenerative disc disease. No acute osseous findings. IMPRESSION: 1. Stable thickening and stricture of the duodenum could represents severe duodenitis, ulcer, or mass. This causes gastric outlet obstruction and gastric distention, also stable. 2. No other acute findings seen. Otherwise as described. ACT 112: Negative or not required by law. The above report was generated using voice recognition software. It may contain grammatical, syntax or spelling errors. Electronically signed by: Luc Hunt M.D. 07/27/2025 2:27 PM Chest X-Ray 07/27/25 12:29 XR chest 1V portable CLINICAL HISTORY: abd pain COMPARISON STUDY: 02/27/2025 FINDINGS: Heart size and pulmonary vasculature are normal. Stable moderate elevation of the left hemidiaphragm with mild atelectasis left lung base. No new consolidation or pleural effusion seen. No pneumothorax. There is gaseous distention of the stomach or hepatic flexure of the colon. IMPRESSION: 1. No acute findings in the chest. 2. Gaseous distention of the stomach or hepatic flexure of the colon. ACT 112: Negative or not required by law. Electronically signed by: Luc Hunt M.D. 07/27/2025 1:04 PM PG Care Time/CCT Total # of Minutes Spent Total Time Spent with Patient: Total time spent is greater than 50% in coordination of care (as documented) at patient's floor/unit and/or counseling patient: Coding Level of Care Code 05913 IN/OBS CONSULT LVL 3,45M Diagnoses Duodenal stricture K31.5 Alcohol dependence F10.20 Chronic heart failure with reduced ejection fraction (HFrEF, <= 40%) I50.22
--- NOTE | 2025-07-28 14:00 | Billing Data ---
Date of Service July 28, 2025 Coding Level of Care Code 49825 SUB INP/OBS CARE
[2025-07-28] MEDS: ACETAMINOPHEN 500 MG TAB PO PRN (20:20)
[2025-07-29] MEDS: FAMOTIDINE 20 MG TAB PO STA (08:23)
--- NOTE | 2025-07-29 10:14 | Surgery Progress Note ---
Date of Service July 29, 2025 Assessment & Plan (1) Duodenal stricture: (2) Alcohol dependence: (3) Chronic heart failure with reduced ejection fraction (HFrEF, <= 40%): Plan Patient appears to be doing well with clear liquids, no nausea or vomiting, no worsening abdominal pain, passing flatus but no BM yet. Will plan to advance to full liquids and observe for toleration of this and further evidence of bowel function. No plans for surgical intervention at this time. Admission and Anticipated Discharge Date Admission Date: July 27, 2025 Supervising Physician Co-Signing Physician Notes Patient seen and examined, agree with above. Chronic duodenal stricture admitted with gastric outlet obstruction. Tolerating clear liquids, though intermittent discomfort and bloating. His biggest complaint right now is an infiltrated IV site on the right which is quite painful for him. His abdomen is soft, nondistended, nontender. Will advance to full liquids. May need a gastroparesis or low residue type diet, consider even keeping him on liquids for a period of time. He will need to follow-up with Dr. Gomez as an outpatient. Subjective Patient states that he feels better. Has been tolerating a clear liquid diet without any nausea or vomiting. Does admit to some mild generalized abdominal pain, well tolerated with current pain medications. Admits to passing flatus but no BM. Physical Exam Physical Exam: Gen: Awake and alert, resting comfortably in bed in NAD CV: RRR PULM: non-labored breathing Abd: Abd soft, minimal generalized tenderness to palpation, non-distended ext: no edema to bilateral lower ext, SCDs in place, non-tender, feet warm and well perfused Results & Data Vital Signs (Past 12 Hours) Vital Signs Temp Pulse Pulse Resp BP BP Pulse Ox 07/29/25 07:42 36.4 C L 58 L 20 172/104 H 152/93 H 100 07/29/25 07:08 1 L 07/29/25 04:31 36.7 C 77 20 159/84 H 92 07/29/25 00:48 36.6 C 55 L 20 144/85 H 97 O2 Del Method 07/29/25 07:42 Room Air 07/29/25 07:08 07/29/25 04:31 Room Air 07/29/25 00:48 Room Air PG Care Time/CCT Total # of Minutes Spent Total Time Spent with Patient: Total time spent is greater than 50% in coordination of care (as documented) at patient's floor/unit and/or counseling patient: Coding [place] [address] SUB INP/OBS CARE 10/19MIN Patient Type Established Diagnoses Duodenal stricture K31.5 Alcohol dependence F10.20 Chronic heart failure with reduced ejection fraction (HFrEF, <= 40%) I50.22
[2025-07-29 12:50] LABS: Hematocrit (blood only) 36.3 % (42.0-52.0); Hemoglobin 12.4 g/dl (14.0-18.0); Immature Granulocytes # (auto) 0.01 K/uL (0.01-0.20); Immature Granulocytes % (auto) 0.2 %; Mean Corpuscular Hemoglobin 32.6 pg (25.0-34.0); Mean Corpuscular Volume 95.5 fL (80.0-100.0); Platelet Count 135 K/uL (130-400); RDW Standard Deviation 44.9 fL (36.4-46.3); Red Blood Count 3.80 M/uL (4.70-6.10); White Blood Count 6.51 K/ul (4.8-10.8)
[2025-07-29 13:02] LABS: Anion Gap 6.0 (3-11); Blood Urea Nitrogen 3.0 mg/dl (6-23); Calcium 8.8 mg/dl (8.6-10.3); Carbon Dioxide 29.0 mmol/L (21-32); Chloride 97.0 mmol/L (98-107); Creatinine Clr Calc Pharmacy 157.8 ml/min; Glucose 93.0 mg/dl (70-99(Fasting)); Potassium 3.4 mmol/L (3.5-5.1); Sodium 132.0 mmol/L (136-145)
[2025-07-29] MEDS: POTASSIUM CHLORIDE CRTAB 20 MEQ TABCR PO STA (13:44)
--- NOTE | 2025-07-29 18:46 | Hospitalist Progress Note ---
Date of Service July 29, 2025 Assessment & Plan (1) Hyponatremia: (2) Diffuse abdominal pain: (3) Hypomagnesemia: (4) Gastric outlet obstruction: (5) Vomiting: (6) Acute hyponatremia: (7) Small bowel obstruction: (8) Duodenal stricture: (9) Alcohol dependence: (10) Intractable vomiting: Plan 54-year-old male PMHx SBO, duodenal stricture, hyponatremia, alcohol use disorder , HFrEF, and SNHL of bilateral ears, heavy smoking, recent admission to hospital with similar issue, presenting for nausea, vomiting and not able to tolerate food since 07/25/2025( past Monday). He was admitted for similar issue 2 weeks ago and was sent home after being managed conservatively. Surgery recommended no surgical intervention on last admission. Today he does have hyponatremia, hypomagnesemia on lab and also has intractable nausea and vomiting. Hence he is getting admitted for sx management as well as surgery re- evaluation. #Intractable nausea vomiting - Multiple RF: GOO vs Duodenal stricture vs Alcohol use vs Poor appetite. - Diet changed from NPO to clear liquid diet. - Belly is not overtly distended; no need of NG tube now. Plan: Zofran as needed. #Dehydration - RL 100 ml/ hr #GOO/ Duodenal Stricture/ DUodenitis - CT scan : Stable thickening of duodenum represent severe duodenitis vs mass vs ulcer which could cause GOO. - Chest XR: Gaseous distension of hepatic flexure of colon or stomach. - Pt with vomiting. However was subsided with one dose of Zofran makes GOO less potential DD than gastritis/ duodenitis component. Plan: Admit inpatient med/surg tele Protonix 40 mg IV BID. Clear liquid diet continue. NG does not seem helpful now, no overt distension on exam Continue surgery consult. Recommend NG tube if intractable vomiting but patient says he would decline. #Hyponatremia Na: 128-> 130, Urine osm 373, S.Osm 272. U.Na 19, Possibly extrarenal loss from vomiting, bowel obstruction. IVF in ED 1.5L Plan - Repeat BMP - Anticipate correction with fluid and vomit control. #Hypomagnesemia - M.6 2/2 to vomiting, GOO and Poor PO. - S/P 1 gm supplementation in ED. Plan: Additional 1 gm on admission Follow AM lab. #Alcohol use - Last drink on - High risk for withdrawal - AWWS Q shift #Smoking : - 1 pack a day - Offered patch- denied. Dispo: Admit inpatient med surg tele Code : Conditional, only intubation if needed, no CPR. NPO diet DVT prophylaxis: Non pharmacological Admission and Anticipated Discharge Date Admission Date: July 27, 2025 Subjective Patient states that he feels better. Has been tolerating a clear liquid diet without any nausea or vomiting. Does admit to some mild generalized abdominal pain, well tolerated with current pain medications. Admits to passing flatus but no BM. Review of Systems Review of Systems: As per HPI. Physical Exam Constitutional: WD/WN, vitals as above Respiratory: normal respiratory effort, lungs clear to auscultation Cardiovascular: RRR, no murmur, no edema Gastrointestinal (Abdomen): Inspection/Auscultation: + abdomen distended (Mild distention) Percussion/Palpation: + abdomen tender (Mild epigastric tenderness to palpation); no guarding, abdomen not rigid and + abdomen not soft Results & Data Results & Data Vital Signs (Past 12 Hours) Vital Signs Temp Pulse Pulse Resp BP BP Pulse Ox 07/29/25 16:07 36.6 C 63 16 154/102 H 95 07/29/25 13:51 57 L 07/29/25 11:33 36.6 C 71 16 168/99 H 96 07/29/25 07:42 36.4 C L 58 L 20 172/104 H 152/93 H 100 07/29/25 07:08 1 L O2 Del Method 07/29/25 16:07 Room Air 07/29/25 13:51 07/29/25 11:33 Room Air 07/29/25 07:42 Room Air 07/29/25 07:08 Resident Activity Tracking Resident Involvement: Resident Care Provided Care Provided: Adult Hospital Medicine Resident Supervision Co-Signing Physician Notes I personally examined the patient and verified all [place] points of history and exam, discussed case, and agree with decision making with Dr Condon tolerating clears, thinks he would be able to tolerate full. GI has called him to schedule appointment for endoscopic interventions. Vitals noted, in general he is awake and alert pleasant no distress. HEENT normocephalic atraumatic mucous membranes moist. Breathing unlabored no accessory muscle use good effort. Skin without rashes pallor or icterus. Neuro without focal deficits. Intractable/recurrent nausea and vomitingappears to be due to duodenal stricture. Alcohol intake appears to be significantly down from before, so I doubt it is alcohol related gastritis/duodenitis at this time. [facility] and Frida notes they would be able to stent his duodenum and do EUS for a gastrojejunal jejunostomyand they are getting this set up. As long as he is able to tolerate full liquid he should be able to maintain enough caloric intake to stave off malnutritionwe both agree that this would be a reasonable endpoint for hospital discharge, and then he will have the procedure done as an outpatient in the near future. Hyponatremia, likely hypovolemic w/ emesis Gastroenteritis in the setting of suspected duodenal stricture without complete obstruction - continue acid suppression Tobacco use disorder - declines nicotine patch h/o EtOH use disorder - presently denies use. AWSS. doing well. Else see resident documentation as noted. (5) Vomiting Nausea presence: with nausea Vomiting type: unspecified Qualified Code(s): R11.2 - Nausea with vomiting, unspecified
--- NOTE | 2025-07-29 19:26 | Billing Data ---
Date of Service July 29, 2025 Coding Level of Care Code 53573 SUB INP/OBS CARE
[2025-07-29] MEDS: ONDANSETRON 4 MG OD TAB PO PRN (20:25)
[2025-07-29] MEDS: FAMOTIDINE 20 MG TAB PO SCH (20:25)
[2025-07-30] MEDS: POLYETHYLENE (MIRALAX) 17 GM PACK PO ONE (10:24)
[2025-07-30] MEDS: POTASSIUM CHLORIDE CRTAB 20 MEQ TABCR PO STA (10:24)
[2025-07-30 11:11] LABS: Hematocrit (blood only) 38.6 % (42.0-52.0); Hemoglobin 13.1 g/dl (14.0-18.0); Immature Granulocytes # (auto) 0.03 K/uL (0.01-0.20); Immature Granulocytes % (auto) 0.5 %; Mean Corpuscular Hemoglobin 32.4 pg (25.0-34.0); Mean Corpuscular Volume 95.5 fL (80.0-100.0); Platelet Count 134 K/uL (130-400); RDW Standard Deviation 44.9 fL (36.4-46.3); Red Blood Count 4.04 M/uL (4.70-6.10); White Blood Count 5.66 K/ul (4.8-10.8)
--- NOTE | 2025-07-30 11:23 | Surgery Progress Note ---
Date of Service July 30, 2025 Assessment & Plan (1) Duodenal stricture: (2) Alcohol dependence: (3) Chronic heart failure with reduced ejection fraction (HFrEF, <= 40%): Plan Patient seems to be recovering well with conservative treatment of his duodenal stricture, has been tolerating full liquids without any nausea or vomiting and has minimal abdominal pain. Patient requesting advancement of his diet in order to have a sandwich, but states that he understands that he will need to remain on full liquids to comply with the instructions given to him for his future endoscopy with plans for duodenal dilation and possible stent placement. We feel it would be appropriate to advance to a regular diet for now and continue to monitor for toleration of this. Patient received multiple doses of MiraLAX today by the medical team due to his lack of bowel movement, continue to monitor for return of bowel function. No plans for any immediate surgical intervention by the general surgery team at this time. Admission and Anticipated Discharge Date Admission Date: July 27, 2025 Subjective Patient currently states that he feels similar to yesterday, still admits to vague intermittent abdominal pain, sometimes after eating, but has been tolerating full liquids without any nausea or vomiting. States that he feels hungry and would like a sandwich. No other complaints at this time, but denies flatus or bowel movement yet. Patient admits to us that he has been told there is a plan for endoscopy with duodenal dilation and possible stent placement at [facility] later this month and is eager to make this appointment. Physical Exam Physical Exam: Gen: Awake and alert, resting comfortably in bed in NAD CV: RRR PULM: non-labored breathing Abd: Abd soft, minimal generalized tenderness to palpation, non-distended ext: no edema to bilateral lower ext, SCDs in place, non-tender, feet warm and well perfused Results & Data Vital Signs (Past 12 Hours) Vital Signs Temp Pulse Pulse Resp BP Pulse Ox O2 Del Method 07/30/25 09:55 Room Air 07/30/25 07:33 36.9 C 63 16 171/105 H 100 Room Air 07/30/25 07:20 53 L 07/30/25 04:15 36.7 C 91 H 20 160/100 H 100 Room Air 07/30/25 00:58 36.6 C 53 L 20 177/110 H 99 Room Air PG Care Time/CCT Total # of Minutes Spent Total Time Spent with Patient: Total time spent is greater than 50% in coordination of care (as documented) at patient's floor/unit and/or counseling patient: Coding [place] [address] SUB INP/OBS CARE 10/19MIN Patient Type Established History Problem Focused Exam Problem Focused Medical Decision Making Straight Forward Diagnoses Duodenal stricture K31.5 Alcohol dependence F10.20 Chronic heart failure with reduced ejection fraction (HFrEF, <= 40%) I50.22
[2025-07-30 11:24] LABS: Anion Gap 9.0 (3-11); Blood Urea Nitrogen 2.0 mg/dl (6-23); Calcium 9.0 mg/dl (8.6-10.3); Carbon Dioxide 26.0 mmol/L (21-32); Chloride 96.0 mmol/L (98-107); Creatinine Clr Calc Pharmacy 128.5 ml/min; Magnesium 1.4 mg/dl (1.7-2.4); Potassium 3.1 mmol/L (3.5-5.1); Sodium 131.0 mmol/L (136-145)
[2025-07-30 11:34] VITALS: RESP 20
[2025-07-30] MEDS: LAVAGE SOLUTION 4000ML PO SCH (17:14)
--- NOTE | 2025-07-30 17:29 | Hospitalist Progress Note ---
Date of Service July 30, 2025 Assessment & Plan (1) Hyponatremia: (2) Diffuse abdominal pain: (3) Hypomagnesemia: (4) Gastric outlet obstruction: (5) Vomiting: (6) Acute hyponatremia: (7) Small bowel obstruction: (8) Duodenal stricture: (9) Alcohol dependence: (10) Intractable vomiting: Plan 54-year-old male PMHx SBO, duodenal stricture, hyponatremia, alcohol use disorder , HFrEF, and SNHL of bilateral ears, heavy smoking, recent admission to hospital with similar issue, presenting for nausea, vomiting and not able to tolerate food since 07/25/2025( past Monday). He was admitted for similar issue 2 weeks ago and was sent home after being managed conservatively. Surgery recommended no surgical intervention on last admission. Today he does have hyponatremia, hypomagnesemia on lab and also has intractable nausea and vomiting. Hence he is getting admitted for sx management as well as surgery re- evaluation. #Intractable nausea vomiting - Multiple RF: GOO vs Duodenal stricture vs Alcohol use vs Poor appetite. - Diet advanced from NPO to full liquid diet. Plan: Zofran and anlgesics as needed. #Dehydration - RL 100 ml/ hr #GOO/ Duodenal Stricture/ DUodenitis - CT scan : Stable thickening of duodenum represent severe duodenitis vs mass vs ulcer which could cause GOO. - Chest XR: Gaseous distension of hepatic flexure of colon or stomach. - Pt with vomiting. However was subsided with one dose of Zofran makes GOO less potential DD than gastritis/ duodenitis component. Plan: Admit inpatient med/surg tele Protonix 40 mg IV BID. Full liquid diet continue Continue surgery consult. Has appointment for GI at [facility] for stent his duodenum awith EUS for a gastrojejunal jejun[facility] at [facility] consulted for maintaining full liquid diet until his Gi appointment and providing him with options for home. #Hyponatremia Na: 128-> 131, Urine osm 373, S.Osm 272. U.Na 19, Possibly extrarenal loss from vomiting, bowel obstruction. IVF in ED 1.5L Plan - Repeat BMP - Anticipate correction with fluid and vomit control. #Hypomagnesemia - M.6 2/2 to vomiting, GOO and Poor PO. - S/P 1 gm supplementation in ED. Plan: Additional 1 gm on admission Follow AM lab. #Alcohol use - Last drink on - High risk for withdrawal - AWWS Q shift #Smoking : - 1 pack a day - Offered patch- denied. Dispo: Admit inpatient med surg tele Code : Conditional, only intubation if needed, no CPR. NPO diet DVT prophylaxis: Non pharmacological Admission and Anticipated Discharge Date Admission Date: July 27, 2025 Supervising Physician Co-Signing Physician Notes I personally examined the patient and verified all [place] points of history and exam, discussed case, and agree with decision making with Dr Condon Tolerating full liquid diet. Scheduled for GI for 08/19. Discussed full liquid diet. He expressed some understanding, but then felt a little overwhelmedasked dietitian to see, input greatly appreciated. He also noted feeling constipated now, and as we discussed a home bowel regimen he also appeared a bit overwhelmedgave 85 g of MiraLAX and followed up several hours laterno bowel movementdiscussed that this means he is probably quite constipated, and again he seemed a bit overwhelmed about managing this on his ownbowel prep ordered. Vitals noted, in general he is awake and alert pleasant no distress. HEENT normocephalic atraumatic mucous membranes moist. Breathing unlabored no accessory muscle use good effort. Skin without rashes pallor or icterus. Neuro without focal deficits. Intractable/recurrent nausea and vomitingappears to be due to duodenal stricture. Alcohol intake appears to be significantly down from before, so I doubt it is alcohol related gastritis/duodenitis at this time. Scheduled with [facility] GI for 08/19. Educating on full liquid diet. Constipationbowel prep Hyponatremia, likely hypovolemic w/ emesis Gastroenteritis in the setting of suspected duodenal stricture without complete obstruction - continue acid suppression Tobacco use disorder - declines nicotine patch h/o EtOH use disorder - presently denies use. AWSS. doing well. thiamine, folate, multivitamin. Else see resident documentation as noted. Subjective Patient states that he feels better with belly pain but still has nausea. Has been tolerating a full liquid diet without any nausea or vomiting. Admits to passing flatus but no BM. Review of Systems Review of Systems: As per HPI. Physical Exam Constitutional: WD/WN, vitals as above Respiratory: normal respiratory effort, lungs clear to auscultation Cardiovascular: RRR, no murmur, no edema Gastrointestinal (Abdomen): Inspection/Auscultation: + abdomen distended (Mild distention) Percussion/Palpation: + abdomen tender (Mild epigastric tenderness to palpation); no guarding, abdomen not rigid and + abdomen not soft Results & Data Results & Data Vital Signs (Past 12 Hours) Vital Signs Temp Pulse Pulse Resp BP Pulse Ox O2 Del Method 07/30/25 15:52 36.7 C 63 20 147/90 H 98 Room Air 07/30/25 14:05 78 07/30/25 11:34 36.8 C 93 H 20 153/98 H 97 Room Air 07/30/25 09:55 Room Air 07/30/25 07:33 36.9 C 63 16 171/105 H 100 Room Air 07/30/25 07:20 53 L (5) Vomiting Nausea presence: with nausea Vomiting type: unspecified Qualified Code(s): R11.2 - Nausea with vomiting, unspecified
--- NOTE | 2025-07-30 17:41 | Billing Data ---
Date of Service July 30, 2025 Coding Level of Care Code 65668 SUB INP/OBS CARE
--- NOTE | 2025-07-30 17:41 | Billing Data ---
Date of Service July 30, 2025 Coding Level of Care Code 58647 SUB INP/OBS CARE
[2025-07-31 07:39] VITALS: BP 171/106; PULSE 50; TEMP 97.7; O2SAT 99
--- NOTE | 2025-07-31 08:10 | Surgery Progress Note ---
Date of Service July 31, 2025 Assessment & Plan (1) Duodenal stricture: Plan: Patient here with chronic duodenal stricture He is tolerating fulls, no nausea/vomiting. Pain controlled. He is having + bowel function with gas/BMs Abdomen soft, non distended, non tender Plan to remain on full liquids vs low residue diet until his f/u appointment with tertiary center for plans of endoscopy/duodenal dilation and possible stent We will sign off as patient likely being discharged today Admission and Anticipated Discharge Date Admission Date: July 27, 2025 Supervising Physician Co-Signing Physician Notes Patient discharge at time of rounds, discussed with TALON, agree with above. Admitted with duodenal stricture, tolerating diet, would recommend low fiber/low residue diet as an outpatient as well as small frequent meals. He will follow- up with GI at a tertiary center for possible endoscopic treatments. Subjective Patient doing well. Tolerating full liquid diet. no n/v. no obvious pain. + flatus/BMs Physical Exam Physical Exam: awake/alert, no distress Gastrointestinal (Abdomen): Inspection/Auscultation: abdomen not distended Percussion/Palpation: abdomen soft; abdomen nontender Results & Data Vital Signs (Past 12 Hours) Vital Signs Temp Pulse Resp BP Pulse Ox O2 Del Method 07/31/25 07:39 97.7 F 50 L 20 171/106 H 99 Room Air 07/31/25 00:05 98.2 F 54 L 20 143/93 H 98 Room Air PG Care Time/CCT Total # of Minutes Spent Total Time Spent with Patient: Total time spent is greater than 50% in coordination of care (as documented) at patient's floor/unit and/or counseling patient: Coding Level of Care Code 16954 SUB INP/OBS CARE 10/19MIN Diagnoses Duodenal stricture K31.5
[2025-07-31] MEDS: FOLIC ACID 1 MG TAB PO SCH (08:51)
[2025-07-31] MEDS: MULTIVITAMIN TAB PO SCH (08:51)
[2025-07-31] MEDS: THIAMINE HCL 100 MG TAB PO SCH (08:51)
--- NOTE | 2025-07-31 11:11 | Discharge Summary ---
Date of Service July 31, 2025 Admission HPI Per Admitting Provider 54-year-old male PMHx SBO, duodenal stricture, hyponatremia, alcohol use disorder , HFrEF, and SNHL of bilateral ears, heavy smoking, recent admission to hospital with similar issue, presenting for nausea, vomiting and not able to tolerate food since 07/25/2025( past Monday). He was admitted with similar complain 2 weeks ago, was managed for duodenal obstruction and stricture. Surgery recommended no surgical intervention on last admission. He drinks 2-3 beers almost everyday and had drank same on by himself at home. Otherwise after discharge from hospital 2 weeks ago, he was persistently feeling fine until this Monday. Bowel movement was fine "like regular " as endorsed by patient after discharge. He even tried Miralax yesterday as he felt he was probably "jammed again", had multiple bowel movements but nausea, vomiting did not subside. He endorses getting very hot and throw up and feels cold then after. Vomitus Color is mostly greenish yellow, no blood in vomit. No blood from down. Explains Belly pain as Dull aching pain, non radiating, non migrating, and it's diffuse in his belly. Sometimes gets headache throwing up. Patient endorse no fever, no chest pain or SOB. After coming to ED he got IV fluids, lab work and imaging. Labs remarkable for hyponatremia, hypomagnesemia, increased anion gap. He got IV fluids with mag replacement 1 gm. Imaging shows distension of stomach and hepatic flexure of colon. CT shows stable thickening of duodenum with possible duodenitis, underlying mass or ulcer, could be reason for GOO. 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 This morning he felt really terrible, was constantly throwing up, threw up more than 2 bags in hospital and hence he called ambulance. He was also feeling really dizzy and LH that point. The last time he threw up was after he came to ED. As close family member he has got his mother and two brothers who live 2-3 miles from him an dpt verbalized no update needed to family. Admission Exam Per Admitting Provider Constitutional: Well appearing, No acute distress, Pale looking HEENT: Atraumatic, Normocephalic, No conjunctival injection CVS: S1 S2 no murmur, Regular Rhythm, no LE edema Respiratory: BL equal air entry with NVBS. No rhonchi, wheezes, or crackles. No increased work of breathing GI: Soft, Nondistended, Nontender, Bowel sounds + MSK: No gross deformities noted Skin: Warm, Dry, Superficial Bruise noted in right forearm around site of IV canula. Neuro: Alert, Oriented to TPP, No Focal deficit Psych: Mood and Affect congruent, Cooperative on exam Principal Diagnosis Duodenitis with N/V Discharge Exam Constitutional WD/WN, vitals as above Respiratory normal respiratory effort, lungs clear to auscultation Cardiovascular RRR, no murmur, no edema Gastrointestinal (Abdomen) Inspection/Auscultation: + abdomen distended (Mild distention) Percussion/Palpation: + abdomen tender (Mild epigastric tenderness to palpation); no guarding, abdomen not rigid and + abdomen not soft Discharge Data Allergies Allergy/AdvReac Type Severity Reaction Status Date / Time No Known Allergies Allergy Verified 07/08/25 19:49 Consultations 07/27/25 15:20 ED Decision to Admit Stat 07/27/25 17:53 Consult General Surgery Routine Ordered Studies 07/27/25 12:28 CT abd pelvis IV con only Stat Hospital Course (1) Hyponatremia: (2) Diffuse abdominal pain: (3) Hypomagnesemia: (4) Gastric outlet obstruction: (5) Vomiting: (6) Acute hyponatremia: (7) Small bowel obstruction: (8) Duodenal stricture: (9) Alcohol dependence: (10) Intractable vomiting: Plan 54-year-old male PMHx SBO, duodenal stricture, hyponatremia, alcohol use disorder , HFrEF, and SNHL of bilateral ears, heavy smoking, recent admission to hospital with similar issue, presenting for nausea, vomiting and not able to tolerate food since 07/25/2025( past Monday). He was admitted for similar issue 2 weeks ago and was sent home after being managed conservatively. Surgery recommended no surgical intervention on last admission. Today he does have hyponatremia, hypomagnesemia on lab and also has intractable nausea and vomiting. Hence he is getting admitted for sx management as well as surgery re-evaluation. #Intractable nausea vomiting - Multiple RF: GOO vs Duodenal stricture vs Alcohol use vs Poor appetite. - Diet advanced from NPO to full liquid diet.Continue full liquid diet at home.Manager Sql consulted and provided with information on varoius diet options until his endoscopic intervention on 08/19. - Zofran and anlgesics as needed. #Dehydration - Given RL 100 ml/ hr #GOO/ Duodenal Stricture/ DUodenitis - CT scan : Stable thickening of duodenum represent severe duodenitis vs mass vs ulcer which could cause GOO. Most likely duodenitis given his recent cut down on alcohol. - Chest XR: Gaseous distension of hepatic flexure of colon or stomach. - Pt with vomiting. However was subsided with one dose of Zofran makes GOO less potential DD than gastritis/ duodenitis component. - Admitted to inpatient med/surg tele Protonix 40 mg IV BID. Full liquid diet continued at hospital and recommend to continue the same at home. Surgery consulted and provided with diet management. Has appointment for GI at [facility] for stenting duodenum with EUS for a gastrojejunal jejunostomy at . Manager Sql consulted for maintaining full liquid diet until his Gi appointment and providing him with options for home. #Hyponatremia Na: 128-> 131, Urine osm 373, S.Osm 272. U.Na 19, Possibly extrarenal loss from vomiting, bowel obstruction. IVF in ED 1.5L - Anticipate correction with fluid and vomit control. #Hypomagnesemia - M.6 2/2 to vomiting, GOO and Poor PO. - S/P 1 gm supplementation in ED. - Additional 1 gm given. #Alcohol use - Last drink on - High risk for withdrawal - AWWS Q shift #Smoking : - 1 pack a day - Offered patch- denied. Total Time Total Time Spent Total Time Spent (In Minutes): <30 Discharge Plan Discharge Items Patient Disposition: Home - Self-Care Reason For Visit: VOMITING Discharge Diagnosis: Duodenal stricture with N/V Condition on Discharge: Fair Activity: Per Instructions section Non-emergency contact: Primary Care Provider and [facility] Call non-emergency contact if: your symptoms worsen and your temperature is above 101 Follow-up/Referrals: Burak Stevens DO [Primary Care Provider] - 08/07/25 11:00 am Diet: Full liquid Addtl Attending Provider Instructions: You were admitted to [facility] because ofnausea, vomiting, abdomen pain and inability to tolerate food. With regard to symptoms we put you on Nil per oral diet, managed your pain with medications and dehydration with fluids. We did a CT scan of your abdomen which showed duodenal stricture for which we talked with [facility] on outpatient and you were scheduled for a endoscopic intervention for the bowel obstruction. We also saw you with the surgery team who recommended to continue the diet as tolerated, so we placed you on full liquid diet and recommend to c tuan the same at home. We also talked you with a broiler chef or cook to make sure you know various full liquid diet options. You will continue your home medications as noted below. Medication management: 1) Your are prescribed medication called "Zofran" as needed for nausea.(A new script has been sent to your pharmacy) 2) take a capful of miralax (17 grams) twice a day proactively to prevent constipation until after the procedure/after the physical and emotional stress have let up. (and remember that the constipation is about 20 feet of intestine downstream from the duodenal stricture - so managing constipation isn't really fixing the primary problem, more just helping with the secondary/downstream backup that puts more pressure upstream. Please make sure you follow up with your PCP and your [facility] on 19 august to make sure your condition continues to be stable. Thank you for choosing [facility] as your healthcare provider Pending Studies at Discharge: No Stand-Alone Forms: My [facility], Smoking Cessation Medications and DC Order Prescriptions: New ondansetron 4 mg tablet,disintegrating 4 mg PO .prn Qty: 20 0RF thiamine HCl (vitamin B1) [Vitamin B-1] 100 mg tablet 100 mg PO DAILY Qty: 30 3RF Continued famotidine 20 mg tablet 20 mg PO DAILY Rx Instructions: LAST FILLED 03/04/25 FOR 30 DAYS/30 TABS. bisacodyl [Laxative (bisacodyl)] 5 mg tablet,delayed release (DR/EC) 5 mg PO DIRECTED Rx Instructions: LAST FILLED 05/25/25 FOR 30 DAYS/30 TABS. polyethylene glycol 3350 [Miralax] 17 gram/dose Powder 17 g PO DAILY PRN (Reason: NEEDED) potassium chloride 20 mEq tablet,ER particles/crystals 20 meq PO DAILY Qty: 30 0RF Rx Instructions: LAST FILLED 03/06/25 FOR 30 DAYS/30 TABS. pantoprazole 40 mg tablet,delayed release (DR/EC) 40 mg PO BID Qty: 60 0RF Rx Instructions: LAST FILLED 05/24/25 FOR 21 DAYS. folic acid 1 mg tablet 1 mg PO QAM Qty: 30 0RF Rx Instructions: LAST FILLED 01/13/25 FOR 90 DAYS/90 TABS magnesium oxide 250 mg magnesium tablet 250 mg PO BID Qty: 60 0RF Rx Instructions: LAST FILLED 03/11/25 FOR 30 TABS/30 DAYS Discharge Orders: Discharge Order (Routine); Ordered 07/31/25 Ordered By: Jon Tate Admission Data Admit Date/Time: 07/27/25 16:39 Attending Provider: Jon Tate Admit Provider: Daija Antunez Primary Care Provider: Burak Stevens Other Providers: Dennis Brown; Keri Mehta; Roney Platt; Luis Albright; Daryl Gomez; Luc Rico; Denise Álvarez; Larry Pineda; Liban Garcia; Zulma Bradford; Von Sosa; Loy Pickett; Daryl Junior; Avril,Debbiea A Other Interventions: Discharge Summary Assessment (RN) Last Done: 07/31/25 10:09 Supervising Physician Co-Signing Physician Notes I personally examined the patient and verified all [place] points of history and exam, discussed case, and agree with decision making with Dr Condon Had copious bowel movements with bowel prep. Tolerating full liquid diet. discussed planning and next steps againhe expressed understanding. Feels okay about going home. Vitals noted, in general he is awake and alert pleasant no distress. HEENT normocephalic atraumatic mucous membranes moist. Breathing unlabored no accessory muscle use good effort. Skin without rashes pallor or icterus. Neuro without focal deficits. Intractable/recurrent nausea and vomitingappears to be due to duodenal stricture. Alcohol intake appears to be significantly down from before, so I doubt it is alcohol related gastritis/duodenitis at this time. Scheduled w [facility] GI for 08/19. Full liquid diet until at least post procedure. He talked about "cheating" at timesdiscussed the risk of recurrent intractable nausea and vomiting; in terms of "real world" did discuss how he might be able to occasionally "cheat and get away with it" but cautioned against it and definitely cautioned against trying to eat totally normally. Constipationbowel prep has helped significantly. MiraLAX twice daily to prevent recurrence. Hyponatremia, likely hypovolemic w/ emesis Gastroenteritis in the setting of suspected duodenal stricture without complete obstruction - continue acid suppression Tobacco use disorder - declines nicotine patch h/o EtOH use disorder - presently denies use. AWSS. doing well. thiamine, folate, multivitamin. Else see resident documentation as noted. Safe/stable for home Resident Activity Tracking Resident Involvement: Resident Care Provided Care Provided: Adult Hospital Medicine
--- NOTE | 2025-07-31 13:06 | Billing Data ---
Date of Service July 31, 2025 Coding Level of Care Code 57245 IN/OBS DISCH 30 MIN/LESS
== END 2025-07-31 11:47 | disposition home or self-care (01) | DRG 381 ==
LOC: SUATTDRO → ED 11:54 → 2W 16:39 → SUATTDRO 16:39 → INTOOBSV 16:39 → 2W 17:35 → 2N 23:03